=== PATIENT | male | born 1960 | race Caucasian/White ===

== ENCOUNTER 2018-01-01 08:37 | Emergency (ER) | payer OTHER, SELFPAY ==
[2018-01-01 08:38] VITALS: BP 156/82; PULSE 66; RESP 18; TEMP 36.6; O2SAT 99; BMI 27.0
[2018-01-01] MEDS: Ketorolac 60 MG/2 ML Vial IM (09:06)
--- NOTE | 2018-01-01 09:12 | ED.DCSUM_ITS ---
- ER Visit Summary Date of Service: 01/01/18 Chief Complaint: Back pain History of Present Illness: The patient is a 57 M presenting with back pain. He states this started yesterday. He states he lifted a box and turned and felt a pop in his right lower back. He has a history of chronic back pain. He states this worsened after lifting a box at work yesterday. He denies bowel or bladder incontinence. No numbness or weakness. He is able to ambulate with pain. Denies other complaints. Physical Examination: Vitals are stable. Patient is afebrile. Alert no acute distress. HEENT exam is unremarkable. Lungs are clear and equal bilaterally. Heart is regular rate and rhythm. Abdomen is soft nontender nondistended. Back: Right paraspinal lumbar muscle tenderness, no midline tenderness. Straight leg raise positive at 30? on the right Extremities are unremarkable. Skin is warm and dry. No focal neurologic deficit. Normal strength and sensation Remainder of exam is unremarkable. Emergency Department Course and Treatment: Patient drove himself to the emergency department. He is given Toradol IM. He is given a prescription for Flexeril. Advised follow-up with corporate care. Advised return to ED if worsening complaints. Disposition: Discharge home Impression: Lumbar strain This note was generated with [employer] dictation software. It may contain incorrect words, spelling, and punctuation that were not noted in review of the chart prior to signing ED Disposition - Plan for ED Patient: Chief Complaint: Back Referrals: Maris Kolb, HUSSAIN-C [Primary Care Provider] -
--- NOTE | 2018-01-01 09:12 | ED.DEP ---
ED Disposition - Plan for ED Patient: Chief Complaint: Back Instructions: ED Sprain Strain Lumbar Prescriptions: Cyclobenzaprine [Flexeril] 10 mg PO TID PRN #20 tablet PRN Reason: Muscle Spasm Referrals: Maris Kolb NP-C [Primary Care Provider] - Corporate,[facility] [place] [GROUP OF PHYSICIANS] -
[2018-01-01 09:37] VITALS: BP 129/63; PULSE 78; RESP 16; O2SAT 98
== END 2018-01-01 09:38 | disposition home or self-care (01) ==
PROVIDERS: Emergency Provider Emergency Medicine; Family Provider Nurse Practitioner Primary Care; PCP Nurse Practitioner Primary Care
DX: S39.012A Strain of muscle, fascia and tendon of lower back, initial encounter (principal); X50.0XXA Overexertion from strenuous movement or load, initial encounter; Y93.89 Activity, other specified; Y92.9 Unspecified place or not applicable; G89.29 Other chronic pain; Z72.0 Tobacco use
CPT/HCPCS: 96372; 99282

== ENCOUNTER 2021-04-21 10:45 | Emergency (ER) | payer BC, SELFPAY ==
[2021-04-21 10:46] VITALS: BP 140/79; PULSE 67; RESP 14; TEMP 36.3; O2SAT 99; BMI 26.4
--- NOTE | 2021-04-21 11:00 | EDS_ITS ---
HPI History of Present Illness Chief Complaint: Upper Extremity Injury Informant: patient Onset/Context/Timing Onset: Yesterday Current Severity: Mild Maximum Severity: Mild Narrative Narrative: Patient presents secondary to right wrist pain. He states he was at work yesterday and noted pain in the volar right wrist that extended into the hand as well as up into the forearm. He now has increased pain with any flexion and extension. No erythema or warmth. No direct trauma or injury. He does report having repetitive movements with his wrist frequently. Patient also complains of cold symptoms with a cough for the past week. [facility] Medical History (Updated 04/21/21 @ 11:[address] Mami Miller MD) Meniscal injury no medical history Home Medications naproxen [Naprosyn] 500 mg PO BID PRN #20 tab 04/21/21 [Rx Last Taken Unknown] prednisone 60 mg PO DAILY #15 tab 04/21/21 [Rx Last Taken Unknown] Allergy/AdvReac Type Severity Reaction Status Date / Time No Known Allergies Allergy Verified 04/21/21 10:46 Social History Smoking Status: Current every day smoker tobacco type: cigarettes ROS ROS ED Constitutional Constitutional ED: Denies chills or fever(s) Eyes Eyes: Denies change in vision ENT ENT ED: Reports other Details: Congestion ; Denies sore throat Cardiovascular Cardiovascular: Denies chest pain Respiratory/Chest Respiratory/Chest: Reports cough; Denies dyspnea Gastrointestinal Gastrointestinal: Denies abdominal pain, diarrhea, nausea or vomiting Genitourinary Genitourinary ED: Denies dysuria Musculoskeletal Musculoskeletal: Reports other Details: Right wrist pain ; Denies back pain Integumentary Denies rash Neurologic Neurologic: Denies headache(s) or weakness Allergic/Immunologic Allergic/Immunologic ED: Denies urticaria EXAM Physical Exam Const Vital Signs: 04/21/21 10:46 Temperature 97.4 F L Temperature Source Temporal Pulse Rate 67 Respiratory Rate 14 Blood Pressure 140/79 H Blood Pressure Mean 99 Pulse Ox 99 Oxygen Delivery Method Room Air Positive well nourished and well developed General Appearance ED: well developed HEENT Reports normocephalic and head/scalp atraumatic Eyes PERRL and EOMs intact bilaterally Neck supple Chest Wall inspection of chest normal and palpation of chest normal Resp normal respiratory effort and clear to auscultation bilaterally Cardio regular rate and regular rhythm GI normal to inspection, nondistended, normoactive bowel sounds Palpation: soft Extremity normal to inspection Extremity Narrative: Tenderness to palpation over carpal tunnel volar right wrist. Decreased ROM at wrist secondary to pain. No erythema or warmth. Strong distal pulses with cap refill intact. Neuro oriented x3 and no sensory deficits noted Sensorium / Orientation: alert Motor Exam: strength 5/5 throughout Psych mental status grossly normal Skin no rashes or lesions noted MDM MDM MDM Narrative Medical decision making narrative: Right wrist x-ray obtained. Due to the patient's cold symptoms Covid send out PCR test ordered. Treatment and Re-Evaluation Comments:: Right wrist x-ray per my interpretation reveals no acute findings. Radiologist interpretation is reviewed and agrees. Patient be placed in a Velcro wrist splint and treated with a course of anti-inflammatories and prednisone. He will be referred to orthopedics if not improving. Discharge Plan Triage Chief Complaint: Upper Extremity Injury ED Provider: Mami Miller Dx/Rx/DC Orders Clinical Impression: Carpal tunnel syndrome Instructions: ED Carpal Tunnel Syndrome Prescriptions: New naproxen [Naprosyn] 500 mg tablet 500 mg PO BID PRN (Reason: pain) Qty: 20 RF: 0 prednisone 20 mg tablet 60 mg PO DAILY Qty: 15 RF: 0 Primary Care Provider: Maris Kolb NP Referrals: Demetris Kumari MD [STAFF PHYSICIAN] - 10-14 Days if not better Maris oKlb NP, SOUND EFFECTS SUPERVISOR-C [Primary Care Provider] - Disposition Disposition: Home, Self Care
--- NOTE | 2021-04-21 11:12 | RAD_ITS ---
STUDY: X-RAY - RIGHT WRIST REASON FOR EXAM: Right wrist pain since yesterday, no specific injury. TECHNIQUE: 3 view(s) of the wrist were obtained. COMPARISON: None. FINDINGS: Normal visualized distal radius and ulna. Normal radiocarpal articulation. Normal distal radioulnar articulation. Normal carpal bones. Normal carpal articulations. Normal carpometacarpal articulation of the thumb. Normal second through fifth carpometacarpal articulations. Normal visualized metacarpal bones. The soft tissue structures are unremarkable. RAD/Wrist min 3 Views IMPRESSION: Normal x-ray examination of the right wrist. Electronically Signed: Omar Ferguson MD at 11:36 EDT Tel , Service support ,
[2021-04-21] MEDS: predniSONE 20 MG Tablet 40 MG PO (12:18)
[2021-04-21] MEDS: Naproxen 500 MG Tablet PO (12:18)
== END 2021-04-21 12:23 | disposition home or self-care (01) ==
LOC: ED 12:07
PROVIDERS: Emergency Provider Emergency Medicine; PCP Nurse Practitioner Primary Care
DX: G56.01 Carpal tunnel syndrome, right upper limb (principal); F17.210 Nicotine dependence, cigarettes, uncomplicated
CPT/HCPCS: 73110; 87635; 99284; U0005; U0003

== ENCOUNTER 2021-07-05 23:26 | Emergency (ER) | payer BC, SELFPAY ==
[2021-07-05 23:27] VITALS: BP 168/65; PULSE 100; RESP 18; TEMP 36.7; O2SAT 98; BMI 27.3
--- NOTE | 2021-07-05 23:36 | RAD_ITS ---
STUDY: X-RAY - RIGHT HAND, ATTENTION 4 FINGER REASON FOR EXAM: Male, 60 years old. Injury, eval for FB -- ring finger TECHNIQUE: 3 view(s) of the finger were obtained. COMPARISON: None. FINDINGS: Normal metacarpal head. Normal metacarpophalangeal joint. Normal proximal phalanx. Normal middle phalanx. Normal distal phalanx. Normal proximal interphalangeal joint. Normal distal interphalangeal joint. RAD/Finger(s) Min 2 Views IMPRESSION: Normal x-ray examination of the finger. Electronically Signed: Carmelita Aranda MD at 0:09 EST Tel , Service support ,
[2021-07-05] MEDS: Lidocaine/Epi/Tetracaine 50 ML 1 APPLIC TOPICAL (23:45)
[2021-07-05] MEDS: Diphth,Pertuss(Acell),Tet Vac 0.5 ML Vial IM (23:48)
--- NOTE | 2021-07-05 23:55 | EDS_ITS ---
HPI History of Present Illness Chief Complaint: Laceration Informant: patient Occured/Mechanism Mechanism/Context: Yes other see comment below Comment: accidentally incised ring finger when glass broke Onset/Context/Timing Onset: Today (JPTA) Context: Sudden Onset Timing: Continuous Quality of Pain: - (sore) Location: R ring finger Current Severity: Mild Maximum Severity: Moderate Worsened by: palpation Relieved by: nothing Associated Symptoms Associated Symptoms: Negative for Parasthesia, Weakness and Loss of Funtion Narrative Narrative: Patient states he lost his temper and he was holding a drinking glass, slammed down on the counter and it broke, cutting his right finger. He denies any numbness, weakness or loss of function. No other injuries. Tetanus Immunization: 5-10 years [facility] Medical History Meniscal injury Rheumatoid arthritis Home Medications naproxen [Naprosyn] 500 mg PO BID PRN #20 tab 04/21/21 [Rx Last Taken Unknown] prednisone 60 mg PO DAILY #15 tab 04/21/21 [Rx Last Taken Unknown] meloxicam 07/05/21 [History Last Taken Unknown] Allergy/AdvReac Type Severity Reaction Status Date / Time No Known Allergies Allergy Verified 04/21/21 10:46 Social History Smoking Status: Current every day smoker tobacco type: cigarettes ROS ROS ED Constitutional Constitutional ED: Denies chills or fever(s) Musculoskeletal Musculoskeletal: Reports extremity pain; Denies neck pain Integumentary Reports laceration; Denies Abrasions or rash Neurologic Neurologic: Denies paresthesias or weakness EXAM Physical Exam Const Vital Signs: 07/05/21 23:27 Temperature 98.1 F Temperature Source Oral Pulse Rate 100 Respiratory Rate 18 Blood Pressure 168/65 H Blood Pressure Mean 99 Pulse Ox 98 Oxygen Delivery Method Room Air Positive well nourished and well developed General Appearance ED: well developed and NAD Neck full ROM and supple Back/Spine normal ROM and normal to inspection Extremity Extremity Narrative: Mildly tender at right ring finger laceration at the distal phalanx. Intact FDS, FDP, extensor. No other injuries to the right hand. Neuro oriented x3, no focal motor deficits and no sensory deficits noted Sensorium / Orientation: alert Psych mental status grossly normal and thought process normal Skin Skin Narrative: 2 cm full-thickness subcutaneous L-shaped laceration to the volar ulnar aspect of the right ring finger distal phalanx, subcutaneous fat seen, no other important structures, no active bleeding. Rashes: no rashes MDM MDM MDM Narrative Medical decision making narrative: X-rays of the finger were obtained to rule out a piece of glass/foreign body which the patient felt like may still be there, it is negative on my interpretation 3 views for foreign body or fracture/bony involvement. His laceration was repaired and he was given appropriate discharge instructions. Procedures Lacerations Right ring finger: Length: 2 cm Depth: Sub Q Shape: L-shaped Prep: Sterile Conditions and Chlorhexadine Laceration repair: Lidocaine with epi (1cc after topical let), Local, Wound explored (No FB) and - (Scrubbed with chlorhexidine aggressively) Number of Sutures/[place]re[place]: 3 Suture Information: Ethilon, Simple and 5-0 Comment: Repaired under bloodless field Discharge Plan Triage Chief Complaint: Laceration ED Provider: Kannan Boss Dx/Rx/DC Orders Clinical Impression: Laceration of right ring finger, Immunization, tetanus-diphtheria Instructions: ED Laceration, Hand: All Closures Prescriptions: No Action naproxen [Naprosyn] 500 mg tablet 500 mg PO BID PRN (Reason: pain) Qty: 20 RF: 0 prednisone 20 mg tablet 60 mg PO DAILY Qty: 15 RF: 0 meloxicam 15 mg tablet RF: 0 Primary Care Provider: Maris Kolb NP Referrals: Maris Kolb NP, MEAT AND POULTRY INSPECTOR-C [Primary Care Provider] - 10 Day for suture removal (Or ER or urgent care) Disposition Disposition: Home, Self Care
[2021-07-06] MEDS: Lidocaine 1% (20 ml mdv) 20 ML Vial INFILT (00:30)
[2021-07-06 01:13] VITALS: PULSE 75; RESP 16
== END 2021-07-06 01:15 | disposition home or self-care (01) ==
PROVIDERS: Emergency Provider Emergency Medicine; PCP Nurse Practitioner Primary Care
DX: S61.214A Laceration without foreign body of right ring finger without damage to nail, initial encounter (principal); F17.210 Nicotine dependence, cigarettes, uncomplicated; W22.09XA Striking against other stationary object, initial encounter
CPT/HCPCS: 12001; 73140; 90471; 90715; 99283

== ENCOUNTER 2021-07-27 09:57 | Emergency (ER) | payer OTHER, BC, SELFPAY ==
[2021-07-27 09:57] VITALS: BP 142/87; PULSE 70; RESP 16; TEMP 36.6; O2SAT 99; BMI 26.9
--- NOTE | 2021-07-27 10:13 | RAD_ITS ---
STUDY: X-RAY - RIGHT SHOULDER REASON FOR EXAM: Male, 60 years old. Injury TECHNIQUE: 4 view(s) of the shoulder. COMPARISON: None. FINDINGS: Normal glenohumeral articulation. Normal acromioclavicular joint. Normal acromion. Normal humeral head and visualized proximal humerus. The soft tissue structures are unremarkable. Normal visualized pulmonary apex. RAD/Shoulder min 2 Views IMPRESSION: Normal x-ray examination of the shoulder. Electronically Signed: Contreras Moe MD at 10:55 EST , Service support ,
--- NOTE | 2021-07-27 10:14 | EX.ED.UPPERE ---
HPI History of Present Illness Chief Complaint: Upper Extremity Injury Informant: patient Occured/Mechanism Mechanism/Context: Yes work related Onset/Context/Timing Onset: Yesterday Context: Gradual Onset Timing: Waxes and wanes Quality of Pain: Aching and Burning Current Severity: Mild Maximum Severity: Moderate Narrative Narrative: Patient present secondary to right shoulder pain. He states he was moving some boxes at work yesterday when he got a burning sensation in his right shoulder. He then felt a pop and then has had sharp intermittent pain in the right shoulder since that time. It does not radiate down his arm. No paresthesias or weakness. He is right-hand dominant. [facility] Medical History Meniscal injury Rheumatoid arthritis Home Medications naproxen [Naprosyn] 500 mg PO BID PRN #20 tab 07/27/21 [Rx Last Taken Unknown] Allergy/AdvReac Type Severity Reaction Status Date / Time No Known Allergies Allergy Verified 07/27/21 10:00 Social History Smoking Status: Current every day smoker tobacco type: cigarettes ROS ROS ED Constitutional Constitutional ED: Denies chills or fever(s) Eyes Eyes: Denies change in vision ENT ENT ED: Denies sore throat Cardiovascular Cardiovascular: Denies chest pain Respiratory/Chest Respiratory/Chest: Denies cough or dyspnea Gastrointestinal Gastrointestinal: Denies abdominal pain, diarrhea, nausea or vomiting Genitourinary Genitourinary ED: Denies dysuria Musculoskeletal Musculoskeletal: Reports other Details: Right shoulder pain ; Denies back pain Integumentary Denies rash Neurologic Neurologic: Denies headache(s) or weakness Allergic/Immunologic Allergic/Immunologic ED: Denies urticaria EXAM Physical Exam Const Vital Signs: 07/27/21 09:57 Temperature 97.9 F Temperature Source Temporal Pulse Rate 70 Respiratory Rate 16 Blood Pressure 142/87 H Blood Pressure Mean 105 Pulse Ox 99 Oxygen Delivery Method Room Air Positive well nourished and well developed General Appearance ED: well developed HEENT normocephalic and atraumatic Neck supple Chest Wall inspection of chest normal and palpation of chest normal Resp normal respiratory effort and clear to auscultation bilaterally Cardio regular rate and regular rhythm GI non-tender Palpation: soft Extremity Extremity Narrative: Tenderness over the right AC joint. No obvious deformity. No tenderness along the length of the clavicle. Good range of motion of the right upper extremity. Strong distal pulses. Neuro oriented x3 Sensorium / Orientation: alert Psych mental status grossly normal Skin Lesions: no lesions Rashes: no rashes MDM MDM MDM Narrative Medical decision making narrative: Patient given dose of naproxen. Right shoulder x-rays obtained. Radiography Diagnostic Testing: Radiology Impression Shoulder X-Ray 07/27/21 10:13 IMPRESSION: Normal x-ray examination of the shoulder. Electronically Signed: Contreras Moe MD at 10:55 EST , Service support , Treatment and Re-Evaluation Comments:: X-ray per my interpretation reveals no acute findings. Radiology interpretation also reviewed. Test results discussed with the patient. He will be treated with anti-inflammatories and will follow up with [facility]. Patient will be given work restrictions on use of right upper extremity Discharge Plan Triage Chief Complaint: Upper Extremity Injury ED Provider: Mami Miller Dx/Rx/DC Orders Clinical Impression: Sprain of right shoulder Instructions: ED Shoulder Sprain Prescriptions: New naproxen [Naprosyn] 500 mg tablet 500 mg PO BID PRN (Reason: pain) Qty: 20 RF: 0 Discontinued naproxen [Naprosyn] 500 mg tablet 500 mg PO BID PRN (Reason: pain) Qty: 20 RF: 0 prednisone 20 mg tablet 60 mg PO DAILY Qty: 15 RF: 0 meloxicam 15 mg tablet RF: 0 Stand Alone Forms: Work Status Form Primary Care Provider: Maris Kolb NP [facility] [GROUP OF PHYSICIANS] - 3-5 Days Maris Kolb NP, CLINICAL TRIAL EDUCATOR-C [Primary Care Provider] - Disposition Disposition: Home, Self Care
[2021-07-27] MEDS: Naproxen 500 MG Tablet PO (10:26)
--- NOTE | 2021-07-27 10:42 | ED.RN ---
pt's employer is [employer] out of [place]. this rn attempted to contact Janae Mclean at [phone] to see if drug screen is required. RN left number for call back. Pt given FROI to complete.
== END 2021-07-27 11:39 | disposition home or self-care (01) ==
LOC: ED 11:26
PROVIDERS: Emergency Provider Emergency Medicine; PCP Nurse Practitioner Primary Care
DX: S43.401A Unspecified sprain of right shoulder joint, initial encounter (principal); X50.3XXA Overexertion from repetitive movements, initial encounter; Y93.89 Activity, other specified; Y92.9 Unspecified place or not applicable; Y99.0 Civilian activity done for income or pay; M06.9 Rheumatoid arthritis, unspecified; F17.210 Nicotine dependence, cigarettes, uncomplicated
CPT/HCPCS: 73030; 99283

== ENCOUNTER → 2023-05-14 | Outpatient (CLI) | payer BC, SELFPAY ==
[2023-05-14 12:17] LABS: Erythrocyte Sedimentation Rate 13 mm/hr (0-20)
[2023-05-14 12:20] LABS: Absolute Lymphocyte Count 1.86 X10^3/uL (0.83-4.51); Absolute Neutrophil Count 5.1 X10^3/uL (2.0-7.7); Basophil# 0.06 X10^3/uL; Basophil% 0.8 % (0-1); Eosinophil# 0.27 X10^3/uL; Eosinophils% 3.4 % (0-5); Hematocrit 48.8 % (40-54); Hemoglobin 15.8 g/dL (13.0-16.5); Lymphocyte # 1.86 X10^3/ul (0.83-4.51); Lymphocyte % 23.7 % (19-41); Mean Corp Hgb Conc 32.4 g/dL (32-36); Mean Corpuscular Hgb 31.1 pg (27.0-32.0); Mean Corpuscular Volume 96.1 fL (80-94); Mean Platelet Vol. 10.9 fl (6.2-12.0); Monocyte# 0.46 X10^3/uL; Monocyte% 5.9 % (0-10); NRBC Flagged by Analyzer 0 % (0-5); Neutrophil # 5.14 X10^3/uL (2.7-7.7); Neutrophil % 65.3 % (47-70); Platelet Count 234 K/mm3 (150-450); RBC Distribution Width CV 13.6 % (11.6-14.6); RBC Distribution Width SD 47.9 fl (35.1-43.9); Red Blood Count 5.08 M/mm3 (4.6-6.2); White Blood Count 7.9 K/mm3 (4.4-11.0)
[2023-05-14 12:56] LABS: ALB/GLOB Ratio 0.8 RATIO (0.9-2.4); AST(SGOT) 15 U/L (15-37); Alanine Aminotransfer ALT/SGPT 31 U/L (16-61); Albumin, Serum 3.5 g/dL (3.2-5.0); Alkaline Phosphatase 89 U/L (45-117); Anion Gap 3 (5-15); BUN 13 mg/dL (7-18); BUN/Creat Ratio 13.8 RATIO (10-20); CRP 6.63 mg/L (0.0-3.0); Calcium,Total 9.4 mg/dL (8.5-10.1); Chloride 107 mmol/L (98-107); Creatinine, Serum 0.94 mg/dL (0.70-1.30); EST Glomerular Filtration Rate 86 mL/min (>60); Est Glom Filt Rate - Afr Amer 104 mL/min (>60); Globulin 4.4 g/dL (2.2-4.2); Glucose 94 mg/dL (74-106); Potassium 4.7 mmol/L (3.5-5.1); Protein, Total 7.9 g/dL (6.4-8.2); Sodium Level 139 mmol/L (136-145)
[2023-05-14 13:24] LABS: Hepatitis B Surface Antibody Non-Reactive; Hepatitis B Surface Antigen Non-Reactive (Nonreactive); Hepatitis C Antibody Non-Reactive (Nonreactive)
[2023-05-15 13:07] LABS: CCP IgG Antibodies > 250 units (0-19)
== END | disposition home or self-care (01) ==
LOC: MTLAB 09:53
PROVIDERS: PCP Nurse Practitioner Primary Care; Referring Provider Internal Medicine Rheumatology; Visit Provider Internal Medicine Rheumatology
DX: M05.70 Rheumatoid arthritis with rheumatoid factor of unspecified site without organ or systems involvement (principal); Z79.899 Other long term (current) drug therapy
CPT/HCPCS: 36415; 80053; 85025; 85652; 86140; 86200; 86431; 86706; 86803; 87340

== ENCOUNTER → 2023-08-28 | Outpatient (CLI) | payer BC, SELFPAY ==
[2023-08-28 12:24] LABS: Absolute Lymphocyte Count 1.73 X10^3/uL (0.83-4.51); Absolute Neutrophil Count 5.1 X10^3/uL (2.0-7.7); Basophil# 0.07 X10^3/uL; Basophil% 0.9 % (0-1); Eosinophil# 0.39 X10^3/uL; Hematocrit 43.3 % (40-54); Hemoglobin 14.5 g/dL (13.0-16.5); Lymphocyte # 1.73 X10^3/ul (0.83-4.51); Lymphocyte % 22.1 % (19-41); Mean Corp Hgb Conc 33.5 g/dL (32-36); Mean Corpuscular Hgb 31.5 pg (27.0-32.0); Mean Corpuscular Volume 94.1 fL (80-94); Mean Platelet Vol. 10.6 fl (6.2-12.0); Monocyte# 0.54 X10^3/uL; Monocyte% 6.9 % (0-10); NRBC Flagged by Analyzer 0 % (0-5); Neutrophil # 5.07 X10^3/uL (2.7-7.7); Neutrophil % 64.6 % (47-70); Platelet Count 232 K/mm3 (150-450); RBC Distribution Width CV 13.5 % (11.6-14.6); RBC Distribution Width SD 45.5 fl (35.1-43.9); White Blood Count 7.8 K/mm3 (4.4-11.0)
[2023-08-28 13:47] LABS: ALB/GLOB Ratio 0.9 RATIO (0.9-2.4); AST(SGOT) 13 U/L (15-37); Alanine Aminotransfer ALT/SGPT 24 U/L (16-61); Albumin, Serum 3.4 g/dL (3.2-5.0); Alkaline Phosphatase 84 U/L (45-117); Anion Gap 1 (5-15); BUN 14 mg/dL (7-18); BUN/Creat Ratio 15.2 RATIO (10-20); Calcium,Total 9.4 mg/dL (8.5-10.1); Chloride 110 mmol/L (98-107); Creatinine, Serum 0.92 mg/dL (0.70-1.30); EST Glomerular Filtration Rate 88 mL/min (>60); Est Glom Filt Rate - Afr Amer 106 mL/min (>60); Globulin 3.8 g/dL (2.2-4.2); Glucose 80 mg/dL (74-106); Potassium 4.2 mmol/L (3.5-5.1); Protein, Total 7.2 g/dL (6.4-8.2); Sodium Level 139 mmol/L (136-145)
== END | disposition home or self-care (01) ==
PROVIDERS: PCP Nurse Practitioner Primary Care; Referring Provider Internal Medicine Rheumatology; Visit Provider Internal Medicine Rheumatology
DX: M05.70 Rheumatoid arthritis with rheumatoid factor of unspecified site without organ or systems involvement (principal); M17.0 Bilateral primary osteoarthritis of knee; Z79.899 Other long term (current) drug therapy
CPT/HCPCS: 36415; 80053; 85025

== ENCOUNTER 2023-10-23 15:09 | Emergency (ER) | payer BC, SELFPAY ==
[2023-10-23 15:09] VITALS: BP 172/82; PULSE 79; RESP 18; TEMP 36.1; O2SAT 100; BMI 27.6
--- NOTE | 2023-10-23 15:34 | EDS_ITS ---
HPI History of Present Illness Chief Complaint: Upper Extremity Injury Informant: patient Narrative Narrative: [id number] male presents mechanical fall 11 AM this morning at home outside. He stumbled falling arm in supine position in his chest hitting his arm. Pain with movement. No head injuries. No chest wall pain. No anticoagulation medicines. Took a couple Tylenol's earlier. Pain worse with movement. PFSH PFSH Medical History Digital mucous cyst of finger of right hand Meniscal injury Olecranon bursitis, left elbow Rheumatoid arthritis Home Medications methotrexate sodium 2.5 mg tablet 2.5 mg PO QWEEK 12/22/21 [History Last Taken Unknown] acetaminophen 500 mg tablet (Tylenol Extra Strength) 500 mg PO Q6H PRN 09/06/23 [History Last Taken Unknown] folic acid 800 mcg tablet 0.8 mg PO DAILY 09/06/23 [History Last Taken Unknown] Allergy/AdvReac Type Severity Reaction Status Date / Time cat dander Allergy Itching Verified 10/23/23 15:11 Social History Smoking Status: Current every day smoker tobacco type: cigarettes ROS ROS ED Constitutional Constitutional ED: Denies chills, fever(s) or sweats Eyes Eyes: Denies change in vision ENT ENT ED: Denies dysphagia or sore throat Cardiovascular Cardiovascular: Denies chest pain, leg edema, palpitations or racing heartbeat Respiratory/Chest Respiratory/Chest: Denies cough, dyspnea or dyspnea on exertion Gastrointestinal Gastrointestinal: Denies abdominal pain, diarrhea, nausea or vomiting Genitourinary Genitourinary ED: Denies dysuria, hematuria or urinary frequency Musculoskeletal Musculoskeletal: Reports extremity pain; Denies back pain or neck pain Integumentary Denies rash or wounds Neurologic Neurologic: Denies headache(s), paresthesias or weakness EXAM Physical Exam Const Vital Signs: 10/23/23 15:09 Temperature 96.9 F L Temperature Source Temporal Pulse Rate 79 Respiratory Rate 18 Blood Pressure 172/82 H Blood Pressure Mean 112 Pulse Ox 100 Oxygen Delivery Method Room Air Positive well nourished and well developed Constitutional Narrative: GCS 15 General Appearance ED: well developed and NAD HEENT Reports moist mucous membranes normocephalic and atraumatic Eyes PERRL, EOMs intact bilaterally and conjunctivae normal General Eye ED: Yes normal appearance of both eyes Neck no lymphadenopathy and supple General: Negative for tenderness Chest Wall Chest: Negative for tenderness Resp normal respiratory effort and normal air movement Effort and Inspection: symmetric chest movement; Negative for respiratory distress Cardio regular rate, regular rhythm and no murmurs Peripheral Pulses: pulses 2+ throughout GI normal to inspection, nondistended, normoactive bowel sounds and non-tender Palpation: Negative for guarding or rebound tenderness present Back/Spine no CVA tenderness and no thoracic nor lumbar tenderness Extremity Extremity Narrative: Right upper extremity: No shoulder or elbow tenderness. Slight swelling of the distal radial aspect of forearm however no bony tenderness. There is swelling of the dorsal wrist with snuffbox tenderness. Skin intact. No hand tenderness. Neuro vas intact distally. General Extremety ED: Yes tenderness; Negative for edema General Extremity: Negative for edema Neuro oriented x3 and no sensory deficits noted Sensorium / Orientation: awake and alert Skin no rashes or lesions noted and no wounds MDM MDM MDM Narrative Medical decision making narrative: Interventions / MDM: Differential diagnosis: Wrist sprain, occult fracture Diagnosis considered but do not suspect: N/A My EKG interpretation: N/A Imaging independently reviewed and interpreted by myself: Three-view x-ray right wrist: No fracture, also read by radiology. External documents reviewed: N/A Test considered but not ordered:N/A ED course: Patient mild scalp box tenderness and swelling. X-ray ordered. Ibuprofen and ice was placed. X-ray negative for fracture. He is provided thumb spica. Discussed potential occult fracture with the area of injury. He will maintain the splint and remove for showers. If pain persist after a week he will need reimaging's. He will continue Tylenol or Motrin as needed. All questions were answered. Re-evaluation: stable Disposition discussed with patient/family/significant other: Patient Case discussed with consulting clinician: N/A This note was generated with [employer] dictation software. It may contain incorrect words, spelling, and punctuation that were not noted in checking the note before signing. Discharge Plan Triage Chief Complaint: Upper Extremity Injury ED Provider: Huber Chowdary Dx/Rx/DC Orders Clinical Impression: Fall, Right wrist sprain Instructions: ED Wrist Sprain Prescriptions: No Action methotrexate sodium 2.5 mg tablet 2.5 mg PO QWEEK folic acid 800 mcg tablet 0.8 mg PO DAILY acetaminophen [Tylenol Extra Strength] 500 mg tablet 500 mg PO Q6H PRN Primary Care Provider: Maris Kolb NP Referrals: Maris Kolb NP, SENIOR JAVA SOFTWARE DEVELOPER-C [Primary Care Provider] - 1 Week if not improving Activity Restrictions/Additional Instructions: Your right wrist x-ray negative today. You have tenderness slight swelling at the snuffbox. Maintain the splint, may remove for showers. Use Tylenol Motrin every 6 hours. If you have persistent pain after week, he may need reimaging for evaluation for occult fracture. Disposition Disposition: Home, Self Care Discharge Date/Time: 10/23/23 17:16
[2023-10-23] MEDS: Ibuprofen 600 MG Tablet PO (15:46)
--- NOTE | 2023-10-23 15:47 | RAD_ITS ---
STUDY: X-RAY - RIGHT WRIST REASON FOR EXAM: Male, 63 years old. injury TECHNIQUE: 3 view(s) of the wrist were obtained. COMPARISON: 04/21/2021. FINDINGS: Normal visualized distal radius and ulna. Normal radiocarpal articulation. Normal distal radioulnar articulation. Normal carpal bones. Normal carpal articulations. Normal carpometacarpal articulation of the thumb. Normal second through fifth carpometacarpal articulations. Normal visualized metacarpal bones. The soft tissue structures are unremarkable. There is no demonstrated acute fracture. RAD/Wrist min 3 Views IMPRESSION: Normal x-ray examination of the wrist. Electronically Signed: Oz Ho MD at 16:35 EDT ,
== END 2023-10-23 17:16 | disposition home or self-care (01) ==
PROVIDERS: Emergency Provider Emergency Medicine; PCP Nurse Practitioner Primary Care; Visit Provider Emergency Medicine
DX: S63.591A Other specified sprain of right wrist, initial encounter (principal); W01.0XXA Fall on same level from slipping, tripping and stumbling without subsequent striking against object, initial encounter; Y92.008 Other place in unspecified non-institutional (private) residence as the place of occurrence of the external cause; F17.210 Nicotine dependence, cigarettes, uncomplicated
CPT/HCPCS: 73110; 99283

== ENCOUNTER → 2023-11-22 | Outpatient (CLI) | payer BC, SELFPAY ==
[2023-11-22 12:19] LABS: Absolute Lymphocyte Count 1.71 X10^3/uL (0.83-4.51); Absolute Neutrophil Count 5.5 X10^3/uL (2.0-7.7); Basophil# 0.05 X10^3/uL; Basophil% 0.6 % (0-1); Eosinophil# 0.27 X10^3/uL; Eosinophils% 3.3 % (0-5); Hematocrit 42.8 % (40-54); Hemoglobin 14.8 g/dL (13.0-16.5); Lymphocyte # 1.71 X10^3/ul (0.83-4.51); Mean Corp Hgb Conc 34.6 g/dL (32-36); Mean Corpuscular Hgb 31.8 pg (27.0-32.0); Mean Corpuscular Volume 91.8 fL (80-94); Mean Platelet Vol. 10.9 fl (6.2-12.0); Monocyte# 0.56 X10^3/uL; Monocyte% 6.9 % (0-10); NRBC Flagged by Analyzer 0 % (0-5); Neutrophil # 5.47 X10^3/uL (2.7-7.7); Neutrophil % 67.3 % (47-70); Platelet Count 205 K/mm3 (150-450); RBC Distribution Width CV 13.3 % (11.6-14.6); RBC Distribution Width SD 44.1 fl (35.1-43.9); Red Blood Count 4.66 M/mm3 (4.6-6.2); White Blood Count 8.1 K/mm3 (4.4-11.0)
[2023-11-22 15:59] LABS: ALB/GLOB Ratio 0.9 RATIO (0.9-2.4); AST(SGOT) 16 U/L (15-37); Alanine Aminotransfer ALT/SGPT 20 U/L (16-61); Albumin, Serum 3.6 g/dL (3.2-5.0); Alkaline Phosphatase 87 U/L (45-117); Anion Gap 4 (5-15); BUN 17 mg/dL (7-18); Calcium,Total 9.1 mg/dL (8.5-10.1); Chloride 108 mmol/L (98-107); Creatinine, Serum 1.06 mg/dL (0.70-1.30); EST Glomerular Filtration Rate 75 mL/min (>60); Est Glom Filt Rate - Afr Amer 91 mL/min (>60); Globulin 3.9 g/dL (2.2-4.2); Glucose 84 mg/dL (74-106); Potassium 4.5 mmol/L (3.5-5.1); Protein, Total 7.5 g/dL (6.4-8.2); Sodium Level 139 mmol/L (136-145)
== END | disposition home or self-care (01) ==
LOC: MTLAB 10:57
PROVIDERS: PCP Nurse Practitioner Primary Care; Referring Provider Internal Medicine Rheumatology; Visit Provider Internal Medicine Rheumatology
DX: M05.70 Rheumatoid arthritis with rheumatoid factor of unspecified site without organ or systems involvement (principal); M17.0 Bilateral primary osteoarthritis of knee; Z79.899 Other long term (current) drug therapy
CPT/HCPCS: 36415; 80053; 85025

== ENCOUNTER → 2024-01-30 | Outpatient (CLI) | payer BC, SELFPAY ==
[2024-01-30 15:04] LABS: Absolute Lymphocyte Count 1.84 X10^3/uL (0.83-4.51); Absolute Neutrophil Count 6.7 X10^3/uL (2.0-7.7); Basophil# 0.07 X10^3/uL; Basophil% 0.7 % (0-1); Eosinophil# 0.25 X10^3/uL; Eosinophils% 2.6 % (0-5); Hematocrit 40.9 % (40-54); Hemoglobin 13.8 g/dL (13.0-16.5); Lymphocyte # 1.84 X10^3/ul (0.83-4.51); Lymphocyte % 19.4 % (19-41); Mean Corp Hgb Conc 33.7 g/dL (32-36); Mean Corpuscular Hgb 30.9 pg (27.0-32.0); Mean Corpuscular Volume 91.7 fL (80-94); Mean Platelet Vol. 11.1 fl (6.2-12.0); Monocyte# 0.54 X10^3/uL; Monocyte% 5.7 % (0-10); NRBC Flagged by Analyzer 0 % (0-5); Neutrophil # 6.71 X10^3/uL (2.7-7.7); Neutrophil % 70.8 % (47-70); Platelet Count 221 K/mm3 (150-450); RBC Distribution Width CV 13.5 % (11.6-14.6); RBC Distribution Width SD 45.7 fl (35.1-43.9); Red Blood Count 4.46 M/mm3 (4.6-6.2); White Blood Count 9.5 K/mm3 (4.4-11.0)
[2024-01-30 15:22] LABS: ALB/GLOB Ratio 0.9 RATIO (0.9-2.4); AST(SGOT) 13 U/L (15-37); Alanine Aminotransfer ALT/SGPT 20 U/L (16-61); Albumin, Serum 3.3 g/dL (3.2-5.0); Alkaline Phosphatase 78 U/L (45-117); Anion Gap 6 (5-15); BUN 14 mg/dL (7-18); BUN/Creat Ratio 12.6 RATIO (10-20); Calcium,Total 9.1 mg/dL (8.5-10.1); Chloride 109 mmol/L (98-107); Creatinine, Serum 1.11 mg/dL (0.70-1.30); EST Glomerular Filtration Rate 71 mL/min (>60); Est Glom Filt Rate - Afr Amer 86 mL/min (>60); Globulin 3.7 g/dL (2.2-4.2); Glucose 114 mg/dL (74-106); Potassium 3.5 mmol/L (3.5-5.1); Sodium Level 139 mmol/L (136-145)
== END | disposition home or self-care (01) ==
LOC: MTLAB 12:40
PROVIDERS: PCP Nurse Practitioner Primary Care; Referring Provider Internal Medicine Rheumatology; Visit Provider Internal Medicine Rheumatology
DX: M05.70 Rheumatoid arthritis with rheumatoid factor of unspecified site without organ or systems involvement (principal); Z79.899 Other long term (current) drug therapy
CPT/HCPCS: 36415; 80053; 85025

== ENCOUNTER → 2024-05-08 | Outpatient (CLI) | payer BC, SELFPAY ==
[2024-05-08 12:06] LABS: Absolute Lymphocyte Count 1.36 X10^3/uL (0.83-4.51); Absolute Neutrophil Count 5.3 X10^3/uL (2.0-7.7); Basophil# 0.06 X10^3/uL; Basophil% 0.8 % (0-1); Eosinophil# 0.23 X10^3/uL; Hematocrit 45.9 % (40-54); Hemoglobin 15.1 g/dL (13.0-16.5); Lymphocyte # 1.36 X10^3/ul (0.83-4.51); Mean Corp Hgb Conc 32.9 g/dL (32-36); Mean Corpuscular Hgb 31.2 pg (27.0-32.0); Mean Corpuscular Volume 94.8 fL (80-94); Monocyte# 0.61 X10^3/uL; Monocyte% 8.1 % (0-10); NRBC Flagged by Analyzer 0 % (0-5); Neutrophil # 5.25 X10^3/uL (2.7-7.7); Neutrophil % 69.4 % (47-70); Platelet Count 208 K/mm3 (150-450); RBC Distribution Width CV 13.8 % (11.6-14.6); RBC Distribution Width SD 47.7 fl (35.1-43.9); Red Blood Count 4.84 M/mm3 (4.6-6.2); White Blood Count 7.6 K/mm3 (4.4-11.0)
[2024-05-08 12:51] LABS: ALB/GLOB Ratio 0.8 RATIO (0.9-2.4); AST(SGOT) 13 U/L (15-37); Alanine Aminotransfer ALT/SGPT 23 U/L (16-61); Albumin, Serum 3.4 g/dL (3.2-5.0); Alkaline Phosphatase 89 U/L (45-117); Anion Gap 3 (5-15); BUN 14 mg/dL (7-18); BUN/Creat Ratio 12.8 RATIO (10-20); Calcium,Total 9.4 mg/dL (8.5-10.1); Chloride 108 mmol/L (98-107); Creatinine, Serum 1.09 mg/dL (0.70-1.30); EST Glomerular Filtration Rate 72 mL/min (>60); Est Glom Filt Rate - Afr Amer 88 mL/min (>60); Glucose 96 mg/dL (74-106); Potassium 4.9 mmol/L (3.5-5.1); Protein, Total 7.4 g/dL (6.4-8.2); Sodium Level 141 mmol/L (136-145)
== END | disposition home or self-care (01) ==
PROVIDERS: PCP Nurse Practitioner Primary Care; Referring Provider Internal Medicine Rheumatology; Visit Provider Internal Medicine Rheumatology
DX: M05.70 Rheumatoid arthritis with rheumatoid factor of unspecified site without organ or systems involvement (principal); M17.0 Bilateral primary osteoarthritis of knee; Z79.899 Other long term (current) drug therapy
CPT/HCPCS: 36415; 80053; 85025

== ENCOUNTER → 2024-07-31 | Outpatient (CLI) | payer BC, SELFPAY ==
[2024-07-31 15:05] LABS: Absolute Lymphocyte Count 1.98 X10^3/uL (0.83-4.51); Absolute Neutrophil Count 5.4 X10^3/uL (2.0-7.7); Basophil# 0.07 X10^3/uL; Basophil% 0.8 % (0-1); Eosinophil# 0.32 X10^3/uL; Eosinophils% 3.8 % (0-5); Hematocrit 44.5 % (40-54); Hemoglobin 14.5 g/dL (13.0-16.5); Lymphocyte # 1.98 X10^3/ul (0.83-4.51); Lymphocyte % 23.2 % (19-41); Mean Corp Hgb Conc 32.6 g/dL (32-36); Mean Corpuscular Hgb 30.7 pg (27.0-32.0); Mean Corpuscular Volume 94.1 fL (80-94); Mean Platelet Vol. 10.9 fl (6.2-12.0); Monocyte# 0.68 X10^3/uL; NRBC Flagged by Analyzer 0 % (0-5); Neutrophil # 5.44 X10^3/uL (2.7-7.7); Neutrophil % 63.7 % (47-70); Platelet Count 204 K/mm3 (150-450); RBC Distribution Width CV 13.2 % (11.6-14.6); RBC Distribution Width SD 45.2 fl (35.1-43.9); Red Blood Count 4.73 M/mm3 (4.6-6.2); White Blood Count 8.5 K/mm3 (4.4-11.0)
[2024-07-31 15:44] LABS: ALB/GLOB Ratio 0.8 RATIO (0.9-2.4); AST(SGOT) 12 U/L (15-37); Alanine Aminotransfer ALT/SGPT 19 U/L (16-61); Albumin, Serum 3.2 g/dL (3.2-5.0); Alkaline Phosphatase 87 U/L (45-117); Anion Gap 2 (5-15); BUN 15 mg/dL (7-18); BUN/Creat Ratio 14.2 RATIO (10-20); Chloride 108 mmol/L (98-107); Creatinine, Serum 1.06 mg/dL (0.70-1.30); EST Glomerular Filtration Rate 75 mL/min (>60); Est Glom Filt Rate - Afr Amer 91 mL/min (>60); Globulin 3.8 g/dL (2.2-4.2); Glucose 92 mg/dL (74-106); Potassium 4.4 mmol/L (3.5-5.1); Sodium Level 137 mmol/L (136-145)
== END | disposition home or self-care (01) ==
LOC: MTLAB 13:30
PROVIDERS: PCP Nurse Practitioner Primary Care; Referring Provider Internal Medicine Rheumatology; Visit Provider Internal Medicine Rheumatology
DX: M05.70 Rheumatoid arthritis with rheumatoid factor of unspecified site without organ or systems involvement (principal); M17.0 Bilateral primary osteoarthritis of knee; Z79.899 Other long term (current) drug therapy
CPT/HCPCS: 36415; 80053; 85025

== ENCOUNTER 2024-09-24 18:24 | Emergency (ER) | payer BC, SELFPAY ==
[2024-09-24] VITALS (7 sets, daily range): BP systolic 138–180; BP diastolic 73–87; PULSE 78–93; RESP 18–26; TEMP 36.6–36.8; O2SAT 95–98
--- NOTE | 2024-09-24 18:58 | RAD_ITS ---
PROCEDURE: CHEST 1 VIEW (PORTABLE) REASON FOR EXAM: Shortness of breath TECHNIQUE: Frontal view of the chest. COMPARISON: None. FINDINGS: The heart size is normal. The mediastinal contour is unremarkable. Mild bibasilar opacities, [id number] Degenerative changes are identified within the thoracic spine and left shoulder. RAD/Chest 1 View (Portable) IMPRESSION: Mild bibasilar atelectasis versus airspace disease. Reading Location: [facility]
--- NOTE | 2024-09-24 19:48 | EKG12_ITS ---
Test Reason : SOB Blood Pressure : */* mmHG Vent. Rate : 87 BPM Atrial Rate : 87 BPM P-R Int : 170 ms QRS Dur : 82 ms QT Int : 342 ms P-R-T Axes : 58 -49 -1 degrees QTcB Int : 411 ms Normal sinus rhythm Left axis deviation Inferior infarct , age undetermined Abnormal ECG Confirmed by PEDRO FISHMAN ([id number]), acquisition editor JASON MUSTAFA ([id number]) on 09/28/2024 7:14:30 AM Referred By: VIKAS Confirmed By: PEDRO FISHMAN
--- NOTE | 2024-09-24 19:48 | ED.VIS.CHEST ---
HPI History of Present Illness Chief Complaint: Chest Other Narrative Narrative: 64-year-old male, quit smoking a few weeks ago, presents with left-sided chest pain that began while he was at home around 4 PM, 3-1/2 hours ago approximately. He states that he was sitting watching TV, and gets sharp pain in his left anterior chest when he tries to breathe and sometimes when he sits up. He denies any recent fevers or chills, no cough. He states that the pain becomes sharp and it is hard for him to catch his breath. It also hurts when he tries to breathe deeply. No nausea or vomiting. No diaphoresis. He does feel short of breath. It also hurts him when he coughs. He states that when he exerts himself, causes him to cough, then he gets sharp pain in his left lower lung. [facility] Medical History Olecranon bursitis, left elbow Digital mucous cyst of finger of right hand Rheumatoid arthritis Meniscal injury Home Medications ?Medication ?Instructions ?Recorded ?Last Taken ?Type methotrexate sodium 2.5 mg tablet 2.5 mg PO QWEEK 12/22/21 Unknown History acetaminophen 500 mg tablet 500 mg PO Q6H PRN 09/06/23 Unknown History (Tylenol Extra Strength) folic acid 800 mcg tablet 0.8 mg PO DAILY 09/06/23 Unknown History benzonatate 100 mg capsule 200 mg (2 x 100 mg) PO TID PRN 09/24/24 Unknown Rx cough #30 caps naproxen 500 mg tablet 500 mg PO BID PRN PRN pain #20 tabs 09/24/24 Unknown Rx Allergy/AdvReac Type Severity Reaction Status Date / Time cat dander Allergy Itching Verified 09/24/24 18:28 Social History Smoking Status: Current every day smoker tobacco type: cigarettes ROS ROS ED ROS Narrative Constitutional: No fever, no chills. HEENT: No sore throat. No neck pain. Cardiovascular: Left lower lung/left-sided chest pain. No palpitations. No pedal edema. Respiratory: Occasional cough that worsens chest pain, positive shortness of breath. Abdominal: No abdominal pain. No nausea. No vomiting. Musculoskeletal: No myalgias. No arthralgias. Neurologic: No headaches. No dizziness. No lightheadedness. Skin: No rash. No change in color. EXAM Physical Exam Narrative Exam Narrative: Afebrile. Vital signs noted. Nontoxic-appearing. Cardiovascular examination reveals a regular rate and rhythm. Lungs are clear to auscultation bilaterally. Abdomen is soft and nontender with normal active bowel sounds. No crepitance of chest. No pedal edema. Const Vital Signs: 09/24/24 18:25 09/24/24 18:50 09/24/24 18:50 Temperature 98.3 F Temperature Source Temporal Pulse Rate 93 Respiratory Rate 18 Respiratory Effort Normal Non-Labored Blood Pressure 180/87 H Blood Pressure Mean 118 Pulse Ox 98 95 Oxygen Delivery Method Room Air Room Air 09/24/24 18:51 09/24/24 19:36 09/24/24 21:00 Temperature Temperature Source Pulse Rate 85 79 Respiratory Rate 19 H 22 H 19 H Respiratory Effort Blood Pressure 157/73 H 147/87 H Blood Pressure Mean 101 107 Pulse Ox 96 95 98 Oxygen Delivery Method Room Air Room Air Room Air Heart Score History: Slightly/Non-Suspicious ECG: Normal Age: >45 - <65 years Risk Factors: 1 or 2 Risk Factors Troponin: </= Normal Limit Score: 2 MDM MDM MDM Narrative Medical decision making narrative: Differential diagnosis includes but not limited to ACS versus pneumothorax versus pneumonia versus pulmonary embolism versus pleurisy. Lower suspicion for pulmonary embolism because the history and physical does not support this. He is currently not tachycardic with a heart rate of 85. Pulse ox ranges from 95 to 98% on room air and he is not hypoxic. EKG was obtained and interpreted by myself independently as normal sinus rhythm at 87 bpm without ectopy or acute ST changes. No STEMI. Comprehensive workup was pursued. Protocol labs were ordered. I did add a D-dimer and troponins as well. Chest x-ray interpreted by myself independently shows atelectasis but no pneumothorax no consolidation. I reviewed the radiology report which comments on mild bibasilar atelectasis versus airspace disease. I do not feel this is a pneumonia which requires antibiotics. I reviewed his laboratory work and he has normal white count of 10.4 with hemoglobin normal at 14.4 and platelet count 220. Sodium is normal at 141 with potassium 4.2, chloride elevated at 108 which I think is nonspecific, BUN slightly elevated at 22 with creatinine of 1.25. Glucose is elevated at 108 but he has a normal anion gap of 5. Initial high-sensitivity troponin is 6 so I am doubting NSTEMI. His D-dimer was elevated at 1.15. CTA was obtained of the chest which shows no evidence of pulmonary embolism. This was after review of the radiology report which also comments on groundglass opacities consistent with chronic interstitial process. I do not feel that he requires antibiotics. He also has a moderate hiatal hernia as well as emphysema consistent with his smoking history. While waiting for his repeat troponin, he was given Toradol 30 mg intravenously as I feel he probably has more of a pleurisy. Additionally, he requested something for cough which I think is probably chronic, so he was given Tessalon Perle 200 mg orally. Upon repeat examination, he states he feels slightly improved but still has a cough. His second troponin is also 6 for an acceptable delta troponin. At this point in time, I feel he can be discharged to follow-up with his primary care provider. He was written prescriptions for an anti-inflammatory in the form of naproxen as well as for Tessalon Perles. Return instructions to the emergency department were reviewed. Disposition is discharged home in stable condition. History & Record Review Discussion w/independent historian: Patient Lab Data Attestation: I reviewed the patient's lab results. Labs: Laboratory Results - last 24 hr 09/24/24 09/24/24 19:45 21:20 WBC 10.4 RBC 4.56 L Hgb 14.4 Hct 41.4 MCV 90.8 MCH 31.6 MCHC 34.8 RDW Std Deviation 42.4 RDW Coeff of Lynda 13.1 Plt Count 220 MPV 10.4 Immature Gran % (Auto) 0.600 Neut % (Auto) 81.2 H Lymph % (Auto) 9.7 L [place] % (Auto) 6.3 Eos % (Auto) 1.8 Baso % (Auto) 0.4 Absolute Neuts (auto) 8.4 H Absolute Lymphs (auto) 1.01 Nucleated RBC % 0 D-Dimer Quant (PE/DVT) 1.15 H* Sodium 141 Potassium 4.2 Chloride 108 H Carbon Dioxide 28.0 Anion Gap 5 BUN 22 H Creatinine 1.25 Est GFR (MDRD) Af Amer 75 Est GFR (MDRD) Non-Af 62 BUN/Creatinine Ratio 17.6 Glucose 108 H Calcium 9.5 Troponin I High Sens 6 6 Radiography Diagnostic Testing: Clinical Impression(s) from Imaging Studies Chest X-Ray 09/24/24 18:58 IMPRESSION: Mild bibasilar atelectasis versus airspace disease. [facility]A 09/24/24 20:17 IMPRESSION: No pulmonary embolism. Emphysema. Diffuse ground-glass opacities favoring a chronic interstitial process. Moderate hiatal hernia. One or more dose reduction techniques were used (e.g., Automated exposure control, adjustment of the mA and/or kV according to patient size, use of iterative reconstruction technique). Reading Location: [id number] Discharge Plan Triage Chief Complaint: Chest Other ED Provider: Jace Landeros Dx/Rx/DC Orders Clinical Impression: Pleurisy, Cough, Pleuritic pain, Elevated d-dimer Instructions: ED Chest Pain, Uncertain Cause, ED Pain, Acute, Uncertain Cause, ED Pleurisy Prescriptions: New benzonatate 100 mg capsule 200 mg PO TID PRN (Reason: cough) Qty: 30 0RF naproxen 500 mg tablet 500 mg PO BID PRN PRN (Reason: pain) Qty: 20 0RF No Action methotrexate sodium 2.5 mg tablet 2.5 mg PO QWEEK folic acid 800 mcg tablet 0.8 mg PO DAILY acetaminophen [Tylenol Extra Strength] 500 mg tablet 500 mg PO Q6H PRN Primary Care Provider: Maris Kolb NP Referrals: Maris Kolb NP, [employer] [employer] [Primary Care Provider] - 3-5 Days if not improving Activity Restrictions/Additional Instructions: Return with increased pain, difficulty breathing, new or worsening symptoms. Take anti-inflammatory and antitussive as directed. Follow-up with your primary care provider. Print Language: Prydeinig Disposition Disposition: Home, Self Care
[2024-09-24 19:53] LABS: Absolute Lymphocyte Count 1.01 X10^3/uL (0.83-4.51); Absolute Neutrophil Count 8.4 X10^3/uL (2.0-7.7); Basophil# 0.04 X10^3/uL; Basophil% 0.4 % (0-1); Eosinophil# 0.19 X10^3/uL; Eosinophils% 1.8 % (0-5); Hematocrit 41.4 % (40-54); Hemoglobin 14.4 g/dL (13.0-16.5); Lymphocyte # 1.01 X10^3/ul (0.83-4.51); Lymphocyte % 9.7 % (19-41); Mean Corp Hgb Conc 34.8 g/dL (32-36); Mean Corpuscular Hgb 31.6 pg (27.0-32.0); Mean Corpuscular Volume 90.8 fL (80-94); Mean Platelet Vol. 10.4 fl (6.2-12.0); Monocyte# 0.65 X10^3/uL; Monocyte% 6.3 % (0-10); NRBC Flagged by Analyzer 0 % (0-5); Neutrophil # 8.42 X10^3/uL (2.7-7.7); Neutrophil % 81.2 % (47-70); Platelet Count 220 K/mm3 (150-450); RBC Distribution Width CV 13.1 % (11.6-14.6); RBC Distribution Width SD 42.4 fl (35.1-43.9); Red Blood Count 4.56 M/mm3 (4.6-6.2); White Blood Count 10.4 K/mm3 (4.4-11.0)
[2024-09-24 20:15] LABS: Anion Gap 5 (5-15); BUN 22 mg/dL (7-18); BUN/Creat Ratio 17.6 RATIO (10-20); Calcium,Total 9.5 mg/dL (8.5-10.1); Chloride 108 mmol/L (98-107); Creatinine, Serum 1.25 mg/dL (0.70-1.30); EST Glomerular Filtration Rate 62 mL/min (>60); Est Glom Filt Rate - Afr Amer 75 mL/min (>60); Glucose 108 mg/dL (74-106); Potassium 4.2 mmol/L (3.5-5.1); Sodium Level 141 mmol/L (136-145); Troponin-I HS (w/2H Reflex) 6 pg/mL (3.0-78.0)
[2024-09-24 20:16] LABS: D-Dimer Quantitative (DVT/PE) 1.15 FEU/ug/m (0.27-0.49)
--- NOTE | 2024-09-24 20:17 | CT_ITS ---
PROCEDURE: CTA CHEST W/WO CONTRAST REASON FOR EXAM: Pain with inspiration. TECHNIQUE: CTA imaging of the chest with intravenous contrast. 3D reconstructions. CONTRAST: 100 cc of Isovue 370. COMPARISON: None. FINDINGS: Hardware: None. Lymph nodes: No mediastinal hilar or axillary lymphadenopathy. Heart: Normal heart size. No pericardial effusion. RV/LV Diameter Ratio: N/A Thoracic Aorta: No thoracic aortic aneurysm or dissection. Pulmonary Vessels: No evidence of acute pulmonary emboli through the major subsegmental branches. Most Proximal Level of Embolus (if embolus present): N/A Lungs and Airways: Moderate paraseptal and mild centrilobular emphysema. Diffuse ground-glass opacity favoring chronic interstitial changes. Bilateral dependent atelectasis. Pleura: No pleural effusion. No pneumothorax. Upper Abdomen: Moderate hiatal hernia. Right kidney simple cyst. Bones: Bone windows are unremarkable. CT/CTA Chest W/WO Contrast IMPRESSION: No pulmonary embolism. Emphysema. Diffuse ground-glass opacities favoring a chronic interstitial process. Moderate hiatal hernia. One or more dose reduction techniques were used (e.g., Automated exposure contr ol, adjustment of the mA and/or kV according to patient size, use of iterative reconstruction technique). Reading Location: [place] [id number]
[2024-09-24 21:51] LABS: Reflex Troponin-HS? (from REC) Y
[2024-09-24] MEDS: Benzonatate 100 MG Capsule 200 MG PO (22:05)
[2024-09-24] MEDS: Ketorolac 30 MG/ML Syringe IV (22:05)
[2024-09-24 22:24] LABS: Troponin-I HS 6 pg/mL (3.0-78.0)
== END 2024-09-24 23:10 | disposition home or self-care (01) ==
PROVIDERS: Emergency Provider Emergency Medicine; PCP Nurse Practitioner Primary Care; Visit Provider Emergency Medicine
DX: R09.1 Pleurisy (principal); R07.81 Pleurodynia; R79.89 Other specified abnormal findings of blood chemistry; F17.210 Nicotine dependence, cigarettes, uncomplicated
CPT/HCPCS: 71045; 71275; 80048; 84484; 85025; 85379; 93005; 94760; 96374; 99283; Q9967; A4216

== ENCOUNTER → 2024-11-02 | Outpatient (CLI) | payer BC, SELFPAY ==
[2024-11-02 15:26] LABS: Absolute Lymphocyte Count 1.43 X10^3/uL (0.83-4.51); Absolute Neutrophil Count 5.4 X10^3/uL (2.0-7.7); Basophil# 0.05 X10^3/uL; Basophil% 0.7 % (0-1); Eosinophils% 2.7 % (0-5); Hematocrit 39.3 % (40-54); Hemoglobin 13.3 g/dL (13.0-16.5); Lymphocyte # 1.43 X10^3/ul (0.83-4.51); Lymphocyte % 19.3 % (19-41); Mean Corp Hgb Conc 33.8 g/dL (32-36); Mean Corpuscular Hgb 30.8 pg (27.0-32.0); Mean Platelet Vol. 10.7 fl (6.2-12.0); Monocyte# 0.31 X10^3/uL; Monocyte% 4.2 % (0-10); NRBC Flagged by Analyzer 0 % (0-5); Neutrophil # 5.39 X10^3/uL (2.7-7.7); Neutrophil % 72.7 % (47-70); Platelet Count 190 K/mm3 (150-450); RBC Distribution Width CV 13.4 % (11.6-14.6); RBC Distribution Width SD 43.9 fl (35.1-43.9); Red Blood Count 4.32 M/mm3 (4.6-6.2); White Blood Count 7.4 K/mm3 (4.4-11.0)
[2024-11-02 16:12] LABS: ALB/GLOB Ratio 1.3 RATIO (0.9-2.4); AST(SGOT) 16 U/L (<=37); Alanine Aminotransfer ALT/SGPT 11 U/L (<=46); Albumin, Serum 3.7 g/dL (3.4-4.8); Alkaline Phosphatase 80 U/L (40-129); Anion Gap 14 (5-15); BUN 14 mg/dL (4-19); BUN/Creat Ratio 11.8 RATIO (10-20); Calcium,Total 9.2 mg/dL (7.6-11.0); Carbon Dioxide 21.3 mmol/L (21.0-32.0); Chloride 103 mmol/L (98-108); EST Glomerular Filtration Rate 68 (>60); Globulin 2.8 g/dL (2.2-4.2); Glucose 104 mg/dL (70-99); Potassium 4.1 mmol/L (3.3-5.1); Protein, Total 6.5 g/dL (5.9-8.4); Sodium Level 138 mmol/L (133-145); Total Bilirubin 0.31 mg/dL (0.00-1.30)
== END | disposition home or self-care (01) ==
LOC: MTLAB 11:40
PROVIDERS: PCP Nurse Practitioner Primary Care; Referring Provider Internal Medicine Rheumatology; Visit Provider Internal Medicine Rheumatology
DX: M05.70 Rheumatoid arthritis with rheumatoid factor of unspecified site without organ or systems involvement (principal); M17.0 Bilateral primary osteoarthritis of knee; Z79.899 Other long term (current) drug therapy
CPT/HCPCS: 36415; 80053; 85025

== ENCOUNTER → 2025-01-22 | Outpatient (CLI) | payer BC, SELFPAY ==
[2025-01-22 15:38] LABS: Absolute Lymphocyte Count 1.51 X10^3/uL (0.83-4.51); Absolute Neutrophil Count 4.7 X10^3/uL (2.0-7.7); Basophil# 0.06 X10^3/uL; Basophil% 0.8 % (0-1); Eosinophils% 2.8 % (0-5); Hematocrit 44.2 % (40-54); Hemoglobin 14.9 g/dL (13.0-16.5); Lymphocyte # 1.51 X10^3/ul (0.83-4.51); Lymphocyte % 21.1 % (19-41); Mean Corp Hgb Conc 33.7 g/dL (32-36); Mean Corpuscular Hgb 30.8 pg (27.0-32.0); Mean Corpuscular Volume 91.5 fL (80-94); Mean Platelet Vol. 10.9 fl (6.2-12.0); Monocyte# 0.63 X10^3/uL; Monocyte% 8.8 % (0-10); NRBC Flagged by Analyzer 0 % (0-5); Neutrophil # 4.68 X10^3/uL (2.7-7.7); Neutrophil % 65.5 % (47-70); Platelet Count 265 K/mm3 (150-450); RBC Distribution Width CV 13.6 % (11.6-14.6); RBC Distribution Width SD 44.8 fl (35.1-43.9); Red Blood Count 4.83 M/mm3 (4.6-6.2); White Blood Count 7.2 K/mm3 (4.4-11.0)
[2025-01-22 15:59] LABS: ALB/GLOB Ratio 1.1 RATIO (0.9-2.4); AST(SGOT) 15 U/L (<=37); Alanine Aminotransfer ALT/SGPT 12 U/L (<=46); Albumin, Serum 3.7 g/dL (3.4-4.8); Alkaline Phosphatase 100 U/L (40-129); Anion Gap 11 (5-15); BUN 14 mg/dL (4-19); BUN/Creat Ratio 13.4 RATIO (10-20); Calcium,Total 9.3 mg/dL (7.6-11.0); Carbon Dioxide 23.6 mmol/L (21.0-32.0); Chloride 105 mmol/L (98-108); Creatinine, Serum 1.06 mg/dL (0.70-1.20); EST Glomerular Filtration Rate 78 (>60); Globulin 3.5 g/dL (2.2-4.2); Glucose 86 mg/dL (70-99); Potassium 4.4 mmol/L (3.3-5.1); Protein, Total 7.2 g/dL (5.9-8.4); Sodium Level 139 mmol/L (133-145); Total Bilirubin 0.32 mg/dL (0.00-1.30)
== END | disposition home or self-care (01) ==
LOC: MTLAB 11:52
PROVIDERS: PCP Nurse Practitioner Primary Care; Referring Provider Internal Medicine Rheumatology; Visit Provider Internal Medicine Rheumatology
DX: M05.70 Rheumatoid arthritis with rheumatoid factor of unspecified site without organ or systems involvement (principal); M17.0 Bilateral primary osteoarthritis of knee; Z79.899 Other long term (current) drug therapy
CPT/HCPCS: 36415; 80053; 85025

== ENCOUNTER 2025-02-28 02:32 | Emergency (ER) | payer BC, SELFPAY ==
[2025-02-28 02:33] VITALS: BP 157/91; PULSE 75; RESP 15; TEMP 36.8; O2SAT 98
--- NOTE | 2025-02-28 02:50 | RAD_ITS ---
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 No acute bone, soft tissue, or lung pathology noted. RAD/Shoulder min 2 Views IMPRESSION: Mild left shoulder joints degeneration. Reading Location: [facility]
--- NOTE | 2025-02-28 03:40 | EX.ED.UPPERE ---
HPI History of Present Illness Chief Complaint: Upper Extremity Injury Informant: patient Narrative Narrative: [id number] male presents increasing right shoulder pain this evening. Took Tylenol relief. Reports doing a lot heavy lifting throughout the day lifting pallets. No direct injuries. Pain worsened this evening. Worse with movement. No history of similar. Prior similar symptoms: No PFSH PFSH Medical History Olecranon bursitis, left elbow Digital mucous cyst of finger of right hand Rheumatoid arthritis Meniscal injury Home Medications ?Medication ?Instructions ?Recorded ?Last Taken ?Type methotrexate sodium 2.5 mg tablet 2.5 mg PO QWEEK 12/22/21 Unknown History acetaminophen 500 mg tablet 500 mg PO Q6H PRN 09/06/23 Unknown History (Tylenol Extra Strength) folic acid 800 mcg tablet 0.8 mg PO DAILY 09/06/23 Unknown History benzonatate 100 mg capsule 200 mg (2 x 100 mg) PO TID PRN 09/24/24 Unknown Rx cough #30 caps naproxen 500 mg tablet 500 mg PO BID PRN PRN pain #20 tabs 09/24/24 Unknown Rx ibuprofen 600 mg tablet 600 mg PO Q6H PRN PRN pain #20 02/28/25 Unknown Rx TABLETS Allergy/AdvReac Type Severity Reaction Status Date / Time cat dander Allergy Itching Verified 02/28/25 02:33 Social History Smoking Status: Current every day smoker tobacco type: cigarettes ROS ROS ED Constitutional Constitutional ED: Denies fever(s) Cardiovascular Cardiovascular: Denies chest pain Respiratory/Chest Respiratory/Chest: Denies cough Gastrointestinal Gastrointestinal: Denies diarrhea or vomiting Musculoskeletal Musculoskeletal: Reports other Details: Left shoulder pain Integumentary Denies rash or wounds Neurologic Neurologic: Denies weakness EXAM Physical Exam Const Vital Signs: 02/28/25 02:33 Temperature 98.3 F Temperature Source Oral Pulse Rate 75 Respiratory Rate 15 Blood Pressure 157/91 H Blood Pressure Mean 113 Pulse Ox 98 Oxygen Delivery Method Room Air Positive well nourished and well developed General Appearance ED: well developed HEENT normocephalic and atraumatic Eyes General Eye ED: Yes normal appearance of both eyes Neck full ROM Resp normal respiratory effort and normal air movement Cardio regular rate and regular rhythm GI soft to palpation Extremity Extremity Narrative: Left upper extremity: No clavicle tenderness no acromioclavicular tenderness. Positive speeds test pain with abduction of the shoulder. No deformities. Soft compartments. Neuro vas intact distally. Neuro oriented x3 Skin no rashes or lesions noted and no wounds MDM MDM MDM Narrative Medical decision making narrative: Interventions / MDM: Differential diagnosis: Biceps tendinitis, shoulder strain. Diagnosis considered but do not suspect: Fracture or dislocation however x-ray negative. My EKG interpretation: N/A Imaging independently reviewed and interpreted by myself: Left shoulder x-ray 4 views: Degenerative changes, no fracture or dislocation. External documents reviewed: N/A Test considered but not ordered:N/A ED course: Patient clinical exam turns for bicep tenderness shoulder strain. X-ray from nursing protocol obtained degenerative changes. He started on Motrin. Denies any stomach ulcers or kidney injury. Will continue [id number] NSAIDs. He is given fall with orthopedics. All questions were answered. Re-evaluation: stable Disposition discussed with patient/family/significant other: Patient Case discussed with consulting clinician: N/A This note was generated with [employer] dictation software. It may contain incorrect words, spelling, and punctuation that were not noted in checking the note before signing. Radiography Diagnostic Testing: Clinical Impression(s) from Imaging Studies Shoulder X-Ray 02/28/25 02:50 IMPRESSION: Mild left shoulder joints degeneration. Reading Location: [place] [id number] Discharge Plan Triage Chief Complaint: Upper Extremity Injury ED Provider: Huber Chowdary Dx/Rx/DC Orders Clinical Impression: Biceps tendonitis on left, Left shoulder strain Instructions: Biceps Tendonitis, ED Shoulder Sprain Prescriptions: New ibuprofen 600 mg tablet 600 mg PO Q6H PRN PRN (Reason: pain) Qty: 20 0RF No Action methotrexate sodium 2.5 mg tablet 2.5 mg PO QWEEK folic acid 800 mcg tablet 0.8 mg PO DAILY acetaminophen [Tylenol Extra Strength] 500 mg tablet 500 mg PO Q6H PRN benzonatate 100 mg capsule 200 mg PO TID PRN (Reason: cough) Qty: 30 0RF naproxen 500 mg tablet 500 mg PO BID PRN PRN (Reason: pain) Qty: 20 0RF Primary Care Provider: Maris Kolb NP Referrals: Christopher Crain MD [Med Staff - Active Staff] - 1-2 Weeks Maris Kolb NP, [employer]PER[employer] [Primary Care Provider] - Activity Restrictions/Additional Instructions: Clinical left biceps tendinitis along with strain of your shoulder muscles. X-ray notes arthritic changes. Continue Motrin [id number] for the next 2 days. May follow-up with orthopedic service for reevaluation. Print Language: Maori Disposition Disposition: Home, Self Care Discharge Date/Time: 02/28/25 03:48
[2025-02-28 03:47] VITALS: BP 137/81; PULSE 79; RESP 18; TEMP 36.9; O2SAT 99
--- OUTSIDE RECORDS SUMMARY | 2025-02-28 03:47 | XMS RPT_ITS | CCD ---
Author Organization [facility] Care Team Providers Care Configuration Management Manager Name Role Phone Rick Dominguez MD Unavailable Rose Hagen Unavailable Unavailable Rose Hagen Unavailable Unavailable Rick Dominguez MD Unavailable KENNEDI DRAWBRIDGE OPERATOR-HEAD BUTLER, MARIS S Primary Care Physicia n [place] RECEPTION SPECIALIST, RECEPTION SPECIALIST-C Maris Primary Care Provider Kennedi RECEPTION SPECIALIST, RECEPTION SPECIALIST-C Maris Referring Provider [phone] MD Christopher Crain Attending Provider [phone] Salvatore Larson Attending Provider KENNEDI DRAWBRIDGE OPERATOR-HEAD BUTLER, MARIS S Primary Care Unava ilable KENNEDI DRAWBRIDGE OPERATOR-HEAD BUTLER, MARIS S Attending Unava ilable DR ANGEL CEJA DO Attending Unavailable KENNEDI DRAWBRIDGE OPERATOR-HEAD BUTLER, MARIS S Primary Care Unava ilable KENNEDI DRAWBRIDGE OPERATOR-HEAD BUTLER, MARIS S Attending Unava ilable KENNEDI DRAWBRIDGE OPERATOR-HEAD BUTLER, MARIS S Primary Care Unava ilable KENNEDI DRAWBRIDGE OPERATOR-HEAD BUTLER, MARIS S Attending Unava ilable KENNEDI DRAWBRIDGE OPERATOR-HEAD BUTLER, MARIS S Primary Care Unava ilable Kennedi RECEPTION SPECIALIST-C, Maris Primary Care Provider Dr. Bernarda Young MD Attending Provider Dr. Bernarda Young MD Referring Provider Jace Landeros MD Attending Provider Jace Landeros MD Emergency Provider Kennedi RECEPTION SPECIALIST-C, Maris Primary Care Provider Hector MORALES, Dr. Menchaca Attending Provider Dr. Bernarda Young MD Referring Provider Maris Duran Primary Care Unavailable Vellanki, Bernarda Attending Unavailable Vellanmya, Bernarda Referring Unavailable Vellanki, Bernarda Referring Unavailable Vellanmya, Bernarda Attending Unavailable Maris Duran Primary Care Unavailable KennediMaris de la torre Primary Care Unavailable Vellanki, Bernarda Attending Unavailable Vellanki, Bernarda Referring Unavailable Vellanki, Bernarda Attending Unavailable Vellanki, Bernarda Referring Unavailable [place], Maris Primary Care Unavailable Vellanki, Bernarda Referring Unavailable Vellanmya, Bernarda Attending Unavailable Aba Duranssica Primary Care Unavailable Jace Landeros Attending Unavailable Kennedi Maris Primary Care Unavailable LAZARO CERVANTES Attending Unavailable KENNEDI DRAWBRIDGE OPERATOR-HEAD BUTLER, [facility] Primary Care Unava ilable KENNEDI DRAWBRIDGE OPERATOR-HEAD BUTLER, [facility] Primary Care Unava ilable KENNEDI DRAWBRIDGE OPERATOR-HEAD BUTLER, MARIS S Attending Unava ilable Allergies Allergy Classification Reported Allergen(s) Allergy Type Date of Onset Reaction(s) Facility (1 source) cat dander Drug allergy (disorder) 09-24-2024 [facility] Repository Medications Current Medications Medication Drug Class(es) Dates Sig (Normalized) Sig (Original) acetaminophen 500 mg oral tablet (8 sources) Start: 09-06-2023 take 1 tablet by mouth every six hours as needed Acetaminophen (Tylenol Extra Strength) 500 mg tablet Active 500 mg PO EVERY 6 HOURS as needed September 06, 2023 1:00am albuterol MDI (90 mcg/inh) CFC free inhalation aerosol (2 sources) Start: 05-28-2024 take 2 puff(s) by inhalation every four hours as needed for wheezing albuterol MDI (90 mcg/inh) CFC free inhalation aerosol 2 puff(s), Inhalation, q4h, PRN as needed for wheezing, # 18 gram(s), 11 Refill(s), Pharmacy: [facility]/pharmacy #[id number], 183, cm, 05/28/24 9:49:00 EDT, Height, kg, 05/28/24 9:49:00 EDT, Dosing Weight Start Date: 05/28/24 Status: Ordered Quantity: 18.0 Unit: g Repeat number: 12 Start: 05-28-2024 take 2 puff(s) by in halation every four hours as needed for wheezing albuterol MDI (90 mcg/inh) CFC free inhalation aerosol 2 puff(s), Inhalation, q4h, PRN as needed for wheezing, # 18 gram(s), 11 Refill(s), Pharmacy: [facility]/pharmacy #[id number], 183, cm, 05/28/24 9:49:00 EDT, Height, kg, 05/28/24 9:49:00 EDT, Dosing Weight Start Date: 05/28/24 Status: Ordered benzonatate 100 mg oral capsule (2 sources) Non-narcotic Antitussive Start: 09-24-2024 take 2 capsules by mouth three times daily as needed for cough Benzonatate 100 mg capsule Active 200 mg PO THREE TIMES A DAY as needed for cough September 24, 2024 1:00am cilostazol 100 mg oral tablet (1 source) Phosphodiesterase 3 Inhibitor Start: 09-17-2024 take 1 tablet by mouth twice daily cilostazol 100 mg oral tablet TAKE 1 TABLET BY MOUTH TWICE A DAY Start Date: 09/17/24 Status: Ordered Repeat number: 1 folic acid 0.8 mg oral tablet (12 sources) Start: 09-06-2023 take 0.8 mg by mouth once daily Folic Acid 800 mcg tablet Active 0.8 mg PO DAILY September 06, 2023 1:00am Start: 09-06-2023 take 0.8 mg by mouth once federico y Folic Acid Active 0.8 MG PO DAILY September 06, 2023 1:00am Start: 04-07-2022 folic acid 1 m g oral tablet Dose : 1 mg = 1 tab(s), Oral, BID, # 90 tab(s), 0 Refill(s) Start Date: 04/07/22 Status: Ordered Quantity: 90.0 Unit: tab(s) Repeat number: 1 hydroxychloroquine sulfate 200 mg oral tablet (5 sources) Antimalarial, Antirheumatic Agent Start: 02-27-2024 hydroxychloroquine 200 mg oral tablet Dose : 200 mg = 1 tab(s), Oral, BID, 0 Refill(s) Start Date: 02/27/24 Status: Ordered Repeat number: 1 methotrexate 2.5 mg oral tablet (14 sources) Folate Analog Metabolic Inhibitor Start: 12-22-2021 take 1 tablet by mouth every week Methotrexate Sodium 2.5 mg tablet Active 2.5 mg PO EVERY WEEK December 22, 2021 12:00am naproxen 500 mg oral tablet (14 sources) Nonsteroidal Anti-inflammatory Drug Start: 09-24-2024 take 1 tablet by mouth twice daily as needed for pain Naproxen 500 mg tablet Active 500 mg PO TWICE DAILY NEEDED as needed for pain September 24, 2024 11:55pm Start: 04-21-2021 End: 12-22-2021 take 1 tablet by mouth twice daily as needed for pain Naproxen (Naprosyn) 500 mg tablet Discontinued 500 mg PO TWICE A DAY as needed for pain July 27, 2021 1:00am December 22, 2021 10:32am varenicline 1 mg oral tablet (10 sources) Partial Cholinergic Nicotinic Agonist Start: 02-27-2024 take 1 tablet by mouth once, then take 1 tablet by mouth twice daily Chantix Continuing Month 1 mg oral tablet Dose : 1 mg = 1 tab(s), Oral, BID, # 56 tab(s), 5 Refill(s), Pharmacy: [facility]/pharmacy #[id number], 183, cm, 02/27/24 7:16:00 EDT, Height, kg, 02/27/24 7:16:00 EDT, Dosing Weight Start Date: 02/27/24 Status: Ordered Quantity: 56.0 Unit: tab(s) Repeat number: 6 Start: 02-27-2024 take 1 tablet by nataliia twice daily Chantix Starter Pack 0.5 mg-1 mg oral tablet Dose = 1 tab(s), Oral, BID, # 1 kit(s), 0 Refill(s), Pharmacy: [facility]/pharmacy #[id number], 183, cm, 02/27/24 7:16:00 EDT, Height, kg, 02/27/24 7:16:00 EDT, Dosing Weight Start Date: 02/27/24 Status: Ordered Quantity: 1.0 Unit: kit(s) Repeat number: 1 Start: 02-27-2024 take 1 tablet by nataliia th twice daily Chantix Starter Pack 0.5 mg-1 mg oral tablet Dose = 1 tab(s), Oral, BID, # 1 kit(s), 0 Refill(s), Pharmacy: [facility]/pharmacy #[id number], 183, cm, 02/27/24 7:16:00 EDT, Height, kg, 02/27/24 7:16:00 EDT, Dosing Weight Start Date: 02/27/24 Status: Ordered Completed/Discontinued Medications Medication Drug Class(es) Dates Sig (Normalized) Sig (Original) acetaminophen 325 mg / HYDROcodone bitartrate 5 mg oral tablet (17 sources) Opioid Agonist Start: 10-17-2016 End: 12-03-2016 take 1-2 tablets by mouth four times daily as needed for pain NORCO 5-325 MG TABS one to two tablets by mouth four times daily as needed for pain HYDROCODONE-ACETAM INOPHEN [id number] Rick Dominguez MD Start: 10-17-2016 End: 12-03-2016 take 1-2 tablets by mouth four times daily as needed for pain NORCO 5-325 MG TABS one to two tablets b y mouth four times daily as needed for pain HYDROCODONE-ACETAMINOPHEN [id number] Merna Greenfield LPN Start: 10-17-2016 take 1-2 tablets by mouth four times daily as needed for pain NORCO 5-325 MG TABS one to two tablets b y mouth four times daily as needed for pain HYDROCODONE-ACETAMINOPHEN [id number] Rick Dominguez MD meloxicam 15 mg oral tablet (6 sources) Nonsteroidal Anti-inflammatory Drug Start: 07-05-2021 End: 07-27-2021 Meloxicam 15 mg tablet Discontinued July 05, 2021 1:00am July 27, 2021 12:11pm Start: 07-05-2021 End: 07-27-2021 Meloxicam Discontinued Dece 2020 1:00am July 27, 2021 12:11pm minocycline 100 mg oral tablet (9 sources) Tetracycline-class Drug Start: 10-17-2016 take 1 tablet by mouth twice daily MINOCYCLINE HCL 100 MG TABS One tablet by mouth twice daily MINOCYCLINE HCL [id number] Rick Dominguez MD Nirmatrelvir-Kurt navir (6 sources) Start: 12-22-2021 End: 09-06-2023 Nirmatrelvir-Kurt navir (Paxlovid (Eua)) 150 mg x 2- 100 mg tablet Discontinued 0 PO .COMPLEX December 22, 2021 12:00am September 06, 2023 9:24am take TWO 150 mg tablets of nirmatrelvir with ONE 100 mg tablet of ritonavir twice daily for 5 days PO Start: 12-22-2021 Nirmatrelvir-R itonavir (Paxlovid (Eua)) 150 mg x 2- 100 mg tablet Active 0 PO .COMPLEX December 21, 2021 11:00pm take TWO 150 mg tablets of nirmatrelvir with ONE 100 mg tablet of ritonavir twice daily for 5 days PO Start: 12-22-2021 Nirmatrelvir-R itonavir (Paxlovid (Eua)) 150 mg x 2- 100 mg tablet Active 0 PO .COMPLEX December 22, 2021 12:00am take TWO 150 mg tablets of nirmatrelvir with ONE 100 mg tablet of ritonavir twice daily for 5 days PO predniSONE 10 mg oral tablet (9 sources) Start: 02-27-2024 End: 03-10-2024 prednisone 10mg tab (TAPER) Taper 40-30-20-10 x 3 days each dose, Oral, qDay, Take with food/meal, # 30 tab(s), 0 Refill(s), Pharmacy: [facility]/pharmacy #[id number], 183, cm, 02/27/24 7:16:00 EDT, Height, kg, 02/27/24 7:16:00 EDT, Dosing Weight Start Date: 02/27/24 Stop Date: 03/10/24 Status: Ordered Start: 04-21-2021 End: 07-27-2021 take 3 tablets by mouth once daily Prednisone 20 mg tablet Discontinued 60 mg PO DAILY April 21, 2021 12:00am July 27, 2021 12:11pm Start: 04-21-2021 End: 07-27-2021 take 60 mg by mouth once daily Prednisone Discontinued 60 MG PO DAILY April 21, 2021 12:00am July 27, 2021 12:11pm Problems Active Problems Problem Classification Problem Date Documented Da te Episodic/Chronic Allergic reactions (3 sources) Contact dermatitis due to poison fawad 02-27-2024 Episodic Chronic obstructive pulmonary disease and bronchiectasis (2 sources) Chronic obstructive lung disease 05-28-2024 Chronic E Codes: Fall (4 sources) Fall; Translations: [Unspecified fall, initial encounter] 10-23-2023 Episodic Immunizations and screening for infectious disease (9 sources) Rheumatoid factor positive; Translations: [Requires tetanus and diphtheria vaccination] 07-17-2021 Episodic Open wounds of extremities (17 sources) Unspecified open wound of left thumb with damage to nail, initial encounter; Translations: [Unspecified open wound of left thumb with damage to nail, subsequent encounter] Onset: 10-17-2016 10-31-2016 Episodic Other aftercare (2 sources) Long-term current use of drug therapy; Translations: [Other group home (current) drug therapy] Episodic Other aftercare (1 source) Drug monitoring done; Translations: [Encounter for therapeutic drug level monitoring] Episodic Other connective tissue disease (4 sources) Bursitis of olecranon of left elbow; Translations: [Olecranon bursitis, left elbow] 09-06-2023 Episodic Other connective tissue disease (4 sources) Digital mucous cyst of right hand; Translations: [Ganglion, right hand] 09-06-2023 Episodic Other connective tissue disease (2 sources) Ganglion, right hand; Translations: [Ganglion, unspecified] 09-06-2023 Episodic Other connective tissue disease (2 sources) Olecranon bursitis, left elbow; Translations: [Olecranon bursitis] 09-06-2023 Episodic Other gastrointestinal disorders (1 source) Dysphagia 09-17-2024 Episodic Other lower respiratory disease (3 sources) Chronic cough 02-27-2024 Episodic Other lower respiratory disease (2 sources) Pleuritic pain; Translations: [Pleurodynia] 10-02-2024 Episodic Other lower respiratory disease (2 sources) Cough; Translations: [Cough] 10-02-2024 Episodic Other nervous system disorders (9 sources) Carpal tunnel syndrome; Translations: [Carpal tunnel syndrome, unspecified upper limb] 07-04-2021 Chronic Other non-traumatic joint disorders (3 sources) Joint pain 06-28-2021 Episodic Other screening for suspected conditions (not mental disorders or infectious disease) (2 sources) D-dimer above reference range; Translations: [Other specified abnormal findings of blood chemistry] 10-02-2024 Episodic Other skin disorders (3 sources) Swelling of hand 06-28-2021 Episodic Peripheral and visceral atherosclerosis (2 sources) Intermittent claudication 05-28-2024 Chronic Pleurisy; pneumothorax; pulmonary collapse (2 sources) Pleurisy; Translations: [Pleurisy] 10-02-2024 Episodic Rheumatoid arthritis and related disease (8 sources) Rheumatoid arthritis of multiple joints; Translations: [Rheumatoid arthritis with rheumatoid factor of multiple sites without organ or systems involvement] Onset: 01-27-2025 Chronic Screening or history of mental health and substance abuse (13 sources) Smoker; Translations: [Tobacco use and exposure - finding] Onset: 10-17-2016 10-31-2016 Chronic Sprains and strains (10 sources) Unspecified sprain of right shoulder joint, initial encounter; Translations: [Sprain of right shoulder] 08-04-2021 Episodic Unclassified (1 source) Patient encounter status 12-10-2024 Unclassified (1 source) Peripheral arterial disease 09-17-2024 Viral infection (6 sources) Disease caused by 2019-nCoV; Translations: [COVID-19] 12-22-2021 Episodic Past or Other Problems Problem Classification Problem Date Documented Da te Episodic/Chronic Crushing injury or internal injury (11 sources) Crushing injury of left thumb, initial encounter; Translations: [Crushing injury of left thumb, subsequent encounter] Onset: 10-17-2016 10-31-2016 Episodic Fracture of upper limb (18 sources) Displaced fracture of distal phalanx of left thumb, subsequent encounter for fracture with routine healing; Translations: [Displaced fracture of distal phalanx of left thumb, initial encounter for open fracture] Onset: 10-17-2016 11-19-2016 Episodic Nonspecific chest pain (1 source) Other chest pain; Translations: [Other chest pain] Onset: 10-05-2024 Episodic Other aftercare (20 sources) Contusion of left thumb with damage to nail, subsequent encounter; Translations: [Unspecified open wound of left thumb with damage to nail, subsequent encounter] Onset: 10-24-2016 11-19-2016 Episodic Superficial injury; contusion (11 sources) Contusion of left thumb with damage to nail, initial encounter; Translations: [Contusion of left thumb with damage to nail, subsequent encounter] Onset: 10-17-2016 10-31-2016 Episodic Results Test Name Value Interpretation Reference Range Facility Absolute lymphocyte countOrd ered By: Bernarda Young on 01-22-2025 Lymphocytes Auto (Unsp spec) [#/Vol] 1.51 10*3/uL 0.83-4.51 [facility] Absolute neutrophil countOrd ered By: Bernarda Young on 01-22-2025 Neutrophils (Bld) [#/Vol] 4.7 10*3/uL 2.0-7.7 [facility] Anion gap in Serum or Plasma Ordered By: Bernarda Young on 01-22-2025 Anion gap [Moles/Vol] 11 mmol/L 12-17 [facility] Automated lymphocyte count a s percentage of total leukocytesOrdered By: Bernarda Young on 01-22-2025 Lymphocytes/100 WBC Auto (Unsp spec) 21.1 % [facility] BUN/creatinine ratioOrdered By: [facility] Hector on 01-22-2025 Urea nitrogen/Creatinine [Mass ratio] 13.4 mg/mg 05-24 [facility] Basophil percentageOrdered B y: Bernarda Young on 01-22-2025 Basophils/100 WBC (Bld) 0.8 % 0-1 [facility] Bilirubin, totalOrdered By: Bernarda Young on 01-22-2025 Bilirubin [Mass/Vol] 0.32 mg/dL 0.00-1.30 [facility] CBC W/Diff, Automatedon 01-04 Absolute Lymph 1.51 X10 3/uL Normal 0.83-4.51 [facility] Comment on above: Performed By: #### L 500.4050, L100.0100 ####[facility] [address] [place], [address] Absolute Neut 4.7 X10 3/uL Normal 2.0-7.7 [facility] Comment on above: Performed By: #### L 500.4050, L100.0100 ####[facility] [address] [place], [address] Basophils/100 WBC (Bld) 0.8 % Normal 0-1 [facility] Comment on above: Performed By: #### L 500.4050, L100.0100 ####[facility] [address] [place], [address] Eosinophils/100 WBC (Bld) 2.8 % Normal 0-5 [facility] Comment on above: Performed By: #### L 500.4050, L100.0100 ####[facility] [address] [place], [address] Erythrocyte distribution width (RBC) [Ratio] 13.6 % Normal 11.6-14.6 [facility] Comment on above: Performed By: #### L 500.4050, L100.0100 ####[facility] [address] [place], [address] Hematocrit (Bld) [Volume fraction] 44.2 % Normal 40-54 [facility] Comment on above: Performed By: #### L 500.4050, L100.0100 ####[facility] [address] [place], [address] Hemoglobin (Bld) [Mass/Vol] 14.9 g/dL Normal 13.0-16.5 [facility] Comment on above: Performed By: #### L 500.4050, L100.0100 ####[facility] [address] [place], [address] IG% 1.000 High 0.0-0.9 [facility] Comment on above: Result Comment: IG% - Immature Granulocytes (promyelocytes, myelocytes and metamyelocytes) > 1% indicates that a LEFT SHIFT is Present. Performed By: #### L 500.4050, L100.0100 ####[facility] [address] [place], [address] Lymphocytes/100 WBC (Bld) 21.1 % Normal 19-41 [facility] Comment on above: Performed By: #### L 500.4050, L100.0100 ####[facility] [address] [place], [address] MCH (RBC) [Entitic mass] 30.8 pg Normal 27.0-32.0 [facility] Comment on above: Performed By: #### L 500.4050, L100.0100 ####[facility] [address] [place], [address] MCHC (RBC) [Mass/Vol] 33.7 g/dL Normal 32-36 [facility] Comment on above: Performed By: #### L 500.4050, L100.0100 ####[facility] [address] [place], [address] MCV (RBC) [Entitic vol] 91.5 fL Normal 80-94 [facility] Comment on above: Performed By: #### L 500.4050, L100.0100 ####[facility] [address] [place], [address] Monocytes/100 WBC (Bld) 8.8 % Normal 0-10 [facility] Comment on above: Performed By: #### L 500.4050, L100.0100 ####[facility] [address] [place], [address] Neutrophils/100 WBC (Bld) 65.5 % Normal 47-70 [facility] Comment on above: Performed By: #### L 500.4050, L100.0100 ####[facility] [address] [place], [address] Nucleated RBC (Bld) [#/Vol] 0 10*3/uL Normal 0-5 [facility] Comment on above: Performed By: #### L 500.4050, L100.0100 ####[facility] [address] [place], [address] Platelet mean volume (Bld) [Entitic vol] 10.9 fL Normal 6.2-12.0 [facility] Comment on above: Performed By: #### L 500.4050, L100.0100 ####[facility] [address] [place], [address] Platelets (Bld) [#/Vol] 265 10*3/uL Normal 150-450 [facility] Comment on above: Performed By: #### L 500.4050, L100.0100 ####[facility] [address] [place], [address] RBC (Bld) [#/Vol] 4.83 10*6/uL Normal 4.6-6.2 [facility] Comment on above: Performed By: #### L 500.4050, L100.0100 ####[facility] [address] [place], [address] RDW SD 44.8 fl High 35.1-43.9 [facility] Comment on above: Performed By: #### L 500.4050, L100.0100 ####[facility] [address] [place], [address] WBC (Bld) [#/Vol] 7.2 10*3/uL Normal 4.4-11.0 [facility] Comment on above: Performed By: #### L 500.4050, L100.0100 ####[facility] [address] [place], [address] Carbon dioxide, total [Moles /volume] in Central venous bloodOrdered By: Bernarda Young on 01-22-2025 CO2 [Moles/Vol] 23.6 mmol/L 21.0-32.0 [facility] Chloride assayOrdered By: Eder Young on 01-22-2025 Chloride [Moles/Vol] 105 mmol/L 98-108 [facility] Comprehensive Metabolic Prof ilon 01-22-2025 Albumin [Mass/Vol] 3.7 g/dL Normal 3.4-4.8 [facility] Comment on above: Performed By: #### L 500.4050, L100.0100 ####[facility] [address] [place], [address] Albumin/Globulin [Mass ratio] 1.1 {ratio} Normal 0.9-2.4 [facility] Comment on above: Performed By: #### L 500.4050, L100.0100 ####[facility] [address] [place], [address] ALK PHOS 100 U/L Normal 40-129 [facility] Comment on above: Performed By: #### L 500.4050, L100.0100 ####[facility] [address] [place], [address] ALT [Catalytic activity/Vol] 12 U/L Normal <=46 [facility] Comment on above: Performed By: #### L 500.4050, L100.0100 ####[facility] [address] [place], [address] AST [Catalytic activity/Vol] 15 U/L Normal <=37 [facility] Comment on above: Performed By: #### L 500.4050, L100.0100 ####[facility] [address] [place], [address] Bilirubin [Mass/Vol] 0.32 mg/dL Normal 0.00-1.30 [facility] Comment on above: Performed By: #### L 500.4050, L100.0100 ####[facility] [address] [place], [address] BUN/CRE 13.4 RATIO Normal 10-20 [facility] Comment on above: Performed By: #### L 500.4050, L100.0100 ####[facility] [address] [place], [address] Calcium [Mass/Vol] 9.3 mg/dL Normal 7.6-11.0 [facility] Comment on above: Performed By: #### L 500.4050, L100.0100 ####[facility] [address] [place], [address] Chloride [Moles/Vol] 105 mmol/L Normal 98-108 [facility] Comment on above: Performed By: #### L 500.4050, L100.0100 ####[facility] [address] [place], [address] CO2 [Moles/Vol] 23.6 mmol/L Normal 21.0-32.0 [facility] Comment on above: Performed By: #### L 500.4050, L100.0100 ####[facility] [address] [place], [address] Creatinine [Mass/Vol] 1.06 mg/dL Normal 0.70-1.20 [facility] Comment on above: Performed By: #### L 500.4050, L100.0100 ####[facility] [address] [place], [address] GAP 11 Normal 5-15 [facility] Comment on above: Performed By: #### L 500.4050, L100.0100 ####[facility] [address] [place], [address] GFR/1.73 sq M.predicted among non-blacks MDRD (S/P/Bld) [Vol rate/Area] 78 mL/min/{1.73_m2} Normal >60 [facility] Comment on above: Result Comment: mL/m in/1.73m2 CKD-EPI Creatinine Equation (2020) Performed By: #### L 500.4050, L100.0100 ####[facility] [address] [place], [address] Globulin (S) [Mass/Vol] 3.5 g/dL Normal 2.2-4.2 [facility] Comment on above: Performed By: #### L 500.4050, L100.0100 ####[facility] [address] [place], [address] Glucose [Mass/Vol] 86 mg/dL Normal 70-99 [facility] Comment on above: Performed By: #### L 500.4050, L100.0100 ####[facility] [address] [place], [address] Potassium [Moles/Vol] 4.4 mmol/L Normal 3.3-5.1 [facility] Comment on above: Performed By: #### L 500.4050, L100.0100 ####[facility] [address] [place], [address] Sodium [Moles/Vol] 139 mmol/L Normal 133-145 [facility] Comment on above: Performed By: #### L 500.4050, L100.0100 ####[facility] [address] [place], [address] T PROT 7.2 g/dL Normal 5.9-8.4 [facility] Comment on above: Performed By: #### L 500.4050, L100.0100 ####[facility] [address] [place], [address] Urea nitrogen [Mass/Vol] 14 mg/dL Normal 4-19 [facility] Comment on above: Performed By: #### L 500.4050, L100.0100 ####[facility] [address] [place], [address] Eosinophil percentageOrdered By: Bernarda Young on 01-22-2025 Eosinophils/100 WBC (Bld) 2.8 % 0-5 [facility] Erythrocyte distribution wid th ratioOrdered By: Bernarda Young on 01-22-2025 Erythrocyte distribution width (RBC) [Ratio] 13.6 % 11.6-14.6 [facility] Erythrocyte distribution wid th standard deviationOrdered By: Bernarda Young on 01-22-2025 Erythrocyte distribution width (RBC) [Ratio] 44.8 fl High 35.1-43.9 [facility] Glomerular filtration rate ( GFR) estimation/1.73 sq m using serum, plasma, or whole bOrdered By: Bernarda Young on 01-22-2025 GFR/1.73 sq M.predicted among non-blacks MDRD (S/P/Bld) [Vol rate/Area] 78 mL/min/{1.73_m2} >60 [facility] Comment on above: mL/min/1.73m2 CKD-EP I Creatinine Equation (2020) Hematocrit Auto (Bld) [Volum e fraction]Ordered By: Bernarda Young on 01-22-2025 Hematocrit (Bld) [Volume fraction] 44.2 % 40-54 [facility] Hemoglobin measurementOrdere d By: Bernarda Young on 01-22-2025 Hemoglobin (Bld) [Mass/Vol] 14.9 g/dL 13.0-16.5 [facility] Immature granulocytes/100 WB C Auto (Bld)Ordered By: Bernarda Young on 01-22-2025 Immature granulocytes/100 WBC (Bld) 1.000 % High 0.0-0.9 [facility] Comment on above: IG% - Immature Granu locytes (promyelocytes, myelocytes and metamyelocytes) > 1% indicates that a LEFT SHIFT is Present. Laboratory - Chemistry and C hemistry - challengeOrdered By: Bernarda Young on 01-22-2025 AST [Catalytic activity/Vol] 15 U/L <38 [facility] MCV (mean corpuscular volume ) determinationOrdered By: Bernarda Young on 01-22-2025 MCV (RBC) [Entitic vol] 91.5 fL 80-94 [facility] Mean corpuscular hemoglobin (MCH) determinationOrdered By: Bernarda Young 01-22-2025 MCH (RBC) [Entitic mass] 30.8 pg 27.0-32.0 [facility] Mean corpuscular hemoglobin concentration (MCHC) determinationOrdered By: Bernarda Young on 01-22-2025 MCHC (RBC) [Mass/Vol] 33.7 g/dL 32-36 [facility] Mean platelet volume determi nationOrdered By: Bernarda Young on 01-22-2025 Platelet mean volume (Bld) [Entitic vol] 10.9 fL 6.2-12.0 [facility] Monocyte percentageOrdered B y: Bernarda Young on 01-22-2025 Monocytes/100 WBC (Bld) 8.8 % 0-10 [facility] Neutrophil percentageOrdered By: Bernarda Young on 01-22-2025 Neutrophils/100 WBC (Bld) 65.5 % 47-70 [facility] Nucleated red blood cell per centageOrdered By: Bernarda Young on 01-22-2025 Nucleated RBC/100 WBC (Bld) [Ratio] 0 % 0-5 [facility] Platelet countOrdered By: Eder Young on 01-22-2025 Platelets (Bld) [#/Vol] 265 10*3/uL 150-450 [facility] Potassium measurement (mass/ volume)Ordered By: Bernarda Young on 01-22-2025 Potassium (Unsp spec) [Mass/Vol] 4.4 mmol/L 3.3-5.1 [facility] RBC Auto (Bld) [#/Vol]Ordere d By: Bernarda Young on 01-22-2025 RBC (Bld) [#/Vol] 4.83 10*6/uL 4.6-6.2 [facility] Serum creatinine measurement (mass/volume)Ordered By: Bernarda Young on 01-22-2025 Creatinine [Mass/Vol] 1.06 mg/dL 0.70-1.20 [facility] Serum globulin measurementOr dered By: eBrnarda Young on 01-22-2025 Globulin (S) [Mass/Vol] 3.5 g/dL 2.2-4.2 [facility] Serum glucose measurement (m ass/volume)Ordered By: Bernarda Young on 01-22-2025 Glucose [Mass/Vol] 86 mg/dL 70-99 [facility] Serum or plasma alanine myers otransferase (ALT) measurementOrdered By: Bernarda Young on 01-22-2025 ALT [Catalytic activity/Vol] 12 U/L <47 [facility] Serum or plasma albumin rekha urement (mass/volume)Ordered By: Bernarda Young on 01-22-2025 Albumin [Mass/Vol] 3.7 g/dL 3.4-4.8 [facility] Serum or plasma albumin/glob ulin mass ratioOrdered By: Bernarda Young on 01-22-2025 Albumin/Globulin [Mass ratio] 1.1 {ratio} 0.9-2.4 [facility] Serum or plasma alkaline shreyas sphatase measurementOrdered By: Bernarda Young on 01-22-2025 ALP [Catalytic activity/Vol] 100 U/L 40-129 [facility] Serum or plasma calcium rekha urement (mass/volume)Ordered By: Bernarda Young on 01-22-2025 Calcium [Mass/Vol] 9.3 mg/dL 7.6-11.0 [facility] Serum or plasma urea nitroge n measurement (mass/volume)Ordered By: Bernarda Young on 01-22-2025 Urea nitrogen [Mass/Vol] 14 mg/dL 4-19 [facility] Sodium levelOrdered By: Cole Young on 01-22-2025 Sodium [Moles/Vol] 139 mmol/L 133-145 [facility] Total proteinOrdered By: Tracy Young on 01-22-2025 Protein [Mass/Vol] 7.2 g/dL 5.9-8.4 [facility] White blood cell (WBC) count Ordered By: Bernarda Young on 01-22-2025 WBC (Bld) [#/Vol] 7.2 10*3/uL 4.4-11.0 [facility] Absolute lymphocyte countOrd ered By: Bernarda Young on 11-02-2024 Lymphocytes Auto (Unsp spec) [#/Vol] 1.43 10*3/uL 0.83-4.51 [facility] Absolute neutrophil countOrd ered By: Bernarda Young on 11-02-2024 Neutrophils (Bld) [#/Vol] 5.4 10*3/uL 2.0-7.7 [facility] Anion gap in Serum or Plasma Ordered By: Bernarda Young on 11-02-2024 Anion gap [Moles/Vol] 14 mmol/L 5- [facility] Automated lymphocyte count a s percentage of total leukocytesOrdered By: Bernarda Young on 11-02-2024 Lymphocytes/100 WBC Auto (Unsp spec) 19.3 % 19- [facility] BUN/creatinine ratioOrdered By: Bernardayariel Young on 11-02-2024 Urea nitrogen/Creatinine [Mass ratio] 11.8 mg/mg 10- [facility] Basophil percentageOrdered B y: Bernarda Young on 11-02-2024 Basophils/100 WBC (Bld) 0.7 % 0-1 [facility] Bilirubin, totalOrdered By: Bernarda Young on 11-02-2024 Bilirubin [Mass/Vol] 0.31 mg/dL 0.00-1.30 [facility] CBC W/Diff, Automatedon 10-05 Absolute Lymph 1.43 X10 3/uL Normal 0.83-4.51 [facility] Comment on above: Performed By: #### L 100.0100, L500.4050 #### [facility] [address] [place], [address] Absolute Neut 5.4 X10 3/uL Normal 2.0-7.7 [facility] Comment on above: Performed By: #### L 100.0100, L500.4050 #### [facility] [address] [place], [address] Basophils/100 WBC (Bld) 0.7 % Normal 0-1 [facility] Comment on above: Performed By: #### L 100.0100, L500.4050 #### [facility] [address] [place], [address] Eosinophils/100 WBC (Bld) 2.7 % Normal 0-5 [facility] Comment on above: Performed By: #### L 100.0100, L500.4050 #### [facility] [address] [place], [address] Erythrocyte distribution width (RBC) [Ratio] 13.4 % Normal 11.6-14.6 [facility] Comment on above: Performed By: #### L 100.0100, L500.4050 #### [facility] [address] [place], [address] Hematocrit (Bld) [Volume fraction] 39.3 % Low 40-54 [facility] Comment on above: Performed By: #### L 100.0100, L500.4050 #### [facility] [address] [place], [address] Hemoglobin (Bld) [Mass/Vol] 13.3 g/dL Normal 13.0-16.5 [facility] Comment on above: Performed By: #### L 100.0100, L500.4050 #### [facility] [address] [place], [address] IG% 0.400 Normal 0.0-0.9 [facility] Comment on above: Result Comment: IG% - Immature Granulocytes (promyelocytes, myelocytes and metamyelocytes) > 1% indicates that a LEFT SHIFT is Present. Performed By: #### L 100.0100, L500.4050 #### [facility] [address] [place], [address] Lymphocytes/100 WBC (Bld) 19.3 % Normal 19-41 [facility] Comment on above: Performed By: #### L 100.0100, L500.4050 #### [facility] [address] [place], [address] MCH (RBC) [Entitic mass] 30.8 pg Normal 27.0-32.0 [facility] Comment on above: Performed By: #### L 100.0100, L500.4050 #### [facility] [address] [place], [address] MCHC (RBC) [Mass/Vol] 33.8 g/dL Normal 32-36 [facility] Comment on above: Performed By: #### L 100.0100, L500.4050 #### [facility] [address] [place], [address] MCV (RBC) [Entitic vol] 91.0 fL Normal 80-94 [facility] Comment on above: Performed By: #### L 100.0100, L500.4050 #### [facility] [address] [place], [address] Monocytes/100 WBC (Bld) 4.2 % Normal 0-10 [facility] Comment on above: Performed By: #### L 100.0100, L500.4050 #### [facility] [address] [place], [address] Neutrophils/100 WBC (Bld) 72.7 % High 47-70 [facility] Comment on above: Performed By: #### L 100.0100, L500.4050 #### [facility] [address] [place], [address] Nucleated RBC (Bld) [#/Vol] 0 10*3/uL Normal 0-5 [facility] Comment on above: Performed By: #### L 100.0100, L500.4050 #### [facility] [address] [place], [address] Platelet mean volume (Bld) [Entitic vol] 10.7 fL Normal 6.2-12.0 [facility] Comment on above: Performed By: #### L 100.0100, L500.4050 #### [facility] [address] [place], [address] Platelets (Bld) [#/Vol] 190 10*3/uL Normal 150-450 [facility] Comment on above: Performed By: #### L 100.0100, L500.4050 #### [facility] [address] [place], [address] RBC (Bld) [#/Vol] 4.32 10*6/uL Low 4.6-6.2 [facility] Comment on above: Performed By: #### L 100.0100, L500.4050 #### [facility] [address] [place], [address] RDW SD 43.9 fl Normal 35.1-43.9 [facility] Comment on above: Performed By: #### L 100.0100, L500.4050 #### [facility] [address] [place], [address] WBC (Bld) [#/Vol] 7.4 10*3/uL Normal 4.4-11.0 [facility] Comment on above: Performed By: #### L 100.0100, L500.4050 #### [facility] [address] [place], [address] Carbon dioxide, total [Moles /volume] in Central venous bloodOrdered By: Bernarda Young on 11-02-2024 CO2 [Moles/Vol] 21.3 mmol/L 21.0-32.0 [facility] Chloride assayOrdered By: Eder Young on 11-02-2024 Chloride [Moles/Vol] 103 mmol/L 98-108 [facility] Comprehensive Metabolic Prof ilon 11-02-2024 Albumin [Mass/Vol] 3.7 g/dL Normal 3.4-4.8 [facility] Comment on above: Performed By: #### L 100.0100, L500.4050 ####[facility] [address] [place], [address] Albumin/Globulin [Mass ratio] 1.3 {ratio} Normal 0.9-2.4 [facility] Comment on above: Performed By: #### L 100.0100, L500.4050 ####[facility] [address] [place], [address] ALK PHOS 80 U/L Normal 40-129 [facility] Comment on above: Performed By: #### L 100.0100, L500.4050 ####[facility] [address] [place], [address] ALT [Catalytic activity/Vol] 11 U/L Normal <=46 [facility] Comment on above: Performed By: #### L 100.0100, L500.4050 ####[facility] [address] [place], [address] AST [Catalytic activity/Vol] 16 U/L Normal <=37 [facility] Comment on above: Performed By: #### L 100.0100, L500.4050 ####[facility] [address] [place], [address] Bilirubin [Mass/Vol] 0.31 mg/dL Normal 0.00-1.30 [facility] Comment on above: Performed By: #### L 100.0100, L500.4050 ####[facility] [address] [place], [address] BUN/CRE 11.8 RATIO Normal 10-20 [facility] Comment on above: Performed By: #### L 100.0100, L500.4050 ####[facility] [address] [place], [address] Calcium [Mass/Vol] 9.2 mg/dL Normal 7.6-11.0 [facility] Comment on above: Performed By: #### L 100.0100, L500.4050 ####[facility] [address] [place], [address] Chloride [Moles/Vol] 103 mmol/L Normal 98-108 [facility] Comment on above: Performed By: #### L 100.0100, L500.4050 ####[facility] [address] [place], [address] CO2 [Moles/Vol] 21.3 mmol/L Normal 21.0-32.0 [facility] Comment on above: Performed By: #### L 100.0100, L500.4050 ####[facility] [address] [place], [address] Creatinine [Mass/Vol] 1.20 mg/dL Normal 0.70-1.20 [facility] Comment on above: Performed By: #### L 100.0100, L500.4050 ####[facility] [address] [place], [address] GAP 14 Normal 5-15 [facility] Comment on above: Performed By: #### L 100.0100, L500.4050 ####[facility] [address] [place], [address] GFR/1.73 sq M.predicted among non-blacks MDRD (S/P/Bld) [Vol rate/Area] 68 mL/min/{1.73_m2} Normal >60 [facility] Comment on above: Result Comment: mL/m in/1.73m2 CKD-EPI Creatinine Equation (2020) Performed By: #### L 100.0100, L500.4050 ####[facility] [address] [place], [address] Globulin (S) [Mass/Vol] 2.8 g/dL Normal 2.2-4.2 [facility] Comment on above: Performed By: #### L 100.0100, L500.4050 ####[facility] [address] [place], [address] Glucose [Mass/Vol] 104 mg/dL High 70-99 [facility] Comment on above: Performed By: #### L 100.0100, L500.4050 ####[facility] [address] [place], [address] Potassium [Moles/Vol] 4.1 mmol/L Normal 3.3-5.1 [facility] Comment on above: Performed By: #### L 100.0100, L500.4050 ####[facility] [address] [place], [address] Sodium [Moles/Vol] 138 mmol/L Normal 133-145 [facility] Comment on above: Performed By: #### L 100.0100, L500.4050 ####[facility] [address] [place], [address] T PROT 6.5 g/dL Normal 5.9-8.4 [facility] Comment on above: Performed By: #### L 100.0100, L500.4050 ####[facility] [address] [place], [address] Urea nitrogen [Mass/Vol] 14 mg/dL Normal 4-19 [facility] Comment on above: Performed By: #### L 100.0100, L500.4050 ####[facility] [address] [place], [address] Eosinophil percentageOrdered By: Bernarda Young on 11-02-2024 Eosinophils/100 WBC (Bld) 2.7 % 0-5 [facility] Erythrocyte distribution wid th (RBC) [Ratio]Ordered By: Bernarda Young on 11-02-2024 Erythrocyte distribution width (RBC) [Entitic vol] 43.9 fL 35.1-43.9 [facility] Erythrocyte distribution wid th ratioOrdered By: Bernarda Young on 11-02-2024 Erythrocyte distribution width (RBC) [Ratio] 13.4 % 11.6-14.6 [facility] [facility] Erythrocyte distribution wid th standard deviationOrdered By: Bernarda Young on 11-02-2024 Erythrocyte distribution width (RBC) [Ratio] 43.9 fl 35.1-43.9 [facility] GFR/1.73 sq M.predicted dary g non-blacks MDRD (S/P/Bld) [Vol rate/Area]Ordered By: Bernarda Young on 11-02-2024 Estimated GFR (MDRD) Non-Af Amer 68 >60 [facility] Comment on above: mL/min/1.73m2 CKD-EP I Creatinine Equation (2020) Glomerular filtration rate ( GFR) estimation/1.73 sq m using serum, plasma, or whole bOrdered By: Bernarda Young on 11-02-2024 GFR/1.73 sq M.predicted among non-blacks MDRD (S/P/Bld) [Vol rate/Area] 68 mL/min/{1.73_m2} >60 [facility] Comment on above: mL/min/1.73m2 CKD-EP I Creatinine Equation (2020) Hematocrit Auto (Bld) [Volum e fraction]Ordered By: Bernarda Young on 11-02-2024 Hematocrit (Bld) [Volume fraction] 39.3 % Low 40-54 [facility] Hemoglobin measurementOrdere d By: Bernarda Young on 11-02-2024 Hemoglobin (Bld) [Mass/Vol] 13.3 g/dL 13.0-16.5 [facility] Immature granulocytes/100 WB C Auto (Bld)Ordered By: Bernarda Young on 11-02-2024 Immature granulocytes/100 WBC (Bld) 0.400 % 0.0-0.9 [facility] Comment on above: IG% - Immature Granu locytes (promyelocytes, myelocytes and metamyelocytes) > 1% indicates that a LEFT SHIFT is Present. Laboratory - Chemistry and C hemistry - challengeOrdered By: Bernarda Young on 11-02-2024 AST [Catalytic activity/Vol] 16 U/L <38 [facility] Lymphocytes Auto (Unsp spec) [#/Vol]Ordered By: Bernarda Young on 11-02-2024 Lymphocytes (Bld) [#/Vol] 1.43 10*3/uL 0.83-4.51 [facility] Lymphocytes/100 WBC Auto (Un sp spec)Ordered By: Bernarda Young on 11-02-2024 Lymphocytes/100 WBC (Bld) 19.3 % 19-41 [facility] MCV (mean corpuscular volume ) determinationOrdered By: Bernarda Young on 11-02-2024 MCV (RBC) [Entitic vol] 91.0 fL 80-94 [facility] Mean corpuscular hemoglobin (MCH) determinationOrdered By: Bernarda Young on 11-02-2024 MCH (RBC) [Entitic mass] 30.8 pg 27.0-32.0 [facility] Mean corpuscular hemoglobin concentration (MCHC) determinationOrdered By: Bernarda Young on 11-02-2024 MCHC (RBC) [Mass/Vol] 33.8 g/dL 32-36 [facility] Mean platelet volume determi nationOrdered By: Bernarda Young on 11-02-2024 Platelet mean volume (Bld) [Entitic vol] 10.7 fL 6.2-12.0 [facility] Monocyte percentageOrdered B y: Bernarda Young on 11-02-2024 Monocytes/100 WBC (Bld) 4.2 % 0-10 [facility] Neutrophil percentageOrdered By: Bernarda Young on 11-02-2024 Neutrophils/100 WBC (Bld) 72.7 % High 47-70 [facility] Nucleated red blood cell per centageOrdered By: Bernarda Young on 11-02-2024 Nucleated RBC/100 WBC (Bld) [Ratio] 0 % 0-5 [facility] Platelet countOrdered By: Eder Young on 11-02-2024 Platelets (Bld) [#/Vol] 190 10*3/uL 150-450 [facility] Potassium (Unsp spec) [Mass/ Vol]Ordered By: Bernarda Young on 11-02-2024 Potassium [Moles/Vol] 4.1 mmol/L 3.3-5.1 [facility] Potassium measurement (mass/ volume)Ordered By: Bernarda Young on 11-02-2024 Potassium (Unsp spec) [Mass/Vol] 4.1 mmol/L 3.3-5.1 [facility] RBC Auto (Bld) [#/Vol]Ordere d By: Bernarda Young on 11-02-2024 RBC (Bld) [#/Vol] 4.32 10*6/uL Low 4.6-6.2 [facility] Serum creatinine measurement (mass/volume)Ordered By: Bernarda Young on 11-02-2024 Creatinine [Mass/Vol] 1.20 mg/dL 0.70-1.20 [facility] Serum globulin measurementOr dered By: Bernarda Young on 11-02-2024 Globulin (S) [Mass/Vol] 2.8 g/dL 2.2-4.2 [facility] Serum glucose measurement (m ass/volume)Ordered By: Bernarda Young on 11-02-2024 Glucose [Mass/Vol] 104 mg/dL High 70-99 [facility] Serum or plasma alanine myers otransferase (ALT) measurementOrdered By: Bernarda Young on 11-02-2024 ALT [Catalytic activity/Vol] 11 U/L <47 [facility] Serum or plasma albumin rekha urement (mass/volume)Ordered By: Bernarda Young on 11-02-2024 Albumin [Mass/Vol] 3.7 g/dL 3.4-4.8 [facility] Serum or plasma albumin/glob ulin mass ratioOrdered By: Bernarda Young on 11-02-2024 Albumin/Globulin [Mass ratio] 1.3 {ratio} 0.9-2.4 [facility] Serum or plasma alkaline shreyas sphatase measurementOrdered By: Bernarda Young on 11-02-2024 ALP [Catalytic activity/Vol] 80 U/L 40-129 [facility] Serum or plasma calcium rekha urement (mass/volume)Ordered By: Bernarda Young on 11-02-2024 Calcium [Mass/Vol] 9.2 mg/dL 7.6-11.0 [facility] Serum or plasma urea nitroge n measurement (mass/volume)Ordered By: Bernarda Young on 11-02-2024 Urea nitrogen [Mass/Vol] 14 mg/dL 4-19 [facility] Sodium levelOrdered By: Cole Young on 11-02-2024 Sodium [Moles/Vol] 138 mmol/L 133-145 [facility] Total proteinOrdered By: Tracy Young on 11-02-2024 Protein [Mass/Vol] 6.5 g/dL 5.9-8.4 [facility] White blood cell (WBC) count Ordered By: Bernarda Young on 11-02-2024 WBC (Bld) [#/Vol] 7.4 10*3/uL 4.4-11.0 [facility] 12 Lead EKGon 09-24-2024 12 Lead EKG [facility] [address] [place] [address] 12 Lead EKG 09/24/24 1838 MR#: [id number] Acct: [id number] Name: ALINA ALLEN Rep #: [id number] : [id number] 64 From: Pedro Vincent MD Attending Dr: Status: DEP ER Ordering Dr: Jace Landeros MD Date: 09/24/24 Location: ED Sex: M C Admitted: Test Reason : SOB Blood Pressure : */* mmHG Vent. Rate : 87 BPM Atrial Rate : 87 BPM P-R Int : 170 ms QRS Dur : 82 ms QT Int : 342 ms P-R-T Axes : 58 -49 -1 degrees QTcB Int : 411 ms Normal sinus rhythm Left axis deviation Inferior infarct , age undetermined Abnormal ECG Confirmed by PEDRO VINCENT ([id number]), scientific editor JASON MUSTAFA ([id number]) on 09/28/2024 7:14:30 AM Referred By: AR Confirmed By: PEDRO VINCENT 09/28/24 0714 Date Pedro Vincent MD CC: SIMIN Duran; Dr. Jace Landeros MD Signed Normal [facility] Absolute neutrophil countOrd ered By: Jace Landeros on 09-24-2024 Neutrophils (Bld) [#/Vol] 8.4 10*3/uL High 2.0-7.7 [facility] Basic Metabolic Profile (BMP )on 09-24-2024 BUN/CRE 17.6 RATIO Normal 10- [facility] Comment on above: Performed By: #### L 500.2500, L501.5425, L100.0100 #### [facility] [address] [place], [address] CA,Total 9.5 mg/dL Normal 8.5-10.1 [facility] Comment on above: Performed By: #### L 500.2500, L501.5425, L100.0100 #### [facility] [address] [place], [address] Chloride [Moles/Vol] 108 mmol/L High 98-107 [facility] Comment on above: Performed By: #### L 500.2500, L501.5425, L100.0100 #### [facility] [address] [place], [address] CO2 [Moles/Vol] 28.0 mmol/L Normal 21.0-32.0 [facility] Comment on above: Performed By: #### L 500.2500, L501.5425, L100.0100 #### [facility] [address] [place], [address] Creatinine [Mass/Vol] 1.25 mg/dL Normal 0.70-1.30 [facility] Comment on above: Result Comment: The validity of the calculated GFR GFRAA in patients over 70 years has not been determined. Clinical correlation is essential. Performed By: #### L 500.2500, L501.5425, L100.0100 #### [facility] [address] [place], [address] EST GFR - AA 75 mL/min Normal >60 [facility] Comment on above: Result Comment: Afri can Spanish GFR Calc Performed By: #### L 500.2500, L501.5425, L100.0100 #### [facility] [address] [place], [address] GAP 5 Normal 5-15 [facility] Comment on above: Performed By: #### L 500.2500, L501.5425, L100.0100 #### [facility] [facility] [address] [place], [address] GFR/1.73 sq M.predicted among non-blacks MDRD (S/P/Bld) [Vol rate/Area] 62 mL/min/{1.73_m2} Normal >60 [facility] Comment on above: Result Comment: Non- GFR Calc Performed By: #### L 500.2500, L501.5425, L100.0100 #### [facility] [address] [place], [address] Glucose [Mass/Vol] 108 mg/dL High 74-106 [facility] Comment on above: Result Comment: Fast ing Glucose result from 100 to 125 mg/dL suggests IMPAIRED HOMEOSTASIS per A.D.A. criteria. Performed By: #### L 500.2500, L501.5425, L100.0100 #### [facility] [address] [place], [address] Potassium [Moles/Vol] 4.2 mmol/L Normal 3.5-5.1 [facility] Comment on above: Performed By: #### L 500.2500, L501.5425, L100.0100 #### [facility] [address] [place], [address] Sodium [Moles/Vol] 141 mmol/L Normal 136-145 [facility] Comment on above: Performed By: #### L 500.2500, L501.5425, L100.0100 #### [facility] [address] [place], [address] Urea nitrogen [Mass/Vol] 22 mg/dL High 7-18 [facility] Comment on above: Performed By: #### L 500.2500, L501.5425, L100.0100 #### [facility] [address] [place], [address] Basophil percentageOrdered B y: Jace Landeros on 09-24-2024 Basophils/100 WBC (Bld) 0.4 % 0-1 [facility] Blood urea nitrogen (BUN)/cr eatinine ratioOrdered By: Jace Landeros on 09-24-2024 Urea nitrogen/Creatinine [Mass ratio] 17.6 mg/mg 05-24 [facility] CBC W/Diff, Automatedon 09-06 Absolute Lymph 1.01 X10 3/uL Normal 0.83-4.51 [facility] Comment on above: Performed By: #### L 500.2500, L501.5425, L100.0100 #### [facility] [address] [place], [address] Absolute Neut 8.4 X10 3/uL High 2.0-7.7 [facility] Comment on above: Performed By: #### L 500.2500, L501.5425, L100.0100 #### [facility] [address] [place], [address] Basophils/100 WBC (Bld) 0.4 % Normal 0-1 [facility] Comment on above: Performed By: #### L 500.2500, L501.5425, L100.0100 #### [facility] [address] [place], [address] Eosinophils/100 WBC (Bld) 1.8 % Normal 0-5 [facility] Comment on above: Performed By: #### L 500.2500, L501.5425, L100.0100 #### [facility] [address] [place], [address] Erythrocyte distribution width (RBC) [Ratio] 13.1 % Normal 11.6-14.6 [facility] Comment on above: Performed By: #### L 500.2500, L501.5425, L100.0100 #### [facility] [address] [place], [address] Hematocrit (Bld) [Volume fraction] 41.4 % Normal 40-54 [facility] Comment on above: Performed By: #### L 500.2500, L501.5425, L100.0100 #### [facility] [address] [place], [address] Hemoglobin (Bld) [Mass/Vol] 14.4 g/dL Normal 13.0-16.5 [facility] Comment on above: Performed By: #### L 500.2500, L501.5425, L100.0100 #### [facility] [address] [place], [address] IG% 0.600 Normal 0.0-0.9 [facility] Comment on above: Result Comment: IG% - Immature Granulocytes (promyelocytes, myelocytes and metamyelocytes) > 1% indicates that a LEFT SHIFT is Present. Performed By: #### L 500.2500, L501.5425, L100.0100 #### [facility] [address] [place], [address] Lymphocytes/100 WBC (Bld) 9.7 % Low 19-41 [facility] Comment on above: Performed By: #### L 500.2500, L501.5425, L100.0100 #### [facility] [address] [place], [address] MCH (RBC) [Entitic mass] 31.6 pg Normal 27.0-32.0 [facility] Comment on above: Performed By: #### L 500.2500, L501.5425, L100.0100 #### [facility] [address] [place], [address] MCHC (RBC) [Mass/Vol] 34.8 g/dL Normal 32-36 [facility] Comment on above: Performed By: #### L 500.2500, L501.5425, L100.0100 #### [facility] [address] [place], [address] MCV (RBC) [Entitic vol] 90.8 fL Normal 80-94 [facility] Comment on above: Performed By: #### L 500.2500, L501.5425, L100.0100 #### [facility] [address] [place], [address] Monocytes/100 WBC (Bld) 6.3 % Normal 0-10 [facility] Comment on above: Performed By: #### L 500.2500, L501.5425, L100.0100 #### [facility] [address] [place], [address] Neutrophils/100 WBC (Bld) 81.2 % High 47-70 [facility] Comment on above: Performed By: #### L 500.2500, L501.5425, L100.0100 #### [facility] [address] [place], [address] Nucleated RBC (Bld) [#/Vol] 0 10*3/uL Normal 0-5 [facility] Comment on above: Performed By: #### L 500.2500, L501.5425, L100.0100 #### [facility] [address] [place], [address] Platelet mean volume (Bld) [Entitic vol] 10.4 fL Normal 6.2-12.0 [facility] Comment on above: Performed By: #### L 500.2500, L501.5425, L100.0100 #### [facility] [address] [place], [address] Platelets (Bld) [#/Vol] 220 10*3/uL Normal 150-450 [facility] Comment on above: Performed By: #### L 500.2500, L501.5425, L100.0100 #### [facility] [address] [place], [address] RBC (Bld) [#/Vol] 4.56 10*6/uL Low 4.6-6.2 [facility] Comment on above: Performed By: #### L 500.2500, L501.5425, L100.0100 #### [facility] [address] [place], [address] RDW SD 42.4 fl Normal 35.1-43.9 [facility] Comment on above: Performed By: #### L 500.2500, L501.5425, L100.0100 #### [facility] [address] [place], [address] WBC (Bld) [#/Vol] 10.4 10*3/uL Normal 4.4-11.0 [facility] Comment on above: Performed By: #### L 500.2500, L501.5425, L100.0100 #### [facility] [address] [place], [address] CTA Chest W/WO Contraston CTA Chest W/WO Contrast [facility] Imaging Services [address] [place] [address] CTA Chest W/WO Contrast MR#: [id number] Acct: [id number] Name: ALINA ALLEN Rep #: [id number] : 1960 M 64 From: Patricio New MD PCP: SIMIN Telles Status: [facility] ER Study: CTA Chest W/WO Contrast Date of Exam: 09/24/24 Exam# [id number] Ordering Dr: Jace Landeros MD PROCEDURE: CTA CHEST W/WO CONTRAST REASON FOR EXAM: Pain with inspiration. TECHNIQUE: CTA imaging of the chest with intravenous contrast. 3D reconstructions. CONTRAST: 100 cc of Isovue 370. COMPARISON: None. FINDINGS: Hardware: None. Lymph nodes: No mediastinal hilar or axillary lymphadenopathy. Heart: Normal heart size. No pericardial effusion. RV/LV Diameter Ratio: N/A Thoracic Aorta: No thoracic aortic aneurysm or dissection. Pulmonary Vessels: No evidence of acute pulmonary emboli through the major subsegmental branches. Most Proximal Level of Embolus (if embolus present): N/A Lungs and Airways: Moderate paraseptal and mild centrilobular emphysema. Diffuse ground-glass opacity favoring chronic interstitial changes. Bilateral dependent atelectasis. Pleura: No pleural effusion. No pneumothorax. Upper Abdomen: Moderate hiatal hernia. Right kidney simple cyst. Bones: Bone windows are unremarkable. CT/CTA Chest W/WO Contrast IMPRESSION: No pulmonary embolism. Emphysema. Diffuse ground-glass opacities favoring a chronic interstitial process. Moderate hiatal hernia. One or more dose reduction techniques were used (e.g., Automated exposure control, adjustment of the mA and/or kV according to patient size, use of iterative reconstruction technique). Reading Location: [id number] CC: RECEPTION SPECIALIST-C Maris Duran; Dr. Jace Landeros MD Professor Sculpture: Signed Normal [facility] Carbon dioxide measurementOr dered By: Jace Landeros on 09-24-2024 CO2 [Moles/Vol] 28.0 mmol/L 21.0-32.0 [facility] Chest 1 View (Portable)on Chest 1 View (Portable) [facility] Imaging Services [address], [place] [address] Chest 1 View (Portable) MR#: [id number] Acct: [id number] Name: ALINA ALLEN Rep #: [id number] : 1960 M 64 From: Jerson Viera MD PCP: Maris Duran, RECEPTION SPECIALIST-C Status: REG ER Study: Chest 1 View (Portable) Date of Exam: 09/24/24 Exam# [id number] Ordering Dr: Provider,Ed P. PROCEDURE: CHEST 1 VIEW (PORTABLE) REASON FOR EXAM: Shortness of breath TECHNIQUE: Frontal view of the chest. COMPARISON: None. FINDINGS: The heart size is normal. The mediastinal contour is unremarkable. Mild bibasilar opacities, [id number]-fssv-[id number] ht Degenerative changes are identified within the thoracic spine and left shoulder. RAD/Chest 1 View (Portable) IMPRESSION: Mild bibasilar atelectasis versus airspace disease. Reading Location: [facility] CC: SIMIN Duran; ED PHYSICIAN PROVIDER Professor Sculpture: Signed Normal [facility] Chloride measurementOrdered By: Jace Landeros on 09-24-2024 Chloride [Moles/Vol] 108 mmol/L High 98-107 [facility] D-Dimer Quantitative (DVT/PE )on 09-24-2024 D-DIMER QUANT 1.15 FEU/ug/m Invalid Interpretation Code 0.27-0.49 [facility] Comment on above: Result Comment: D-Di britt ELEVATED (>0.49): Additional studies and clinical assessments are indicated to conclude diagnosis of: Deep Vein Thrombosis (DVT) or Pulmonary Embolism (PE) [facility]24 2016 Marcia Medrano. RESULTS READ BACK BY SAME. Performed By: #### L 300.8000 ####[facility] [address] [place], [address] D-dimer measurement for deep venous thrombosisOrdered By: Jace Landeros on 09-24-2024 D-Dimer Quantitative (PE/DVT) 1.15 FEU/ug/m High 0.27-0.49 [facility] Comment on above: D-Dimer ELEVATED (>0 .49): Additional studies and clinicalassessments are indicated to conclude diagnosis of:Deep Vein Thrombosis (DVT) or Pulmonary Embolism (PE)CRITICAL VALUE CALLED TO RFSIDA80/20/25 2016 Marcia Medrano.RESULTS READ BACK BY SAME. Emergency Department Summary on 09-24-2024 Emergency Department Summary [facility] Medical Records Department [address] [place] [address] Emergency Department Summary 09/24/24 MR#: [id number] Acct: [id number] Name: ALINA ALLEN Rep #: [id number] : 1960 64 From: Jace Landeros MD PCP: SIMIN Telles Status:REG ER Location: ED HPI History of Present Illness Chief Complaint: Chest Other Narrative Narrative: 64-year-old male, quit smoking a few weeks ago, presents with left-sided chest pain that began while he was at home around 4 PM, 3-1/2 hours ago approximately. He states that he was sitting watching TV, and gets sharp pain in his left anterior chest when he tries to breathe and sometimes when he sits up. He denies any recent fevers or chills, no cough. He states that the pain becomes sharp and it is hard for him to catch his breath. It also hurts when he tries to breathe deeply. No nausea or vomiting. No diaphoresis. He does feel short of breath. It also hurts him when he coughs. He states that when he exerts himself, causes him to cough, then he gets sharp pain in his left lower lung. [facility] Medical History Olecranon bursitis, left elbow Digital mucous cyst of finger of right hand Rheumatoid arthritis Meniscal injury Home Medications ???Medication ???Instructions ???Recorded ???Last Taken ???Type methotrexate sodium 2.5 mg tablet 2.5 mg PO QWEEK 12/22/21 Unknown History acetaminophen 500 mg tablet 500 mg PO Q6H PRN 09/06/23 Unknown History (Tylenol Extra Strength) folic acid 800 mcg tablet 0.8 mg PO DAILY 09/06/23 Unknown H istory benzonatate 100 mg capsule 200 mg (2 x 100 mg) PO TID PRN Unknown Rx cough #30 caps naproxen 500 mg tablet 500 mg PO BID PRN PRN pain #20 tab s 09/24/24 Unknown Rx Allergy/AdvReac Type Severity Reaction Status Date / Time cat dander Allergy Itching Verified 09/24/24 18:28 Social History Smoking Status: Current every day smoker tobacco type: cigarettes ROS ROS ED ROS Narrative Constitutional: No fever, no chills. HEENT: No sore throat. No neck pain. Cardiovascular: Left lower lung/left-sided chest pain. No palpitations. No pedal edema. Respiratory: Occasional cough that worsens chest pain, positive shortness of breath. Abdominal: No abdominal pain. No nausea. No vomiting. Musculoskeletal: No myalgias. No arthralgias. Neurologic: No headaches. No dizziness. No lightheadedness. Skin: No rash. No change in color. EXAM Physical Exam Narrative Exam Narrative: Afebrile. Vital signs noted. Nontoxic-appearing. Cardiovascular examination reveals a regular rate and rhythm. Lungs are clear to auscultation bilaterally. Abdomen is soft and nontender with normal active bowel sounds. No crepitance of chest. No pedal edema. Const Vital Signs: 09/24/24 18:25 09/24/24 18:50 09/24/24 18:50 Temperature 98.3 F Temperature Source Temporal Pulse Rate 93 Respiratory Rate 18 Respiratory Effort Normal Non-Labored Blood Pressure 180/87 H Blood Pressure Mean 118 Pulse Ox 98 95 Oxygen Delivery Method Room Air Room Air 09/24/24 18:51 09/24/24 19:36 09/24/24 21:00 Temperature Temperature Source Pulse Rate 85 79 Respiratory Rate 19 H 22 H 19 H Respiratory Effort Blood Pressure 157/73 H 147/87 H Blood Pressure Mean 101 107 Pulse Ox 96 95 98 Oxygen Delivery Method Room Air Room Air Room Air Heart Score History: Slightly/Non-Suspicio us ECG: Normal Age: >45 - <65 years Risk Factors: 1 or 2 Risk Factors Troponin: Score: 2 MDM MDM MDM Narrative Medical decision making narrative: Differential diagnosis includes but not limited to ACS versus pneumothorax versus pneumonia versus pulmonary embolism versus pleurisy. Lower suspicion for pulmonary embolism because the history and physical does not support this. He is currently not tachycardic with a heart rate of 85. Pulse ox ranges from 95 to 98% on room air and he is not hypoxic. EKG was obtained and interpreted by myself independently as normal sinus rhythm at 87 bpm without ectopy or acute ST changes. No STEMI. Comprehensive workup was pursued. Protocol labs were ordered. I did add a D-dimer and troponins as well. Chest x-ray interpreted by myself independently shows atelectasis but no pneumothorax no consolidation. I reviewed the radiology report which comments on mild bibasilar atelectasis versus airspace disease. I do not feel this is a pneumonia which requires antibiotics. I reviewed his laboratory work and he has normal white count of 10.4 with hemoglobin normal at 14.4 and platelet count 220. Sodium is normal at 141 with potassium 4.2, chloride elevated at 108 which I think is nonspecific, BUN slightly vinay (more content not included)... Normal [facility] Eosinophil percentageOrdered By: Jace Landeros on 09-24-2024 Eosinophils/100 WBC (Bld) 1.8 % 0-5 [facility] Erythrocyte distribution wid th (RBC) [Ratio]Ordered By: Jace Landeros on 09-24-2024 Erythrocyte distribution width (RBC) [Entitic vol] 42.4 fL 35.1-43.9 [facility] Erythrocyte distribution wid th ratioOrdered By: Jace Landeros on 09-24-2024 Erythrocyte distribution width (RBC) [Ratio] 13.1 % 11.6-14.6 [facility] Estimated glomerular filtrat ion rate (GFR) AmericanOrdered By: Jace Landeros on 09-24-2024 Estimated GFR (MDRD) Amer 75 mL/min >60 [facility] Comment on above: GFR Calc Glomerular filtration rate ( GFR) estimationOrdered By: Jace Landeros on 09-24-2024 Estimated GFR (MDRD) Non-Af Amer 62 mL/min >60 [facility] Comment on above: Non- GFR Calc Glucose measurementOrdered B y: Jace Landeros on 09-24-2024 Glucose [Mass/Vol] 108 mg/dL High 74-106 [facility] Comment on above: Fasting Glucose resu lt from 100 to 125 mg/dL suggests IMPAIRED HOMEOSTASIS per A.D.A. criteria. Hematocrit Auto (Bld) [Volum e fraction]Ordered By: Jace Landeros on 09-24-2024 Hematocrit (Bld) [Volume fraction] 41.4 % 40-54 [facility] Hemoglobin measurementOrdere d By: Jace Landeros on 09-24-2024 Hemoglobin (Bld) [Mass/Vol] 14.4 g/dL 13.0-16.5 [facility] Immature granulocytes/100 WB C Auto (Bld)Ordered By: Jace Landeros on 09-24-2024 Immature granulocytes/100 WBC (Bld) 0.600 % 0.0-0.9 [facility] Comment on above: IG% - Immature Granu locytes (promyelocytes, myelocytes and metamyelocytes) > 1% indicates that a LEFT SHIFT is Present. L501.4020on 09-24-2024 TROPONIN-I HS 6 pg/mL Normal 3.0-78.0 [facility] Comment on above: Result Comment: Plecourtney se Note: New Test Units and Gender Specific Reference Ranges. For more information see Policy Stat Procedure [place] High Sensitivity Troponin (TNIH) and attachments. Performed By: #### L 501.4020 ####[facility] [address] [facility] [place], [address] L501.5425on 09-24-2024 TROPONIN-I HS 6 pg/mL Normal 3.0-78.0 [facility] Comment on above: Order Comment: 1 Y Result Comment: Plecourtney se Note: New Test Units and Gender Specific Reference Ranges. For more information see Policy Stat Procedure [place] High Sensitivity Troponin (TNIH) and attachments. Performed By: #### L 500.2500, L501.5425, L100.0100 #### [facility] [address] [facility], [address] Lymphocytes Auto (Unsp spec) [#/Vol]Ordered By: Jace Landeros on 09-24-2024 Lymphocytes (Bld) [#/Vol] 1.01 10*3/uL 0.83-4.51 [facility] Lymphocytes/100 WBC Auto (Un sp spec)Ordered By: Jace Landeros on 09-24-2024 Lymphocytes/100 WBC (Bld) 9.7 % Low 19-41 [facility] MCV (mean corpuscular volume ) determinationOrdered By: Jace Landeros on 09-24-2024 MCV (RBC) [Entitic vol] 90.8 fL 80-94 [facility] Mean corpuscular hemoglobin (MCH) determinationOrdered By: Jace Landeros on 09-24-2024 MCH (RBC) [Entitic mass] 31.6 pg 27.0-32.0 [facility] Mean corpuscular hemoglobin concentration (MCHC) determinationOrdered By: Jace Landeros on 09-24-2024 MCHC (RBC) [Mass/Vol] 34.8 g/dL 32-36 [facility] Mean platelet volume determi nationOrdered By: Jace Lanedros on 09-24-2024 Platelet mean volume (Bld) [Entitic vol] 10.4 fL 6.2-12.0 [facility] Monocyte percentageOrdered B y: Jace Landeros on 09-24-2024 Monocytes/100 WBC (Bld) 6.3 % 0-10 [facility] Neutrophil percentageOrdered By: Jace Landeros on 09-24-2024 Neutrophils/100 WBC (Bld) 81.2 % High 47-70 [facility] Nucleated red blood cell per centageOrdered By: Jace Landeros on 09-24-2024 Nucleated RBC/100 WBC (Bld) [Ratio] 0 % 0-5 [facility] Platelet countOrdered By: Brody Landeros on 09-24-2024 Platelets (Bld) [#/Vol] 220 10*3/uL 150-450 [facility] Potassium measurementOrdered By: Jace Landeros on 09-24-2024 Potassium [Moles/Vol] 4.2 mmol/L 3.5-5.1 [facility] RBC Auto (Bld) [#/Vol]Ordere d By: Jace Landeros on 09-24-2024 RBC (Bld) [#/Vol] 4.56 10*6/uL Low 4.6-6.2 [facility] Serum anion gap measurementO rdered By: Jace Landeros on 09-24-2024 Anion gap [Moles/Vol] 5 mmol/L 5-15 [facility] Serum or plasma calcium rekha urement (mass/volume)Ordered By: Jace Landeros on 09-24-2024 Calcium [Mass/Vol] 9.5 mg/dL 8.5-10.1 [facility] Serum or plasma creatinine m easurement (mass/volume)Ordered By: Jace Landeros on 09-24-2024 Creatinine [Mass/Vol] 1.25 mg/dL 0.70-1.30 [facility] Comment on above: The validity of the calculated GFR & GFRAA in patients over 70 years has not been determined. Clinical correlation is essential. Serum or plasma urea nitroge n measurement (mass/volume)Ordered By: Jace Landeros on 09-24-2024 Urea nitrogen [Mass/Vol] 22 mg/dL High 7-18 [facility] Sodium levelOrdered By: Jace Landeros on 09-24-2024 Sodium [Moles/Vol] 141 mmol/L 136-145 [facility] Troponin IOrdered By: Jace pedroza on 09-24-2024 Troponin I High Sensitivity 6 pg/mL 3.0-78.0 [facility] Comment on above: Please Note: New Ian t Units and Gender Specific Reference Ranges. For more information see Policy Stat Procedure [place] High Sensitivity Troponin (TNIH) and attachments. White blood cell (WBC) count Ordered By: Jace Landeros on 09-24-2024 WBC (Bld) [#/Vol] 10.4 10*3/uL 4.4-11.0 [facility] Absolute neutrophil countOrd ered By: Bernarda Young on 07-31-2024 Neutrophils (Bld) [#/Vol] 5.4 10*3/uL 2.0-7.7 [facility] Albumin to globulin ratioOrd ered By: Bernarda Young on 07-31-2024 Albumin/Globulin [Mass ratio] 0.8 {ratio} Low 0.9-2.4 [facility] Basophil percentageOrdered B y: Bernarda Young on 07-31-2024 Basophils/100 WBC (Bld) 0.8 % 0-1 [facility] Bilirubin, totalOrdered By: Bernarda Young on 07-31-2024 Bilirubin [Mass/Vol] 0.30 mg/dL 0.20-1.00 [facility] Comment on above: For patients on eltr ombopag therapy, use of Dimension [place] TBIL is not recommended. Blood urea nitrogen (BUN)/cr eatinine ratioOrdered By: Bernarda Young on 07-31-2024 Urea nitrogen/Creatinine [Mass ratio] 14.2 mg/mg 05-24 [facility] CBC W/Diff, Automatedon 12-2 Absolute Lymph 1.98 X10 3/uL Normal 0.83-4.51 [facility] Comment on above: Performed By: #### L 500.4050, L100.0100 ####[facility] [address] [place], [address] Absolute Neut 5.4 X10 3/uL Normal 2.0-7.7 [facility] Comment on above: Performed By: #### L 500.4050, L100.0100 ####[facility] [address] [place], [address] Basophils/100 WBC (Bld) 0.8 % Normal 0-1 [facility] Comment on above: Performed By: #### L 500.4050, L100.0100 ####[facility] [address] [place], [address] Eosinophils/100 WBC (Bld) 3.8 % Normal 0-5 [facility] Comment on above: Performed By: #### L 500.4050, L100.0100 ####[facility] [address] [place], [address] Erythrocyte distribution width (RBC) [Ratio] 13.2 % Normal 11.6-14.6 [facility] Comment on above: Performed By: #### L 500.4050, L100.0100 ####[facility] [address] [place], [address] Hematocrit (Bld) [Volume fraction] 44.5 % Normal 40-54 [facility] Comment on above: Performed By: #### L 500.4050, L100.0100 ####[facility] [address] [place], [address] Hemoglobin (Bld) [Mass/Vol] 14.5 g/dL Normal 13.0-16.5 [facility] Comment on above: Performed By: #### L 500.4050, L100.0100 ####[facility] [address] [place], [address] IG% 0.500 Normal 0.0-0.9 [facility] Comment on above: Result Comment: IG% - Immature Granulocytes (promyelocytes, myelocytes and metamyelocytes) > 1% indicates that a LEFT SHIFT is Present. Performed By: #### L 500.4050, L100.0100 ####[facility] [address] [place], [address] Lymphocytes/100 WBC (Bld) 23.2 % Normal 19-41 [facility] Comment on above: Performed By: #### L 500.4050, L100.0100 ####[facility] [address] [place], [address] MCH (RBC) [Entitic mass] 30.7 pg Normal 27.0-32.0 [facility] Comment on above: Performed By: #### L 500.4050, L100.0100 ####[facility] [address] [place], [address] MCHC (RBC) [Mass/Vol] 32.6 g/dL Normal 32-36 [facility] Comment on above: Performed By: #### L 500.4050, L100.0100 ####[facility] [address] [place], [address] MCV (RBC) [Entitic vol] 94.1 fL High 80-94 [facility] Comment on above: Performed By: #### L 500.4050, L100.0100 ####[facility] [address] [place], [address] Monocytes/100 WBC (Bld) 8.0 % Normal 0-10 [facility] Comment on above: Performed By: #### L 500.4050, L100.0100 ####[facility] [address] [place], [address] Neutrophils/100 WBC (Bld) 63.7 % Normal 47-70 [facility] Comment on above: Performed By: #### L 500.4050, L100.0100 ####[facility] [address] [place], [address] Nucleated RBC (Bld) [#/Vol] 0 10*3/uL Normal 0-5 [facility] Comment on above: Performed By: #### L 500.4050, L100.0100 ####[facility] [address] [place], [address] Platelet mean volume (Bld) [Entitic vol] 10.9 fL Normal 6.2-12.0 [facility] Comment on above: Performed By: #### L 500.4050, L100.0100 ####[facility] [address] [place], [address] Platelets (Bld) [#/Vol] 204 10*3/uL Normal 150-450 [facility] Comment on above: Performed By: #### L 500.4050, L100.0100 ####[facility] [address] [place], [address] RBC (Bld) [#/Vol] 4.73 10*6/uL Normal 4.6-6.2 [facility] Comment on above: Performed By: #### L 500.4050, L100.0100 ####[facility] [address] [place], [address] RDW SD 45.2 fl High 35.1-43.9 [facility] Comment on above: Performed By: #### L 500.4050, L100.0100 ####[facility] [address] [place], [address] WBC (Bld) [#/Vol] 8.5 10*3/uL Normal 4.4-11.0 [facility] Comment on above: Performed By: #### L 500.4050, L100.0100 ####[facility] [address] [place], [address] Carbon dioxide measurementOr dered By: Bernarda Young on 07-31-2024 CO2 [Moles/Vol] 27.0 mmol/L 21.0-32.0 [facility] Chloride measurementOrdered By: Bernarda Young on 07-31-2024 Chloride [Moles/Vol] 108 mmol/L High 98-107 [facility] Comprehensive Metabolic Prof ilon 07-31-2024 Albumin [Mass/Vol] 3.2 g/dL Normal 3.2-5.0 [facility] Comment on above: Performed By: #### L 500.4050, L100.0100 ####[facility] [address] [place], [address] Albumin/Globulin [Mass ratio] 0.8 {ratio} Low 0.9-2.4 [facility] Comment on above: Performed By: #### L 500.4050, L100.0100 ####[facility] [address] [place], [address] ALK P 87 U/L Normal 45-117 [facility] Comment on above: Performed By: #### L 500.4050, L100.0100 ####[facility] [address] [place], [address] ALT [Catalytic activity/Vol] 19 U/L Normal 16-61 [facility] Comment on above: Performed By: #### L 500.4050, L100.0100 ####[facility] [address] [place], [address] AST [Catalytic activity/Vol] 12 U/L Low 15-37 [facility] Comment on above: Performed By: #### L 500.4050, L100.0100 ####[facility] [address] [place], [address] Bilirubin [Mass/Vol] 0.30 mg/dL Normal 0.20-1.00 [facility] Comment on above: Result Comment: For patients on eltrombopag therapy, use of Dimension [place] TBIL is not recommended. Performed By: #### L 500.4050, L100.0100 ####[facility] [address] [place], [address] BUN/CRE 14.2 RATIO Normal 10-20 [facility] Comment on above: Performed By: #### L 500.4050, L100.0100 ####[facility] [address] [place], [address] CA,Total 9.0 mg/dL Normal 8.5-10.1 [facility] Comment on above: Performed By: #### L 500.4050, L100.0100 ####[facility] [address] [place], [address] Chloride [Moles/Vol] 108 mmol/L High 98-107 [facility] Comment on above: Performed By: #### L 500.4050, L100.0100 ####[facility] [address] [place], [address] CO2 [Moles/Vol] 27.0 mmol/L Normal 21.0-32.0 [facility] Comment on above: Performed By: #### L 500.4050, L100.0100 ####[facility] [address] [place], [address] Creatinine [Mass/Vol] 1.06 mg/dL Normal 0.70-1.30 [facility] Comment on above: Result Comment: The validity of the calculated GFR GFRAA in patients over 70 years has not been determined. Clinical correlation is essential. Performed By: #### L 500.4050, L100.0100 ####[facility] [address] [place], [address] EST GFR - AA 91 mL/min Normal >60 [facility] Comment on above: Result Comment: Afri can Spanish GFR Calc Performed By: #### L 500.4050, L100.0100 ####[facility] [address] [place], [address] GAP 2 Low 5-15 [facility] Comment on above: Performed By: #### L 500.4050, L100.0100 ####[facility] [address] [place], [address] GFR/1.73 sq M.predicted among non-blacks MDRD (S/P/Bld) [Vol rate/Area] 75 mL/min/{1.73_m2} Normal >60 [facility] Comment on above: Result Comment: Non- GFR Calc Performed By: #### L 500.4050, L100.0100 ####[facility] [address] [place], [address] Globulin (S) [Mass/Vol] 3.8 g/dL Normal 2.2-4.2 [facility] Comment on above: Performed By: #### L 500.4050, L100.0100 ####[facility] [address] [place], [address] Glucose [Mass/Vol] 92 mg/dL Normal 74-106 [facility] Comment on above: Performed By: #### L 500.4050, L100.0100 ####[facility] [address] [place], [address] Potassium [Moles/Vol] 4.4 mmol/L Normal 3.5-5.1 [facility] Comment on above: Performed By: #### L 500.4050, L100.0100 ####[facility] [address] [place], [address] Sodium [Moles/Vol] 137 mmol/L Normal 136-145 [facility] Comment on above: Performed By: #### L 500.4050, L100.0100 ####[facility] [address] [place], [address] T PROT 7.0 g/dL Normal 6.4-8.2 [facility] Comment on above: Performed By: #### L 500.4050, L100.0100 ####[facility] [address] [place], [address] Urea nitrogen [Mass/Vol] 15 mg/dL Normal 7-18 [facility] Comment on above: Performed By: #### L 500.4050, L100.0100 ####[facility] [address] [place], [address] Eosinophil percentageOrdered By: Bernarda Young on 07-31-2024 Eosinophils/100 WBC (Bld) 3.8 % 0-5 [facility] Erythrocyte distribution wid th (RBC) [Ratio]Ordered By: Bernarda Young on 07-31-2024 Erythrocyte distribution width (RBC) [Entitic vol] 45.2 fL High 35.1-43.9 [facility] Erythrocyte distribution wid th ratioOrdered By: Bernarda Young on 07-31-2024 Erythrocyte distribution width (RBC) [Ratio] 13.2 % 11.6-14.6 [facility] Estimated glomerular filtrat ion rate (GFR) AmericanOrdered By: Bernarda Young on 07-31-2024 Estimated GFR (MDRD) Amer 91 mL/min >60 [facility] Comment on above: GFR Calc Glomerular filtration rate ( GFR) estimationOrdered By: Bernarda Young on 07-31-2024 Estimated GFR (MDRD) Non-Af Amer 75 mL/min >60 [facility] Comment on above: Non- GFR Calc Glucose measurementOrdered B y: Bernarda Young on 07-31-2024 Glucose [Mass/Vol] 92 mg/dL 74-106 [facility] Hematocrit Auto (Bld) [Volum e fraction]Ordered By: Bernarda Young on 07-31-2024 Hematocrit (Bld) [Volume fraction] 44.5 % 40-54 [facility] Hemoglobin measurementOrdere d By: Bernarda Young on 07-31-2024 Hemoglobin (Bld) [Mass/Vol] 14.5 g/dL 13.0-16.5 [facility] Immature granulocytes/100 WB C Auto (Bld)Ordered By: Bernarda Young on 07-31-2024 Immature granulocytes/100 WBC (Bld) 0.500 % 0.0-0.9 [facility] Comment on above: IG% - Immature Granu locytes (promyelocytes, myelocytes and metamyelocytes) > 1% indicates that a LEFT SHIFT is Present. Laboratory - Chemistry and C hemistry - challengeOrdered By: Bernarda Young on 07-31-2024 AST [Catalytic activity/Vol] 12 U/L Low 15-37 [facility] Lymphocytes Auto (Unsp spec) [#/Vol]Ordered By: Bernarda Young on 07-31-2024 Lymphocytes (Bld) [#/Vol] 1.98 10*3/uL 0.83-4.51 [facility] Lymphocytes/100 WBC Auto (Un sp spec)Ordered By: Bernarda Young on 07-31-2024 Lymphocytes/100 WBC (Bld) 23.2 % 19-41 [facility] MCV (mean corpuscular volume ) determinationOrdered By: Bernarda Young on 07-31-2024 MCV (RBC) [Entitic vol] 94.1 fL High 80-94 [facility] Mean corpuscular hemoglobin (MCH) determinationOrdered By: Bernarda Young on 07-31-2024 MCH (RBC) [Entitic mass] 30.7 pg 27.0-32.0 [facility] Mean corpuscular hemoglobin concentration (MCHC) determinationOrdered By: Bernarda Young on 07-31-2024 MCHC (RBC) [Mass/Vol] 32.6 g/dL 32-36 [facility] Mean platelet volume determi nationOrdered By: Bernarda Young on 07-31-2024 Platelet mean volume (Bld) [Entitic vol] 10.9 fL 6.2-12.0 [facility] Monocyte percentageOrdered B y: Bernarda Young on 07-31-2024 Monocytes/100 WBC (Bld) 8.0 % 0-10 [facility] Neutrophil percentageOrdered By: Bernarda Young on 07-31-2024 Neutrophils/100 WBC (Bld) 63.7 % 47-70 [facility] Nucleated red blood cell per centageOrdered By: Bernarda Young on 07-31-2024 Nucleated RBC/100 WBC (Bld) [Ratio] 0 % 0-5 [facility] Platelet countOrdered By: Eder Young on 07-31-2024 Platelets (Bld) [#/Vol] 204 10*3/uL 150-450 [facility] Potassium measurementOrdered By: Bernarda Young on 07-31-2024 Potassium [Moles/Vol] 4.4 mmol/L 3.5-5.1 [facility] RBC Auto (Bld) [#/Vol]Ordere d By: Bernarda Young on 07-31-2024 RBC (Bld) [#/Vol] 4.73 10*6/uL 4.6-6.2 [facility] Serum anion gap measurementO rdered By: Bernarda Young on 07-31-2024 Anion gap [Moles/Vol] 2 mmol/L Low 5-15 [facility] Serum globulin measurementOr dered By: Bernarda Young on 07-31-2024 Globulin (S) [Mass/Vol] 3.8 g/dL 2.2-4.2 [facility] Serum or plasma alanine myers otransferase (ALT) measurementOrdered By: Bernarda Young on 07-31-2024 ALT [Catalytic activity/Vol] 19 U/L 16-61 [facility] Serum or plasma albumin rekha urement (mass/volume)Ordered By: Bernarda Young on 07-31-2024 Albumin [Mass/Vol] 3.2 g/dL 3.2-5.0 [facility] Serum or plasma alkaline shreyas sphatase measurementOrdered By: Bernarda Young on 07-31-2024 ALP [Catalytic activity/Vol] 87 U/L 45-117 [facility] Serum or plasma calcium rekha urement (mass/volume)Ordered By: Bernarda Young on 07-31-2024 Calcium [Mass/Vol] 9.0 mg/dL 8.5-10.1 [facility] Serum or plasma creatinine m easurement (mass/volume)Ordered By: Bernarda Young on 07-31-2024 Creatinine [Mass/Vol] 1.06 mg/dL 0.70-1.30 [facility] Comment on above: The validity of the calculated GFR & GFRAA in patients over 70 years has not been determined. Clinical correlation is essential. Serum or plasma urea nitroge n measurement (mass/volume)Ordered By: Bernarda Young on 07-31-2024 Urea nitrogen [Mass/Vol] 15 mg/dL 7-18 [facility] Sodium levelOrdered By: Cole Young on 07-31-2024 Sodium [Moles/Vol] 137 mmol/L 136-145 [facility] Total proteinOrdered By: Tracy Young on 07-31-2024 Protein [Mass/Vol] 7.0 g/dL 6.4-8.2 [facility] White blood cell (WBC) count Ordered By: Bernarda Young on 07-31-2024 WBC (Bld) [#/Vol] 8.5 10*3/uL 4.4-11.0 [facility] CBC W/Diff, Automatedon 10-0 Absolute Lymph 1.36 X10 3/uL Normal 0.83-4.51 [facility] Comment on above: Performed By: #### L 100.0100, L500.4050 ####[facility] [address] [place], [address] Absolute Neut 5.3 X10 3/uL Normal 2.0-7.7 [facility] Comment on above: Performed By: #### L 100.0100, L500.4050 ####[facility] [address] [place], [address] Basophils/100 WBC (Bld) 0.8 % Normal 0-1 [facility] Comment on above: Performed By: #### L 100.0100, L500.4050 ####[facility] [address] [place], [address] Eosinophils/100 WBC (Bld) 3.0 % Normal 0-5 [facility] Comment on above: Performed By: #### L 100.0100, L500.4050 ####[facility] [address] [place], [address] Erythrocyte distribution width (RBC) [Ratio] 13.8 % Normal 11.6-14.6 [facility] Comment on above: Performed By: #### L 100.0100, L500.4050 ####[facility] [address] [place], [address] Hematocrit (Bld) [Volume fraction] 45.9 % Normal 40-54 [facility] Comment on above: Performed By: #### L 100.0100, L500.4050 ####[facility] [address] [place], [address] Hemoglobin (Bld) [Mass/Vol] 15.1 g/dL Normal 13.0-16.5 [facility] Comment on above: Performed By: #### L 100.0100, L500.4050 ####[facility] [address] [place], [address] IG% 0.700 Normal 0.0-0.9 [facility] Comment on above: Result Comment: IG% - Immature Granulocytes (promyelocytes, myelocytes and metamyelocytes) > 1% indicates that a LEFT SHIFT is Present. Performed By: #### L 100.0100, L500.4050 ####[facility] [address] [place], [address] Lymphocytes/100 WBC (Bld) 18.0 % Low 19-41 [facility] Comment on above: Performed By: #### L 100.0100, L500.4050 ####[facility] [address] [place], [address] MCH (RBC) [Entitic mass] 31.2 pg Normal 27.0-32.0 [facility] Comment on above: Performed By: #### L 100.0100, L500.4050 ####[facility] [address] [place], [address] MCHC (RBC) [Mass/Vol] 32.9 g/dL Normal 32-36 [facility] Comment on above: Performed By: #### L 100.0100, L500.4050 ####[facility] [address] [place], [address] MCV (RBC) [Entitic vol] 94.8 fL High 80-94 [facility] Comment on above: Performed By: #### L 100.0100, L500.4050 ####[facility] [address] [place], [address] Monocytes/100 WBC (Bld) 8.1 % Normal 0-10 [facility] Comment on above: Performed By: #### L 100.0100, L500.4050 ####[facility] [address] [place], [address] Neutrophils/100 WBC (Bld) 69.4 % Normal 47-70 [facility] Comment on above: Performed By: #### L 100.0100, L500.4050 ####[facility] [address] [place], [address] Nucleated RBC (Bld) [#/Vol] 0 10*3/uL Normal 0-5 [facility] Comment on above: Performed By: #### L 100.0100, L500.4050 ####[facility] [address] [place], [address] Platelet mean volume (Bld) [Entitic vol] 11.0 fL Normal 6.2-12.0 [facility] Comment on above: Performed By: #### L 100.0100, L500.4050 ####[facility] [address] [place], [address] Platelets (Bld) [#/Vol] 208 10*3/uL Normal 150-450 [facility] Comment on above: Performed By: #### L 100.0100, L500.4050 ####[facility] [address] [place], [address] RBC (Bld) [#/Vol] 4.84 10*6/uL Normal 4.6-6.2 [facility] Comment on above: Performed By: #### L 100.0100, L500.4050 ####[facility] [address] [place], [address] RDW SD 47.7 fl High 35.1-43.9 [facility] Comment on above: Performed By: #### L 100.0100, L500.4050 ####[facility] [address] [place], [address] WBC (Bld) [#/Vol] 7.6 10*3/uL Normal 4.4-11.0 [facility] Comment on above: Performed By: #### L 100.0100, L500.4050 ####[facility] [address] [place], [address] Comprehensive Metabolic Prof ilon 05-08-2024 Albumin [Mass/Vol] 3.4 g/dL Normal 3.2-5.0 [facility] Comment on above: Performed By: #### L 100.0100, L500.4050 ####[facility] [address] [place], [address] Albumin/Globulin [Mass ratio] 0.8 {ratio} Low 0.9-2.4 [facility] Comment on above: Performed By: #### L 100.0100, L500.4050 ####[facility] [address] [place], [address] ALK P 89 U/L Normal 45-117 [facility] Comment on above: Performed By: #### L 100.0100, L500.4050 ####[facility] [address] [place], [address] ALT [Catalytic activity/Vol] 23 U/L Normal 16-61 [facility] Comment on above: Performed By: #### L 100.0100, L500.4050 ####[facility] [address] [place], [address] AST [Catalytic activity/Vol] 13 U/L Low 15-37 [facility] Comment on above: Performed By: #### L 100.0100, L500.4050 ####[facility] [address] [place], [address] Bilirubin [Mass/Vol] 0.40 mg/dL Normal 0.20-1.00 [facility] Comment on above: Result Comment: For patients on eltrombopag therapy, use of Dimension [place] TBIL is not recommended. Performed By: #### L 100.0100, L500.4050 ####[facility] [address] [place], [address] BUN/CRE 12.8 RATIO Normal 10-20 [facility] Comment on above: Performed By: #### L 100.0100, L500.4050 ####[facility] [address] [place], [address] CA,Total 9.4 mg/dL Normal 8.5-10.1 [facility] Comment on above: Performed By: #### L 100.0100, L500.4050 ####[facility] [address] [place], [address] Chloride [Moles/Vol] 108 mmol/L High 98-107 [facility] Comment on above: Performed By: #### L 100.0100, L500.4050 ####[facility] [address] [place], [address] CO2 [Moles/Vol] 30.0 mmol/L Normal 21.0-32.0 [facility] Comment on above: Performed By: #### L 100.0100, L500.4050 ####[facility] [address] [place], [address] Creatinine [Mass/Vol] 1.09 mg/dL Normal 0.70-1.30 [facility] Comment on above: Result Comment: The validity of the calculated GFR GFRAA in patients over 70 years has not been determined. Clinical correlation is essential. Performed By: #### L 100.0100, L500.4050 ####[facility] [address] [place], [address] EST GFR - AA 88 mL/min Normal >60 [facility] Comment on above: Result Comment: Afri can Spanish GFR Calc Performed By: #### L 100.0100, L500.4050 ####[facility] [address] [place], [address] GAP 3 Low 5-15 [facility] Comment on above: Performed By: #### L 100.0100, L500.4050 ####[facility] [address] [place], [address] GFR/1.73 sq M.predicted among non-blacks MDRD (S/P/Bld) [Vol rate/Area] 72 mL/min/{1.73_m2} Normal >60 [facility] Comment on above: Result Comment: Non- GFR Calc Performed By: #### L 100.0100, L500.4050 ####[facility] [address] [place], [address] Globulin (S) [Mass/Vol] 4.0 g/dL Normal 2.2-4.2 [facility] Comment on above: Performed By: #### L 100.0100, L500.4050 ####[facility] [address] [place], [address] Glucose [Mass/Vol] 96 mg/dL Normal 74-106 [facility] Comment on above: Performed By: #### L 100.0100, L500.4050 ####[facility] [address] [place], [address] Potassium [Moles/Vol] 4.9 mmol/L Normal 3.5-5.1 [facility] Comment on above: Performed By: #### L 100.0100, L500.4050 ####[facility] [address] [place], [address] Sodium [Moles/Vol] 141 mmol/L Normal 136-145 [facility] Comment on above: Performed By: #### L 100.0100, L500.4050 ####[facility] [address] [place], [address] T PROT 7.4 g/dL Normal 6.4-8.2 [facility] Comment on above: Performed By: #### L 100.0100, L500.4050 ####[facility] [address] [place], [address] Urea nitrogen [Mass/Vol] 14 mg/dL Normal 7-18 [facility] Comment on above: Performed By: #### L 100.0100, L500.4050 ####[facility] [address] [place], [address] CT THORAX SCREENING W/O CONT RASTon 03-20-2024 CT THORAX SCREENING W/O CONTRAST ORIGINAL EXAMINATION: LOW DOSE SCREENING CT OF THE CHEST WITHOUT CONTRAST03/20/2024 7:32 am TECHNIQUE: Low dose lung cancer screening CT of the chest was performed without the administration of intravenous contrast. Multiplanar reformatted images are provided for review. Automated exposure control, iterative reconstruction, and/or weight based adjustment of the mA/kV was utilized to reduce the radiation dose to as low as reasonably achievable. COMPARISON: None. HISTORY: ORDERING SYSTEM PROVIDED HISTORY: Reason for Exam: screening for lung cancer, 30 pack-year history 15 cig a day/ 49 years, chest tightness in mornings, cough, no sx, no ca FINDINGS: Lung nodules: None. There is moderate centrilobular and paraseptal emphysema. There is no consolidation. The airways are unremarkable. There is no pleural effusion. There are no enlarged lymph nodes. The heart and great vessels are normal in size. Prominent coronary arterial calcifications are noted. There is no pericardial effusion. A small to moderate hiatal hernia is present. There is no acute abnormality in the imaged abdomen, a couple of right renal cysts are noted. There is no acute bony abnormality. IMPRESSION: No lung nodules. For patients with appropriate lung cancer risk, annual CT screening is recommended. Coronary artery disease. Emphysema. Information below is for Lung nodule tracking purposes: Nodule: NLN Other Findings: P-CAC Change: No Change Recall : 1yr scr Recall Type: LDCT LungRads: 1s Interpreted by: Tim Brown Preliminary Report By: Tim Brown Electronically signed By Tim Brown Dictated Date: 03/20/2024 3:38:38 PM Prelim Date: 03/20/2024 3:41:33 PM Sign Date: 03/20/2024 3:41:33 PM Ordering Provider: AMRIS DURAN Normal [facility]) GLUon 03-20-2024 Glucose [Mass/Vol] 94 mg/dL Normal 80-115 [facility]) Comment on above: Performed By: #### G MIS, LIPID #### Mary Jane [address] [address] LABORATORYOrdered By: Kenyon Patton on 03-20-2024 Cholesterol [Mass/Vol] 160 mg/dL Normal 0 - 200 mg/dL AO ADM SS Comment on above: Interpretive Data: C holesterol Reference Interval: Less than 200 Desirable 200-239 Borderline high risk 240 and above High risk Cholesterol in HDL [Mass/Vol] 56 mg/dL Normal 40 - 60 mg/dL AO ADM SS Cholesterol in LDL [Mass/Vol] 91 mg/dL Normal 0 - 130 mg/dL AO ADM SS Triglyceride [Mass/Vol] 66 mg/dL Normal 0 - 150 mg/d L AO ADM SS Comment on above: Interpretive Data: T riglyceride Reference Interval: Less than 150 Normal 150-199 Borderline high risk 200-499 High risk 500 or higher Very high risk LABORATORYOrdered By: SYSTEM SYSTEM on 03-20-2024 Glucose [Mass/Vol] 94 mg/dL Normal 80 - 115 mg/dL AO ADM SS LIPIDon 03-20-2024 Cholesterol [Mass/Vol] 160 mg/dL Normal 0-200 [facility] ([place]) Comment on above: Result Comment: Chol esterol Reference Interval: Less than 200 Desirable 200-239 Borderline high risk 240 and above High risk Performed By: #### Rosendo ABEBE, LIPID #### [address] [address] Cholesterol in HDL [Mass/Vol] 56 mg/dL Normal 40-60 [facility] ([place]) Comment on above: Performed By: #### Rosendo ABEBE, LIPID #### [address] [address] Cholesterol in LDL [Mass/Vol] 91 mg/dL Normal 0-130 [facility] ([place]) Comment on above: Performed By: #### Rosendo ABEBE, LIPID #### [address] [address] Triglyceride [Mass/Vol] 66 mg/dL Normal 0-150 [facility] ([place]) Comment on above: Result Comment: Trig lyceride Reference Interval: Less than 150 Normal 150-199 Borderline high risk 200-499 High risk 500 or higher Very high risk Performed By: #### Rosendo ABEBE, LIPID #### [address] [address] GLUon 02-27-2024 Glucose [Mass/Vol] 82 mg/dL Normal 80-115 [facility] ([place]) Comment on above: Performed By: #### L IPID, GLU, PSA #### [address] [address] LABORATORYOrdered By: Kenyon Patton on 02-27-2024 Cholesterol [Mass/Vol] 163 mg/dL Normal 0 - 200 mg/dL AO ADM SS Comment on above: Interpretive Data: C holesterol Reference Interval: Less than 200 Desirable 200-239 Borderline high risk 240 and above High risk Cholesterol in HDL [Mass/Vol] 57 mg/dL Normal 40 - 60 mg/dL AO ADM SS Cholesterol in LDL [Mass/Vol] 93 mg/dL Normal 0 - 130 mg/dL AO ADM SS Triglyceride [Mass/Vol] 64 mg/dL Normal 0 - 150 mg/d L AO ADM SS Comment on above: Interpretive Data: T riglyceride Reference Interval: Less than 150 Normal 150-199 Borderline high risk 200-499 High risk 500 or higher Very high risk LABORATORYOrdered By: SYSTEM SYSTEM on 02-27-2024 Glucose [Mass/Vol] 82 mg/dL Normal 80 - 115 mg/dL AO ADM SS Prostate specific Ag [Mass/Vol] 0.40 ng/mL Normal 0.00 - 4.00 ng/mL AO ADM SS LIPIDon 02-27-2024 Cholesterol [Mass/Vol] 163 mg/dL Normal 0-200 [facility] ([place]) Comment on above: Result Comment: Chol esterol Reference Interval: Less than 200 Desirable 200-239 Borderline high risk 240 and above High risk Performed By: #### L IPID, GLU, PSA #### [address] [address] Cholesterol in HDL [Mass/Vol] 57 mg/dL Normal 40-60 [facility] ([place]) Comment on above: Performed By: #### L IPID, GLU, PSA #### [address] [address] Cholesterol in LDL [Mass/Vol] 93 mg/dL Normal 0-130 [facility] ([place]) Comment on above: Performed By: #### L IPID, GLU, PSA #### [address] [address] Triglyceride [Mass/Vol] 64 mg/dL Normal 0-150 [facility] ([place]) Comment on above: Result Comment: Trig lyceride Reference Interval: Less than 150 Normal 150-199 Borderline high risk 200-499 High risk 500 or higher Very high risk Performed By: #### L IPID, GLU, PSA #### [id number] [place], [place] [address] PSAon 02-27-2024 Prostate Specific Antigen 0.40 ng/mL Normal 0.00-4.00 [facility] ([place]) Comment on above: Performed By: #### L IPID, GLU, PSA #### [id number] [place], [place] [address] CBC W/Diff, Automatedon 01-04 Absolute Lymph 1.84 X10 3/uL Normal 0.83-4.51 [facility] Comment on above: Performed By: #### L 100.0100, L500.4050 #### [facility] [address] [place], [address] Absolute Neut 6.7 X10 3/uL Normal 2.0-7.7 [facility] Comment on above: Performed By: #### L 100.0100, L500.4050 #### [facility] [address] [place], [address] Basophils/100 WBC (Bld) 0.7 % Normal 0-1 [facility] Comment on above: Performed By: #### L 100.0100, L500.4050 #### [facility] [address] [place], [address] Eosinophils/100 WBC (Bld) 2.6 % Normal 0-5 [facility] Comment on above: Performed By: #### L 100.0100, L500.4050 #### [facility] [address] [place], [address] Erythrocyte distribution width (RBC) [Ratio] 13.5 % Normal 11.6-14.6 [facility] Comment on above: Performed By: #### L 100.0100, L500.4050 #### [facility] [address] [place], [address] Hematocrit (Bld) [Volume fraction] 40.9 % Normal 40-54 [facility] Comment on above: Performed By: #### L 100.0100, L500.4050 #### [facility] [address] [place], [address] Hemoglobin (Bld) [Mass/Vol] 13.8 g/dL Normal 13.0-16.5 [facility] Comment on above: Performed By: #### L 100.0100, L500.4050 #### [facility] [address] [place], [address] IG% 0.800 Normal 0.0-0.9 [facility] Comment on above: Result Comment: IG% - Immature Granulocytes (promyelocytes, myelocytes and metamyelocytes) > 1% indicates that a LEFT SHIFT is Present. Performed By: #### L 100.0100, L500.4050 #### [facility] [address] [place], [address] Lymphocytes/100 WBC (Bld) 19.4 % Normal 19-41 [facility] Comment on above: Performed By: #### L 100.0100, L500.4050 #### [facility] [address] [place], [address] MCH (RBC) [Entitic mass] 30.9 pg Normal 27.0-32.0 [facility] Comment on above: Performed By: #### L 100.0100, L500.4050 #### [facility] [address] [place], [address] MCHC (RBC) [Mass/Vol] 33.7 g/dL Normal 32-36 [facility] Comment on above: Performed By: #### L 100.0100, L500.4050 #### [facility] [address] [place], [address] MCV (RBC) [Entitic vol] 91.7 fL Normal 80-94 [facility] Comment on above: Performed By: #### L 100.0100, L500.4050 #### [facility] [address] [place], [address] Monocytes/100 WBC (Bld) 5.7 % Normal 0-10 [facility] Comment on above: Performed By: #### L 100.0100, L500.4050 #### [facility] [address] [place], [address] Neutrophils/100 WBC (Bld) 70.8 % High 47-70 [facility] Comment on above: Performed By: #### L 100.0100, L500.4050 #### [facility] [address] [place], [address] Nucleated RBC (Bld) [#/Vol] 0 10*3/uL Normal 0-5 [facility] Comment on above: Performed By: #### L 100.0100, L500.4050 #### [facility] [address] [place], [address] Platelet mean volume (Bld) [Entitic vol] 11.1 fL Normal 6.2-12.0 [facility] Comment on above: Performed By: #### L 100.0100, L500.4050 #### [facility] [address] [place], [address] Platelets (Bld) [#/Vol] 221 10*3/uL Normal 150-450 [facility] Comment on above: Performed By: #### L 100.0100, L500.4050 #### [facility] [address] [place], [address] RBC (Bld) [#/Vol] 4.46 10*6/uL Low 4.6-6.2 [facility] Comment on above: Performed By: #### L 100.0100, L500.4050 #### [facility] [address] [place], [address] RDW SD 45.7 fl High 35.1-43.9 [facility] Comment on above: Performed By: #### L 100.0100, L500.4050 #### [facility] [address] [place], [address] WBC (Bld) [#/Vol] 9.5 10*3/uL Normal 4.4-11.0 [facility] Comment on above: Performed By: #### L 100.0100, L500.4050 #### [facility] [address] [place], [address] Comprehensive Metabolic Prof [facility] 01-30-2024 Albumin [Mass/Vol] 3.3 g/dL Normal 3.2-5.0 [facility] Comment on above: Performed By: #### L 100.0100, L500.4050 #### [facility] [address] [place], [address] Albumin/Globulin [Mass ratio] 0.9 {ratio} Normal 0.9-2.4 [facility] Comment on above: Performed By: #### L 100.0100, L500.4050 #### [facility] [address] [place], [address] ALK P 78 U/L Normal 45-117 [facility] Comment on above: Performed By: #### L 100.0100, L500.4050 #### [facility] [address] [place], [address] ALT [Catalytic activity/Vol] 20 U/L Normal 16-61 [facility] Comment on above: Performed By: #### L 100.0100, L500.4050 #### [facility] [address] [place], [address] AST [Catalytic activity/Vol] 13 U/L Low 15-37 [facility] Comment on above: Performed By: #### L 100.0100, L500.4050 #### [facility] [address] [place], [address] Bilirubin [Mass/Vol] 0.40 mg/dL Normal 0.20-1.00 [facility] Comment on above: Result Comment: For patients on eltrombopag therapy, use of Dimension [place] TBIL is not recommended. Performed By: #### L 100.0100, L500.4050 #### [facility] [address] [place], [address] BUN/CRE 12.6 RATIO Normal 10-20 [facility] Comment on above: Performed By: #### L 100.0100, L500.4050 #### [facility] [address] [place], [address] CA,Total 9.1 mg/dL Normal 8.5-10.1 [facility] Comment on above: Performed By: #### L 100.0100, L500.4050 #### [facility] [address] [place], [address] Chloride [Moles/Vol] 109 mmol/L High 98-107 [facility] Comment on above: Performed By: #### L 100.0100, L500.4050 #### [facility] [address] [place], [address] CO2 [Moles/Vol] 24.0 mmol/L Normal 21.0-32.0 [facility] Comment on above: Performed By: #### L 100.0100, L500.4050 #### [facility] [address] [place], [address] Creatinine [Mass/Vol] 1.11 mg/dL Normal 0.70-1.30 [facility] Comment on above: Result Comment: The validity of the calculated GFR GFRAA in patients over 70 years has not been determined. Clinical correlation is essential. Performed By: #### L 100.0100, L500.4050 #### [facility] [address] [place], [address] EST GFR - AA 86 mL/min Normal >60 [facility] Comment on above: Result Comment: Afri can Spanish GFR Calc Performed By: #### L 100.0100, L500.4050 #### [facility] [address] [place], [address] GAP 6 Normal 5-15 [facility] Comment on above: Performed By: #### L 100.0100, L500.4050 #### [facility] [address] [place], [address] GFR/1.73 sq M.predicted among non-blacks MDRD (S/P/Bld) [Vol rate/Area] 71 mL/min/{1.73_m2} Normal >60 [facility] Comment on above: Result Comment: Non- GFR Calc Performed By: #### L 100.0100, L500.4050 #### [facility] [address] [place], [address] Globulin (S) [Mass/Vol] 3.7 g/dL Normal 2.2-4.2 [facility] Comment on above: Performed By: #### L 100.0100, L500.4050 #### [facility] [address] [place], [address] Glucose [Mass/Vol] 114 mg/dL High 74-106 [facility] Comment on above: Result Comment: Fast ing Glucose result from 100 to 125 mg/dL suggests IMPAIRED HOMEOSTASIS per A.D.A. criteria. Performed By: #### L 100.0100, L500.4050 #### [facility] [address] [place], [address] Potassium [Moles/Vol] 3.5 mmol/L Normal 3.5-5.1 [facility] Comment on above: Performed By: #### L 100.0100, L500.4050 #### [facility] [address] [place], [address] Sodium [Moles/Vol] 139 mmol/L Normal 136-145 [facility] Comment on above: Performed By: #### L 100.0100, L500.4050 #### [facility] [address] [place], [address] T PROT 7.0 g/dL Normal 6.4-8.2 [facility] Comment on above: Performed By: #### L 100.0100, L500.4050 #### [facility] [address] [place], [address] Urea nitrogen [Mass/Vol] 14 mg/dL Normal 7-18 [facility] Comment on above: Performed By: #### L 100.0100, L500.4050 #### [facility] [address] [place], [address] Absolute lymphocyte countOrd ered By: Bernarda Young on 11-22-2023 Lymphocytes Auto (Unsp spec) [#/Vol] 1.71 10*3/uL 0.83-4.51 [facility] Automated lymphocyte count a s percentage of total leukocytesOrdered By: Bernarda Young on 11-22-2023 Lymphocytes/100 WBC Auto (Unsp spec) 21.0 % 19-41 [facility] Basophil percentageOrdered B y: Bernarda Young on 11-22-2023 Basophils/100 WBC (Bld) 0.6 % 0-1 [facility] Bilirubin [Mass/Vol] 0.40 mg/dL 0.20-1.00 [facility] Comment on above: For patients on eltr ombopag therapy, use of Dimension [place] TBIL is not recommended. Chloride [Moles/Vol] 108 mmol/L 98-107 [facility] Eosinophils/100 WBC (Bld) 3.3 % 0-5 [facility] Glucose [Mass/Vol] 84 mg/dL 74-106 [facility] Hemoglobin (Bld) [Mass/Vol] 14.8 g/dL 13.0-16.5 [facility] Monocytes/100 WBC (Bld) 6.9 % 0-10 [facility] Neutrophils (Bld) [#/Vol] 5.5 10*3/uL 2.0-7.7 [facility] Neutrophils/100 WBC (Bld) 67.3 % 47-70 [facility] Potassium [Moles/Vol] 4.5 mmol/L 3.5-5.1 [facility] Protein [Mass/Vol] 7.5 g/dL 6.4-8.2 [facility] Sodium [Moles/Vol] 139 mmol/L 136-145 [facility] WBC (Bld) [#/Vol] 8.1 10*3/uL 4.4-11.0 [facility] Determination of erythrocyte mean corpuscular volume (MCV)Ordered By: Bernarda Young on 11-22-2023 MCV (RBC) [Entitic vol] 91.8 fL 80-94 [facility] Erythrocyte distribution wid th ratioOrdered By: Bernarda Young on 11-22-2023 Erythrocyte distribution width (RBC) [Ratio] 13.3 % 11.6-14.6 [facility] Erythrocyte distribution wid th standard deviationOrdered By: Bernarda Young on 11-22-2023 Erythrocyte distribution width (RBC) [Entitic vol] 44.1 fL 35.1-43.9 [facility] Hematocrit Auto (Bld) [Volum e fraction]Ordered By: Bernarda Young on 11-22-2023 Hematocrit (Bld) [Volume fraction] 42.8 % 40-54 [facility] Immature granulocytes/100 WB C Auto (Bld)Ordered By: Bernarda Young on 11-22-2023 Immature granulocytes/100 WBC (Bld) 0.900 % 0.0-0.9 [facility] Comment on above: IG% - Immature Granu locytes (promyelocytes, myelocytes and metamyelocytes) > 1% indicates that a LEFT SHIFT is Present. Laboratory - Chemistry and C hemistry - challengeOrdered By: Bernarda Young on 11-22-2023 Albumin/Globulin [Mass ratio] 0.9 {ratio} 0.9-2.4 [facility] ALP [Catalytic activity/Vol] 87 U/L 45-117 [facility] ALT [Catalytic activity/Vol] 20 U/L 16-61 [facility] CO2 [Moles/Vol] 27.0 mmol/L 21.0-32.0 [facility] Globulin (S) [Mass/Vol] 3.9 g/dL 2.2-4.2 [facility] Urea nitrogen/Creatinine [Mass ratio] 16.0 mg/mg 10-20 [facility] Laboratory - Hematology and Cell countsOrdered By: Bernarda Young on 11-22-2023 MCH (RBC) [Entitic mass] 31.8 pg 27.0-32.0 [facility] MCHC (RBC) [Mass/Vol] 34.6 g/dL 32-36 [facility] Nucleated RBC/100 WBC (Bld) [Ratio] 0 % 0-5 [facility] Platelet mean volume (Bld) [Entitic vol] 10.9 fL 6.2-12.0 [facility] Platelets (Bld) [#/Vol] 205 10*3/uL 150-450 [facility] No Panel InformationOrdered By: Bernarda Young on 11-22-2023 Estimated GFR (MDRD) Amer 91 mL/min >60 [facility] Comment on above: GFR Calc Estimated GFR (MDRD) Non-Af Amer 75 mL/min >60 [facility] Comment on above: Non- GFR Calc RBC Auto (Bld) [#/Vol]Ordere d By: Bernarda Young on 11-22-2023 RBC (Bld) [#/Vol] 4.66 10*6/uL 4.6-6.2 [facility] Serum or plasma calcium rekha urement (mass/volume)Ordered By: Bernarda Young on 11-22-2023 Calcium [Mass/Vol] 9.1 mg/dL 8.5-10.1 [facility] Serum or plasma creatinine m easurement (mass/volume)Ordered By: Bernarda Young on 11-22-2023 Creatinine [Mass/Vol] 1.06 mg/dL 0.70-1.30 [facility] Comment on above: The validity of the calculated GFR & GFRAA in patients over 70 years has not been determined. Clinical correlation is essential. Serum or plasma urea nitroge n measurement (mass/volume)Ordered By: Bernarda Young on 11-22-2023 Urea nitrogen [Mass/Vol] 17 mg/dL 7-18 [facility] Thin prep Papanicolaou smear with manual screeningOrdered By: Bernardayariel Young on 11-22-2023 Thin prep Papanicolaou smear with manual screening 3.6 g/dL 3.2-5.0 [facility] Thin prep Papanicolaou smear with manual screening 16 U/L 15-37 [facility] Thin prep Papanicolaou smear with manual screening 4 5-15 [facility] Absolute lymphocyte countOrd ered By: Bernarda Young on 08-28-2023 Lymphocytes Auto (Unsp spec) [#/Vol] 1.73 10*3/uL 0.83-4.51 [facility] Automated lymphocyte count a s percentage of total leukocytesOrdered By: Bernarda Young on 08-28-2023 Lymphocytes/100 WBC Auto (Unsp spec) 22.1 % 19-41 [facility] Basophil percentageOrdered B y: Bernarda Young on 08-28-2023 Basophils/100 WBC (Bld) 0.9 % 0-1 [facility] Bilirubin [Mass/Vol] 0.40 mg/dL 0.20-1.00 [facility] Comment on above: For patients on eltr ombopag therapy, use of Dimension [place] TBIL is not recommended. Chloride [Moles/Vol] 110 mmol/L 98-107 [facility] Eosinophils/100 WBC (Bld) 5.0 % 0-5 [facility] Glucose [Mass/Vol] 80 mg/dL 74-106 [facility] Hemoglobin (Bld) [Mass/Vol] 14.5 g/dL 13.0-16.5 [facility] Monocytes/100 WBC (Bld) 6.9 % 0-10 [facility] Neutrophils (Bld) [#/Vol] 5.1 10*3/uL 2.0-7.7 [facility] Neutrophils/100 WBC (Bld) 64.6 % 47-70 [facility] Potassium [Moles/Vol] 4.2 mmol/L 3.5-5.1 [facility] Protein [Mass/Vol] 7.2 g/dL 6.4-8.2 [facility] Sodium [Moles/Vol] 139 mmol/L 136-145 [facility] WBC (Bld) [#/Vol] 7.8 10*3/uL 4.4-11.0 [facility] Determination of erythrocyte mean corpuscular volume (MCV)Ordered By: Bernarda Young on 08-28-2023 MCV (RBC) [Entitic vol] 94.1 fL 80-94 [facility] Erythrocyte distribution wid th ratioOrdered By: Bernarda Young on 08-28-2023 Erythrocyte distribution width (RBC) [Ratio] 13.5 % 11.6-14.6 [facility] Erythrocyte distribution wid th standard deviationOrdered By: Bernarda Young on 08-28-2023 Erythrocyte distribution width (RBC) [Entitic vol] 45.5 fL 35.1-43.9 [facility] Hematocrit Auto (Bld) [Volum e fraction]Ordered By: Bernarda Young on 08-28-2023 Hematocrit (Bld) [Volume fraction] 43.3 % 40-54 [facility] Immature granulocytes/100 WB C Auto (Bld)Ordered By: Bernarda Young on 08-28-2023 Immature granulocytes/100 WBC (Bld) 0.500 % 0.0-0.9 [facility] Comment on above: IG% - Immature Granu locytes (promyelocytes, myelocytes and metamyelocytes) > 1% indicates that a LEFT SHIFT is Present. Laboratory - Chemistry and C hemistry - challengeOrdered By: Bernarda Young on 08-28-2023 Albumin/Globulin [Mass ratio] 0.9 {ratio} 0.9-2.4 [facility] ALP [Catalytic activity/Vol] 84 U/L 45-117 [facility] ALT [Catalytic activity/Vol] 24 U/L 16-61 [facility] CO2 [Moles/Vol] 28.0 mmol/L 21.0-32.0 [facility] Globulin (S) [Mass/Vol] 3.8 g/dL 2.2-4.2 [facility] Urea nitrogen/Creatinine [Mass ratio] 15.2 mg/mg 10-20 [facility] Laboratory - Hematology and Cell countsOrdered By: Bernarda Young on 08-28-2023 MCH (RBC) [Entitic mass] 31.5 pg 27.0-32.0 [facility] MCHC (RBC) [Mass/Vol] 33.5 g/dL 32-36 [facility] Nucleated RBC/100 WBC (Bld) [Ratio] 0 % 0-5 [facility] Platelets (Bld) [#/Vol] 232 10*3/uL 150-450 [facility] No Panel InformationOrdered By: Bernarda Young on 08-28-2023 Estimated GFR (MDRD) Amer 106 mL/min >60 [facility] Comment on above: GFR Calc Estimated GFR (MDRD) Non-Af Amer 88 mL/min >60 [facility] Comment on above: Non- GFR Calc Platelet mean volume Ronaldo-Ec ker (Bld) [Entitic vol]Ordered By: Bernarda Young on 08-28-2023 Platelet mean volume (Bld) [Entitic vol] 10.6 fL 6.2-12.0 [facility] RBC Auto (Bld) [#/Vol]Ordere d By: Bernarda Young on 08-28-2023 RBC (Bld) [#/Vol] 4.60 10*6/uL 4.6-6.2 [facility] Serum or plasma calcium rekha urement (mass/volume)Ordered By: Bernarda Young on 08-28-2023 Calcium [Mass/Vol] 9.4 mg/dL 8.5-10.1 [facility] Serum or plasma creatinine m easurement (mass/volume)Ordered By: Bernarda Young on 08-28-2023 Creatinine [Mass/Vol] 0.92 mg/dL 0.70-1.30 [facility] Comment on above: The validity of the calculated GFR & GFRAA in patients over 70 years has not been determined. Clinical correlation is essential. Serum or plasma urea nitroge n measurement (mass/volume)Ordered By: Bernrada Young on 08-28-2023 Urea nitrogen [Mass/Vol] 14 mg/dL 7-18 [facility] Thin prep Papanicolaou smear with manual screeningOrdered By: Bernarda Young on 08-28-2023 Thin prep Papanicolaou smear with manual screening 3.4 g/dL 3.2-5.0 [facility] Thin prep Papanicolaou smear with manual screening 13 U/L 15-37 [facility] Thin prep Papanicolaou smear with manual screening 1 5-15 [facility] Absolute lymphocyte countOrd ered By: Bernarda Young on 05-14-2023 Lymphocytes Auto (Unsp spec) [#/Vol] 1.86 10*3/uL 0.83-4.51 [facility] Basophil percentageOrdered B y: Bernarda Young on 05-14-2023 Basophils/100 WBC (Bld) 0.8 % 0-1 [facility] Bilirubin [Mass/Vol] 0.50 mg/dL 0.20-1.00 [facility] Comment on above: For patients on eltr ombopag therapy, use of Dimension [place] TBIL is not recommended. Chloride [Moles/Vol] 107 mmol/L 98-107 [facility] Eosinophils/100 WBC (Bld) 3.4 % 0-5 [facility] Glucose [Mass/Vol] 94 mg/dL 74-106 [facility] Neutrophils (Bld) [#/Vol] 5.1 10*3/uL 2.0-7.7 [facility] Neutrophils/100 WBC (Bld) 65.3 % 47-70 [facility] Potassium [Moles/Vol] 4.7 mmol/L 3.5-5.1 [facility] Protein [Mass/Vol] 7.9 g/dL 6.4-8.2 [facility] Sodium [Moles/Vol] 139 mmol/L 136-145 [facility] WBC (Bld) [#/Vol] 7.9 10*3/uL 4.4-11.0 [facility] Blood erythrocytes count (nu mber/volume)Ordered By: Bernarda Young on 05-14-2023 RBC (Bld) [#/Vol] 5.08 10*6/uL 4.6-6.2 [facility] Blood hemoglobin measurement (mass/volume)Ordered By: Bernarda Young on 05-14-2023 Hemoglobin (Bld) [Mass/Vol] 15.8 g/dL 13.0-16.5 [facility] Blood lymphocytes/100 leukoc ytesOrdered By: Bernarda Young on 05-14-2023 Lymphocytes/100 WBC (Bld) 23.7 % 19-41 [facility] Blood monocytes/100 leukocyt esOrdered By: Bernardayariel Young on 05-14-2023 Monocytes/100 WBC (Bld) 5.9 % 0-10 [facility] Blood platelet mean volumeOr dered By: Bernarda Young on 05-14-2023 Platelet mean volume (Bld) [Entitic vol] 10.9 fL 6.2-12.0 [facility] Determination of erythrocyte mean corpuscular volume (MCV)Ordered By: Bernarda Young on 05-14-2023 MCV (RBC) [Entitic vol] 96.1 fL 80-94 [facility] Erythrocyte sedimentation ra teOrdered By: Bernarda Young on 05-14-2023 ESR (Bld) [Velocity] 13 mm/h 0-20 [facility] Hematocrit Auto (Bld) [Volum e fraction]Ordered By: Bernarda Young on 05-14-2023 Hematocrit (Bld) [Volume fraction] 48.8 % 40-54 [facility] Laboratory - Chemistry and C hemistry - challengeOrdered By: [facility] on 05-14-2023 ALP [Catalytic activity/Vol] 89 U/L 45-117 [facility] ALT [Catalytic activity/Vol] 31 U/L 16-61 [facility] CO2 [Moles/Vol] 29.0 mmol/L 21.0-32.0 [facility] Globulin (S) [Mass/Vol] 4.4 g/dL 2.2-4.2 [facility] Urea nitrogen/Creatinine [Mass ratio] 13.8 mg/mg 10-20 [facility] Laboratory - Hematology and Cell countsOrdered By: Bernarda Young on 05-14-2023 Erythrocyte distribution width (RBC) [Entitic vol] 47.9 fL 35.1-43.9 [facility] Erythrocyte distribution width (RBC) [Ratio] 13.6 % 11.6-14.6 [facility] Immature granulocytes/100 WBC (Bld) 0.900 % 0.0-0.9 [facility] Comment on above: IG% - Immature Granu locytes (promyelocytes, myelocytes and metamyelocytes) > 1% indicates that a LEFT SHIFT is Present. MCH (RBC) [Entitic mass] 31.1 pg 27.0-32.0 [facility] Nucleated RBC/100 WBC (Bld) [Ratio] 0 % 0-5 [facility] MCHC Auto (RBC) [Mass/Vol]Or dered By: Bernarda Young on 05-14-2023 MCHC (RBC) [Mass/Vol] 32.4 g/dL 32-36 [facility] No Panel InformationOrdered By: Bernarda Young on 05-14-2023 Estimated GFR (MDRD) Amer 104 mL/min >60 [facility] Comment on above: GFR Calc Estimated GFR (MDRD) Non-Af Amer 86 mL/min >60 [facility] Comment on above: Non- GFR Calc Hepatitis B Surface Antigen Non-Reactive Nonreactive [facility] Hepatitis C Antibody Non-Reactive Nonreactive [facility] Comment on above: Non Reactive: < 0.8 Equivocal: >/= 0.8 to < 1.0 Reactive: >/= 1.0The CDC recommends that a reactive/equivocal HCV antibody result be followed up by the HCV Nucleic Acid Amplificationtest ([id number]) Platelets bldOrdered By: Tracy Young on 05-14-2023 Platelets (Bld) [#/Vol] 234 10*3/uL 150-450 [facility] Serum cyclic citrullinated p eptide IgG antibody assay (units/volume)Ordered By: Bernarda Young on 05-14-2023 Cyclic citrullinated peptide IgG Qn > 250 units 0-19 [facility] Comment on above: Negative <20 Weak po sitive 20 - 39 Moderate positive 40 - 59 Strong positive >59Performed at: [facility] [address] [id number] Director: Lazaro Mims PhD, Phone: [phone] Serum hepatitis B virus surf ramin antibody IgG detectionOrdered By: Bernarda Young on 05-14-2023 HBV surface IgG Ql (S) Non-Reactive [facility] Comment on above: Non Reactive: Incons istent with immunity less than <10 mIU/mL Reactive: Consistent with immunity greater than or equal to 10 mIU/mL Serum or plasma C reactive p rotein measurement (mass/volume)Ordered By: Bernarda Young on 05-14-2023 CRP [Mass/Vol] 6.63 mg/L 0.0-3.0 [facility] Comment on above: C-Reactive Protein ( CRP) provides useful information for thediagnosis, therapy and monitoring of inflammatory processesand associated diseases. For the evaluation of Relative Riskfor Cardiovascular Disease, a High Sensitivity CRP (HSCRP)should be ordered. Serum or plasma albumin rekha urement (mass/volume)Ordered By: Bernarda Young on 05-14-2023 Albumin [Mass/Vol] 3.5 g/dL 3.2-5.0 [facility] Serum or plasma albumin/glob ulin mass ratioOrdered By: Bernarda Young on 05-14-2023 Albumin/Globulin [Mass ratio] 0.8 {ratio} 0.9-2.4 [facility] Serum or plasma calcium rekha urement (mass/volume)Ordered By: Bernarda Young on 05-14-2023 Calcium [Mass/Vol] 9.4 mg/dL 8.5-10.1 [facility] Serum or plasma creatinine m easurement (mass/volume)Ordered By: Bernarda Young on 05-14-2023 Creatinine [Mass/Vol] 0.94 mg/dL 0.70-1.30 [facility] Comment on above: The validity of the calculated GFR & GFRAA in patients over 70 years has not been determined. Clinical correlation is essential. Serum or plasma urea nitroge n measurement (mass/volume)Ordered By: Bernarda Young on 05-14-2023 Urea nitrogen [Mass/Vol] 13 mg/dL 7-18 [facility] Serum rheumatoid factor dete ctionOrdered By: Bernarda Young on 05-14-2023 Rheumatoid factor Ql (S) 358.0 IU/mL <15 [facility] Thin prep Papanicolaou smear with manual screeningOrdered By: Bernarda Young on 05-14-2023 Thin prep Papanicolaou smear with manual screening 15 U/L 15-37 [facility] Thin prep Papanicolaou smear with manual screening 3 5-15 [facility] LABORATORYOrdered By: SYSTEM SYSTEM on 01-08-2023 Albumin BCP dye [Mass/Vol] 3.7 G/dL Invalid Interpretation Code 3.4 - 4.8 G/dL AO ADM SS Albumin/Globulin [Mass ratio] 1.2 {ratio} Invalid Interpretation Code 1.1 - 2.5 ratio AO ADM SS ALP [Catalytic activity/Vol] 100 U/L Invalid Interpretation Code 40 - 135 U/L AO ADM SS ALT With P-5'-P [Catalytic activity/Vol] 24 U/L Invalid Interpretation Code 16 - 63 U/L AO ADM SS AST With P-5'-P [Catalytic activity/Vol] 15 U/L Invalid Interpretation Code 10 - 40 U/L AO ADM SS Bilirubin [Mass/Vol] 0.5 mg/dL Invalid Interpretation Code 0.2 - 1.0 mg/dL AO ADM SS Bilirubin.direct [Mass/Vol] 0.4 mg/dL Invalid Interpretation Code AO Chemistry S Bilirubin.direct [Mass/Vol] 0.1 mg/dL Invalid Interpretation Code 0.0 - 0.2 mg/dL AO ADM SS Creatinine [Mass/Vol] 1.01 mg/dL Invalid Interpretation Code 0.70 - 1.30 mg/dL AO ADM SS CRP [Mass/Vol] 2.1 mg/dL Invalid Interpretation Code 0.0 - 0.9 mg/dL AO ADM SS GFR/1.73 sq M.predicted among blacks MDRD (S/P/Bld) [Vol rate/Area] 91 ml/min/1.73sqm Invalid Interpretation Code AO Chemistry S GFR/1.73 sq M.predicted among non-blacks MDRD (S/P/Bld) [Vol rate/Area] 75 ml/min/1.73sqm Invalid Interpretation Code AO Chemistry S Globulin 3.2 G/dL Invalid Interpretation Code AO ADM SS Protein [Mass/Vol] 6.9 G/dL Invalid Interpretation Code 6.4 - 8.2 G/dL AO ADM SS LABORATORYOrdered By: Kenyon Patton on 01-08-2023 Basophil, Absolute 0.1 103/mcL Invalid Interpretation Code 0.0 - 0.2 10^3/mcL AO Workflow SS Basophils/100 WBC (Bld) 0.8 % Invalid Interpretation Code 0.0 - 2.5 % AO Workflow SS Eosinophil, Absolute 0.5 103/mcL Invalid Interpretation Code 0.0 - 0.4 10^3/mcL AO Workflow SS Eosinophils/100 WBC (Bld) 4.5 % Invalid Interpretation Code 0.0 - 7.0 % AO Workflow SS Erythrocyte distribution width (RBC) [Ratio] 14.7 % Invalid Interpretation Code 11.5 - 14.5 % AO Workflow SS ESR Photometric method (Bld) [Velocity] 12 mm/hr Invalid Interpretation Code 0 - 20 mm/hr AO Man Heme SS Hematocrit (Bld) [Volume fraction] 43.9 % Invalid Interpretation Code 42.0 - 52.0 % AO Workflow SS Hemoglobin (Bld) [Mass/Vol] 15.0 G/dL Invalid Interpretation Code 14.0 - 18.0 G/dL AO Workflow SS Lymphocyte, Absolute 2.0 103/mcL Invalid Interpretation Code 0.8 - 3.9 10^3/mcL AO Workflow SS Lymphocytes/100 WBC (Bld) 17.9 % Invalid Interpretation Code 10.0 - 50.0 % AO Workflow SS MCH (RBC) [Entitic mass] 31.3 pg Invalid Interpretation Code 27.0 - 31.2 pg AO Workflow SS MCHC 34.1 G/dL Invalid Interpretation Code 31.8 - 35.4 G/dL AO Workflow SS MCV (RBC) [Entitic vol] 91.8 fL Invalid Interpretation Code 80.0 - 94.0 fL AO Workflow SS Monocyte, Absolute 0.6 103/mcL Invalid Interpretation Code 0.2 - 1.0 10^3/mcL AO Workflow SS Monocytes/100 WBC (Bld) 5.8 % Invalid Interpretation Code 1.7 - 13.0 % AO Workflow SS Neutrophil, Absolute 7.9 103/mcL Invalid Interpretation Code 2.9 - 6.2 10^3/mcL AO Workflow SS Neutrophils/100 WBC (Bld) 71.0 % Invalid Interpretation Code 37.0 - 80.0 % AO Workflow SS Platelet mean volume (Bld) [Entitic vol] 8.6 fL Invalid Interpretation Code 7.4 - 10.4 fL AO Workflow SS Platelets (Bld) [#/Vol] 207 103/mcL Invalid Interpretation Code 130 - 400 10^3/mcL AO Workflow SS RBC (Bld) [#/Vol] 4.78 106/mcL Invalid Interpretation Code 4.04 - 6.13 10^6/mcL AO Workflow SS WBC (Bld) [#/Vol] 11.1 103/mcL Invalid Interpretation Code 4.6 - 10.8 10^3/mcL AO Workflow SS LABORATORYOrdered By: SYSTEM SYSTEM on 09-03-2022 Albumin BCP dye [Mass/Vol] 3.6 G/dL Invalid Interpretation Code 3.4 - 4.8 G/dL AO ADM SS Albumin/Globulin [Mass ratio] 1.0 {ratio} Invalid Interpretation Code 1.1 - 2.5 ratio AO ADM SS ALP [Catalytic activity/Vol] 93 U/L Invalid Interpretation Code 40 - 135 U/L AO ADM SS ALT With P-5'-P [Catalytic activity/Vol] 22 U/L Invalid Interpretation Code 16 - 63 U/L AO ADM SS AST With P-5'-P [Catalytic activity/Vol] 15 U/L Invalid Interpretation Code 10 - 40 U/L AO ADM SS Bili Indirect 0.3 mg/dL Invalid Interpretation Code AO Chemistry S Bilirubin [Mass/Vol] 0.4 mg/dL Invalid Interpretation Code 0.2 - 1.0 mg/dL AO ADM SS Bilirubin.direct [Mass/Vol] 0.1 mg/dL Invalid Interpretation Code 0.0 - 0.2 mg/dL AO ADM SS Creatinine [Mass/Vol] 1.00 mg/dL Invalid Interpretation Code 0.70 - 1.30 mg/dL AO ADM SS CRP [Mass/Vol] 0.8 mg/dL Invalid Interpretation Code 0.0 - 0.9 mg/dL AO ADM SS GFR 92 ml/min/1.73sqm Invalid Interpretation Code AO Chemistry S GFR Non- 76 ml/min/1.73sqm Invalid Interpretation Code AO Chemistry S Globulin 3.6 G/dL Invalid Interpretation Code AO ADM SS Protein [Mass/Vol] 7.2 G/dL Invalid Interpretation Code 6.4 - 8.2 G/dL AO ADM SS LABORATORYOrdered By: Kenyon Patton on 09-03-2022 Basophil, Absolute 0.1 103/mcL Invalid Interpretation Code 0.0 - 0.2 10^3/mcL AO Workflow SS Basophils/100 WBC (Bld) 0.8 % Invalid Interpretation Code 0.0 - 2.5 % AO Workflow SS Eosinophil, Absolute 0.3 103/mcL Invalid Interpretation Code 0.0 - 0.4 10^3/mcL AO Workflow SS Eosinophils/100 WBC (Bld) 3.1 % Invalid Interpretation Code 0.0 - 7.0 % AO Workflow SS Erythrocyte distribution width (RBC) [Ratio] 14.6 % Invalid Interpretation Code 11.5 - 14.5 % AO Workflow SS ESR 15 minute reading (Bld) [Velocity] 11 mm/hr Invalid Interpretation Code 0 - 20 mm/hr AO Man Heme SS Hematocrit (Bld) [Volume fraction] 45.1 % Invalid Interpretation Code 42.0 - 52.0 % AO Workflow SS Hemoglobin (Bld) [Mass/Vol] 15.3 G/dL Invalid Interpretation Code 14.0 - 18.0 G/dL AO Workflow SS Lymphocyte, Absolute 1.9 103/mcL Invalid Interpretation Code 0.8 - 3.9 10^3/mcL AO Workflow SS Lymphocytes/100 WBC (Bld) 21.8 % Invalid Interpretation Code 10.0 - 50.0 % AO Workflow SS MCH (RBC) [Entitic mass] 31.5 pg Invalid Interpretation Code 27.0 - 31.2 pg AO Workflow SS MCHC 33.9 G/dL Invalid Interpretation Code 31.8 - 35.4 G/dL AO Workflow SS MCV (RBC) [Entitic vol] 93.1 fL Invalid Interpretation Code 80.0 - 94.0 fL AO Workflow SS Monocyte, Absolute 0.6 103/mcL Invalid Interpretation Code 0.2 - 1.0 10^3/mcL AO Workflow SS Monocytes/100 WBC (Bld) 7.0 % Invalid Interpretation Code 1.7 - 13.0 % AO Workflow SS Neutrophil, Absolute 5.8 103/mcL Invalid Interpretation Code 2.9 - 6.2 10^3/mcL AO Workflow SS Neutrophils/100 WBC (Bld) 67.3 % Invalid Interpretation Code 37.0 - 80.0 % AO Workflow SS Platelet mean volume (Bld) [Entitic vol] 8.7 fL Invalid Interpretation Code 7.4 - 10.4 fL AO Workflow SS Platelets (Bld) [#/Vol] 218 103/mcL Invalid Interpretation Code 130 - 400 10^3/mcL AO Workflow SS RBC (Bld) [#/Vol] 4.85 106/mcL Invalid Interpretation Code 4.04 - 6.13 10^6/mcL AO Workflow SS WBC (Bld) [#/Vol] 8.7 103/mcL Invalid Interpretation Code 4.6 - 10.8 10^3/mcL AO Workflow SS LABORATORYOrdered By: Merlyn Lemus on 05-08-2022 Albumin BCP dye [Mass/Vol] 3.6 G/dL Invalid Interpretation Code 3.4 - 4.8 G/dL AO ADM SS Albumin/Globulin [Mass ratio] 1.1 {ratio} Invalid Interpretation Code 1.1 - 2.5 ratio AO ADM SS ALP [Catalytic activity/Vol] 80 U/L Invalid Interpretation Code 40 - 135 U/L AO ADM SS ALT With P-5'-P [Catalytic activity/Vol] 23 U/L Invalid Interpretation Code 16 - 63 U/L AO ADM SS AST With P-5'-P [Catalytic activity/Vol] 15 U/L Invalid Interpretation Code 10 - 40 U/L AO ADM SS Bili Indirect Unable to Calculate Invalid Interpretation Code AO Chemistry S Comment on above: Result Comment: Unab le to calculate this test result accurately. Results used to calculate this test are outside the reportable range. Bilirubin [Mass/Vol] 0.3 mg/dL Invalid Interpretation Code 0.2 - 1.0 mg/dL AO ADM SS Bilirubin.direct [Mass/Vol] mg/dL Invalid Interpretation Code 0.0 - 0.2 mg/dL AO ADM SS Creatinine [Mass/Vol] 1.16 mg/dL Invalid Interpretation Code 0.70 - 1.30 mg/dL AO ADM SS CRP [Mass/Vol] mg/dL Invalid Interpretation Code 0.0 - 0.9 mg/dL AO ADM SS Globulin 3.2 G/dL Invalid Interpretation Code AO ADM SS Protein [Mass/Vol] 6.8 G/dL Invalid Interpretation Code 6.4 - 8.2 G/dL AO ADM SS LABORATORYOrdered By: Kenyon Viveros on 05-08-2022 Basophil, Absolute 0.1 103/mcL Invalid Interpretation Code 0.0 - 0.2 10^3/mcL AO Workflow SS Basophils/100 WBC (Bld) 0.7 % Invalid Interpretation Code 0.0 - 2.5 % AO Workflow SS Eosinophil, Absolute 0.3 103/mcL Invalid Interpretation Code 0.0 - 0.4 10^3/mcL AO Workflow SS Eosinophils/100 WBC (Bld) 3.3 % Invalid Interpretation Code 0.0 - 7.0 % AO Workflow SS Erythrocyte distribution width (RBC) [Ratio] 14.4 % Invalid Interpretation Code 11.5 - 14.5 % AO Workflow SS ESR 15 minute reading (Bld) [Velocity] 12 mm/hr Invalid Interpretation Code 0 - 20 mm/hr AO Man Heme SS Hematocrit (Bld) [Volume fraction] 42.9 % Invalid Interpretation Code 42.0 - 52.0 % AO Workflow SS Hemoglobin (Bld) [Mass/Vol] 14.8 G/dL Invalid Interpretation Code 14.0 - 18.0 G/dL AO Workflow SS Lymphocyte, Absolute 2.0 103/mcL Invalid Interpretation Code 0.8 - 3.9 10^3/mcL AO Workflow SS Lymphocytes/100 WBC (Bld) 20.9 % Invalid Interpretation Code 10.0 - 50.0 % AO Workflow SS MCH (RBC) [Entitic mass] 31.5 pg Invalid Interpretation Code 27.0 - 31.2 pg AO Workflow SS MCHC 34.6 G/dL Invalid Interpretation Code 31.8 - 35.4 G/dL AO Workflow SS MCV (RBC) [Entitic vol] 91.1 fL Invalid Interpretation Code 80.0 - 94.0 fL AO Workflow SS Monocyte, Absolute 0.9 103/mcL Invalid Interpretation Code 0.2 - 1.0 10^3/mcL AO Workflow SS Monocytes/100 WBC (Bld) 9.1 % Invalid Interpretation Code 1.7 - 13.0 % AO Workflow SS Neutrophil, Absolute 6.3 103/mcL Invalid Interpretation Code 2.9 - 6.2 10^3/mcL AO Workflow SS Neutrophils/100 WBC (Bld) 66.0 % Invalid Interpretation Code 37.0 - 80.0 % AO Workflow SS Platelet mean volume (Bld) [Entitic vol] 8.8 fL Invalid Interpretation Code 7.4 - 10.4 fL AO Workflow SS Platelets (Bld) [#/Vol] 222 103/mcL Invalid Interpretation Code 130 - 400 10^3/mcL AO Workflow SS RBC (Bld) [#/Vol] 4.71 106/mcL Invalid Interpretation Code 4.04 - 6.13 10^6/mcL AO Workflow SS WBC (Bld) [#/Vol] 9.6 103/mcL Invalid Interpretation Code 4.6 - 10.8 10^3/mcL AO Workflow SS LABORATORYOrdered By: SYSTEM SYSTEM on 05-08-2022 GFR 78 ml/min/1.73sqm Invalid Interpretation Code AO Chemistry S GFR Non- 64 ml/min/1.73sqm Invalid Interpretation Code AO Chemistry S LABORATORYOrdered By: Rafi Montiel on 01-12-2022 Albumin BCP dye [Mass/Vol] 3.6 G/dL Invalid Interpretation Code 3.4 - 4.8 G/dL AO ADM SS Albumin/Globulin [Mass ratio] 1.2 {ratio} Invalid Interpretation Code 1.1 - 2.5 ratio AO ADM SS ALP [Catalytic activity/Vol] 87 U/L Invalid Interpretation Code 40 - 135 U/L AO ADM SS ALT With P-5'-P [Catalytic activity/Vol] 24 U/L Invalid Interpretation Code 16 - 63 U/L AO ADM SS AST With P-5'-P [Catalytic activity/Vol] 16 U/L Invalid Interpretation Code 10 - 40 U/L AO ADM SS Bili Indirect 0.2 mg/dL Invalid Interpretation Code AO Chemistry S Bilirubin [Mass/Vol] 0.3 mg/dL Invalid Interpretation Code 0.2 - 1.0 mg/dL AO ADM SS Bilirubin.direct [Mass/Vol] 0.1 mg/dL Invalid Interpretation Code 0.0 - 0.2 mg/dL AO ADM SS Creatinine [Mass/Vol] 1.06 mg/dL Invalid Interpretation Code 0.70 - 1.30 mg/dL AO ADM SS CRP [Mass/Vol] 0.8 mg/dL Invalid Interpretation Code 0.0 - 0.9 mg/dL AO ADM SS Globulin 3.1 G/dL Invalid Interpretation Code AO ADM SS Protein [Mass/Vol] 6.7 G/dL Invalid Interpretation Code 6.4 - 8.2 G/dL AO ADM SS LABORATORYOrdered By: Chavez Novak on 01-12-2022 Basophil, Absolute 0.0 103/mcL Invalid Interpretation Code 0.0 - 0.2 10^3/mcL AO Workflow SS Basophils/100 WBC (Bld) 0.6 % Invalid Interpretation Code 0.0 - 2.5 % AO Workflow SS Eosinophil, Absolute 0.3 103/mcL Invalid Interpretation Code 0.0 - 0.4 10^3/mcL AO Workflow SS Eosinophils/100 WBC (Bld) 3.9 % Invalid Interpretation Code 0.0 - 7.0 % AO Workflow SS Erythrocyte distribution width (RBC) [Ratio] 15.3 % Invalid Interpretation Code 11.5 - 14.5 % AO Workflow SS ESR 15 minute reading (Bld) [Velocity] 15 mm/hr Invalid Interpretation Code 0 - 20 mm/hr AO Man Heme SS Hematocrit (Bld) [Volume fraction] 41.3 % Invalid Interpretation Code 42.0 - 52.0 % AO Workflow SS Hgb 14.0 G/dL Invalid Interpretation Code 14.0 - 18.0 G/dL AO Workflow SS Lymphocyte, Absolute 1.6 103/mcL Invalid Interpretation Code 0.8 - 3.9 10^3/mcL AO Workflow SS Lymphocytes/100 WBC (Bld) 23.5 % Invalid Interpretation Code 10.0 - 50.0 % AO Workflow SS MCH (RBC) [Entitic mass] 30.9 pg Invalid Interpretation Code 27.0 - 31.2 pg AO Workflow SS MCHC 33.9 G/dL Invalid Interpretation Code 31.8 - 35.4 G/dL AO Workflow SS MCV (RBC) [Entitic vol] 91.0 fL Invalid Interpretation Code 80.0 - 94.0 fL AO Workflow SS Monocyte, Absolute 0.6 103/mcL Invalid Interpretation Code 0.2 - 1.0 10^3/mcL AO Workflow SS Monocytes/100 WBC (Bld) 8.3 % Invalid Interpretation Code 1.7 - 13.0 % AO Workflow SS Neutrophil, Absolute 4.4 103/mcL Invalid Interpretation Code 2.9 - 6.2 10^3/mcL AO Workflow SS Neutrophils/100 WBC (Bld) 63.7 % Invalid Interpretation Code 37.0 - 80.0 % AO Workflow SS Platelet 204 103/mcL Invalid Interpretation Code 130 - 400 10^3/mcL AO Workflow SS Platelet mean volume (Bld) [Entitic vol] 8.6 fL Invalid Interpretation Code 7.4 - 10.4 fL AO Workflow SS RBC 4.53 106/mcL Invalid Interpretation Code 4.04 - 6.13 10^6/mcL AO Workflow SS WBC 7.0 103/mcL Invalid Interpretation Code 4.6 - 10.8 10^3/mcL AO Workflow SS LABORATORYOrdered By: SYSTEM SYSTEM on 01-12-2022 GFR 86 ml/min/1.73sqm Invalid Interpretation Code AO Chemistry S GFR Non- 71 ml/min/1.73sqm Invalid Interpretation Code AO Chemistry S Monocyte distribution width Auto (Bld) [Entitic vol] Not Performed 1 *NA* (01/12/22 3:54 PM) Invalid Interpretation Code 0.00 - 20.00 AO Hematology S Comment on above: Result Comment: MDW testing performed only on adult ER patients between the ages of 18-89 years. LABORATORYOrdered By: Merlyn Lemus on 12-06-2021 Albumin BCP dye [Mass/Vol] 3.5 G/dL Invalid Interpretation Code 3.4 - 4.8 G/dL AO ADM SS Albumin/Globulin [Mass ratio] 1.0 {ratio} Invalid Interpretation Code 1.1 - 2.5 ratio AO ADM SS ALP [Catalytic activity/Vol] 99 U/L Invalid Interpretation Code 40 - 135 U/L AO ADM SS ALT With P-5'-P [Catalytic activity/Vol] 17 U/L Invalid Interpretation Code 16 - 63 U/L AO ADM SS AST With P-5'-P [Catalytic activity/Vol] 13 U/L Invalid Interpretation Code 10 - 40 U/L AO ADM SS Bili Indirect Unable to Calculate Invalid Interpretation Code AO Chemistry S Comment on above: Result Comment: Unab le to calculate this test result accurately. Results used to calculate this test are outside the reportable range. Bilirubin [Mass/Vol] 0.3 mg/dL Invalid Interpretation Code 0.2 - 1.0 mg/dL AO ADM SS Bilirubin.direct [Mass/Vol] mg/dL Invalid Interpretation Code 0.0 - 0.2 mg/dL AO ADM SS C-Reactive Protein mg/dL Invalid Interpretation Code 0.0 - 0.9 mg/dL AO Chemistry S Creatinine [Mass/Vol] 1.06 mg/dL Invalid Interpretation Code 0.70 - 1.30 mg/dL AO ADM SS ESR 15 minute reading (Bld) [Velocity] 8 mm/hr Invalid Interpretation Code 0 - 20 mm/hr AO Man Heme SS Globulin 3.4 G/dL Invalid Interpretation Code AO ADM SS Protein [Mass/Vol] 6.9 G/dL Invalid Interpretation Code 6.4 - 8.2 G/dL AO ADM SS LABORATORYOrdered By: Kenyon Patton on 12-06-2021 Basophil, Absolute 0.10 103/mcL Invalid Interpretation Code 0.00 - 0.19 10^3/mcL AO Auto Heme SS Basophils/100 WBC (Bld) 0.8 % Invalid Interpretation Code 0.0 - 2.5 % AO Auto Heme SS Eosinophil, Absolute 0.20 103/mcL Invalid Interpretation Code 0.00 - 0.40 10^3/mcL AO Auto Heme SS Eosinophils/100 WBC (Bld) 3.0 % Invalid Interpretation Code 0.0 - 7.0 % AO Auto Heme SS Erythrocyte distribution width (RBC) [Ratio] 15.3 % Invalid Interpretation Code 11.5 - 14.5 % AO Auto Heme SS Hematocrit (Bld) [Volume fraction] 43.6 % Invalid Interpretation Code 42.0 - 52.0 % AO Auto Heme SS Hemoglobin (Bld) [Mass/Vol] 15.0 G/dL Invalid Interpretation Code 14.0 - 18.0 G/dL AO Auto Heme SS Lymphocyte, Absolute 1.80 103/mcL Invalid Interpretation Code 0.77 - 3.85 10^3/mcL AO Auto Heme SS Lymphocytes/100 WBC (Bld) 23.3 % Invalid Interpretation Code 10.0 - 50.0 % AO Auto Heme SS MCH (RBC) [Entitic mass] 30.6 pg Invalid Interpretation Code 27.0 - 31.2 pg AO Auto Heme SS MCHC (RBC) [Mass/Vol] 34.4 G/dL Invalid Interpretation Code 31.8 - 35.4 G/dL AO Auto Heme SS MCV (RBC) [Entitic vol] 89.0 fL Invalid Interpretation Code 80.0 - 94.0 fL AO Auto Heme SS Monocyte, Absolute 0.50 103/mcL Invalid Interpretation Code 0.15 - 1.00 10^3/mcL AO Auto Heme SS Monocytes/100 WBC (Bld) 6.5 % Invalid Interpretation Code 1.7 - 13.0 % AO Auto Heme SS Neutrophil, Absolute 5.20 103/mcL Invalid Interpretation Code 2.85 - 6.16 10^3/mcL AO Auto Heme SS Neutrophils/100 WBC (Bld) 66.4 % Invalid Interpretation Code 37.0 - 80.0 % AO Auto Heme SS Platelet mean volume (Bld) [Entitic vol] 9.1 fL Invalid Interpretation Code 7.4 - 10.4 fL AO Auto Heme SS Platelets (Bld) [#/Vol] 255 103/mcL Invalid Interpretation Code 130 - 400 10^3/mcL AO Auto Heme SS RBC (Bld) [#/Vol] 4.90 106/mcL Invalid Interpretation Code 4.04 - 6.13 10^6/mcL AO Auto Heme SS WBC (Bld) [#/Vol] 7.90 103/mcL Invalid Interpretation Code 4.60 - 10.80 10^3/mcL AO Auto Heme SS LABORATORYOrdered By: SYSTEM SYSTEM on 12-06-2021 GFR 86 ml/min/1.73sqm Invalid Interpretation Code AO Chemistry S GFR Non- 71 ml/min/1.73sqm Invalid Interpretation Code AO Chemistry S CNOVon 10-14-2019 CNOV Office Visit ([facility]WSTR ) ALINA ALLEN ([id number]) 1960 M Date Time Provider Department 10/14/19 11:00 AM ABRIL KUMAR) [facility] During your visit today, we recorded the following information about you: Temperature Pulse Respiration Blood pressure 97.5 degrees 66/minute 16/minute 128/82 Weight 87.7 kg Abril Kumar PA-C 10/14/2019 11:25 AM Signed Herpes Zoster Infection (Shingles) Herpes zoster infection, also called shingles, is caused by the chickenpox virus. When a person has chickenpox, he or she is never completely cured of the virus. The virus lives at the base of nerves under the skin, and the body's immune system usually keeps the infection confined there. However, sometimes the virus becomes active again, and produces blisters. Pain is usually the first sign of shingles, followed by blisters most often located over one side of the chest and back, or on one side of the face or neck. However, shingles can occur almost anywhere on the body. The blisters of shingles usually heal in about 3 weeks. Several medications can hasten healing slightly if given within the first 2 to 3 days. These medications are acyclovir (Zovirax), famcyclovir (Famvir), and valacyclovir (Valtrex). Occasionally, the pain of shingles lasts after the skin has healed. This is called postherpetic neuralgia. People over about 60 years of age are at greatest risk of this. Postherpetic neuralgia can be treated with oral medications for pain, a cream called Zosqix, and tricyclic antidepressants such as amitriptyline (Elavil). These tricyclic antidepressants are not used for their antidepressant actions, but rather for their beneficial effects on healing inflamed nerves. Postherpetic neuralgia usually disappears within six months. Abril Kumar PA-C 10/14/2019 2:30 PM Signed Subjective HPI Patient presents with left back and rib pain with a rash over the past week. He did have chickenpox as a child. States it started with pain in his back and then past couple days he has noticed a rash in the front as well. No fever or chills. Review of Systems Skin: Painful rash All other systems reviewed and are negative. History reviewed. No pertinent past medical history. Current Outpatient Medications Medication Sig Dispense Refill - valACYclovir (VALTREX) 1 gram Take 1 tablet by mouth three times daily for 7 days. 21 tablet 0 No current facility-administered medications for this visit. No past surgical history on file. No family history on file. Social History Tobacco Use - Smoking status: Current Every Day Smoker - Smokeless tobacco: Never Used Substance Use Topics - Alcohol use: Not on file - Drug use: Not on file BP 128/82 Pulse 66 Temp 36.4 ?C (97.5 ?F) (Tympanic) Resp 16 Wt 87.7 kg (193 lb 6.4 oz) Objective Physical Exam Constitutional: He is well-developed, well-nourished, and in no distress. HENT: Head: Normocephalic and atraumatic. Cardiovascular: Normal rate, regular rhythm and normal heart sounds. Pulmonary/Chest: Effort normal and breath sounds normal. Patient has an erythematous raised vesicular rash on his left posterior back wrapping around to the anterior chest wall. Consistent with shingles. Nursing note and vitals reviewed. ASSESSMENT/PLAN: 1. Herpes zoster without complication - ICD9: 053.9, ICD10: B02.9 Patient's lesions are not crusted and he is still getting new rash the past couple of days. Therefore I did put him on Valtrex. Discussed with him the contagiousness and reasons to follow up with PCP. He is agreeable with plan. Abril Kumar PA-C Referring Provider: SELF [[id number]] Allergies As of Date: 10/14/2019 (No Known Allergies) Date Reviewed: 10/14/2019 Reviewed by: Fabiana Lawrence LPN - Fully Assessed Reason for Visit: Rash [1087] Cmt: painful rash left rib area x 1 week Primary Visit Diagnosis:Herpes zoster without complication [B02.9] Order(s):valACYclovir (VALTREX) 1 gramTake 1 tablet by mouth three times daily for 7 days.Disp: 21 tabletRfl: 0 Prescriptions as of 10/14/2019 Sig: VALACYCLOVIR 1 GRAM TABLET Take 1 tablet by mouth three * Problem List As Of Date: 10/14/2019 (None) Other instructions from your clinician: Herpes Zoster Infection (Shingles) Herpes zoster infection, also called shingles, is caused by the chickenpox virus. When a person has chickenpox, he or she is never completely cured of the virus. The virus lives at the base of nerves under the skin, and the body's immune system usually keeps the infection confined there. However, sometimes the virus becomes active again, and produces blisters. Pain is usually the first sign of shingles, followed by blisters most often located over one side of the chest and back, or on one side of the face or neck. However, shingles can occur almost anywhere on the body. The blisters of shingles usually heal in about 3 weeks. Several medications can hasten healing slightly if given within the first 2 to 3 days. These medications are acyclovir (Zovirax), famcyclovir (Famvir), and valacyclovir (Valtrex). Occasionally, the pain of shingles lasts after the skin has healed. This is called postherpetic neuralgia. People over about 60 years of age are at greatest risk of this. Postherpetic neuralgia can be treated with oral medications for pain, a cream called Zosqix, and tricyclic antidepressants such as amitriptyline (Elavil). These tricyclic antidepressants are not used for their antidepressant actions, but rather for their beneficial effects on healing inflamed nerves. Postherpetic neuralgia usually disappears within six months. Prescriptions ordered this encounter Disp Refills Start End VALACYCLOVIR 1 GRAM TABLET 21 t* 0 10/14/2019 10/21/2019 Route: ORAL Sig: Take 1 tablet by mouth three times daily for 7 days. Encounter Status:Closed by ABRIL KUMAR PA-C on 10/14/19 [facility] PROGRESSon 10-14-2019 PROGRESS HNO ID: [id number] Author: Abril Kumar (Pa) Service: ? Author Type: Physician Hospital Administrative Assistant Type: Progress Notes Filed: 10/14/2019 2:30 PM Note Text: Subjective HPI Patient presents with left back and rib pain with a rash over the past week. He did have chickenpox as a child. States it started with pain in his back and then past couple days he has noticed a rash in the front as well. No fever or chills. Review of Systems Skin: Painful rash All other systems reviewed and are negative. History reviewed. No pertinent past medical history. Current Outpatient Medications Medication Sig Dispense Refill - valACYclovir (VALTREX) 1 gram Take 1 tablet by mouth three times daily for 7 days. 21 tablet 0 No current facility-administered medications for this visit. No past surgical history on file. No family history on file. Social History Tobacco Use - Smoking status: Current Every Day Smoker - Smokeless tobacco: Never Used Substance Use Topics - Alcohol use: Not on file - Drug use: Not on file BP 128/82 Pulse 66 Temp 36.4 ?C (97.5 ?F) (Tympanic) Resp 16 Wt 87.7 kg (193 lb 6.4 oz) Objective Physical Exam Constitutional: He is well-developed, well-nourished, and in no distress. HENT: Head: Normocephalic and atraumatic. Cardiovascular: Normal rate, regular rhythm and normal heart sounds. Pulmonary/Chest: Effort normal and breath sounds normal. Patient has an erythematous raised vesicular rash on his left posterior back wrapping around to the anterior chest wall. Consistent with shingles. Nursing note and vitals reviewed. ASSESSMENT/PLAN: 1. Herpes zoster without complication - ICD9: 053.9, ICD10: B02.9 Patient's lesions are not crusted and he is still getting new rash the past couple of days. Therefore I did put him on Valtrex. Discussed with him the contagiousness and reasons to follow up with PCP. He is agreeable with plan. Abril Kumar PA-C [facility] Office Visit: evaluation cru sh injury left thumb and open fx distal phalanxon 01-16-2017 Alcoholism counseling (procedure) no Invalid Interpretation Code [facility] Work Phone: [phone] Dietary management education, guidance, and counseling (procedure) yes Invalid Interpretation Code [facility] Work Phone: [phone] Documentation of current medications (procedure) Done Invalid Interpretation Code [facility] Work Phone: [phone] Fall risk assessment No [facility] Work Phone: [phone] Protein mass conc Done [facility] Work Phone: [phone] Protein mass conc no [facility] Work Phone: [phone] Protein mass conc yes [facility] Work Phone: [phone] Smoking cessation education (procedure) yes Invalid Interpretation Code [facility] Work Phone: [phone] Tobacco smoking status NHIS Never [facility] Work Phone: [phone] Tobacco smoking status DCIS Current every day smoker [facility] Work Phone: [phone] Tobacco use [facility] Current every day smoker Invalid Interpretation Code [facility] Work Phone: [phone] Office Visit: evaluation cru sh injury left thumb and open fx distal phalanxon 12-03-2016 Alcoholism counseling (procedure) no Invalid Interpretation Code [facility] Work Phone: [phone] Dietary management education, guidance, and counseling (procedure) yes Invalid Interpretation Code [facility] Work Phone: [phone] Documentation of current medications (procedure) Done Invalid Interpretation Code [facility] Work Phone: [phone] Fall risk assessment No Invalid Interpretation Code [facility] Work Phone: [phone] Protein mass conc Done [facility] Work Phone: [phone] Protein mass conc no [facility] Work Phone: [phone] Protein mass conc yes [facility] Work Phone: [phone] Smoking cessation education (procedure) yes Invalid Interpretation Code [facility] Work Phone: [phone] Tobacco smoking status NHIS Never Invalid Interpretation Code [facility] Work Phone: [phone] Tobacco smoking status NHIS Current every day smoker [facility] Work Phone: [phone] Tobacco use [facility] Current every day smoker Invalid Interpretation Code [facility] Work Phone: [phone] Office Visit: evaluation cru sh injury left thumb and open fx distal phalanxon 11-19-2016 Alcoholism counseling (procedure) no Invalid Interpretation Code [facility] Work Phone: [phone] Dietary management education, guidance, and counseling (procedure) yes Invalid Interpretation Code [facility] Work Phone: [phone] Documentation of current medications (procedure) Done Invalid Interpretation Code [facility] Work Phone: [phone] Fall risk assessment No Invalid Interpretation Code [facility] Work Phone: [phone] Smoking cessation education (procedure) yes Invalid Interpretation Code [facility] Work Phone: [phone] Tobacco smoking status NHIS Never Invalid Interpretation Code [facility] Work Phone: [phone] Tobacco use [facility] Current every day smoker Invalid Interpretation Code [facility] Work Phone: [phone] Vital Signs Date Time Vital Sign Value Performing Clinician Facility 12-21-2024 09:05-0400 Diastolic Blood Pressure Non-Invasive 74 mm[Hg] DR LAZARO CERVANTES MD [facility] 12-21-2024 09:05-0400 Heart rate 61 /min DR LAZARO CERVANTES MD [facility] 12-21-2024 09:05-0400 Respiratory rate 17 /min DR LAZARO CERVANTES MD [facility] 12-21-2024 09:05-0400 Systolic Blood Pressure Non-Invasive 125 mm[Hg] DR LAZARO CERVANTES MD [facility] 12-21-2024 09:00-0400 Diastolic Blood Pressure Non-Invasive 72 mm[Hg] DR LAZARO CERVANTES MD [facility] 12-21-2024 09:00-0400 Heart rate 56 /min DR LAZARO CERVANTES MD [facility] 12-21-2024 09:00-0400 Respiratory rate 15 /min DR LAZARO CERVANTES MD [facility] 12-21-2024 09:00-0400 Systolic Blood Pressure Non-Invasive 113 mm[Hg] DR LAZARO CERVANTES MD [facility] 12-21-2024 08:56-0400 Diastolic Blood Pressure Non-Invasive 70 mm[Hg] DR LAZARO CERVANTES MD [facility] 12-21-2024 08:56-0400 Heart rate 58 /min DR LAZARO CERVANTES MD [facility] 12-21-2024 08:56-0400 Respiratory rate 17 /min DR LAZARO CERVANETS MD [facility] 12-21-2024 08:56-0400 Systolic Blood Pressure Non-Invasive 110 mm[Hg] DR LAZARO CERVANTES MD [facility] 12-21-2024 08:47-0400 Body temperature 97.34 [degF] DR LAZARO CERVANTES MD [facility] 12-21-2024 08:45-0400 Respiratory Rate - Anes 18 br/min DR LAZARO CERVANTES MD [facility] 12-21-2024 08:40-0400 Respiratory Rate - Anes 19 br/min DR LAZARO CERVANTES MD [facility] 12-21-2024 08:35-0400 Respiratory Rate - Anes 15 br/min DR LAZARO CERVANTES MD [facility] 12-21-2024 07:53-0400 Body temperature 97.34 [degF] DR LAZARO CERVANTES MD [facility] 12-21-2024 07:53-0400 Heart rate 60 /min DR LAZARO CERVANTES MD [facility] 12-21-2024 07:50-0400 Body height [address] LAZARO CERVANTES MD [facility] 12-21-2024 07:50-0400 Body weight 93.[address] LAZARO CERVANTES MD [facility] 12-21-2024 07:50-0400 Body weight 28.14 kg/m2 DR LAZARO CERVANTES MD [facility] 09-24-2024 23:07-0500 Body temperature 97.9 [degF] Maris Duran RECEPTION SPECIALIST-C Work Phone: [facility] 09-24-2024 23:07-0500 Diastolic blood pressure 84 mm[Hg] Maris Duran RECEPTION SPECIALIST-C Work Phone: [facility] 09-24-2024 23:07-0500 Heart rate 78 /min Maris Duran RECEPTION SPECIALIST-C Work Phone: [facility] 09-24-2024 23:07-0500 Respiratory rate 26 /min Maris Duran RECEPTION SPECIALIST-C Work Phone: [facility] 09-24-2024 23:07-0500 SaO2% (BldA) [Mass fraction] 95 % Maris Duran RECEPTION SPECIALIST-C Work Phone: [facility] 09-24-2024 23:07-0500 Systolic blood pressure 138 mm[Hg] Maris Duran RECEPTION SPECIALIST-C Work Phone: [facility] 09-24-2024 18:25-0500 Body height 15.24 cm Maris Duran RECEPTION SPECIALIST-C Work Phone: [facility] 10-23-2023 15:09-0400 Body height 182.88 cm RECEPTION SPECIALIST-C Maris Duran RECEPTION SPECIALIST Work Phone: [facility] 10-23-2023 15:09-0400 Body mass index (BMI) [Ratio] 27.6 kg/m2 [facility]C Maris Duran RECEPTION SPECIALIST Work Phone: [facility] 10-23-2023 15:09-0400 Body temperature 96.9 [degF] RECEPTION SPECIALIST-C Maris Duran RECEPTION SPECIALIST Work Phone: [facility] 10-23-2023 15:09-0400 Body weight 92.2 kg RECEPTION SPECIALIST-C Maris Duran RECEPTION SPECIALIST Work Phone: [facility] 10-23-2023 15:09-0400 Diastolic blood pressure 82 mm[Hg] RECEPTION SPECIALIST-C Maris Duran RECEPTION SPECIALIST Work Phone: [facility] 10-23-2023 15:09-0400 Heart rate 79 /min RECEPTION SPECIALIST-C Maris Duran RECEPTION SPECIALIST Work Phone: [facility] 10-23-2023 15:09-0400 Respiratory rate 18 /min RECEPTION SPECIALIST-C Maris Duran RECEPTION SPECIALIST Work Phone: [facility] 10-23-2023 15:09-0400 SaO2% (BldA) [Mass fraction] 100 % RECEPTION SPECIALIST-C Maris Duran RECEPTION SPECIALIST Work Phone: [facility] 10-23-2023 15:09-0400 Systolic blood pressure 172 mm[Hg] RECEPTION SPECIALIST-C Maris Duran RECEPTION SPECIALIST Work Phone: [facility] 09-06-2023 08:21-0500 Body mass index (BMI) [Ratio] 28.3 kg/m2 RECEPTION SPECIALIST-C Maris Duran RECEPTION SPECIALIST Work Phone: [facility] 09-06-2023 08:21-0500 Body weight 94.85 kg RECEPTION SPECIALIST-C Maris Duran RECEPTION SPECIALIST Work Phone: [facility] 01-16-2017 11:49-0400 BMI (Body Mass Index) 23.61 kg/m2 [facility] Work Phone: 01-16-2017 11:49-0400 Body Temperature 97 [degF] Rick Dominguez MD [facility] Work Phone: 01-16-2017 11:49-0400 BP Diastolic 80 mm[Hg] Rick Dominguez MD [facility] Work Phone: 01-16-2017 11:49-0400 BP Systolic 120 mm[Hg] Rick Dominguez MD [facility] Work Phone: 01-16-2017 11:49-0400 BSA (Body Surface Area) 2.19 m2 Rick Dominguez MD [facility] Work Phone: 01-16-2017 11:49-0400 Height 193.04 cm Rick Dominguez MD [facility] Work Phone: 01-16-2017 11:49-0400 Pulse (Heart Rate) 60 /min [facility] Work Phone: 01-16-2017 11:49-0400 Respiratory Rate 16 /min Rick Dominguez MD [facility] Work Phone: 01-16-2017 11:49-0400 Weight 88 kg Rick Dominguez MD [facility] Work Phone: 12-03-2016 13:30-0400 BMI (Body Mass Index) 23.81 kg/m2 Rick Dominguez MD [facility] Work Phone: 12-03-2016 13:30-0400 Body Temperature 97.7 [degF] Rick Dominguez MD [facility] Work Phone: 12-03-2016 13:30-0400 BP Diastolic 72 mm[Hg] Rick Dominguez MD [facility] Work Phone: 12-03-2016 13:30-0400 BP Systolic 124 mm[Hg] Rick Dominguez MD [facility] Work Phone: 12-03-2016 13:30-0400 Height 193.04 cm Rick Dominguez MD [facility] Work Phone: 12-03-2016 13:30-0400 Pulse (Heart Rate) 72 /min Rick Dominguez MD [facility] Work Phone: 12-03-2016 13:30-0400 Pulse Oximetry 95 % Rick Dominguez MD [facility] Work Phone: 12-03-2016 13:30-0400 Respiratory Rate 16 /min Rick Dominguez MD [facility] Work Phone: 12-03-2016 13:30-0400 Weight 88.72 kg Rick Dominguez MD [facility] Work Phone: 11-19-2016 13:33-0400 BMI (Body Mass Index) 23.9 kg/m2 [facility] Work Phone: 11-19-2016 13:33-0400 Body Temperature 97.5 [degF] Rosenataly Hagen [facility] Work Phone: 11-19-2016 13:33-0400 BP Diastolic 75 mm[Hg] Rosenataly Hagen [facility] Work Phone: 11-19-2016 13:33-0400 BP Systolic 130 mm[Hg] Rosenataly Hagen [facility] Work Phone: 11-19-2016 13:33-0400 Height 193.04 cm Rosenataly Hagen [facility] Work Phone: 11-19-2016 13:33-0400 Pulse (Heart Rate) 75 /min [facility] Work Phone: 11-19-2016 13:33-0400 Pulse Oximetry 97 % Rose Hagen [facility] Work Phone: 11-19-2016 13:33-0400 Respiratory Rate 16 /min Rose Hagen [facility] Work Phone: 11-19-2016 13:33-0400 Weight 89.09 kg Rose Hagen [facility] Work Phone: 11-12-2016 15:26-0400 BSA (Body Surface Area) 2.1 m2 Rose Hagen [facility] Work Phone: Encounters Encounter Date Encounter Type Care Provider Facility Start: 01-22-2025 End: 01-22-2025 ambulatory Maris Duran RECEPTION SPECIALIST-C Work Phone: [facility] Work Phone: Start: 01-22-2025 End: 01-22-[address] Bernarda Young MD -[facility] Work Phone: Start: 01-22-2025 End: 01-22-2025 ambulatory Maris Duran Facility:[facility] Start: 12-21-2024 End: 12-21-2024 ambulatory LAZARO CERVANTES Facility:[facility] Start: 12-21-2024 End: 12-21-[address] LAZARO CERVANTES MD [facility] Start: 11-02-2024 End: 11-02-2024 ambulatory Maris Duran RECEPTION SPECIALIST-C Work Phone: [facility] Work Phone: Start: 11-02-2024 End: 11-02-[address] Bernarda Young MD -Laboratory, [facility] Work Phone: Start: 11-02-2024 End: 11-02-2024 ambulatory Maris Duran Facility:[facility] Start: 09-24-2024 End: 09-24-2024 Emergency department patient visit Dr. Jace Landeros MD -Emergency Department Work Phone: Start: 07-31-2024 End: 07-31-[address] Bernarda Young MD -Laboratory, [facility] Work Phone: Start: 07-31-2024 End: 07-31-2024 ambulatory [facility] Facility:[facility] Start: 06-15-2024 End: 06-15-2024 ambulatory MARIS DURAN DRAWBRIDGE OPERATOR-HEAD [employer]ER Facility:[facility] Start: 06-15-2024 End: 06-15-2024 Patient encounter procedure MARIS Garza KENNEDI DRAWBRIDGE OPERATOR-HEAD BUT[employer]ER [facility] Start: 05-08-2024 End: 05-08-2024 ambulatory [facility] Facility:[facility] Start: 03-20-2024 End: 03-20-[address] ANGEL CEJA DO Facility:[facility] Start: 03-20-2024 End: 03-20-2024 Patient encounter procedure MARIS Garza KENNEDI DRAWBRIDGE OPERATOR-HEAD [employer] [facility] Start: 03-11-2024 End: 03-11-2024 ambulatory MARIS Garza KENNEDI DRAWBRIDGE OPERATOR-HEAD BUTLER Facility:[facility] Start: 02-27-2024 End: 02-27-2024 ambulatory MARIS Greg DURAN DRAWBRIDGE OPERATOR-HEAD BUT[employer]ER Facility:[facility] Start: 02-27-2024 End: 02-27-2024 Patient encounter procedure MARIS Garza KENNEDI DRAWBRIDGE OPERATOR-HEAD [employer]ER [facility] Start: 01-30-2024 End: 01-30-2024 ambulatory [facility] Facility:[facility] Start: 11-22-2023 End: 11-22-2023 ambulatory RECEPTION SPECIALIST-C Maris Duran RECEPTION SPECIALIST Work Phone: [facility] Work Phone: Start: 11-22-2023 End: 11-22-2023 Patient encounter procedure RECEPTION SPECIALIST-C Maris Duran RECEPTION SPECIALIST Work Phone: [facility] Work Phone: Start: 10-23-2023 End: 10-23-2023 Emergency department patient visit RECEPTION SPECIALIST-Agustina Duran RECEPTION SPECIALIST [facility] Start: 09-06-2023 End: 09-06-2023 Patient encounter procedure RECEPTION SPECIALIST-Agustina Duran RECEPTION SPECIALIST Work Phone: [facility] Start: 08-28-2023 End: 08-28-2023 ambulatory [facility] Work Phone: Start: 08-28-2023 End: 08-28-2023 Patient encounter procedure [facility] Work Phone: Start: 05-14-2023 End: 05-14-2023 ambulatory [facility] Work Phone: Start: 05-14-2023 End: 05-14-2023 Patient encounter procedure [facility] Work Phone: Start: 01-08-2023 End: 01-08-2023 Patient encounter procedure VANESSA VENTURA MD [facility] Start: 09-03-2022 End: 09-03-2022 Patient encounter procedure VANESSA VENTURA MD [facility] Start: 05-08-2022 End: 11-06-2022 Lab-Standing Order VANESSA VENTURA MD [facility] Procedures Date Procedure Procedure Detail Performing Clinician Start: 09-24-2024 CT angiography of ch est with contrast Maris Duran RECEPTION SPECIALIST-C Work Phone: Start: 09-24-2024 Plain chest X-ray Letha Duran RECEPTION SPECIALIST-C Work Phone: Start: 10-23-2023 Plain x-ray of wrist RECEPTION SPECIALIST -C Maris Duran RECEPTION SPECIALIST Work Phone: Start: 09-06-2023 Diagnostic radiograp hy of finger RECEPTION SPECIALIST-C Maris Duran RECEPTION SPECIALIST Work Phone: Start: 09-06-2023 Plain x-ray of elbow RECEPTION SPECIALIST -C Maris Duran RECEPTION SPECIALIST Work Phone: Start: 01-16-2017 End: 01-16-2017 Dietary management education, guidance, and counseling Rick Dominguez MD Start: 01-16-2017 End: 03-07-2017 Follow Up Appt Other Rick Dominguez MD Start: 12-03-2016 End: 12-03-2016 Dietary management education, guidance, and counseling Rose Hagen Start: 12-03-2016 End: 12-12-2016 Follow Up Appt 1 month Rick Dominguez MD Start: 11-19-2016 End: 12-12-2016 Follow Up Appt 2 weeks Rick Domingeuz MD Start: 11-12-2016 End: 12-12-2016 Follow up Appt 1 week Rick Dominguez MD Start: 11-05-2016 End: 12-12-2016 Follow up Appt 1 week Rick Dominguez MD Start: 10-24-2016 End: 12-12-2016 Follow up Appt 1 week Rick Dominguez MD Start: 10-17-2016 End: 11-14-2016 Follow up Appt 1 week Rick Dominguez MD Colonoscopy VANESSA VENTURA MD Partial meniscectomy of knee VANESSA VENTURA MD Comment on above: Left Plan of Treatment Date Care Activity Detail Author Start: 09-24-2024 [facility] Start: 09-24-2024 [facility] Start: 10-23-2023 [facility] Start: 01-16-2017 End: 01-16-2017 Appointment Appointment [facility] Work Phone: Start: 01-16-2017 End: 03-07-2017 Follow Up Appt Other Follow Up Appt Other [facility] Work Phone: Start: 01-14-2017 End: 01-14-2017 Appointment Appointment [facility] Work Phone: Start: 12-03-2016 End: 12-03-2016 Appointment Appointment [facility] Work Phone: Start: 12-03-2016 End: 12-12-2016 Follow Up Appt 1 month Follow Up Appt 1 month [facility] Work Phone: Start: 11-19-2016 End: 12-12-2016 Follow Up Appt 2 weeks Follow Up Appt 2 weeks [facility] Work Phone: Start: 11-12-2016 End: 12-12-2016 Follow up Appt 1 week Follow up Appt 1 week [facility] Work Phone: Start: 11-12-2016 End: 11-21-2016 X-ray exam of finger(s) X-Ray, Fingers [facility] Work Phone: Start: 11-05-2016 End: 12-12-2016 Follow up Appt 1 week Follow up Appt 1 week [facility] Work Phone: Start: 10-24-2016 End: 12-12-2016 Follow up Appt 1 week Follow up Appt 1 week [facility] Work Phone: Start: 10-17-2016 End: 11-14-2016 Follow up Appt 1 week Follow up Appt 1 week [facility] Work Phone: Patient Education [facility] Work Phone: Patient referral [facility] Work Phone: Immunizations Immunization Date Immunization Notes Care Provider Fa [facility] 04-10-2024 SARS-CoV-2 (COVID-19 ) [id number] MARIS KENNEDI DRAWBRIDGE OPERATOR-HEAD [employer]LER [facility] 05-21-2023 SARS-CoV-2 (COVID-19 ) mRNA-[id number] MARIS KENNEDI DRAWBRIDGE OPERATOR-HEAD BUTLER [facility] 04-21-2022 SARS-CoV-2 (CV19)[id number] bivalent vac MARIS KENNEDI [employer]ATOR[employer] [facility] 07-05-2021 tetanus toxoid, redu jessica diphtheria toxoid, and acellular pertussis vaccine, adsorbed [facility] 07-01-2021 SARS-CoV-2 (COVID-19 ) mRNA-1273 vaccine MARIS KENNEDI DRAWBRIDGE OPERATOR[employer] [facility] 01-09-2021 SARS-CoV-2 mRNA (tozinameran) vaccine MARIS KENNEDI DRAWBRIDGE OPERATOR[employer] [facility] Comment on above: Result Comment: 2023: [id number] 12-19-2020 SARS-CoV-2 mRNA (tozinameran) vaccine MARIS KENNEDI DRAWBRIDGE OPERATOR[employer]HEAD [employer] [facility] Comment on above: Result Comment: 2023: [id number] 10-07-2016 tetanus toxoid, redu jessica diphtheria toxoid, and acellular pertussis vaccine, adsorbed [facility] Payers Date Payer Category Payer Self-pay [id number] 2024 Unknown [id number] 2021 Unknown [id number] 2009 Private Health Insurance [employer] [id number] 1960 Unknown [id number] 2.16.8 [id number] 1960 Unknown [id number] 2.16.8 [id number] 1960 Unknown [id number] 2.16.8 [id number] 1960 Unknown [id number] 2.16.8 [id number] 1960 Unknown [id number] 2.16. [id number] 1960 Unknown [id number] 2.16.8 [id number] Unknown [id number] Unknown [id number] 2.16.8 [id number] Unknown [id number] 2.16.8 [id number] Unknown [id number] 2.16.8 [id number] Unknown [id number] 2.16.8 [id number] Unknown [id number] 2.16.8 [id number] Unknown [id number] 2.16.8 [id number] Social History Date Type Detail Facility Start: 04-07-2022 End: 12-10-2024 Tobacco smoking status Light tobacco smoker (finding) [facility] Comment on above: stopped smoking 08/31 Start: 1960 Sex Assigned At Male A [facility] Start: 12-22-2021 End: 10-23-2023 Tobacco smoking status NHIS Unknown if ever smoked [facility] Start: 09-24-2024 Tobacco smoking stat us NHIS Smokes tobacco daily (finding) [facility] Start: 10-08-2019 End: 11-05-2024 Sex Male (finding) [facility] O[facility] Functional Status Date Assessment Result Facility 12-21-2024 Functional Status Awake [facility] 12-21-2024 Functional Status Maintained, More than 8 hours [facility] Mental Status Date Assessment Result Facility 12-21-2024 [facility] 12-21-2024 Mental Status [facility] 09-24-2024 Cognitive function Voice/Name [facility] Work Phone: Clinical Notes 09-03-2022 to 12-21-2024 Note Date & Type Note Facility 12-21-2024 Evaluation + Plan note Extrac yossi from: Title:Clinical Document Author:LAZARO CERVANTES Date:12/21/24 [place] ADMISSION HISTORY AN D PHYSICIAL CHIEF COMPLAINT: HISTORY OF PRESENT ILLNESS: REVIEW OF SYSTEMS: ACTIVE PROBLEMS: (7) Claudication of calf muscles (548788176) COPD mixed type (586854792) Dysphagia (31257467) PAD (peripheral artery disease) (0056280591) Rheumatoid arthritis (459296250) Tobacco use (0742131568) Well adult exam (695416571) MEDICATIONS: Active Inpt Meds: None Active PRN Meds: None One Time Meds: None Active IV Meds: Sodium Chloride 0.9% intravenous solution 1,000 mL (Sodium Chloride 0.9% 1000 mL 1,000 mL) Start: 12/21/24 8:22:00 EDT, 100 mL, 12/21/24 8:22:00 EDT ALLERGIES: (1) [facility] FAMILY HISTORY: SOCIAL HISTORY: PHYSICAL EXAM: VITALS: BmeimiLkyrWXNshwdAZHiG8RRK5BszcCl(kg) 12/21 07:5336.3--3110031AD29/19 93.2 24 Hr Tmax: 36.3 at 12/21 07:53 36 Hr Tmax: 36.3 at 12/21 07:53 Vital Signs are the last 5 in the past 48 hours. Weights display the last 5 within 7 days. Initial Wt: 12/21 93.2 kg 205 lb Current Wt: 12/21 93.2 kg 205 lb GENERAL: HEENT: CARDIOVASCULAR: RESPIRATORY: ABDOMEN: EXREMETIES: NEUROLOGICAL: PSYCHIATRIC: LABS: No 36hr Lab Data DIAGNOSTICS: IMPRESSION: PLAN: History and Physical Update I have examined the patient; reviewed the H&P and there are no changes to the H&P unless noted below. Future Appointments Appointment Date:12/14/2025 03:00:00 PM Scheduled Provider:MARIS DURAN Location:[facility] Appointment Type:PC Wellness Annual [facility] 05-19-2025 Hospital Discharge instructions Patient Education 12/21/2024 09:21:35 Hiatal Hernia Hiatal Hernia A hiatal hernia occurs when part of the stomach slides above the muscle that separates the abdomen from the chest (diaphragm). A person can be born with a hiatal hernia (congenital), or it may develop over time. In almost all cases of hiatal hernia, only the top part of the stomach pushes through the diaphragm. Many people have a hiatal hernia with no symptoms. The larger the hernia, the more likely it is that you will have symptoms. In some cases, a hiatal hernia allows stomach acid to flow back into the tube that carries food from your mouth to your stomach (esophagus). This may cause heartburn symptoms. Severe heartburn symptoms may mean that you have developed a condition called gastroesophageal reflux disease (GERD). What are the causes? This condition is caused by a weakness in the opening (hiatus) where the esophagus passes through the diaphragm to attach to the upper part of the stomach. A person may be born with a weakness in thehiatus, or a weakness can develop over time. What increases the risk? This condition is more likely to develop in: Older people. Age is a major risk factor for a hiatal hernia, especially if you are over the age of50. women. People who are overweight. People who have frequent constipation. What are the signs or symptoms? Symptoms of this condition usually develop in the form of GERD symptoms. Symptoms include: Heartburn. Belching. Indigestion. Trouble swallowing. Coughing or wheezing. Sore throat. Hoarseness. Chest pain. Nausea and vomiting. How is this diagnosed? This condition may be diagnosed during testing for GERD. Tests that may be done include: X-rays of your stomach or chest. An upper gastrointestinal (GI) series. This is an X-ray exam of your GI tract that is taken after you swallow a chalky liquid that shows up clearly on the X-ray. Endoscopy. This is a procedure to look into your stomach using a thin, flexible tube that has a tiny camera and light on the end of it. How is this treated? This condition may be treated by: Dietary and lifestyle changes to help reduce GERD symptoms. Medicines. These may include: ?Mnmv-zvf-bzmkasd antacids. ?Medicines that make your stomach empty more quickly. ?Medicines that block the production of stomach acid (H2 blockers). ?Stronger medicines to reduce stomach acid (proton pump inhibitors). Surgery to repair the hernia, if other treatments are not helping. If you have no symptoms, you may not need treatment. Follow these instructions at home: Lifestyle and activity Do not use any products that contain nicotine or tobacco, such as cigarettes and e-cigarettes. If you need help quitting, ask your health care provider. Try to achieve and maintain a healthy body weight. Avoid putting pressure on your abdomen. Anything that puts pressure on your abdomen increases the amount of acid that may be pushed up into your esophagus. ?Avoid bending over, especially after eating. ?Raise the head of your bed by putting blocks under the legs. This keeps your head and esophagus higher than your stomach. ?Do not wear tight clothing around your chest or stomach. ?Try not to strain when having a bowel movement, when urinating, or when lifting heavy objects. Eating and drinking Avoid foods that can worsen GERD symptoms. These may include: ?Fatty foods, like fried foods. ?[place] fruits, like oranges or lemon. ?Other foods and drinks that contain acid, like orange juice or tomatoes. ?Spicy food. ?Chocolate. Eat frequent small meals instead of three large meals a day. This helps prevent your stomach from getting too full. ?Eat slowly. ?Do not lie down right after eating. ?Do not eat 1 2 hours before bed. Do not drink beverages with caffeine. These include cola, coffee, cocoa, and tea. Do not drink alcohol. General instructions Take nutz-cms-jjfyrgt and prescription medicines only as told by your health care provider. Keep all follow-up visits as told by your health care provider. This is important. Contact a health care provider if: Your symptoms are not controlled with medicines or lifestyle changes. You are having trouble swallowing. You have coughing or wheezing that will not go away. Get help right away if: Your pain is getting worse. Your pain spreads to your arms, neck, jaw, teeth, or back. You have shortness of breath. You sweat for no reason. You feel sick to your stomach (nauseous) or you vomit. You vomit blood. You have bright red blood in your stools. You have black, tarry stools. This information is not intended to replace advice given to you by your health care provider. Make sure you discuss any questions you have with your health care provider. Document Released: 10/11/2004 Document Revised: 07/04/2018 Document Reviewed: 02/24/2018 [employer] Patient Education 2020 [employer]. 12/21/2024 08:53:47 9 - AO Minor Esophagogastroduodenoscopy (10/16)(CUSTOM) Esophagogastroduodenoscopy This is an endoscopic procedure (a procedure that uses a device like a flexible telescope) that allows your caregiver to view the upper stomach and small bowel. This test allows your caregiver to look at the esophagus. The esophagus carries food from your mouth to your stomach. They can also look at your duodenum. This is the first part of the small intestine that attaches to the stomach. This ian t is used to detect problems in the bowel such as ulcers and inflammation. MEANING OF TEST Your caregiver will go over the test results with you and discuss the importance and meaning of your results, as well as treatment options and the need for additional tests if necessary. OBTAINING THE TEST RESULTS Your caregiver s office will call you with the results of the test. POST SEDATION INSTRUCTIONS Rest at home today. Since your coordination may be impaired, be cautious on stairways, do not drive any vehicle or operate any heavy machinery, or use any sharp instruments for the remainder of the day. Do not drink any alcoholic beverages or make any major decisions for 24 hours. POST PROCEDURE INSTRUCTIONS Progress slowly with full liquids then resume previous diet and medications. Belching or passing of gas is to be expected. Notify the physician if you have severe chest pain, fever, or if difficulty when swallowing persists. 10/13/13 Custom 12/21/2024 08:53:31 Monitored Anesthesia Care, Care After Monitored Anesthesia Care, Care After These instructions provide you with information about caring for yourself after your procedure. Your health care provider may also give you more specific instructions. Your treatment has been plannedaccording to current medical practices, but problems sometimes occur. Call your health care provider if you have any problems or questions after your procedure. What can I expect after the procedure? After your procedure, you may: Feel sleepy for several hours. Feel clumsy and have poor balance for several hours. Feel forgetful about what happened after the procedure. Have poor judgment for several hours. Feel nauseous or vomit. Have a sore throat if you had a breathing tube during the procedure. Follow these instructions at home: For at least 24 hours after the procedure: Have a responsible adult stay with you. It is important to have someone help care for you until youare awake and alert. Rest as needed. Do not: ?Participate in activities in which you could fall or become injured. ?Drive. ?Use heavy machinery. ?Drink alcohol. ?Take sleeping pills or medicines that cause drowsiness. ?Make important decisions or sign legal documents. ?Take care of children on your own. Eating and drinking Follow the diet that is recommended by your health care provider. If you vomit, drink water, juice, or soup when you can drink without vomiting. Make sure you have little or no nausea before eating solid foods. General instructions Take fzgr-vnn-sckqazj and prescription medicines only as told by your health care provider. If you have sleep apnea, surgery and certain medicines can increase your risk for breathing problems. Follow instructions from your health care provider about wearing your sleep device: ?Anytime you are sleeping, including during daytime naps. ?While taking prescription pain medicines, sleeping medicines, or medicines that make you drowsy. If you smoke, do not smoke without supervision. Keep all follow-up visits as told by your health care provider. This is important. Contact a health care provider if: You keep feeling nauseous or you keep vomiting. You feel light-headed. You develop a rash. You have a fever. Get help right away if: You have trouble breathing. Summary For several hours after your procedure, you may feel sleepy and have poor judgment. Have a responsible adult stay with you for at least 24 hours or until you are awake and alert. This information is not intended to replace advice given to you by your health care provider. Make sure you discuss any questions you have with your health care provider. Document Released: 11/11/2016 Document Revised: 10/20/2018 Document Reviewed: 11/11/2016 [employer] Patient Education 2020 [employer]. Follow Up Care 12/11/2024 14:26:22 With:LAZARO CERVANTES Address: [address] [place] [phone] Business (1) When: Unknown Comments:CALL OFFICE IN ONE MONTH WITH SWALLOWING UPDATE. [facility] 05-19-2025 Summary of episode note Discharge Instructions Thank you for allowing [employer] to assist you with your healthcare needs. The following is importantdischarge information regarding your hospital visit. Your Care Team MARIS DURAN What to do next Scheduled Follow-Up Appointments Appointment Type When With Where Contact Information Status Wellness Annual 12/14/2025 03:00 PM EDT MARIS DURAN [facility] [address] [place] [phone] Confirmed Follow Up Appointments Follow Up with LAZARO CERVANTES Where:[address] [place] [phone] Business (1) Additional Information: CALL OFFICE IN ONE MONTH WITH SWALLOWING UPDATE. The Following Activity and Diet Have Been Ordered for You Discharge Activity - Ordered -- NO activity restrictions, 12/21/24 8:46:00 EDT Discharge Diet - Ordered -- Follow the post-operative/post-procedure diet instructions provided by your physician's office.,12/21/24 8:46:00 EDT The Following Equipment Has Been Ordered for You Discharge Home Equipment Discharge Wound Care - Ordered -- Follow the post-operative/post-procedure wound care instructions provided by your physician's office., 12/21/24 8:46:00 EDT The Following Treatments Have Been Ordered for You Discharge Labs No qualifying data available. Discharge Radiology No qualifying data available. Other Therapies No qualifying data available. Post Acute Orders No qualifying data available. Someone Will Contact You Regarding These Home Health Referrals No home referrals have been ordered for you. No one will call you. Allergies [facility] Medications Please ask your primary doctor or pharmacist before taking any other medication not listed, including over the counter drugs, herbal medications, vitamins and or supplements as they may interact withyour home medications. What How Much When Instructions Last Dose Unchanged albuterol (albuterol MDI (90 mcg/ inh) CFC freeinhalation aerosol) 2 puff(s) by inhalation Every 4 hours as needed for as needed for wheezing Unchanged cilostazol (cilostazol 100 mg oral tablet) TAKE 1 TABLET BY MOUTH TWICE A DAY Unchanged folic acid (folic acid 1 mg oral tablet) 1 tab(s) by mouth Two (2) times a day Unchanged hydroxychloroquine (hydroxychloroquine 200 mg oral tablet) 1 tab(s) by mouth Two (2) times a day Unchanged methotrexate (methotrexate 2.5 mg oral tablet) 8 tab(s) by mouth Every week Unchanged varenicline (Chantix Continuing Month 1 mg oral tablet) 1 tab(s) by mouth Two (2) times a day Unchanged varenicline (Chantix Starter Pack 0.5 mg-1 mg oral tablet) 1 tab(s) by mouth Two (2) times a day Please take this list to your next doctor s visit. Bring all medications you take, including over the counter medications, herbals and other supplements with you to your doctor s visit. Patients and families are reminded to discard old lists and to update any records with all medication providers or retail pharmacies. Education Materials Hiatal Hernia A hiatal hernia occurs when part of the stomach slides above the muscle that separates the abdomen from the chest (diaphragm). A person can be born with a hiatal hernia (congenital), or it may develop over time. In almost all cases of hiatal hernia, only the top part of the stomach pushes through the diaphragm. Many people have a hiatal hernia with no symptoms. The larger the hernia, the more likely it is that you will have symptoms. In some cases, a hiatal hernia allows stomach acid to flow back into the tube that carries food from your mouth to your stomach (esophagus). This may cause heartburn symptoms. Severe heartburn symptoms may mean that you have developed a condition called gastroesophageal reflux disease (GERD). What are the causes? This condition is caused by a weakness in the opening (hiatus) where the esophagus passes through the diaphragm to attach to the upper part of the stomach. A person may be born with a weakness in thehiatus, or a weakness can develop over time. What increases the risk? This condition is more likely to develop in: Older people. Age is a major risk factor for a hiatal hernia, especially if you are over the age of50. women. People who are overweight. People who have frequent constipation. What are the signs or symptoms? Symptoms of this condition usually develop in the form of GERD symptoms. Symptoms include: Heartburn. Belching. Indigestion. Trouble swallowing. Coughing or wheezing. Sore throat. Hoarseness. Chest pain. Nausea and vomiting. How is this diagnosed? This condition may be diagnosed during testing for GERD. Tests that may be done include: X-rays of your stomach or chest. An upper gastrointestinal (GI) series. This is an X-ray exam of your GI tract that is taken after you swallow a chalky liquid that shows up clearly on the X-ray. Endoscopy. This is a procedure to look into your stomach using a thin, flexible tube that has a tiny camera and light on the end of it. How is this treated? This condition may be treated by: Dietary and lifestyle changes to help reduce GERD symptoms. Medicines. These may include: ? Lswq-llg-yxudiul antacids. ? Medicines that make your stomach empty more quickly. ? Medicines that block the production of stomach acid (H2 blockers). ? Stronger medicines to reduce stomach acid (proton pump inhibitors). Surgery to repair the hernia, if other treatments are not helping. If you have no symptoms, you may not need treatment. Follow these instructions at home: Lifestyle and activity Do not use any products that contain nicotine or tobacco, such as cigarettes and e-cigarettes. If you need help quitting, ask your health care provider. Try to achieve and maintain a healthy body weight. Avoid putting pressure on your abdomen. Anything that puts pressure on your abdomen increases the amount of acid that may be pushed up into your esophagus. ? Avoid bending over, especially after eating. ? Raise the head of your bed by putting blocks under the legs. This keeps your head and esophagus higher than your stomach. ? Do not wear tight clothing around your chest or stomach. ? Try not to strain when having a bowel movement, when urinating, or when lifting heavy objects. Eating and drinking Avoid foods that can worsen GERD symptoms. These may include: ? Fatty foods, like fried foods. ? [place] fruits, like oranges or lemon. ? Other foods and drinks that contain acid, like orange juice or tomatoes. ? Spicy food. ? Chocolate. Eat frequent small meals instead of three large meals a day. This helps prevent your stomach from getting too full. ? Eat slowly. ? Do not lie down right after eating. ? Do not eat 1 2 hours before bed. Do not drink beverages with caffeine. These include cola, coffee, cocoa, and tea. Do not drink alcohol. General instructions Take idju-xpz-oqbbxqj and prescription medicines only as told by your health care provider. Keep all follow-up visits as told by your health care provider. This is important. Contact a health care provider if: Your symptoms are not controlled with medicines or lifestyle changes. You are having trouble swallowing. You have coughing or wheezing that will not go away. Get help right away if: Your pain is getting worse. Your pain spreads to your arms, neck, jaw, teeth, or back. You have shortness of breath. You sweat for no reason. You feel sick to your stomach (nauseous) or you vomit. You vomit blood. You have bright red blood in your stools. You have black, tarry stools. This information is not intended to replace advice given to you by your health care provider. Make sure you discuss any questions you have with your health care provider. Document Released: 10/11/2004 Document Revised: 07/04/2018 Document Reviewed: 02/24/2018 [employer] Patient Education 2020 [employer] Esophagogastroduodenoscopy This is an endoscopic procedure (a procedure that uses a device like a flexible telescope) that allows your caregiver to view the upper stomach and small bowel. This test allows your caregiver to look at the esophagus. The esophagus carries food from your mouth to your stomach. They can also look at your duodenum. This is the first part of the small intestine that attaches to the stomach. This ian t is used to detect problems in the bowel such as ulcers and inflammation. MEANING OF TEST Your caregiver will go over the test results with you and discuss the importance and meaning of your results, as well as treatment options and the need for additional tests if necessary. OBTAINING THE TEST RESULTS Your caregiver s office will call you with the results of the test. POST SEDATION INSTRUCTIONS Rest at home today. Since your coordination may be impaired, be cautious on stairways, do not drive any vehicle or operate any heavy machinery, or use any sharp instruments for the remainder of the day. Do not drink any alcoholic beverages or make any major decisions for 24 hours. POST PROCEDURE INSTRUCTIONS Progress slowly with full liquids then resume previous diet and medications. Belching or passing of gas is to be expected. Notify the physician if you have severe chest pain, fever, or if difficulty when swallowing persists. 10/13/13 Custom Monitored Anesthesia Care, Care After These instructions provide you with information about caring for yourself after your procedure. Your health care provider may also give you more specific instructions. Your treatment has been plannedaccording to current medical practices, but problems sometimes occur. Call your health care provider if you have any problems or questions after your procedure. What can I expect after the procedure? After your procedure, you may: Feel sleepy for several hours. Feel clumsy and have poor balance for several hours. Feel forgetful about what happened after the procedure. Have poor judgment for several hours. Feel nauseous or vomit. Have a sore throat if you had a breathing tube during the procedure. Follow these instructions at home: For at least 24 hours after the procedure: Have a responsible adult stay with you. It is important to have someone help care for you until youare awake and alert. Rest as needed. Do not: ? Participate in activities in which you could fall or become injured. ? Drive. ? Use heavy machinery. ? Drink alcohol. ? Take sleeping pills or medicines that cause drowsiness. ? Make important decisions or sign legal documents. ? Take care of children on your own. Eating and drinking Follow the diet that is recommended by your health care provider. If you vomit, drink water, juice, or soup when you can drink without vomiting. Make sure you have little or no nausea before eating solid foods. General instructions Take [id number] and prescription medicines only as told by your health care provider. If you have sleep apnea, surgery and certain medicines can increase your risk for breathing problems. Follow instructions from your health care provider about wearing your sleep device: ? Anytime you are sleeping, including during daytime naps. ? While taking prescription pain medicines, sleeping medicines, or medicines that make you drowsy. If you smoke, do not smoke without supervision. Keep all follow-up visits as told by your health care provider. This is important. Contact a health care provider if: You keep feeling nauseous or you keep vomiting. You feel light-headed. You develop a rash. You have a fever. Get help right away if: You have trouble breathing. Summary For several hours after your procedure, you may feel sleepy and have poor judgment. Have a responsible adult stay with you for at least 24 hours or until you are awake and alert. This information is not intended to replace advice given to you by your health care provider. Make sure you discuss any questions you have with your health care provider. Document Released: 11/11/2016 Document Revised: 10/20/2018 Document Reviewed: 11/11/2016 [employer] Patient Education 2020 [employer]. Additional Information VACCINATE! IT SAVES LIVES! Members of the community who have not yet received the COVID-19 vaccine and would like to receive it can visit one of [facility] vaccine clinics. There are many vaccine clinic locations within the [facility]. For locations and available times, please visit [email or web address] It is important to note that some COVID mobile vaccine clinics are held outdoors and may be canceled in rainy or stormy conditions. To learn more about pediatric vaccinations (ages 5-11), we invite you to visit the [facility] webpage. [email or web address] learn more about the COVID-19 vaccine, we invite you to visit the CDC website for a list of frequently asked questions.https://www.cdc.gov/coronavirus/2019-ncov/vaccines/faq.html [facility] Patient Portal Access Instructions: Stay connected with your healthcare team and access your personal medical information anytime with the [facility] Patient Portal. Please follow the directions below to create your [facility] account: 1.Access the email account you provided upon registration to the hospital/physician office.2.Look for an invitation email from [facility].3.Open the email and access the invitation link: AcceptInvitation to [facility].4.Fill in the required stoll to create your account. To access your account, visit [email or web address]. Click the blue button labeled Access Patient Portal and then log in with the username and password that you created in the steps above. You will be able to view your test results, lab results, a summary of your visits, upcoming appointments and more. There is also a convenient messaging option where you can send secure messages to your p rovider. In addition, you will have the ability to download any documents or summaries to your computer and/or send the information securely to a physician. Remember that your healthcare information is confidential, so carefully consider who you will allowto register on the [facility] Patient Portal for access to your information. You can also access the [facility] Patient Portal on the [facility] yumiko. Simply click on Patient Portal and then log into your account. If you would like to receive a full copy of your medical records, please contact the [facility] Medical Records Department by calling [phone], Saturday through Saturday between 8 a.m. and 4:30 p.m. HOW TO SAFELY DISPOSE OF PRESCRIPTION MEDICATIONS Please use one of the following methods to safely dispose of your unused medications. 1.Use a drug disposal kit: the drug disposal pouch allows you to safely discard your old and unuseddrugs. Ask your nurse to give you one when you are discharged.2.Visit a local take-back location: Many local pharmacies and police departments have programs that collect old and unwanted prescriptiondrugs. Call your local pharmacy or go to http://bit.[employer]/9B8Pw0q to find one close to you.3.Make use of household items: Use cat litter or old coffee grounds to dispose medications if other options arenot available. Mix your drugs with these household products, seal them in an airtight container andthrow it into the garbage. Call [facility]: [phone] to be sure your drugs can be disposed of in this way. Some medicines may require a different approach.4.Never flush your medications down the toilet. IF YOU HAVE BEEN PRESCRIBED AN OPIOID FOR PAIN If you have been prescribed an opioid (such as hydrocodone, oxycodone or morphine), it is critical to understand the possible side effects and risks of opioid pain medications. Even when taken as directed, opioids can have several side effects including: Tolerance, meaning you might need to take more of a medication for the same pain relief. Nausea, vomiting and/or constipation. Sleepiness, dizziness, dry mouth, confusion, depression or itching. Physical dependence, meaning you have withdrawal symptoms when a medication is stopped, can develop within a few days. KNOW YOUR RESPONSIBILITIES It is important to know exactly how much and how often to take the opioid pain medications you are prescribed. Never take opioids in higher amounts or more often than prescribed. Do not combine opioids with alcohol or other drugs that cause drowsiness, such as benzodiazepines, also known as benzos, including diazepam and alprazolam, muscle relaxants or sleep aids. Never sell or share prescription opioids. This is illegal. Store opioids in a secure place and out of reach of others (including children, family, friends and visitors). The last page of this document has been signed and retained as a CHART COPY. Signatures Patient Education Materials Hiatal Hernia 9 - AO Minor Esophagogastroduodenoscopy (10/16)(CUSTOM) Monitored Anesthesia Care, Care After Medication Leaflets My discharge plan and instructions have been reviewed and explained to me and IALEJANDRO RALPH J understand my current condition and have read and understand these discharge instructions. I have received a written copy of the plan/instructions. If I have questions, I am aware that I should contact my doctor. Patient/Office Cleaner Signature: Date/Time: Relationship to Patient: Witness Name/Signature: Date/Time: [facility]05-19-2025 Note Date of Service 12/21/2024 Procedure Name Screening colonoscopy Consent Taken before procedure Indication Screening colonoscopy Location [facility] Pre-Procedure Exam Screening colonoscopy Procedural Sedation Anesthesia provided a MAC Technique Patient was brought to the Endo suite and placed left shoulder down. The colonoscope was passed into the rectum and advanced up to the left colon where there was diverticulosis. Scope was advanced tothe cecum where the base the cecum was photographed the patient had an excellent preparation. No obvious large polyps seen in the right colon. In the transverse colon the mucosa remained normal. Below the splenic flexure down to the left colon there was diverticulosis and myochosis. Reflexion performed in the rectum revealed internal hemorrhoids the colon was decompressed the patient tolerated the procedure well. Post-Procedure Exam Screening colonoscopy Findings Normal exam diverticulosis noted in the sigmoid Complications None apparent Total Time Approximately 20 minutes Assessment/Plan Orders: Sodium Chloride 0.9% intravenous solution 1,000 mL(Sodium Chloride 0.9% 1000 mL 1,000 mL), 1000 mL,Intravenous Bedrest, 12/21/24 8:46:00 EDT, Strict, continuous, Constant order, Lying on side until alert or as ordered Bedrest, 12/21/24 8:46:00 EDT, Strict, continuous, Constant order, Lying on side until alert or as ordered Call Parameters, 12/21/24 8:46:00 EDT, Notify for vomiting, severe pain, signs of bleeding, severe abdominal pain, distention or rigidity, Constant order Communication Order (scheduled), 12/21/24 7:44:00 EDT, Once, 12/21/24 7:44:00 EDT, Pathology TissueRequest Communication Order (scheduled), 12/21/24 7:44:00 EDT, Once, 12/21/24 7:44:00 EDT, Urine Test or waiver for women of child bearing age Communication Order (scheduled), 12/21/24 7:44:00 EDT, Once, 12/21/24 7:44:00 EDT, Fasting Blood Sugar priot to procedure of patient is diabetic Consult to Anesthesia, 12/21/24 7:44:00 EDT, *Other (specify in special instructions), Provide Anesthesia during Procedure Diet Order, 12/21/24 8:46:00 EDT, Start Meal: Next meal, Clear Liquid Diet, Post exam or after gag reflex returns if EGD, Constant Order, : N/A, : N/A Discharge, 12/21/24 7:44:00 EDT, Discharged to: Home, when able to ambulate and after being seen byphysician Discharge Activity, NO activity restrictions, 12/21/24 8:46:00 EDT Discharge Diet, Follow the post-operative/post-procedure diet instructions provided by your physician's office., 12/21/24 8:46:00 EDT Discharge Wound Care, Follow the post-operative/post-procedure wound care instructions provided by your physician's office., 12/21/24 8:46:00 EDT IV Catheter Insertion/Care(Peripheral IV Insertion/Care), 12/21/24 7:44:00 EDT, IV Care: q4h, Rotate when clinically indicated & q7day drsg change Post Procedure Assessment, 12/21/24 8:46:00 EDT, Stop Date 12/21/24 8:46:00 EDT, [facility] in [facility] Recovery Room until Ave Score of 12 or Preprocedure Sign Consent, 12/21/24 7:44:00 EDT, Once, For EGD Vital Signs, 12/21/24 8:46:00 EDT, q15min, 1 hour(s), 12/21/24 9:45:00 EDT Vital Signs, 12/21/24 8:46:00 EDT, q30min, 1 hour(s), 12/21/24 9:30:00 EDT Vital Signs PRN, 12/21/24 8:46:00 EDT, PRN order Follow Up/Recommendation Repeat a colonoscopy in 10 years high-fiber diet Digitally Signed by LAZARO CERVANTES MD on 12/21/2024 09:14 AM [facility]05-19-2025 Note Date of Service 12/21/2020 Procedure Name EGD with guidewire dilatation Consent Taken before procedure Indication Dysphagia Location [facility] Pre-Procedure Exam Dysphagia chronic reflux Procedural Sedation Anesthesia provided a MAC Technique The patient was brought to the Endo suite and placed left shoulder down. The endoscope was passed direct visualization down to the esophagus. Proximal to mid esophagus appeared normal the Z-line was 36 cm from the incisors there was LA classification B esophagitis noted. The stomach was insufflatedthere was a hiatal hernia extending for about 1-1/2 cm. Stomach showed no ulcers the duodenum was unremarkable. Retroflexion performed in the stomach revealed a hiatal hernia from this angle. At thispoint a guidewire was placed on the channel of the endoscope and placed into the distal portion of the stomach. The endoscope was withdrawn off of the guidewire. And a 16 mm dilator was passed with little resistance noted. 17 mm dilator was passed and there was some slight resistance noted. It was felt to be sufficient for today's session guidewire was withdrawn the endoscope was reintroduced back down the esophagus appeared to be a small break in the mucosa in the distal esophagus the esophagus was unremarkable. Scope was withdrawn and the patient tolerated the procedure well Post-Procedure Exam EGD with guidewire dilatation Findings Esophagitis small hiatal hernia Complications None apparent Total Time Approximately 20 minutes Assessment/Plan Orders: Sodium Chloride 0.9% intravenous solution 1,000 mL(Sodium Chloride 0.9% 1000 mL 1,000 mL), 1000 mL,Intravenous Bedrest, 12/21/24 8:46:00 EDT, Strict, continuous, Constant order, Lying on side until alert or as ordered Bedrest, 12/21/24 8:46:00 EDT, Strict, continuous, Constant order, Lying on side until alert or as ordered Call Parameters, 12/21/24 8:46:00 EDT, Notify for vomiting, severe pain, signs of bleeding, severe abdominal pain, distention or rigidity, Constant order Communication Order (scheduled), 12/21/24 7:44:00 EDT, Once, 12/21/24 7:44:00 EDT, Pathology TissueRequest Communication Order (scheduled), 12/21/24 7:44:00 EDT, Once, 12/21/24 7:44:00 EDT, Urine Test or waiver for women of child bearing age Communication Order (scheduled), 12/21/24 7:44:00 EDT, Once, 12/21/24 7:44:00 EDT, Fasting Blood Sugar priot to procedure of patient is diabetic Consult to Anesthesia, 12/21/24 7:44:00 EDT, *Other (specify in special instructions), Provide Anesthesia during Procedure Diet Order, 12/21/24 8:46:00 EDT, Start Meal: Next meal, Clear Liquid Diet, Post exam or after gag reflex returns if EGD, Constant Order, : N/A, : N/A Discharge, 12/21/24 7:44:00 EDT, Discharged to: Home, when able to ambulate and after being seen byphysician Discharge Activity, NO activity restrictions, 12/21/24 8:46:00 EDT Discharge Diet, Follow the post-operative/post-procedure diet instructions provided by your physician's office., 12/21/24 8:46:00 EDT Discharge Wound Care, Follow the post-operative/post-procedure wound care instructions provided by your physician's office., 12/21/24 8:46:00 EDT IV Catheter Insertion/Care(Peripheral IV Insertion/Care), 12/21/24 7:44:00 EDT, IV Care: q4h, Rotate when clinically indicated & q7day drsg change Post Procedure Assessment, 12/21/24 8:46:00 EDT, Stop Date 12/21/24 8:46:00 EDT, [facility] in [facility] Recovery Room until Ave Score of 12 or Preprocedure Sign Consent, 12/21/24 7:44:00 EDT, Once, For EGD Vital Signs, 12/21/24 8:46:00 EDT, q15min, 1 hour(s), 12/21/24 9:45:00 EDT Vital Signs, 12/21/24 8:46:00 EDT, q30min, 1 hour(s), 12/21/24 9:30:00 EDT Vital Signs PRN, 12/21/24 8:46:00 EDT, PRN order Follow Up/Recommendation Reevaluate swallowing after the dilatation continue the patient on his PPI indefinitely. Digitally Signed by LAZARO CERVANTES MD on 12/21/2024 08:50 AM [facility]05-19-2025 Note [place] ADMISSION HISTORY AND PHYSICIAL CHIEF COMPLAINT: HISTORY OF PRESENT ILLNESS: REVIEW OF SYSTEMS: ACTIVE PROBLEMS: (7) Claudication of calf muscles (639838315) COPD mixed type (514513841) Dysphagia (74487106) PAD (peripheral artery disease) (8564885847) Rheumatoid arthritis (625293232) Tobacco use (1740208081) Well adult exam (448616050) MEDICATIONS: Active Inpt Meds: None Active PRN Meds: None One Time Meds: None Active IV Meds: Sodium Chloride 0.9% intravenous solution 1,000 mL (Sodium Chloride 0.9% 1000 mL 1,000 mL) Start: 12/21/24 8:22:00 EDT, 100 mL, 12/21/24 8:22:00 EDT ALLERGIES: (1) NKA FAMILY HISTORY: SOCIAL HISTORY: PHYSICAL EXAM: VITALS: IeecvzStmmYTTdyyqSVHkS5BSH8GcinYt(kg) 12/21 07:5336.3--3402838CT69/19 93.2 24 Hr Tmax: 36.3 at 12/21 07:53 36 Hr Tmax: 36.3 at 12/21 07:53 Vital Signs are the last 5 in the past 48 hours. Weights display the last 5 within 7 days. Initial Wt: 12/21 93.2 kg 205 lb Current Wt: 12/21 93.2 kg 205 lb GENERAL: HEENT: CARDIOVASCULAR: RESPIRATORY: ABDOMEN: EXREMETIES: NEUROLOGICAL: PSYCHIATRIC: LABS: No 36hr Lab Data DIAGNOSTICS: IMPRESSION: PLAN: History and Physical Update I have examined the patient; reviewed the H&P and there are no changes to the H&P unless noted below. Digitally Signed by LAZARO CERVANTES MD on 12/21/2024 08:33 AM [facility]05-19-2025 Anesthesiology Consult note Patient: ALINA ALLEN Age: 64 years Sex: Male : 1960 Associated Diagnoses: None Author: DARLEEN KEITA DRAWBRIDGE OPERATOR-HONING MACHINE SET UP OPERATOR Preoperative Information Time of last food or liquid consumption: 12/21/2024 00:00:00 Anesthesia history Patient's history: negative. Family's history: negative. Review of Systems Ear/Nose/Mouth/Throat: Negative. Respiratory: smoker, COPD. Cardiovascular: PAD. Gastrointestinal: Negative. Genitourinary: Negative. Endocrine: Negative. Musculoskeletal: RA. Integumentary: Negative. Neurologic: Negative. Health Status Allergies: Allergic Reactions (Selected) NKA, Allergies (1) ActiveSeverityReaction NKANone Documented Current medications: (Selected) Inpatient Medications Ordered Sodium Chloride 0.9% 1000 mL 1,000 mL: 100 mL, Intravenous Prescriptions Prescribed Chantix Continuing Month 1 mg oral tablet: 1 mg, 1 tab(s), Oral, BID, 56 tab(s), 5 Refill(s) Chantix Starter Pack 0.5 mg-1 mg oral tablet: 1 tab(s), Oral, BID, 1 kit(s), 0 Refill(s) albuterol MDI (90 mcg/inh) CFC free inhalation aerosol: 2 puff(s), Inhalation, q4h, PRN: as needed for wheezing, 18 gram(s), 11 Refill(s) Documented Medications Documented cilostazol 100 mg oral tablet: TAKE 1 TABLET BY MOUTH TWICE A DAY folic acid 1 mg oral tablet: 1 mg, 1 tab(s), Oral, BID, 90 tab(s), 0 Refill(s) hydroxychloroquine 200 mg oral tablet: 200 mg, 1 tab(s), Oral, BID, 0 Refill(s) methotrexate 2.5 mg oral tablet: 20 mg, 8 tab(s), Oral, qWeek, 72 tab(s), 0 Refill(s), Medications (1) Active Scheduled: (0) Continuous: (1) NS (0.9% nacl) 1,000 mL 1,000 mL, Intravenous PRN: (0) Problem list: Medical COPD mixed type / SNOMED CT 837754052 / Confirmed Dysphagia / SNOMED CT 35292380 / Confirmed Claudication of calf muscles / SNOMED CT 596282996 / Confirmed Well adult exam / SNOMED CT 521729497 / Confirmed PAD (peripheral artery disease) / SNOMED CT 5000703310 / Confirmed Rheumatoid arthritis / SNOMED CT 460160037 / Confirmed, Active Problems (7) Claudication of calf muscles COPD mixed type Dysphagia PAD (peripheral artery disease) Rheumatoid arthritis Tobacco use Well adult exam Histories Past Medical History: Resolved Kidney stones ([id number]): Resolved. Tobacco use (3413560076): Resolved. Family History: Diabetes mellitus Mother Leukemia Father Cancer Father HTN - Hypertension Mother Procedure history: Partial meniscectomy of knee (697273735). Comments: 09/07/2016 9:50 SMITH - ALEXIS MACDONALD RN Left Colonoscopy ([id number]). Social History: Social & Psychosocial Habits Alcohol 12/21/2024 Use: Current Comment: occasional - 10/20/2019 09:48 - Aidee Nathan LPN Employment/School 12/10/2024 Status: Employed Activity level: Moderate physical work Substance Abuse 12/21/2024 Use: Never Tobacco 12/21/2024 Tobacco Use: Smoker, current status un Exposure to Tobacco Smoke tobacco/smoke exposure: daily 12/21/2024 Tobacco Use: 1 cigarette/day, 4 or less cigarettes(less Comment: stopped smoking 08/31/24 - 09/17/2024 08:30 - Angela Deleon LPN Home/Environment 12/21/2024 Domestic Concerns None Living situation: Home/Independent Nutrition/Health 12/21/2024 Caffeine intake amount: coffee; 4 servings per day Physical Examination Vital Signs 12/21/2024 7:53 EDT Temperature Temporal Artery 36.3 DegC Peripheral Pulse Rate 60 bpm Respiratory Rate 16 br/min Systolic Blood Pressure Non-Invasive 138 mmHg Diastolic Blood Pressure Non-Invasive 78 mmHg Vital Signs (last 24 hrs) Last Charted Temp Tofovpfc01.3 DegC (DECEMBER 21 07:53) HYM458 mmHg (DECEMBER 21 07:53) DBP78 mmHg (DECEMBER 21 07:53) BMI28.14 (DECEMBER 21 07:50) Measurements from flowsheet : Measurements 12/21/2024 7:50 EDT Height 182 cm Admission Weight 93.2 kg Weight Method Stated [place] Body Weight 76.80 kg BSA Admission 2.15 Body Mass Index 28.14 kg/m2 Pain assessment: Pain Assessment 12/21/2024 7:53 EDT Primary Pain Intensity 0 Pain Scale Type 0-10 Pain scale . General: Alert and oriented. Airway: Normal temporomandibular joint mobility. Mallampati classification: II (soft palate, fauces, uvula visible). Head: Normocephalic. Dentition Evaluation: Own teeth. Neck: Supple. Respiratory: Lungs are clear to auscultation. Cardiovascular: Normal rate. Heart Sounds: Normal. Gastrointestinal: Soft. Musculoskeletal Normal range of motion. Integumentary: Intact. Neurologic: Alert, Oriented. Review / Management Results review: No qualifying data available , Lab results 12/21/2024 8:23 EDT SN - Proc - Anesthesia Type MAC SN - Proc - EBL 0 mL SN - Proc - Actual Procedure ESOPHAGOGASTRODUODENOSCOPY WITH DILATION 12/21/2024 8:22 EDT SN - PP - Body Position Lateral Right Side-up Standard Intra-op 12/21/2024 8:22 EDT SN - GCD - Post-operative Diagnosis DYSPHAGIA SN - GCD - Case Level OPD Level 3 12/21/2024 8:22 EDT Sodium Chloride 0.9% Begin Bag 1,000 mL mL 12/21/2024 8:21 EDT SN - CAt - Case Attendee SN - CAt - Case Attendee SN - CAt - Case Attendee SN - CAt - Case Attendee SN - CAt - Case Attendee SN - CAt - Case Attendee SN - CAt - Case Attendee SN - CAt - Case Attendee SN - CAt - Role Performed Primary Surgeon SN - CAt - Role Performed HONING MACHINE SET UP OPERATOR SN - CAt - Role Performed Brick Paving Checker 1 SN - CAt - Role Performed Compensation/Benefits Specialist 1 12/21/2024 8:17 EDT Continuous IV Infusions NS Forearm Right 12/21/2024 22 gauge Peripheral IV Activity: Insert new site Peripheral IV Dressing Condition: Clean, Dry, Intact Peripheral IV Dressing Activity: Applied, Transparent dressing Peripheral IV Line Status/Patency: Flushes easily, Continuous infusion Peripheral IV Site Condition: No complications Peripheral IV Number of Attempts: 3 12/21/2024 7:59 EDT Anesthesia Consent Signed Yes 12/21/2024 7:54 EDT Allergies No Consent Form Signed Yes Patient Dressed In Hospital gown Pre-op Preparation Glasses removed History & Physical On Chart Yes Belongings At Bedside Cell phone, Shirt, Shoes, T-shirt, Undergarments, Wallet NPO Status Maintained, More than 8 hours Patient ID Band on and Verified Yes Implants Verified Yes Pacemaker/AICD Verified Yes Last Fluid Intake 12/20/2024 17:00 Last Food Intake 12/20/2024 17:00 Last Void 12/21/2024 7:00 12/21/2024 7:53 EDT Temperature Temporal Artery 36.3 DegC Peripheral Pulse Rate 60 bpm Respiratory Rate 16 br/min Systolic Blood Pressure Non-Invasive 138 mmHg Diastolic Blood Pressure Non-Invasive 78 mmHg Primary Pain Intensity 0 Pain Scale Type 0-10 Pain scale Respirations Unlabored Oxygen Therapy Room air Oxygen Saturation 100 % Skin Description [place], Dry Skin Temperature Warm Skin Integrity Intact Neurological Symptoms Patient denies Extremity Movement Equal Characteristics of Speech Clear Level of Consciousness Alert Strength All Extremities Strong Tone All Extremities Normal Sensation All Extremities Intact Affect/Behavior Appropriate, Calm, Cooperative Orientation Oriented x 4 Activity Status ADL Awake Standard Safety ID band on, Call device within reach, Bed in low position, Wheels locked, Upper/Half-Length side-rails up 12/21/2024 7:50 EDT Designated Person #1 We May Share PHI Designated Person #1 We May Share PHI Designated Person #1 Relationship Significant other Height 182 cm Admission Weight 93.2 kg Weight Method Stated [place] Body Weight 76.80 kg BSA Admission 2.15 Body Mass Index 28.14 kg/m2 Status N/A Sensory Deficits None Infectious Disease Symptoms Patient states no symptoms Infectious Disease Recent Exposure No Alcohol and Drug Use No Employee of Institutional Living No Health Care Employee No History of Exposure to TB No History of Positive Chest X-Ray for TB No History of Positive TB Skin Test No Homeless No Known Immunosuppression No Recent Immigrant No Resident of Institutional Living No Bloody Sputum No Fatigue No Fever No Loss of Appetite No Night Sweats No Persistent Cough > 3 Weeks No Weight Loss No Individuals Taught Patient Learning Readiness Willing to learn Barriers to Learning None evident Teaching Method Explanation, Printed materials Preferred Spoken Language Indonesian Preferred Written Language Indonesian Pre Procedure/Surgery Education Appropriate expectations Procedure/Surgical Teaching Evaluation Verbalizes/Nonverbally indicates understanding Patient's Current Physicians Patient's Current Physicians Discharge To, Anticipated Home independently Prev Test Positive/Diagnosis w/COVID-19 No Current Quarantine/Isolated any Illness No Any Contact with Sick Animals/Birds No Traveled Anywhere in Last 30 Days No N/A Personal Devices, Patient Valuables Glasses Admission Note-Nursing Procedure/Therapy Intake . Assessment and Plan [place] [employer] (ASA) physical status classification: Class III. Anesthetic Preoperative Plan Anesthetic technique: MAC. Postoperative pain management: Per surgeon. Informed consent: signed by patient. Digitally Signed by DARLEEN KEITA on 12/21/2024 08:27 AM [facility]11-11-2024 Note* Exam Date Time Procedure Performing Provider Status 06/15/24 1:54 PM VL Arterial Dopplers Both Legs Rest/PVR- Auth (Verified) [facility] 08-16-2024 Note ORIGINAL EXAMINATION: LOW DOSE SCREENING CT OF THE CHEST WITHOUT CONTRAST03/20/2024 7:32 am TECHNIQUE: Low dose lung cancer screening CT of the chest was performed without the administration of intravenous contrast. Multiplanar reformatted images are provided for review. Automated exposure control, iterative reconstruction, and/or weight based adjustment of the mA/kV was utilized to reduce the radiation dose to as low as reasonably achievable. COMPARISON: None. HISTORY: ORDERING SYSTEM PROVIDED HISTORY: Reason for Exam: screening for lung cancer, 30 pack-year history 15 cig a day/ 49 years, chest tightness in mornings, cough, no sx, no ca FINDINGS: Lung nodules: None. There is moderate centrilobular and paraseptal emphysema. There is no consolidation. The airways are unremarkable. There is no pleural effusion. There are no enlarged lymph nodes. The heart and great vessels are normal in size. Prominent coronary arterial calcifications are noted. There is no pericardial effusion. A small to moderate hiatal hernia is present. There is no acute abnormality in the imaged abdomen, a couple of right renal cysts are noted. There is no acute bony abnormality. IMPRESSION: No lung nodules. For patients with appropriate lung cancer risk, annual CT screening is recommended. Coronary artery disease. Emphysema. Information below is for Lung nodule tracking purposes: Nodule: NLN Other Findings: P-CAC Change: No Change Recall : 1yr scr Recall Type: LDCT LungRads: 1s Interpreted by: Tim Brown Preliminary Report By: Tim Brown Electronically signed By Tim Brown Dictated Date: 03/20/2024 3:38:38 PM Prelim Date: 03/20/2024 3:41:33 PM Sign Date: 03/20/2024 3:41:33 PM [facility] Plan note Diagnostic Tests Pending * Rheumatoid Factor 09/03/22 * Cyclic Citrullinated Peptide 09/03/22 [facility] Evaluation + Plan note Future Appointments Appointment Date:05/28/2024 10:00:00 AM Scheduled Provider:MARIS DURAN Location:[facility] Appointment Type: OV Future Scheduled Tests Radiology* CT Low Dose Lung Cancer Screening (LDCT) 02/27/24 [facility] Evaluation + Plan note Future Appointments Appointment Date:05/28/2024 10:00:00 AM Scheduled Provider:MARIS DURAN Location:[facility] Appointment Type: OV [facility] Evaluation + Plan note Future Appointments Appointment Date:11/19/2024 02:00:00 PM Scheduled Provider:MARIS DURAN Location:[facility] Appointment Type: OV [facility] Evaluation noteNo assessment information available [facility] Work Phone: Evaluation note* Diagnosis Onset Date Resolution Status Digital mucous cyst of finger of right hand acute Olecranon bursitis, left elbow acute [facility] Work Phone: Hospital course Narrative No data available for this section [facility] Hospital Discharge instructions No data available for this section [facility] Hospital Discharge instructions Additional Instructions Your right wrist x-ray negative today. You have tenderness slight swelling at the snuffbox. Maintain the splint, may remove for showers. Use Tylenol Motrin every 6 hours. If you have persistent pain after week, he may need reimaging for evaluation for occult fracture.[facility] Work Phone: Progress note No data available for this section [facility] Reason for referral (narrative)No reason for referral [facility] Work [facility]: Summary Purpose Family History No Family History Records Found No data available for this section No data available for this section No data available for this section No Family History Records Found No data available for this section No data available for this section No Family History Records FoundNo Family History Records Found Advance Directives No Advanced Directives Records Found Advance Directive Response Recorded Date/ Time Living Will No July 27 11:41am Power of Sandblaster [employer] No July 27, 2021 11:41am Advance Directive Response Recorded Date/ Time Living Will No July 27 10:41am Power of [employer]blaster [employer] No July 27, 2021 10:41am Advance Directive Response Recorded Date/ Time Living Will No October 23, 2023 4:17pm Power of Sandblaster [employer] No October 22 4:17pm Advance Directive Response Recorded Date/ Time Living Will No September 24 7:52pm Do you have a Healthcare Power of Sandblaster Stone? No September 24, 2024 7:52pm Chief Complaint and Reason for Visit Chief Complaint PAIN- COPY PCP Chief Complaint RIGHT HAND RM 6 R Wrist Reason for Visit Digital mucous cyst of finger of right hand Olecranon bursitis, left elbow Chief Complaint RIGHT HAND RM 6 R Wrist PAIN- COPY PCP Reason for Visit Digital mucous cyst of finger of right hand Olecranon bursitis, left elbow Chief Complaint Admit Date PAIN- COPY PCP July 31, 2024 1:29pm CHEST OTHER September 24, 2024 6:24pm PAIN- COPY PCP November 02, 2024 11: 38am Chief Complaint Admit Date PAIN- COPY PCP November 02, 2024 11: 38am Additional Source Comments (unrecognized sect ion and content) No Status Records FoundNo Status Records FoundNo Status Records FoundNo Status Records Found INFORMATION SOURCE (unrecogn ized section and content) DATE CREATED AUTHOR 10/14/2019 [facility] DATE CREATED AUTHOR AUTHOR'S ORGANIZ ATION 03/23/2024 [facility] DATE CREATED AUTHOR AUTHOR'S ORGANIZ ATION 01/28/[address] [facility] DATE CREATED AUTHOR AUTHOR'S ORGANIZ ATION 02/17/2025 [facility] Care Team (unrecognized sect ion and content) Care Team Personnel Name: MARIS DURAN APRN-HEAD [employer]LER Position: P4 Advanced Practice Nurse Member Role: Primary Care Physician Address: Address: [address] [facility] [place] [address]- [place] Care Team Related Persons Name: JUANJOSE HUNTLEY Patient Care team informatio n (unrecognized section and content) Team Status: Active Member Role Status Dates Maris Duran RECEPTION SPECIALIST, RECEPTION SPECIALIST-C Family Provider Active Maris Duran RECEPTION SPECIALIST, RECEPTION SPECIALIST-C Primary Care Provider Active Team Status: Inactive Member Role Status Dates Maris Duran RECEPTION SPECIALIST, RECEPTION SPECIALIST-C Primary Care Provider Active Dr. Bernarda Young MD Attending Provider, Referring Provider Active Team Status: Inactive Member Role Status Dates Maris Duran RECEPTION SPECIALIST, RECEPTION SPECIALIST-C Primary Care Provider, Referri ng Provider Active Christopher Crain MD Attending Provider Active Team Status: Inactive Member Role Status Dates Maris Duran RECEPTION SPECIALIST, RECEPTION SPECIALIST-C Primary Care Provider Active Dr. Salvatore Larson MD Attending Provider Active Team Status: Inactive Member Role Status Dates Maris Duran RECEPTION SPECIALIST, RECEPTION SPECIALIST-C Primary Care Provider Active Dr. Huber Chowdary DO Emergency Provider Active Team Status: Inactive Member Role Status Dates Maris Duran RECEPTION SPECIALIST, RECEPTION SPECIALIST-C Primary Care Provider Active Dr. Huber Chowdary DO Attending Provider, Emergency Provide r Active Team Status: Active Member Role Status Dates Maris Duran RECEPTION SPECIALIST, RECEPTION SPECIALIST-C Primary Care Provider Active Team Status: Inactive Member Role Status Dates Maris Duran RECEPTION SPECIALIST, RECEPTION SPECIALIST-C Primary Care Provider Active Start: July 31, 2024 End: July 31, 2024 Dr. Bernarda Young MD Attending Provider Active Start: July 31, 2024 End: July 31, 2024 Dr. Bernarda Young MD Referring Provider Active Start: July 31, 2024 End: July 31, 2024 Team Status: Inactive Member Role Status Dates Maris Duran RECEPTION SPECIALIST, RECEPTION SPECIALIST-C Primary Care Provider Active Start: September 24, 2024 End: September 24, 2024 Jace Landeros MD Attending Provider Active Star t: September 24, 2024 End: September 24, 2024 Jace Landeros MD Emergency Provider Active Star t: September 24, 2024 End: September 24, 2024 Team Status: Inactive Member Role Status Dates Maris Duran RECEPTION SPECIALIST, RECEPTION SPECIALIST-C Primary Care Provider Active Start: November 02, 2024 End: November 02, 2024 Dr. Bernarda Young MD Attending Provider Active Start: November 02, 2024 End: November 02, 2024 Dr. Bernarda Young MD Referring Provider Active Start: November 02, 2024 End: November 02, 2024 Team Status: Inactive Member Role Status Dates Maris Duran RECEPTION SPECIALIST, RECEPTION SPECIALIST-C Primary Care Provider Active Start: January 22, 2025 End: January 22, 2025 Dr. Bernarda Young MD Attending Provider Active Start: January 22, 2025 End: January 22, 2025 Dr. Bernarda Young MD Referring Provider Active Start: January 22, 2025 End: January 22, 2025 Goals (unrecognized section and content) Goals may be documented in a n alternate section FOR RECORDS PERTAINING TO PATIENTS WHO ARE OR HAVE BEEN ENROLLED IN A CHEMICAL DEPENDENCY/SUBSTANCEABUSE PROGRAM, SOME INFORMATION MAY BE OMITTED. This clinical summary was aggregated from multiple sources. Caution should be exercised in using it in the provision of clinical care. This summary normalizes information from multiple sources, and as a consequence, information in this document may materially change the coding, format and clinical context of patient data. In addition, data may be omitted in some cases. CLINICAL DECISIONS SHOULD BE BASED ON THE PRIMARY CLINICAL RECORDS. [employer] provides no warranty or guarantee of the accuracy or completeness of information in this document.
== END 2025-02-28 03:48 | disposition home or self-care (01) ==
LOC: ED 03:44
PROVIDERS: Emergency Provider Emergency Medicine; PCP Nurse Practitioner Primary Care; Visit Provider Emergency Medicine
DX: M75.22 Bicipital tendinitis, left shoulder (principal); S46.912A Strain of unspecified muscle, fascia and tendon at shoulder and upper arm level, left arm, initial encounter; F17.210 Nicotine dependence, cigarettes, uncomplicated; X58.XXXA Exposure to other specified factors, initial encounter
CPT/HCPCS: 73030; 99282

== ENCOUNTER → 2025-04-13 | Outpatient (CLI) | payer BC, SELFPAY ==
--- OUTSIDE RECORDS SUMMARY | 2025-04-13 07:20 | XMS RPT_ITS | CCD ---
Author Organization [facility] Care Team Providers Care Veneer Jointer Offbearer Name Role Phone Rick Dominguez MD Unavailable Rose Hagen Unavailable Unavailable Rose Hagen Unavailable Unavailable Rick Dominguez MD Unavailable KENNEDI TREE SAPPER-ROUTE CLERK, MARIS S Primary Care Physicia n Kennedi BARREL LAPPER, BARREL LAPPER-C Maris Primary Care Provider Kennedi BARREL LAPPER, BARREL LAPPER-C Maris Referring Provider MD Christopher Crain Attending Provider [phone] Salvatore Larson Attending Provider KENNEDI TREE SAPPER-ROUTE CLERK, MARIS S Primary Care Unava ilable KENNEDI TREE SAPPER-ROUTE CLERK, MARIS S Attending Unava ilable DR ANGEL CEJA DO Attending Unavailable KENNEDI TREE SAPPER-ROUTE CLERK, MARIS S Primary Care Unava ilable KENNEDI TREE SAPPER-ROUTE CLERK, MARIS S Attending Unava ilable KENNEDI TREE SAPPER-ROUTE CLERK, MARIS S Primary Care Unava ilable KENNEDI TREE SAPPER-ROUTE CLERK, MARIS S Attending Unava ilable KENNEDI TREE SAPPER-ROUTE CLERK, MARIS S Primary Care Unava ilable Kennedi BARREL LAPPER-C, Maris Primary Care Provider Dr. Bernarda Young MD Attending Provider Dr. Bernarda Young MD Referring Provider Jace Landeros MD Attending Provider Jace Landeros MD Emergency Provider [phone] Kennedi BARREL LAPPER-C, Maris Primary Care Provider [phone] Hector MORALES, Dr. Menchaca Attending Provider Dr. Bernarda Young MD Referring Provider LAZARO CERVANTES Attending Unavailable KENNEDI TREE SAPPER-ROUTE CLERK, MARIS S Primary Care Unava ilable KENNEDI TREE SAPPER-ROUTE CLERK, MARIS S Primary Care Unava ilable KENNEDI TREE SAPPER-IRIS, MARIS S Attending Unava ilable Dr. Huber Chowdary DO Emergency Provider Kennedi, Maris Primary Care Unavailable Vellanki, Bernarda Referring Unavailable Vellanki, Bernarda Attending Unavailable Huber Chowdary Attending Unavailable Kennedi, Maris Primary Care Unavailable Jace Landeros Attending Unavailable [place], Maris Primary Care Unavailable Vellanki, Bernarda Referring Unavailable Vellanmya, Bernarda Attending Unavailable [place], Maris Primary Care Unavailable [place], Maris Primary Care Unavailable Vellanki, Bernarda Attending Unavailable Vellanki, Bernarda Referring Unavailable [place], Maris Primary Care Unavailable Vellanki, Bernarda Referring Unavailable TuliolanTracy roquema Attending Unavailable Allergies Allergy Classification Reported Allergen(s) Allergy Type Date of Onset Reaction(s) Facility (1 source) cat dander Drug allergy (disorder) 02-28-2025 [facility] Repository Medications Current Medications Medication Drug Class(es) Dates Sig (Normalized) Sig (Original) acetaminophen 500 mg oral tablet (9 sources) Start: 09-06-2023 take 1 tablet by [...] wheezing, # 18 gram(s), 11 Refill(s), Pharmacy: [facility]/pharmacy #[id number], 183, cm, 05/28/24 9:49:00 EDT, Height, kg, 05/28/24 9:49:00 EDT, Dosing Weight Start Date: 05/28/24 Status: Ordered Quantity: 18.0 Unit: g Repeat number: 12 Start: 05-28-2024 take 2 puff(s) by in halation every four hours as needed for wheezing albuterol MDI (90 mcg/inh) CFC free inhalation aerosol 2 puff(s), Inhalation, q4h, PRN as needed for wheezing, # 18 gram(s), 11 Refill(s), Pharmacy: [facility]/pharmacy #[id number], 183, cm, 05/28/24 9:49:00 EDT, Height, kg, 05/28/24 9:49:00 EDT, Dosing Weight Start Date: 05/28/24 Status: Ordered benzonatate 100 mg oral capsule (3 sources) Non-narcotic Antitussive Start: 09-24-2024 take 2 capsules by mouth three times daily as needed for cough Benzonatate 100 mg capsule Active 200 mg PO THREE TIMES A DAY as needed for cough 30 0 September 24, 2024 1:00am cilostazol 100 mg oral tablet (1 source) Phosphodiesterase 3 Inhibitor Start: 09-17-2024 take 1 tablet by mouth twice daily cilostazol 100 mg oral tablet TAKE 1 TABLET BY MOUTH TWICE A DAY Start Date: 09/17/24 Status: Ordered Repeat number: 1 folic acid 0.8 mg oral tablet (13 sources) Start: 09-06-2023 take 0.8 mg by [...] Date: 02/27/24 Status: Ordered Repeat number: 1 ibuprofen 600 mg oral tablet (1 source) Nonsteroidal Anti-inflammatory Drug Start: 02-28-2025 take 1 tablet by mouth every six hours as needed for pain Ibuprofen 600 mg tablet Active 600 mg PO EVERY 6 HOURS NEEDED as needed for pain February 28, 2025 12:00am methotrexate 2.5 mg oral tablet (15 sources) Folate Analog Metabolic Inhibitor Start: 12-22-2021 take 1 tablet by mouth every week Methotrexate Sodium 2.5 mg tablet Active 2.5 mg PO EVERY WEEK December 22, 2021 12:00am naproxen 500 mg oral tablet (17 sources) Nonsteroidal Anti-inflammatory Drug Start: 09-24-2024 take [...] BID, # 56 tab(s), 5 Refill(s), Pharmacy: [facility]/pharmacy #[id number], 183, , 02/27/24 7:16:00 EDT, Height, kg, 02/27/24 7:16:00 EDT, Dosing Weight Start Date: 02/27/24 Status: Ordered Quantity: 56.0 Unit: tab(s) Repeat number: 6 Start: 02-27-2024 take 1 tablet by nataliia th twice daily Chantix Starter Pack 0.5 mg-1 mg oral tablet Dose = 1 tab(s), Oral, BID, # 1 kit(s), 0 Refill(s), Pharmacy: [facility]/pharmacy #[id number], 183, cm, 02/27/24 7:16:00 EDT, Height, kg, 02/27/24 7:16:00 EDT, Dosing Weight Start Date: 02/27/24 Status: Ordered Quantity: 1.0 Unit: kit(s) Repeat number: 1 Start: 02-27-2024 take 1 tablet by nataliia twice daily Chantix Starter Pack 0.5 mg-1 mg oral tablet Dose = 1 tab(s), Oral, BID, # 1 kit(s), 0 Refill(s), Pharmacy: [facility]/pharmacy #[id number], 183, cm, 02/27/24 7:16:00 EDT, [...] daily as needed for pain HYDROCODONE-ACETAM INOPHEN [id number] Rick Dominguez MD Start: 10-17-2016 End: 12-03-2016 take 1-2 tablets by mouth four times daily as needed for pain NORCO 5-325 MG TABS one to two tablets b y mouth four times daily as needed for pain HYDROCODONE-ACETAMINOPHEN [id number] Merna Greenfield LPN Start: 10-17-2016 take 1-2 tablets by mouth four times daily as needed for pain NORCO 5-325 MG TABS one to two tablets b y mouth four times daily as needed for pain HYDROCODONE-ACETAMINOPHEN [id number] Rick Dominguez MD meloxicam 15 mg oral tablet (7 sources) Nonsteroidal Anti-inflammatory Drug Start: 07-05-2021 End: [...] tablet by mouth twice daily MINOCYCLINE HCL [id number] Rick Dominguez MD Nirmatrelvir-Kurt navir (7 sources) Start: 12-22-2021 End: 09-06-2023 Nirmatrelvir-Kurt navir (Paxlovid (Eua)) 150 mg x 2- 100 mg tablet Discontinued 0 PO .COMPLEX 30 December 22, 2021 12:00am September 06, 2023 9:24am take TWO 150 mg tablets of nirmatrelvir with ONE 100 mg tablet of ritonavir twice daily for 5 days PO Start: 12-22-2021 End: 09-06-2023 Nirmatrelvir-Ritonavir (Paxl ovid (Eua)) 150 mg x 2- 100 mg [...] days PO predniSONE 10 mg oral tablet (10 sources) Start: 02-27-2024 End: 03-10-2024 prednisone 10mg tab (TAPER) Taper 40-30-20-10 x 3 days each dose, Oral, qDay, Take with food/meal, # 30 tab(s), 0 Refill(s), Pharmacy: [facility]/pharmacy #[id number], 183, cm, 02/27/24 7:16:00 EDT, Height, kg, 02/27/24 7:16:00 EDT, Dosing Weight Start Date: 02/27/24 Stop Date: 03/10/24 Status: Ordered Start: 04-21-2021 End: 07-27-2021 take 3 tablets by mouth once daily Prednisone 20 mg tablet Discontinued 60 mg PO DAILY 15 April 21, 2021 12:00am July 27, 2021 [...] lung disease 05-28-2024 Chronic E Codes: Fall (5 sources) Fall; Translations: [Unspecified fall, initial encounter] 10-23-2023 Episodic Immunizations and screening for infectious disease (10 sources) Rheumatoid factor positive; Translations: [Requires tetanus and diphtheria vaccination] 07-17-2021 Episodic Open wounds of extremities (18 sources) Unspecified open wound of left thumb with damage to nail, initial encounter; Translations: [Unspecified open wound of left thumb with damage to nail, subsequent encounter] Onset: 10-17-2016 10-31-2016 Episodic Other aftercare (2 sources) Long-term current use of drug therapy; Translations: [Other shaft sinker (current) drug therapy] Episodic Other aftercare (1 source) Drug monitoring done; Translations: [Encounter for therapeutic drug level monitoring] Episodic Other connective tissue disease (5 sources) Bursitis of olecranon of left elbow; Translations: [Olecranon bursitis, left elbow] 09-06-2023 Episodic Other connective tissue disease (5 sources) Digital mucous cyst of right hand; Translations: [Ganglion, right hand] 09-06-2023 Episodic Other connective tissue disease (2 sources) Ganglion, right hand; Translations: [Ganglion, unspecified] 09-06-2023 Episodic Other connective tissue disease (2 sources) Olecranon bursitis, left elbow; Translations: [Olecranon bursitis] 09-06-2023 Episodic Other connective tissue disease (1 source) Bicipital tendinitis, left shoulder; Translations: [Biceps tendinitis of left upper extremity] 02-28-2025 Episodic Other gastrointestinal disorders (1 source) Dysphagia 09-17-2024 Episodic Other lower respiratory disease (3 sources) Chronic cough 02-27-2024 Episodic Other lower respiratory disease (3 sources) Pleuritic pain; Translations: [Pleurodynia] 10-02-2024 Episodic Other lower respiratory disease (3 sources) Cough; Translations: [Cough] 10-02-2024 Episodic Other nervous system disorders (10 sources) Carpal tunnel syndrome; Translations: [Carpal tunnel syndrome, unspecified upper limb] 07-04-2021 Chronic Other non-traumatic joint disorders (3 sources) Joint pain 06-28-2021 Episodic Other non-traumatic joint disorders (1 source) Pain in right shoulder; Translations: [Pain in right shoulder] Onset: 03-04-2025 Episodic Other screening for suspected conditions (not mental disorders or infectious disease) (3 sources) D-dimer above reference range; Translations: [Other specified abnormal findings of blood chemistry] 10-02-2024 Episodic Other skin disorders (3 sources) Swelling of hand 06-28-2021 Episodic Peripheral and visceral atherosclerosis (2 sources) Intermittent claudication 05-28-2024 Chronic Pleurisy; pneumothorax; pulmonary collapse (3 sources) Pleurisy; Translations: [Pleurisy] 10-02-2024 Episodic Rheumatoid arthritis and related disease (8 sources) Rheumatoid arthritis of multiple joints; Translations: [Rheumatoid arthritis with rheumatoid factor of multiple sites without organ or systems involvement] Onset: 01-27-2025 Chronic Screening or history of mental health and substance abuse (13 sources) Smoker; Translations: [Tobacco use and exposure - finding] Onset: 10-17-2016 10-31-2016 Chronic Sprains and strains (13 sources) Unspecified sprain of right shoulder joint, initial encounter; Translations: [Sprain of right shoulder] 08-04-2021 Episodic Unclassified (1 source) Patient encounter status 12-10-2024 Unclassified (1 source) Peripheral arterial disease 09-17-2024 Viral infection (7 sources) Disease caused by 2019-nCoV; Translations: [COVID-19] [...] Test Name Value Interpretation Reference Range Facility Emergency Department Summary on 02-28-2025 Emergency Department Summary [facility] Medical Records Department [address] [place] [address] Emergency Department Summary 02/28/25 MR#: [id number] Acct: [id number] Name: ALINA ALLEN Rep #: [id number] : 1960 64 From: Huber Alfred PCP: Maris Duran NP-C Status:DEP ER Location: ED HPI History of Present Illness Chief Complaint: Upper Extremity Injury Informant: patient Narrative Narrative: [id number] male presents increasing right shoulder pain this evening. Took Tylenol relief. Reports doing a lot heavy lifting throughout the day lifting pallets. No direct injuries. Pain worsened this evening. Worse with movement. No history of similar. Prior similar symptoms: No PFSH PFSH Medical History Olecranon bursitis, left elbow Digital [...] pain #20 tab s 09/24/24 Unknown Rx ibuprofen 600 mg tablet 600 mg PO Q6H PRN PRN pain #20 Unknown Rx TABLETS Allergy/AdvReac Type Severity Reaction Status Date / Time cat dander Allergy Itching Verified 02/28/25 02:33 Social History Smoking Status: Current every day smoker tobacco type: cigarettes ROS ROS ED Constitutional Constitutional ED: Denies fever(s) Cardiovascular Cardiovascular: Denies chest pain Respiratory/Chest Respiratory/Chest: Denies cough Gastrointestinal Gastrointestinal: Denies diarrhea or vomiting Musculoskeletal Musculoskeletal: Reports other Details: Left shoulder pain Integumentary Denies rash or wounds Neurologic Neurologic: Denies weakness EXAM Physical Exam Const Vital Signs: 02/28/25 02:33 Temperature 98.3 F Temperature Source Oral Pulse Rate 75 Respiratory Rate 15 Blood Pressure 157/91 H Blood Pressure Mean 113 Pulse Ox 98 Oxygen Delivery Method Room Air Positive well nourished and well developed General Appearance ED: well developed HEENT normocephalic and atraumatic Eyes General Eye ED: Yes normal appearance of both eyes Neck full ROM Resp normal respiratory effort and normal air movement Cardio regular rate and regular rhythm GI soft to palpation Extremity Extremity Narrative: Left upper extremity: No clavicle tenderness no acromioclavicular tenderness. Positive speeds test pain with abduction of the shoulder. No deformities. Soft compartments. Neuro vas intact distally. Neuro oriented x3 Skin no rashes or lesions noted and no wounds MDM MDM MDM Narrative Medical decision making narrative: Interventions / MDM: Differential diagnosis: Biceps tendinitis, shoulder strain. Diagnosis considered but do not suspect: Fracture or dislocation however x-ray negative. My EKG interpretation: N/A Imaging independently reviewed and interpreted by myself: Left shoulder x-ray 4 views: Degenerative changes, no fracture or dislocation. External documents reviewed: N/A Test considered but not ordered:N/A ED course: Patient clinical exam turns for bicep tenderness shoulder strain. X-ray from nursing protocol obtained degenerative changes. He started on Motrin. Denies any stomach ulcers or kidney injury. Will continue vhvguq-yck-iefsw NSAIDs. He is given fall with orthopedics. All questions were answered. Re-evaluation: stable Disposition discussed with patient/family/signif icant other: Patient Case discussed with consulting clinician: N/A This note was generated with [employer] dictation software. It may contain incorrect words, spelling, and punctuation that were not noted in checking the note before signing. Radiography Diagnostic Testing: Clinical Impression(s) from Imaging Studies Shoulder X-Ray 02/28/25 02:50 IMPRESSION: Mild left shoulder joints degeneration. Reading Location: [place] [address] Discharge Plan Triage Chief Complaint: Upper Extremity Injury ED Provider: Huber Chowdary Dx/Rx/DC Orders Clinical Impression: Biceps tendonitis on left, Left shoulder strain Instructions: Biceps Tendonitis, ED Shoulder Sprain Prescriptions: New ibuprofen 600 mg tablet 600 mg PO Q6H PRN PRN (Reason: pain) Qty: 20 0RF No Action methotrexate sodium 2.5 mg (more content not included)... Normal [facility] Shoulder min 2 Viewson 02-28 Shoulder min 2 Views [facility] Imaging Services [address] [place] [address] Shoulder min 2 Views MR#: [id number] Acct: [id number] Name: ALINA ALLEN Rep #: [id number] : 1960 M 64 From: Michel Ruano MD PCP: Maris Duran NP-C Status: PRE ER Study: Shoulder min 2 Views Date of Exam: 02/28/25 Exam# [id number] Ordering Dr: Provider,Ed P. 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 No acute bone, soft tissue, or lung pathology noted. RAD/Shoulder min 2 Views IMPRESSION: Mild left shoulder joints degeneration. Reading Location: [place] [address] CC: SIMIN Duran; ED PHYSICIAN PROVIDER Counter Stitcher: Signed Normal [facility] Absolute lymphocyte countOrd ered By: Bernardayariel Young on 01-22-2025 Lymphocytes Auto (Unsp spec) [#/Vol] 1.51 10*3/uL 0.83-4.51 [facility] Absolute neutrophil countOrd ered By: Bernardayariel Young on 01-22-2025 Neutrophils (Bld) [#/Vol] 4.7 10*3/uL 2.0-7.7 [facility] Anion gap in Serum or Plasma Ordered By: Bernarda Young on 01-22-2025 Anion gap [Moles/Vol] 11 mmol/L 5- [facility] Automated lymphocyte count a s percentage of total leukocytesOrdered By: Bernarda Young on 01-22-2025 Lymphocytes/100 WBC Auto (Unsp spec) 21.1 % - [facility] BUN/creatinine ratioOrdered By: [facility] Hector on 01-22-2025 Urea nitrogen/Creatinine [Mass ratio] 13.4 mg/mg - [facility] Basophil percentageOrdered B y: Bernarda Young on 01-22-2025 Basophils/100 WBC (Bld) 0.8 % 0-1 [facility] Bilirubin, totalOrdered By: Bernarda Young on 01-22-2025 Bilirubin [Mass/Vol] 0.32 mg/dL 0.00-1.30 [facility] CBC W/Diff, Automatedon 01-04 Absolute Lymph 1.51 X10 3/uL Normal 0.83-4.51 [facility] Comment on above: Performed By: #### L 500.4050, L100.0100 #### [facility] [address] [facility] [place], [address] Absolute Neut 4.7 X10 3/uL Normal 2.0-7.7 [facility] Comment on above: Performed By: #### L 500.4050, L100.0100 #### [facility] [address] [place], [address] Basophils/100 WBC (Bld) 0.8 % Normal 0-1 [facility] Comment on above: Performed By: #### L 500.4050, L100.0100 #### [facility] [address] [place], [address] Eosinophils/100 WBC (Bld) 2.8 % Normal 0-5 [facility] Comment on above: Performed By: #### L 500.4050, L100.0100 #### [facility] [address] [place], [address] Erythrocyte distribution width (RBC) [Ratio] 13.6 % Normal 11.6-14.6 [facility] Comment on above: Performed By: #### L 500.4050, L100.0100 #### [facility] [address] [place], [address] Hematocrit (Bld) [Volume fraction] 44.2 % Normal 40-54 [facility] Comment on above: Performed By: #### L 500.4050, L100.0100 #### [facility] [address] [place], [address] Hemoglobin (Bld) [Mass/Vol] 14.9 g/dL Normal 13.0-16.5 [facility] Comment on above: Performed By: #### L 500.4050, L100.0100 #### [facility] [address] [place], [address] IG% 1.000 High 0.0-0.9 [facility] Comment on above: Result Comment: IG% - Immature Granulocytes (promyelocytes, myelocytes and metamyelocytes) > 1% indicates that a LEFT SHIFT is Present. Performed By: #### L 500.4050, L100.0100 #### [facility] [address] [place], [address] Lymphocytes/100 WBC (Bld) 21.1 % Normal 19-41 [facility] Comment on above: Performed By: #### L 500.4050, L100.0100 #### [facility] [address] [place], [address] MCH (RBC) [Entitic mass] 30.8 pg Normal 27.0-32.0 [facility] Comment on above: Performed By: #### L 500.4050, L100.0100 #### [facility] [address] [place], [address] MCHC (RBC) [Mass/Vol] 33.7 g/dL Normal 32-36 [facility] Comment on above: Performed By: #### L 500.4050, L100.0100 #### [facility] [address] [place], [address] MCV (RBC) [Entitic vol] 91.5 fL Normal 80-94 [facility] Comment on above: Performed By: #### L 500.4050, L100.0100 #### [facility] [address] [place], [address] Monocytes/100 WBC (Bld) 8.8 % Normal 0-10 [facility] Comment on above: Performed By: #### L 500.4050, L100.0100 #### [facility] [address] [place], [address] Neutrophils/100 WBC (Bld) 65.5 % Normal 47-70 [facility] Comment on above: Performed By: #### L 500.4050, L100.0100 #### [facility] [address] [place], [address] Nucleated RBC (Bld) [#/Vol] 0 10*3/uL Normal 0-5 [facility] Comment on above: Performed By: #### L 500.4050, L100.0100 #### [facility] [address] [place], [address] Platelet mean volume (Bld) [Entitic vol] 10.9 fL Normal 6.2-12.0 [facility] Comment on above: Performed By: #### L 500.4050, L100.0100 #### [facility] [address] [place], [address] Platelets (Bld) [#/Vol] 265 10*3/uL Normal 150-450 [facility] Comment on above: Performed By: #### L 500.4050, L100.0100 #### [facility] [address] [place], [address] RBC (Bld) [#/Vol] 4.83 10*6/uL Normal 4.6-6.2 [facility] Comment on above: Performed By: #### L 500.4050, L100.0100 #### [facility] [address] [place], [address] RDW SD 44.8 fl High 35.1-43.9 [facility] Comment on above: Performed By: #### L 500.4050, L100.0100 #### [facility] [address] [place], [address] WBC (Bld) [#/Vol] 7.2 10*3/uL Normal 4.4-11.0 [facility] Comment on above: Performed By: #### L 500.4050, L100.0100 #### [facility] [address] [place], [address] Carbon dioxide, total [Moles /volume] in Central venous bloodOrdered By: Bernarda Young on 01-22-2025 CO2 [Moles/Vol] 23.6 mmol/L 21.0-32.0 [facility] Chloride assayOrdered By: Eder Young on 01-22-2025 Chloride [Moles/Vol] 105 mmol/L 98-108 [facility] Comprehensive Metabolic Prof ilon 01-22-2025 Albumin [Mass/Vol] 3.7 g/dL Normal 3.4-4.8 [facility] Comment on above: Performed By: #### L 500.4050, L100.0100 #### [facility] [address] [place], [address] Albumin/Globulin [Mass ratio] 1.1 {ratio} Normal 0.9-2.4 [facility] Comment on above: Performed By: #### L 500.4050, L100.0100 #### [facility] [address] [place], [address] ALK PHOS 100 U/L Normal 40-129 [facility] Comment on above: Performed By: #### L 500.4050, L100.0100 #### [facility] [address] [place], [address] ALT [Catalytic activity/Vol] 12 U/L Normal <=46 [facility] Comment on above: Performed By: #### L 500.4050, L100.0100 #### [facility] [address] [place], [address] AST [Catalytic activity/Vol] 15 U/L Normal <=37 [facility] Comment on above: Performed By: #### L 500.4050, L100.0100 #### [facility] [address] [place], [address] Bilirubin [Mass/Vol] 0.32 mg/dL Normal 0.00-1.30 [facility] Comment on above: Performed By: #### L 500.4050, L100.0100 #### [facility] [address] [place], [address] BUN/CRE 13.4 RATIO Normal 10-20 [facility] Comment on above: Performed By: #### L 500.4050, L100.0100 #### [facility] [address] [place], [address] Calcium [Mass/Vol] 9.3 mg/dL Normal 7.6-11.0 [facility] Comment on above: Performed By: #### L 500.4050, L100.0100 #### [facility] [address] [place], [address] Chloride [Moles/Vol] 105 mmol/L Normal 98-108 [facility] Comment on above: Performed By: #### L 500.4050, L100.0100 #### [facility] [address] [place], [address] CO2 [Moles/Vol] 23.6 mmol/L Normal 21.0-32.0 [facility] Comment on above: Performed By: #### L 500.4050, L100.0100 #### [facility] [address] [place], [address] Creatinine [Mass/Vol] 1.06 mg/dL Normal 0.70-1.20 [facility] Comment on above: Performed By: #### L 500.4050, L100.0100 #### [facility] [address] [place], [address] GAP 11 Normal 5-15 [facility] Comment on above: Performed By: #### L 500.4050, L100.0100 #### [facility] [address] [place], [address] GFR/1.73 sq M.predicted among non-blacks MDRD (S/P/Bld) [Vol rate/Area] 78 mL/min/{1.73_m2} Normal >60 [facility] Comment on above: Result Comment: mL/m in/1.73m2 CKD-EPI Creatinine Equation (2020) Performed By: #### L 500.4050, L100.0100 #### [facility] [address] [place], [address] Globulin (S) [Mass/Vol] 3.5 g/dL Normal 2.2-4.2 [facility] Comment on above: Performed By: #### L 500.4050, L100.0100 #### [facility] [address] [place], [address] Glucose [Mass/Vol] 86 mg/dL Normal 70-99 [facility] Comment on above: Performed By: #### L 500.4050, L100.0100 #### [facility] [address] [place], [address] Potassium [Moles/Vol] 4.4 mmol/L Normal 3.3-5.1 [facility] Comment on above: Performed By: #### L 500.4050, L100.0100 #### [facility] [address] [place], [address] Sodium [Moles/Vol] 139 mmol/L Normal 133-145 [facility] Comment on above: Performed By: #### L 500.4050, L100.0100 #### [facility] [address] [place], [address] T PROT 7.2 g/dL Normal 5.9-8.4 [facility] Comment on above: Performed By: #### L 500.4050, L100.0100 #### [facility] [address] [place], [address] Urea nitrogen [Mass/Vol] 14 mg/dL Normal 4-19 [facility] Comment on above: Performed By: #### L 500.4050, L100.0100 #### [facility] [address] [place], [address] Eosinophil percentageOrdered By: Bernarda Young on 01-22-2025 Eosinophils/100 WBC (Bld) 2.8 % 0-5 [facility] Erythrocyte distribution wid th ratioOrdered By: Bernarda Young on 01-22-2025 Erythrocyte distribution width (RBC) [Ratio] 13.6 % 11.6-14.6 [facility] Erythrocyte distribution wid th standard deviationOrdered By: Bernarda Young on 01-22-2025 Erythrocyte distribution width (RBC) [Ratio] 44.8 fl High 35.1-43.9 [facility] Glomerular filtration rate ( GFR) estimation/1.73 sq m using serum, plasma, or whole bOrdered By: Bernarda Young on 01-22-2025 GFR/1.73 sq M.predicted among non-blacks MDRD (S/P/Bld) [Vol rate/Area] 78 mL/min/{1.73_m2} >60 [facility] Comment on above: mL/min/1.73m2 CKD-EP I Creatinine Equation (2020) Hematocrit Auto (Bld) [Volum e fraction]Ordered By: Bernarda Young on 01-22-2025 Hematocrit (Bld) [Volume fraction] 44.2 % 40-54 [facility] Hemoglobin measurementOrdere d By: Bernarda Young on 01-22-2025 Hemoglobin (Bld) [Mass/Vol] 14.9 g/dL 13.0-16.5 [facility] Immature granulocytes/100 WB C Auto (Bld)Ordered By: Bernarda Young on 01-22-2025 Immature granulocytes/100 WBC (Bld) 1.000 % High 0.0-0.9 [facility] Comment on above: IG% - Immature Granu locytes (promyelocytes, myelocytes and metamyelocytes) > 1% indicates that a LEFT SHIFT is Present. Laboratory - Chemistry and C hemistry - challengeOrdered By: Bernarda Young on 01-22-2025 AST [Catalytic activity/Vol] 15 U/L <38 [facility] MCV (mean corpuscular volume ) determinationOrdered By: Bernarda Young 01-22-2025 MCV (RBC) [Entitic vol] 91.5 fL 80-94 [facility] Mean corpuscular hemoglobin (MCH) determinationOrdered By: Bernarda Young on 01-22-2025 MCH (RBC) [Entitic mass] 30.8 pg 27.0-32.0 [facility] Mean corpuscular hemoglobin concentration (MCHC) determinationOrdered By: Bernarda Young on 01-22-2025 MCHC (RBC) [Mass/Vol] 33.7 g/dL 32-36 [facility] Mean platelet volume determi nationOrdered By: Bernarda Young on 01-22-2025 Platelet mean volume (Bld) [Entitic vol] 10.9 fL 6.2-12.0 [facility] Monocyte percentageOrdered B y: Bernarda Young on 01-22-2025 Monocytes/100 WBC (Bld) 8.8 % 0-10 [facility] Neutrophil percentageOrdered By: Bernarda Young on 01-22-2025 Neutrophils/100 WBC (Bld) 65.5 % 47-70 [facility] Nucleated red blood cell per centageOrdered By: Bernarda Young on 01-22-2025 Nucleated RBC/100 WBC (Bld) [Ratio] 0 % 0-5 [facility] Platelet countOrdered By: Eder Young on 01-22-2025 Platelets (Bld) [#/Vol] 265 10*3/uL 150-450 [facility] Potassium measurement (mass/ volume)Ordered By: Bernarda Young on 01-22-2025 Potassium (Unsp spec) [Mass/Vol] 4.4 mmol/L 3.3-5.1 [facility] RBC Auto (Bld) [#/Vol]Ordere d By: Bernarda Young on 01-22-2025 RBC (Bld) [#/Vol] 4.83 10*6/uL 4.6-6.2 [facility] Serum creatinine measurement (mass/volume)Ordered By: Bernarda Young on 01-22-2025 Creatinine [Mass/Vol] 1.06 mg/dL 0.70-1.20 [facility] Serum globulin measurementOr dered By: Bernarda Young on 01-22-2025 Globulin (S) [Mass/Vol] 3.5 g/dL 2.2-4.2 [facility] Serum glucose measurement (m ass/volume)Ordered By: Bernarda Young on 01-22-2025 Glucose [Mass/Vol] 86 mg/dL 70-99 [facility] Serum or plasma alanine myers otransferase (ALT) measurementOrdered By: Bernarda Young on 01-22-2025 ALT [Catalytic activity/Vol] 12 U/L <47 [facility] Serum or plasma albumin rekha urement (mass/volume)Ordered By: Bernarda Young on 01-22-2025 Albumin [Mass/Vol] 3.7 g/dL 3.4-4.8 [facility] Serum or plasma albumin/glob ulin mass ratioOrdered By: Bernarda Young on 01-22-2025 Albumin/Globulin [Mass ratio] 1.1 {ratio} 0.9-2.4 [facility] Serum or plasma alkaline shreyas sphatase measurementOrdered By: Bernarda Young on 01-22-2025 ALP [Catalytic activity/Vol] 100 U/L 40-129 [facility] Serum or plasma calcium rekha urement (mass/volume)Ordered By: Bernarda Young on 01-22-2025 Calcium [Mass/Vol] 9.3 mg/dL 7.6-11.0 [facility] Serum or plasma urea nitroge n measurement (mass/volume)Ordered By: Bernarda Young on 01-22-2025 Urea nitrogen [Mass/Vol] 14 mg/dL 4-19 [facility] Sodium levelOrdered By: Cole Young on 01-22-2025 Sodium [Moles/Vol] 139 mmol/L 133-145 [facility] Total proteinOrdered By: Tracy Young on 01-22-2025 Protein [Mass/Vol] 7.2 g/dL 5.9-8.4 [facility] White blood cell (WBC) count Ordered By: Bernarda Young on 01-22-2025 WBC (Bld) [#/Vol] 7.2 10*3/uL 4.4-11.0 [facility] Absolute lymphocyte countOrd ered By: Bernarda Young on 11-02-2024 Lymphocytes Auto (Unsp spec) [#/Vol] 1.43 10*3/uL 0.83-4.51 [facility] Absolute neutrophil countOrd ered By: Bernarda Young on 11-02-2024 Neutrophils (Bld) [#/Vol] 5.4 10*3/uL 2.0-7.7 [facility] Anion gap in Serum or Plasma Ordered By: Bernarda Young on 11-02-2024 Anion gap [Moles/Vol] 14 mmol/L 5- [facility] Automated lymphocyte count a s percentage of total leukocytesOrdered By: Bernarda Young on 11-02-2024 Lymphocytes/100 WBC Auto (Unsp spec) 19.3 % - [facility] BUN/creatinine ratioOrdered By: Bernardayariel Young on 11-02-2024 Urea nitrogen/Creatinine [Mass ratio] 11.8 mg/mg 10- [facility] Basophil percentageOrdered B y: Bernarda Young on 11-02-2024 Basophils/100 WBC (Bld) 0.7 % 0-1 [facility] Bilirubin, totalOrdered By: Bernarda Young on 11-02-2024 Bilirubin [Mass/Vol] 0.31 mg/dL 0.00-1.30 [facility] CBC W/Diff, Automatedon 10-05 Absolute Lymph 1.43 X10 3/uL Normal 0.83-4.51 [facility] Comment on above: Performed By: #### L 100.0100, L500.4050 #### [facility] [address] [place], [address] Absolute Neut 5.4 X10 3/uL Normal 2.0-7.7 [facility] Comment on above: Performed By: #### L 100.0100, L500.4050 #### [facility] [address] [place], [address] Basophils/100 WBC (Bld) 0.7 % Normal 0-1 [facility] Comment on above: Performed By: #### L 100.0100, L500.4050 #### [facility] [address] [place], [address] Eosinophils/100 WBC (Bld) 2.7 % Normal 0-5 [facility] Comment on above: Performed By: #### L 100.0100, L500.4050 #### [facility] [address] [place], [address] Erythrocyte distribution width (RBC) [Ratio] 13.4 % Normal 11.6-14.6 [facility] Comment on above: Performed By: #### L 100.0100, L500.4050 #### [facility] [address] [place], [address] Hematocrit (Bld) [Volume fraction] 39.3 % Low 40-54 [facility] Comment on above: Performed By: #### L 100.0100, L500.4050 #### [facility] [address] [place], [address] Hemoglobin (Bld) [Mass/Vol] 13.3 g/dL Normal 13.0-16.5 [facility] Comment on above: Performed By: #### L 100.0100, L500.4050 #### [facility] [address] [place], [address] IG% 0.400 Normal 0.0-0.9 [facility] Comment on above: Result Comment: IG% - Immature Granulocytes (promyelocytes, myelocytes and metamyelocytes) > 1% indicates that a LEFT SHIFT is Present. Performed By: #### L 100.0100, L500.4050 #### [facility] [address] [place], [address] Lymphocytes/100 WBC (Bld) 19.3 % Normal 19-41 [facility] Comment on above: Performed By: #### L 100.0100, L500.4050 #### [facility] [address] [place], [address] MCH (RBC) [Entitic mass] 30.8 pg Normal 27.0-32.0 [facility] Comment on above: Performed By: #### L 100.0100, L500.4050 #### [facility] [address] [place], [address] MCHC (RBC) [Mass/Vol] 33.8 g/dL Normal 32-36 [facility] Comment on above: Performed By: #### L 100.0100, L500.4050 #### [facility] [address] [place], [address] MCV (RBC) [Entitic vol] 91.0 fL Normal 80-94 [facility] Comment on above: Performed By: #### L 100.0100, L500.4050 #### [facility] [address] [place], [address] Monocytes/100 WBC (Bld) 4.2 % Normal 0-10 [facility] Comment on above: Performed By: #### L 100.0100, L500.4050 #### [facility] [address] [place], [address] Neutrophils/100 WBC (Bld) 72.7 % High 47-70 [facility] Comment on above: Performed By: #### L 100.0100, L500.4050 #### [facility] [address] [place], [address] Nucleated RBC (Bld) [#/Vol] 0 10*3/uL Normal 0-5 [facility] Comment on above: Performed By: #### L 100.0100, L500.4050 #### [facility] [address] [place], [address] Platelet mean volume (Bld) [Entitic vol] 10.7 fL Normal 6.2-12.0 [facility] Comment on above: Performed By: #### L 100.0100, L500.4050 #### [facility] [address] [place], [address] Platelets (Bld) [#/Vol] 190 10*3/uL Normal 150-450 [facility] Comment on above: Performed By: #### L 100.0100, L500.4050 #### [facility] [address] [place], [address] RBC (Bld) [#/Vol] 4.32 10*6/uL Low 4.6-6.2 [facility] Comment on above: Performed By: #### L 100.0100, L500.4050 #### [facility] [address] [place], [address] RDW SD 43.9 fl Normal 35.1-43.9 [facility] Comment on above: Performed By: #### L 100.0100, L500.4050 #### [facility] [address] [place], [address] WBC (Bld) [#/Vol] 7.4 10*3/uL Normal 4.4-11.0 [facility] Comment on above: Performed By: #### L 100.0100, L500.4050 #### [facility] [address] [place], [address] Carbon dioxide, total [Moles /volume] in Central venous bloodOrdered By: Bernarda Young on 11-02-2024 CO2 [Moles/Vol] 21.3 mmol/L 21.0-32.0 [facility] Chloride assayOrdered By: Eder Young on 11-02-2024 Chloride [Moles/Vol] 103 mmol/L 98-108 [facility] Comprehensive Metabolic Prof ilon 11-02-2024 Albumin [Mass/Vol] 3.7 g/dL Normal 3.4-4.8 [facility] Comment on above: Performed By: #### L 100.0100, L500.4050 ####[facility] [address] [place], [address] Albumin/Globulin [Mass ratio] 1.3 {ratio} Normal 0.9-2.4 [facility] Comment on above: Performed By: #### L 100.0100, L500.4050 ####[facility] [address] [place], [address] ALK PHOS 80 U/L Normal 40-129 [facility] Comment on above: Performed By: #### L 100.0100, L500.4050 ####[facility] [address] [place], [address] ALT [Catalytic activity/Vol] 11 U/L Normal <=46 [facility] Comment on above: Performed By: #### L 100.0100, L500.4050 ####[facility] [address] [place], [address] AST [Catalytic activity/Vol] 16 U/L Normal <=37 [facility] Comment on above: Performed By: #### L 100.0100, L500.4050 ####[facility] [address] [place], [address] Bilirubin [Mass/Vol] 0.31 mg/dL Normal 0.00-1.30 [facility] Comment on above: Performed By: #### L 100.0100, L500.4050 ####[facility] [address] [place], [address] BUN/CRE 11.8 RATIO Normal 10-20 [facility] Comment on above: Performed By: #### L 100.0100, L500.4050 ####[facility] [address] [place], [address] Calcium [Mass/Vol] 9.2 mg/dL Normal 7.6-11.0 [facility] Comment on above: Performed By: #### L 100.0100, L500.4050 ####[facility] [address] [place], [address] Chloride [Moles/Vol] 103 mmol/L Normal 98-108 [facility] Comment on above: Performed By: #### L 100.0100, L500.4050 ####[facility] [address] [place], [address] CO2 [Moles/Vol] 21.3 mmol/L Normal 21.0-32.0 [facility] Comment on above: Performed By: #### L 100.0100, L500.4050 ####[facility] [address] [place], [address] Creatinine [Mass/Vol] 1.20 mg/dL Normal 0.70-1.20 [facility] Comment on above: Performed By: #### L 100.0100, L500.4050 ####[facility] [address] [place], [address] GAP 14 Normal 5-15 [facility] Comment on above: Performed By: #### L 100.0100, L500.4050 ####[facility] [address] [place], [address] GFR/1.73 sq M.predicted among non-blacks MDRD (S/P/Bld) [Vol rate/Area] 68 mL/min/{1.73_m2} Normal >60 [facility] Comment on above: Result Comment: mL/m in/1.73m2 CKD-EPI Creatinine Equation (2020) Performed By: #### L 100.0100, L500.4050 ####[facility] [address] [place], [address] Globulin (S) [Mass/Vol] 2.8 g/dL Normal 2.2-4.2 [facility] Comment on above: Performed By: #### L 100.0100, L500.4050 ####[facility] [address] [place], [address] Glucose [Mass/Vol] 104 mg/dL High 70-99 [facility] Comment on above: Performed By: #### L 100.0100, L500.4050 ####[facility] [address] [place], [address] Potassium [Moles/Vol] 4.1 mmol/L Normal 3.3-5.1 [facility] Comment on above: Performed By: #### L 100.0100, L500.4050 ####[facility] [address] [place], [address] Sodium [Moles/Vol] 138 mmol/L Normal 133-145 [facility] Comment on above: Performed By: #### L 100.0100, L500.4050 ####[facility] [address] [place], [address] T PROT 6.5 g/dL Normal 5.9-8.4 [facility] Comment on above: Performed By: #### L 100.0100, L500.4050 ####[facility] [address] [place], [address] Urea nitrogen [Mass/Vol] 14 mg/dL Normal 4-19 [facility] Comment on above: Performed By: #### L 100.0100, L500.4050 ####[facility] [address] [place], [address] Eosinophil percentageOrdered By: Bernarda Young on 11-02-2024 Eosinophils/100 WBC (Bld) 2.7 % 0-5 [facility] Erythrocyte distribution wid th (RBC) [Ratio]Ordered By: Bernarda Young on 11-02-2024 Erythrocyte distribution width (RBC) [Entitic vol] 43.9 fL 35.1-43.9 [facility] Erythrocyte distribution wid th ratioOrdered By: Bernarda Young on 11-02-2024 Erythrocyte distribution width (RBC) [Ratio] 13.4 % 11.6-14.6 [facility] Erythrocyte distribution wid th standard deviationOrdered By: Bernarda Young on 11-02-2024 Erythrocyte distribution width (RBC) [Ratio] 43.9 fl 35.1-43.9 [facility] GFR/1.73 sq M.predicted dary g non-blacks MDRD (S/P/Bld) [Vol rate/Area]Ordered By: Bernarda Young on 11-02-2024 Estimated GFR (MDRD) Non-Af Amer 68 >60 [facility] Comment on above: mL/min/1.73m2 CKD-EP I Creatinine Equation (2020) Glomerular filtration rate ( GFR) estimation/1.73 sq m using serum, plasma, or whole bOrdered By: Bernarda Young on 11-02-2024 GFR/1.73 sq M.predicted among non-blacks MDRD (S/P/Bld) [Vol rate/Area] 68 mL/min/{1.73_m2} >60 [facility] Comment on above: mL/min/1.73m2 CKD-EP I Creatinine Equation (2020) Hematocrit Auto (Bld) [Volum e fraction]Ordered By: Bernarda Young on 11-02-2024 Hematocrit (Bld) [Volume fraction] 39.3 % Low 40-54 [facility] Hemoglobin measurementOrdere d By: Bernarda Young on 11-02-2024 Hemoglobin (Bld) [Mass/Vol] 13.3 g/dL 13.0-16.5 [facility] Immature granulocytes/100 WB C Auto (Bld)Ordered By: Bernarda Young on 11-02-2024 Immature granulocytes/100 WBC (Bld) 0.400 % 0.0-0.9 [facility] Comment on above: IG% - Immature Granu locytes (promyelocytes, myelocytes and metamyelocytes) > 1% indicates that a LEFT SHIFT is Present. Laboratory - Chemistry and C hemistry - challengeOrdered By: Bernarda Young on 11-02-2024 AST [Catalytic activity/Vol] 16 U/L <38 [facility] Lymphocytes Auto (Unsp spec) [#/Vol]Ordered By: Bernarda Young on 11-02-2024 Lymphocytes (Bld) [#/Vol] 1.43 10*3/uL 0.83-4.51 [facility] Lymphocytes/100 WBC Auto (Un sp spec)Ordered By: Bernarda Young on 11-02-2024 Lymphocytes/100 WBC (Bld) 19.3 % 19-41 [facility] MCV (mean corpuscular volume ) determinationOrdered By: Bernarda Young on 11-02-2024 MCV (RBC) [Entitic vol] 91.0 fL 80-94 [facility] Mean corpuscular hemoglobin (MCH) determinationOrdered By: Bernarda Young on 11-02-2024 MCH (RBC) [Entitic mass] 30.8 pg 27.0-32.0 [facility] Mean corpuscular hemoglobin concentration (MCHC) determinationOrdered By: Bernarda Young on 11-02-2024 MCHC (RBC) [Mass/Vol] 33.8 g/dL 32-36 [facility] Mean platelet volume determi nationOrdered By: Bernarda Young on 11-02-2024 Platelet mean volume (Bld) [Entitic vol] 10.7 fL 6.2-12.0 [facility] Monocyte percentageOrdered B y: Bernarda Young on 11-02-2024 Monocytes/100 WBC (Bld) 4.2 % 0-10 [facility] Neutrophil percentageOrdered By: Bernarda Young on 11-02-2024 Neutrophils/100 WBC (Bld) 72.7 % High 47-70 [facility] Nucleated red blood cell per centageOrdered By: Bernarda Young on 11-02-2024 Nucleated RBC/100 WBC (Bld) [Ratio] 0 % 0-5 [facility] Platelet countOrdered By: Eder Young on 11-02-2024 Platelets (Bld) [#/Vol] 190 10*3/uL 150-450 [facility] Potassium (Unsp spec) [Mass/ Vol]Ordered By: Bernarda Young on 11-02-2024 Potassium [Moles/Vol] 4.1 mmol/L 3.3-5.1 [facility] Potassium measurement (mass/ volume)Ordered By: Bernarda Young on 11-02-2024 Potassium (Unsp spec) [Mass/Vol] 4.1 mmol/L 3.3-5.1 [facility] RBC Auto (Bld) [#/Vol]Ordere d By: Bernarda Young on 11-02-2024 RBC (Bld) [#/Vol] 4.32 10*6/uL Low 4.6-6.2 [facility] Serum creatinine measurement (mass/volume)Ordered By: Bernarda Young on 11-02-2024 Creatinine [Mass/Vol] 1.20 mg/dL 0.70-1.20 [facility] Serum globulin measurementOr dered By: Bernarda Young on 11-02-2024 Globulin (S) [Mass/Vol] 2.8 g/dL 2.2-4.2 [facility] Serum glucose measurement (m ass/volume)Ordered By: Bernarda Young on 11-02-2024 Glucose [Mass/Vol] 104 mg/dL High 70-99 [facility] Serum or plasma alanine myers otransferase (ALT) measurementOrdered By: Bernarda Young on 11-02-2024 ALT [Catalytic activity/Vol] 11 U/L <47 [facility] Serum or plasma albumin rekha urement (mass/volume)Ordered By: Bernarda Young on 11-02-2024 Albumin [Mass/Vol] 3.7 g/dL 3.4-4.8 [facility] Serum or plasma albumin/glob ulin mass ratioOrdered By: Bernarda Young on 11-02-2024 Albumin/Globulin [Mass ratio] 1.3 {ratio} 0.9-2.4 [facility] Serum or plasma alkaline shreyas sphatase measurementOrdered By: Bernarda Young on 11-02-2024 ALP [Catalytic activity/Vol] 80 U/L 40-129 [facility] Serum or plasma calcium rekha urement (mass/volume)Ordered By: Bernarda Young on 11-02-2024 Calcium [Mass/Vol] 9.2 mg/dL 7.6-11.0 [facility] Serum or plasma urea nitroge n measurement (mass/volume)Ordered By: Bernarda Young on 11-02-2024 Urea nitrogen [Mass/Vol] 14 mg/dL 4-19 [facility] Sodium levelOrdered By: Cole Young on 11-02-2024 Sodium [Moles/Vol] 138 mmol/L 133-145 [facility] Total proteinOrdered By: Tracy Young on 11-02-2024 Protein [Mass/Vol] 6.5 g/dL 5.9-8.4 [facility] White blood cell (WBC) count Ordered By: Bernarda Young on 11-02-2024 WBC (Bld) [#/Vol] 7.4 10*3/uL 4.4-11.0 [facility] 12 Lead EKGon 09-24-2024 12 Lead EKG [facility] Cardiovascular Services [address] [place] [address] 12 Lead EKG 09/24/24 1838 MR#: [id number] Acct: [id number] Name: ALINA ALLEN Rep #: [id number] : 1960 64 From: Pedro Vincent MD [...] undetermined Abnormal ECG Confirmed by PEDRO VINCENT ([id number]), avid editor JASON MUSTAFA ([id number]) on 09/28/2024 7:14:30 AM Referred By: VIKAS Confirmed By: PEDRO VINCENT 09/28/24 0714 Date Pedro Vincent MD CC: SIMIN Duran; Dr. Jace Landeros MD Signed Normal [facility] Absolute neutrophil countOrd ered By: Jace Landeros on 09-24-2024 Neutrophils (Bld) [#/Vol] 8.4 10*3/uL High 2.0-7.7 [facility] Basic Metabolic Profile (BMP )on 09-24-2024 BUN/CRE 17.6 RATIO Normal 10-20 [facility] Comment on above: Performed By: #### L 500.2500, L501.5425, L100.0100 #### [facility] [address] [place], [address] CA,Total 9.5 mg/dL Normal 8.5-10.1 [facility] Comment on above: Performed By: #### L 500.2500, L501.5425, L100.0100 #### [facility] [address] [place], [address] Chloride [Moles/Vol] 108 mmol/L High 98-107 [facility] Comment on above: Performed By: #### L 500.2500, L501.5425, L100.0100 #### [facility] [address] [place], [address] CO2 [Moles/Vol] 28.0 mmol/L Normal 21.0-32.0 [facility] Comment on above: Performed By: #### L 500.2500, L501.5425, L100.0100 #### [facility] [address] [place], [address] Creatinine [Mass/Vol] 1.25 mg/dL Normal 0.70-1.30 [facility] Comment on above: Result Comment: The validity of the calculated GFR GFRAA in patients over 70 years has not been determined. Clinical correlation is essential. Performed By: #### L 500.2500, L501.5425, L100.0100 #### [facility] [address] [place], [address] EST GFR - AA 75 mL/min Normal >60 [facility] Comment on above: Result Comment: Afri can [place] GFR Calc Performed By: #### L 500.2500, L501.5425, L100.0100 #### [facility] [address] [place], [address] GAP 5 Normal 5-15 [facility] Comment on above: Performed By: #### L 500.2500, L501.5425, L100.0100 #### [facility] [address] [place], [address] GFR/1.73 sq M.predicted among non-blacks MDRD (S/P/Bld) [Vol rate/Area] 62 mL/min/{1.73_m2} Normal >60 [facility] Comment on above: Result Comment: Non- GFR Calc Performed By: #### L 500.2500, L501.5425, L100.0100 #### [facility] [address] [place], [address] Glucose [Mass/Vol] 108 mg/dL High 74-106 [facility] Comment on above: Result Comment: Fast ing Glucose result from 100 to 125 mg/dL suggests IMPAIRED HOMEOSTASIS per A.D.A. criteria. Performed By: #### L 500.2500, L501.5425, L100.0100 #### [facility] [address] [place], [address] Potassium [Moles/Vol] 4.2 mmol/L Normal 3.5-5.1 [facility] Comment on above: Performed By: #### L 500.2500, L501.5425, L100.0100 #### [facility] [address] [place], [address] Sodium [Moles/Vol] 141 mmol/L Normal 136-145 [facility] Comment on above: Performed By: #### L 500.2500, L501.5425, L100.0100 #### [facility] [address] [place], [address] Urea nitrogen [Mass/Vol] 22 mg/dL High 7-18 [facility] Comment on above: Performed By: #### L 500.2500, L501.5425, L100.0100 #### [facility] [address] [place], [address] Basophil percentageOrdered B y: Jace Corteztung on 09-24-2024 Basophils/100 WBC (Bld) 0.4 % 0-1 [facility] Blood urea nitrogen (BUN)/cr eatinine ratioOrdered By: Jace Landeros on 09-24-2024 Urea nitrogen/Creatinine [Mass ratio] 17.6 mg/mg 05-24 [facility] CBC W/Diff, Automatedon 09-06 0 Absolute Lymph 1.01 X10 3/uL Normal 0.83-4.51 [facility] Comment on above: Performed By: #### L 500.2500, L501.5425, L100.0100 #### [facility] [address] [place], [address] Absolute Neut 8.4 X10 3/uL High 2.0-7.7 [facility] Comment on above: Performed By: #### L 500.2500, L501.5425, L100.0100 #### [facility] [address] [place], [address] Basophils/100 WBC (Bld) 0.4 % Normal 0-1 [facility] Comment on above: Performed By: #### L 500.2500, L501.5425, L100.0100 #### [facility] [address] [place], [address] Eosinophils/100 WBC (Bld) 1.8 % Normal 0-5 [facility] Comment on above: Performed By: #### L 500.2500, L501.5425, L100.0100 #### [facility] [address] [place], [address] Erythrocyte distribution width (RBC) [Ratio] 13.1 % Normal 11.6-14.6 [facility] Comment on above: Performed By: #### L 500.2500, L501.5425, L100.0100 #### [facility] [address] [place], [address] Hematocrit (Bld) [Volume fraction] 41.4 % Normal 40-54 [facility] Comment on above: Performed By: #### L 500.2500, L501.5425, L100.0100 #### [facility] [address] [place], [address] Hemoglobin (Bld) [Mass/Vol] 14.4 g/dL Normal 13.0-16.5 [facility] Comment on above: Performed By: #### L 500.2500, L501.5425, L100.0100 #### [facility] [address] [place], [address] IG% 0.600 Normal 0.0-0.9 [facility] Comment on above: Result Comment: IG% - Immature Granulocytes (promyelocytes, myelocytes and metamyelocytes) > 1% indicates that a LEFT SHIFT is Present. Performed By: #### L 500.2500, L501.5425, L100.0100 #### [facility] [address] [place], [address] Lymphocytes/100 WBC (Bld) 9.7 % Low 19-41 [facility] Comment on above: Performed By: #### L 500.2500, L501.5425, L100.0100 #### [facility] [address] [place], [address] MCH (RBC) [Entitic mass] 31.6 pg Normal 27.0-32.0 [facility] Comment on above: Performed By: #### L 500.2500, L501.5425, L100.0100 #### [facility] [address] [place], [address] MCHC (RBC) [Mass/Vol] 34.8 g/dL Normal 32-36 [facility] Comment on above: Performed By: #### L 500.2500, L501.5425, L100.0100 #### [facility] [address] [place], [address] MCV (RBC) [Entitic vol] 90.8 fL Normal 80-94 [facility] Comment on above: Performed By: #### L 500.2500, L501.5425, L100.0100 #### [facility] [address] [place], [address] Monocytes/100 WBC (Bld) 6.3 % Normal 0-10 [facility] Comment on above: Performed By: #### L 500.2500, L501.5425, L100.0100 #### [facility] [address] [place], [address] Neutrophils/100 WBC (Bld) 81.2 % High 47-70 [facility] Comment on above: Performed By: #### L 500.2500, L501.5425, L100.0100 #### [facility] [address] [place], [address] Nucleated RBC (Bld) [#/Vol] 0 10*3/uL Normal 0-5 [facility] Comment on above: Performed By: #### L 500.2500, L501.5425, L100.0100 #### [facility] [address] [place], [address] Platelet mean volume (Bld) [Entitic vol] 10.4 fL Normal 6.2-12.0 [facility] Comment on above: Performed By: #### L 500.2500, L501.5425, L100.0100 #### [facility] [address] [place], [address] Platelets (Bld) [#/Vol] 220 10*3/uL Normal 150-450 [facility] Comment on above: Performed By: #### L 500.2500, L501.5425, L100.0100 #### [facility] [address] [place], [address] RBC (Bld) [#/Vol] 4.56 10*6/uL Low 4.6-6.2 [facility] Comment on above: Performed By: #### L 500.2500, L501.5425, L100.0100 #### [facility] [address] [place], [address] RDW SD 42.4 fl Normal 35.1-43.9 [facility] Comment on above: Performed By: #### L 500.2500, L501.5425, L100.0100 #### [facility] [address] [place], [address] WBC (Bld) [#/Vol] 10.4 10*3/uL Normal 4.4-11.0 [facility] Comment on above: Performed By: #### L 500.2500, L501.5425, L100.0100 #### [facility] [address] [place], [address] CTA Chest W/WO Contraston CTA Chest W/WO Contrast [facility] Services [address] [place] [address] CTA Chest W/WO Contrast MR#: [id number] Acct: [id number] Name: ALINA ALLEN Rep #: [id number] : 1960 M 64 From: Patricio New MD PCP: Maris Duran BARREL LAPPER-C Status: REG ER Study: CTA Chest W/WO Contrast Date of Exam: 09/24/24 Exam# [id number] Ordering Dr: Jace Landeros MD PROCEDURE: CTA [...] use of iterative reconstruction technique). Reading Location: [id number] CC: SIMIN Duran; Dr. Jace Landeros MD Counter Stitcher: Signed Normal [facility] Carbon dioxide measurementOr dered By: Jace Landeros on 09-24-2024 CO2 [Moles/Vol] 28.0 mmol/L 21.0-32.0 [facility] Chest 1 View (Portable)on Chest 1 View (Portable) [facility] Services [address] [place] [id number] Chest 1 View (Portable) MR#: [id number] Acct: [id number] Name: ALINA ALLEN Rep #: [id number] : 1960 M 64 From: Jerson Viera MD PCP: CHETAN TellesC Status: REG ER Study: Chest 1 View (Portable) Date of Exam: 09/24/24 Exam# [id number] Ordering Dr: Provider,Ed P. PROCEDURE: CHEST 1 VIEW (PORTABLE) REASON FOR EXAM: Shortness of breath TECHNIQUE: Frontal view of the chest. COMPARISON: None. FINDINGS: The heart size is normal. The mediastinal contour is unremarkable. Mild bibasilar opacities, ancc-tdzkref-scti-rig ht Degenerative changes are identified within the thoracic spine and left shoulder. RAD/Chest 1 View (Portable) IMPRESSION: Mild bibasilar atelectasis versus airspace disease. Reading Location: KATLYN CC: BARREL LAPPER-Agustina Duran; ED PHYSICIAN PROVIDER Counter Stitcher: Signed Normal [facility] Chloride measurementOrdered By: Jace Landeros on 09-24-2024 Chloride [Moles/Vol] 108 mmol/L High 98-107 [facility] D-Dimer Quantitative (DVT/PE )on 09-24-2024 D-DIMER QUANT 1.15 FEU/ug/m Invalid Interpretation Code 0.27-0.49 [facility] Comment on above: Result Comment: D-Di britt ELEVATED (>0.49): Additional studies and clinical assessments are indicated to conclude diagnosis of: Deep Vein Thrombosis (DVT) or Pulmonary Embolism (PE) CRITICAL VALUE CALLED TO [facility] 09/24/24 Dian Medrano. RESULTS READ BACK BY SAME. Performed By: #### L 300.8000 ####[facility] [address] [place], [address] D-dimer measurement for deep venous thrombosisOrdered By: Jace Landeros on 09-24-2024 D-Dimer Quantitative (PE/DVT) 1.15 FEU/ug/m High 0.27-0.49 [facility] Comment on above: D-Dimer ELEVATED (>0 .49): Additional studies and clinicalassessments are indicated to conclude diagnosis of:Deep Vein Thrombosis (DVT) or Pulmonary Embolism (PE)CRITICAL VALUE CALLED TO ZSLAFX53/20/25 Dian Medrano.RESULTS READ BACK BY SAME. Emergency Department Summary on 09-24-2024 Emergency Department Summary [facility] Medical Records Department [address] [place] [address] Emergency Department Summary 09/24/24 MR#: [id number] Acct: [id number] Name: ALINA ALLEN Rep #: [id number] : 1960 64 From: Jace Landeros MD PCP: Maris Duran BARREL LAPPER-C Status:REG ER Location: ED HPI History of [...] sharp pain in his left lower lung. [facility] Medical History Olecranon bursitis, left elbow Digital [...] slightly vinay (more content not included)... Normal [facility] Eosinophil percentageOrdered By: Jace Landeros on 09-24-2024 Eosinophils/100 WBC (Bld) 1.8 % 0-5 [facility] Erythrocyte distribution wid th (RBC) [Ratio]Ordered By: Jace Landeros on 09-24-2024 Erythrocyte distribution width (RBC) [Entitic vol] 42.4 fL 35.1-43.9 [facility] Erythrocyte distribution wid th ratioOrdered By: Jace Landeros on 09-24-2024 Erythrocyte distribution width (RBC) [Ratio] 13.1 % 11.6-14.6 [facility] Estimated glomerular filtrat ion rate (GFR) AmericanOrdered By: Jace Landeros on 09-24-2024 Estimated GFR (MDRD) Amer 75 mL/min >60 [facility] Comment on above: GFR Calc Glomerular filtration rate ( GFR) estimationOrdered By: Jace Landeros on 09-24-2024 Estimated GFR (MDRD) Non-Af Amer 62 mL/min >60 [facility] Comment on above: Non- GFR Calc Glucose measurementOrdered B y: Jace Landeros on 09-24-2024 Glucose [Mass/Vol] 108 mg/dL High 74-106 [facility] Comment on above: Fasting Glucose resu lt from 100 to 125 mg/dL suggests IMPAIRED HOMEOSTASIS per A.D.A. criteria. Hematocrit Auto (Bld) [Volum e fraction]Ordered By: Jace Landeros on 09-24-2024 Hematocrit (Bld) [Volume fraction] 41.4 % 40-54 [facility] Hemoglobin measurementOrdere d By: Jace Landeros on 09-24-2024 Hemoglobin (Bld) [Mass/Vol] 14.4 g/dL 13.0-16.5 [facility] Immature granulocytes/100 WB C Auto (Bld)Ordered By: Jace Landeros on 09-24-2024 Immature granulocytes/100 WBC (Bld) 0.600 % 0.0-0.9 [facility] Comment on above: IG% - Immature Granu locytes (promyelocytes, myelocytes and metamyelocytes) > 1% indicates that a LEFT SHIFT is Present. L501.4020on 09-24-2024 TROPONIN-I HS 6 pg/mL Normal 3.0-78.0 [facility] Comment on above: Result Comment: [place] deleon Note: New Test Units and Gender Specific Reference Ranges. For more information see Policy Stat Procedure [place] High Sensitivity Troponin (TNIH) and attachments. Performed By: #### L 501.4020 ####[facility] [address] [facility] [place], [address] L501.5425on 09-24-2024 TROPONIN-I HS 6 pg/mL Normal 3.0-78.0 [facility] Comment on above: Order Comment: 1 Y Result Comment: [place] deleon Note: New Test Units and Gender Specific Reference Ranges. For more information see Policy Stat Procedure [place] High Sensitivity Troponin (TNIH) and attachments. Performed By: #### L 500.2500, L501.5425, L100.0100 #### [facility] [address] [facility] [place], [address] Lymphocytes Auto (Unsp spec) [#/Vol]Ordered By: Jace Landeros on 09-24-2024 Lymphocytes (Bld) [#/Vol] 1.01 10*3/uL 0.83-4.51 [facility] Lymphocytes/100 WBC Auto (Un sp spec)Ordered By: Jace Landeros on 09-24-2024 Lymphocytes/100 WBC (Bld) 9.7 % Low 19-41 [facility] MCV (mean corpuscular volume ) determinationOrdered By: Jace Landeros on 09-24-2024 MCV (RBC) [Entitic vol] 90.8 fL 80-94 [facility] Mean corpuscular hemoglobin (MCH) determinationOrdered By: Jace Landeros on 09-24-2024 MCH (RBC) [Entitic mass] 31.6 pg 27.0-32.0 [facility] Mean corpuscular hemoglobin concentration (MCHC) determinationOrdered By: Jace Landeros on 09-24-2024 MCHC (RBC) [Mass/Vol] 34.8 g/dL 32-36 [facility] Mean platelet volume determi nationOrdered By: Jace Landeros on 09-24-2024 Platelet mean volume (Bld) [Entitic vol] 10.4 fL 6.2-12.0 [facility] Monocyte percentageOrdered B y: Jace Landeros on 09-24-2024 Monocytes/100 WBC (Bld) 6.3 % 0-10 [facility] Neutrophil percentageOrdered By: Jace Landeros on 09-24-2024 Neutrophils/100 WBC (Bld) 81.2 % High 47-70 [facility] Nucleated red blood cell per centageOrdered By: Jace Landeros on 09-24-2024 Nucleated RBC/100 WBC (Bld) [Ratio] 0 % 0-5 [facility] Platelet countOrdered By: Brody Landeros on 09-24-2024 Platelets (Bld) [#/Vol] 220 10*3/uL 150-450 [facility] Potassium measurementOrdered By: Jace Landeros on 09-24-2024 Potassium [Moles/Vol] 4.2 mmol/L 3.5-5.1 [facility] RBC Auto (Bld) [#/Vol]Ordere d By: Jace Landeros on 09-24-2024 RBC (Bld) [#/Vol] 4.56 10*6/uL Low 4.6-6.2 [facility] Serum anion gap measurementO rdered By: Jace Landeros on 09-24-2024 Anion gap [Moles/Vol] 5 mmol/L 5-15 [facility] Serum or plasma calcium rekha urement (mass/volume)Ordered By: Jace Landeros on 09-24-2024 Calcium [Mass/Vol] 9.5 mg/dL 8.5-10.1 [facility] Serum or plasma creatinine m easurement (mass/volume)Ordered By: Jace Landeros on 09-24-2024 Creatinine [Mass/Vol] 1.25 mg/dL 0.70-1.30 [facility] Comment on above: The validity of the calculated GFR & GFRAA in patients over 70 years has not been determined. Clinical correlation is essential. Serum or plasma urea nitroge n measurement (mass/volume)Ordered By: Jace Landeros on 09-24-2024 Urea nitrogen [Mass/Vol] 22 mg/dL High 7-18 [facility] Sodium levelOrdered By: Jace Landeros on 09-24-2024 Sodium [Moles/Vol] 141 mmol/L 136-145 [facility] Troponin IOrdered By: Jace pedroza on 09-24-2024 Troponin I High Sensitivity 6 pg/mL 3.0-78.0 [facility] Comment on above: Please Note: New Ian t Units and Gender Specific Reference Ranges. For more information see Policy Stat Procedure [place] High Sensitivity Troponin (TNIH) and attachments. White blood cell (WBC) count Ordered By: Jace Landeros on 09-24-2024 WBC (Bld) [#/Vol] 10.4 10*3/uL 4.4-11.0 [facility] Absolute neutrophil countOrd ered By: Bernarda Young on 07-31-2024 Neutrophils (Bld) [#/Vol] 5.4 10*3/uL 2.0-7.7 [facility] Albumin to globulin ratioOrd ered By: Bernarda Young on 07-31-2024 Albumin/Globulin [Mass ratio] 0.8 {ratio} Low 0.9-2.4 [facility] Basophil percentageOrdered B y: Bernarda Young on 07-31-2024 Basophils/100 WBC (Bld) 0.8 % 0-1 [facility] Bilirubin, totalOrdered By: Bernarda Young on 07-31-2024 Bilirubin [Mass/Vol] 0.30 mg/dL 0.20-1.00 [facility] Comment on above: For patients on eltr ombopag therapy, use of Dimension [place] TBIL is not recommended. Blood urea nitrogen (BUN)/cr eatinine ratioOrdered By: Bernarda Young on 07-31-2024 Urea nitrogen/Creatinine [Mass ratio] 14.2 mg/mg - [facility] CBC W/Diff, Automatedon 07-06 Absolute Lymph 1.98 X10 3/uL Normal 0.83-4.51 [facility] Comment on above: Performed By: #### L 100.0100, L500.4050 ####[facility] [address] [place], [address] Absolute Neut 5.4 X10 3/uL Normal 2.0-7.7 [facility] Comment on above: Performed By: #### L 100.0100, L500.4050 ####[facility] [address] [place], [address] Basophils/100 WBC (Bld) 0.8 % Normal 0-1 [facility] Comment on above: Performed By: #### L 100.0100, L500.4050 ####[facility] [address] [place], [address] Eosinophils/100 WBC (Bld) 3.8 % Normal 0-5 [facility] Comment on above: Performed By: #### L 100.0100, L500.4050 ####[facility] [address] [place], [address] Erythrocyte distribution width (RBC) [Ratio] 13.2 % Normal 11.6-14.6 [facility] Comment on above: Performed By: #### L 100.0100, L500.4050 ####[facility] [address] [place], [address] Hematocrit (Bld) [Volume fraction] 44.5 % Normal 40-54 [facility] Comment on above: Performed By: #### L 100.0100, L500.4050 ####[facility] [address] [place], [address] Hemoglobin (Bld) [Mass/Vol] 14.5 g/dL Normal 13.0-16.5 [facility] Comment on above: Performed By: #### L 100.0100, L500.4050 ####[facility] [address] [place], [address] IG% 0.500 Normal 0.0-0.9 [facility] Comment on above: Result Comment: IG% - Immature Granulocytes (promyelocytes, myelocytes and metamyelocytes) > 1% indicates that a LEFT SHIFT is Present. Performed By: #### L 100.0100, L500.4050 ####[facility] [address] [place], [address] Lymphocytes/100 WBC (Bld) 23.2 % Normal 19-41 [facility] Comment on above: Performed By: #### L 100.0100, L500.4050 ####[facility] [address] [place], [address] MCH (RBC) [Entitic mass] 30.7 pg Normal 27.0-32.0 [facility] Comment on above: Performed By: #### L 100.0100, L500.4050 ####[facility] [address] [place], [address] MCHC (RBC) [Mass/Vol] 32.6 g/dL Normal 32-36 [facility] Comment on above: Performed By: #### L 100.0100, L500.4050 ####[facility] [address] [place], [address] MCV (RBC) [Entitic vol] 94.1 fL High 80-94 [facility] Comment on above: Performed By: #### L 100.0100, L500.4050 ####[facility] [address] [place], [address] Monocytes/100 WBC (Bld) 8.0 % Normal 0-10 [facility] Comment on above: Performed By: #### L 100.0100, L500.4050 ####[facility] [address] [place], [address] Neutrophils/100 WBC (Bld) 63.7 % Normal 47-70 [facility] Comment on above: Performed By: #### L 100.0100, L500.4050 ####[facility] [address] [place], [address] Nucleated RBC (Bld) [#/Vol] 0 10*3/uL Normal 0-5 [facility] Comment on above: Performed By: #### L 100.0100, L500.4050 ####[facility] [address] [place], [address] Platelet mean volume (Bld) [Entitic vol] 10.9 fL Normal 6.2-12.0 [facility] Comment on above: Performed By: #### L 100.0100, L500.4050 ####[facility] [address] [place], [address] Platelets (Bld) [#/Vol] 204 10*3/uL Normal 150-450 [facility] Comment on above: Performed By: #### L 100.0100, L500.4050 ####[facility] [address] [place], [address] RBC (Bld) [#/Vol] 4.73 10*6/uL Normal 4.6-6.2 [facility] Comment on above: Performed By: #### L 100.0100, L500.4050 ####[facility] [address] [place], [address] RDW SD 45.2 fl High 35.1-43.9 [facility] Comment on above: Performed By: #### L 100.0100, L500.4050 ####[facility] [address] [place], [address] WBC (Bld) [#/Vol] 8.5 10*3/uL Normal 4.4-11.0 [facility] Comment on above: Performed By: #### L 100.0100, L500.4050 ####[facility] [address] [place], [address] Carbon dioxide measurementOr dered By: Bernarda Young on 07-31-2024 CO2 [Moles/Vol] 27.0 mmol/L 21.0-32.0 [facility] Chloride measurementOrdered By: Bernarda Young on 07-31-2024 Chloride [Moles/Vol] 108 mmol/L High 98-107 [facility] Comprehensive Metabolic Prof ilon 07-31-2024 Albumin [Mass/Vol] 3.2 g/dL Normal 3.2-5.0 [facility] Comment on above: Performed By: #### L 100.0100, L500.4050 ####[facility] [address] [place], [address] Albumin/Globulin [Mass ratio] 0.8 {ratio} Low 0.9-2.4 [facility] Comment on above: Performed By: #### L 100.0100, L500.4050 ####[facility] [address] [place], [address] ALK P 87 U/L Normal 45-117 [facility] Comment on above: Performed By: #### L 100.0100, L500.4050 ####[facility] [address] [place], [address] ALT [Catalytic activity/Vol] 19 U/L Normal 16-61 [facility] Comment on above: Performed By: #### L 100.0100, L500.4050 ####[facility] [address] [place], [address] AST [Catalytic activity/Vol] 12 U/L Low 15-37 [facility] Comment on above: Performed By: #### L 100.0100, L500.4050 ####[facility] [address] [place], [address] Bilirubin [Mass/Vol] 0.30 mg/dL Normal 0.20-1.00 [facility] Comment on above: Result Comment: For patients on eltrombopag therapy, use of Dimension [place] TBIL is not recommended. Performed By: #### L 100.0100, L500.4050 ####[facility] [address] [place], [address] BUN/CRE 14.2 RATIO Normal 10-20 [facility] Comment on above: Performed By: #### L 100.0100, L500.4050 ####[facility] [address] [place], [address] CA,Total 9.0 mg/dL Normal 8.5-10.1 [facility] Comment on above: Performed By: #### L 100.0100, L500.4050 ####[facility] [address] [place], [address] Chloride [Moles/Vol] 108 mmol/L High 98-107 [facility] Comment on above: Performed By: #### L 100.0100, L500.4050 ####[facility] [address] [place], [address] CO2 [Moles/Vol] 27.0 mmol/L Normal 21.0-32.0 [facility] Comment on above: Performed By: #### L 100.0100, L500.4050 ####[facility] [address] [place], [address] Creatinine [Mass/Vol] 1.06 mg/dL Normal 0.70-1.30 [facility] Comment on above: Result Comment: The validity of the calculated GFR GFRAA in patients over 70 years has not been determined. Clinical correlation is essential. Performed By: #### L 100.0100, L500.4050 ####[facility] [address] [place], [address] EST GFR - AA 91 mL/min Normal >60 [facility] Comment on above: Result Comment: Afri can [place] GFR Calc Performed By: #### L 100.0100, L500.4050 ####[facility] [address] [place], [address] GAP 2 Low 5-15 [facility] Comment on above: Performed By: #### L 100.0100, L500.4050 ####[facility] [address] [place], [address] GFR/1.73 sq M.predicted among non-blacks MDRD (S/P/Bld) [Vol rate/Area] 75 mL/min/{1.73_m2} Normal >60 [facility] Comment on above: Result Comment: Non- GFR Calc Performed By: #### L 100.0100, L500.4050 ####[facility] [address] [place], [address] Globulin (S) [Mass/Vol] 3.8 g/dL Normal 2.2-4.2 [facility] Comment on above: Performed By: #### L 100.0100, L500.4050 ####[facility] [address] [place], [address] Glucose [Mass/Vol] 92 mg/dL Normal 74-106 [facility] Comment on above: Performed By: #### L 100.0100, L500.4050 ####[facility] [address] [place], [address] Potassium [Moles/Vol] 4.4 mmol/L Normal 3.5-5.1 [facility] Comment on above: Performed By: #### L 100.0100, L500.4050 ####[facility] [address] [place], [address] Sodium [Moles/Vol] 137 mmol/L Normal 136-145 [facility] Comment on above: Performed By: #### L 100.0100, L500.4050 ####[facility] [address] [place], [address] T PROT 7.0 g/dL Normal 6.4-8.2 [facility] Comment on above: Performed By: #### L 100.0100, L500.4050 ####[facility] [address] [place], [address] Urea nitrogen [Mass/Vol] 15 mg/dL Normal 7-18 [facility] Comment on above: Performed By: #### L 100.0100, L500.4050 ####[facility] [address] [place], [address] Eosinophil percentageOrdered By: Bernarda Young on 07-31-2024 Eosinophils/100 WBC (Bld) 3.8 % 0-5 [facility] Erythrocyte distribution wid th (RBC) [Ratio]Ordered By: Bernarda Young on 07-31-2024 Erythrocyte distribution width (RBC) [Entitic vol] 45.2 fL High 35.1-43.9 [facility] Erythrocyte distribution wid th ratioOrdered By: Bernarda Young on 07-31-2024 Erythrocyte distribution width (RBC) [Ratio] 13.2 % 11.6-14.6 [facility] Estimated glomerular filtrat ion rate (GFR) AmericanOrdered By: Bernarda Young on 07-31-2024 Estimated GFR (MDRD) Amer 91 mL/min >60 [facility] Comment on above: GFR Calc Glomerular filtration rate ( GFR) estimationOrdered By: Bernarda Young on 12-27-2024 Estimated GFR (MDRD) Non-Af Amer 75 mL/min >60 [facility] Comment on above: Non- GFR Calc Glucose measurementOrdered B y: Bernarda Young on 07-31-2024 Glucose [Mass/Vol] 92 mg/dL 74-106 [facility] Hematocrit Auto (Bld) [Volum e fraction]Ordered By: Bernarda Young on 07-31-2024 Hematocrit (Bld) [Volume fraction] 44.5 % 40-54 [facility] Hemoglobin measurementOrdere d By: Bernarda Young on 07-31-2024 Hemoglobin (Bld) [Mass/Vol] 14.5 g/dL 13.0-16.5 [facility] Immature granulocytes/100 WB C Auto (Bld)Ordered By: Bernarda Young on 07-31-2024 Immature granulocytes/100 WBC (Bld) 0.500 % 0.0-0.9 [facility] Comment on above: IG% - Immature Granu locytes (promyelocytes, myelocytes and metamyelocytes) > 1% indicates that a LEFT SHIFT is Present. Laboratory - Chemistry and C hemistry - challengeOrdered By: Bernarda Young on 07-31-2024 AST [Catalytic activity/Vol] 12 U/L Low 15-37 [facility] Lymphocytes Auto (Unsp spec) [#/Vol]Ordered By: Bernarda Young on 07-31-2024 Lymphocytes (Bld) [#/Vol] 1.98 10*3/uL 0.83-4.51 [facility] Lymphocytes/100 WBC Auto (Un sp spec)Ordered By: Bernarda Young on 07-31-2024 Lymphocytes/100 WBC (Bld) 23.2 % 19-41 [facility] MCV (mean corpuscular volume ) determinationOrdered By: Bernarda Young on 07-31-2024 MCV (RBC) [Entitic vol] 94.1 fL High 80-94 [facility] Mean corpuscular hemoglobin (MCH) determinationOrdered By: Bernarda Young on 07-31-2024 MCH (RBC) [Entitic mass] 30.7 pg 27.0-32.0 [facility] Mean corpuscular hemoglobin concentration (MCHC) determinationOrdered By: Bernarda Young on 07-31-2024 MCHC (RBC) [Mass/Vol] 32.6 g/dL 32-36 [facility] Mean platelet volume determi nationOrdered By: Bernarda Young on 07-31-2024 Platelet mean volume (Bld) [Entitic vol] 10.9 fL 6.2-12.0 [facility] Monocyte percentageOrdered B y: Bernarda Young on 07-31-2024 Monocytes/100 WBC (Bld) 8.0 % 0-10 [facility] Neutrophil percentageOrdered By: Bernarda Young on 07-31-2024 Neutrophils/100 WBC (Bld) 63.7 % 47-70 [facility] Nucleated red blood cell per centageOrdered By: Bernarda Young on 07-31-2024 Nucleated RBC/100 WBC (Bld) [Ratio] 0 % 0-5 [facility] Platelet countOrdered By: Eder Young on 07-31-2024 Platelets (Bld) [#/Vol] 204 10*3/uL 150-450 [facility] Potassium measurementOrdered By: Bernarda Young on 07-31-2024 Potassium [Moles/Vol] 4.4 mmol/L 3.5-5.1 [facility] RBC Auto (Bld) [#/Vol]Ordere d By: Bernarda Young on 07-31-2024 RBC (Bld) [#/Vol] 4.73 10*6/uL 4.6-6.2 [facility] Serum anion gap measurementO rdered By: Bernarda Young on 07-31-2024 Anion gap [Moles/Vol] 2 mmol/L Low 5-15 [facility] Serum globulin measurementOr dered By: Bernarda Young on 07-31-2024 Globulin (S) [Mass/Vol] 3.8 g/dL 2.2-4.2 [facility] Serum or plasma alanine myers otransferase (ALT) measurementOrdered By: Bernarda Young on 07-31-2024 ALT [Catalytic activity/Vol] 19 U/L 16-61 [facility] Serum or plasma albumin rekha urement (mass/volume)Ordered By: Bernarda Young on 07-31-2024 Albumin [Mass/Vol] 3.2 g/dL 3.2-5.0 [facility] Serum or plasma alkaline shreyas sphatase measurementOrdered By: Bernarda Young on 07-31-2024 ALP [Catalytic activity/Vol] 87 U/L 45-117 [facility] Serum or plasma calcium rekha urement (mass/volume)Ordered By: Bernarda Young on 07-31-2024 Calcium [Mass/Vol] 9.0 mg/dL 8.5-10.1 [facility] Serum or plasma creatinine m easurement (mass/volume)Ordered By: Bernarda Young on 07-31-2024 Creatinine [Mass/Vol] 1.06 mg/dL 0.70-1.30 [facility] Comment on above: The validity of the calculated GFR & GFRAA in patients over 70 years has not been determined. Clinical correlation is essential. Serum or plasma urea nitroge n measurement (mass/volume)Ordered By: Bernarda Young on 07-31-2024 Urea nitrogen [Mass/Vol] 15 mg/dL 7-18 [facility] Sodium levelOrdered By: Cole Young on 07-31-2024 Sodium [Moles/Vol] 137 mmol/L 136-145 [facility] Total proteinOrdered By: Tracy Young on 07-31-2024 Protein [Mass/Vol] 7.0 g/dL 6.4-8.2 [facility] White blood cell (WBC) count Ordered By: Bernarda Young on 07-31-2024 WBC (Bld) [#/Vol] 8.5 10*3/uL 4.4-11.0 [facility] CBC W/Diff, Automatedon 10-0 Absolute Lymph 1.36 X10 3/uL Normal 0.83-4.51 [facility] Comment on above: Performed By: #### L 500.4050, L100.0100 ####[facility] [address] [place], [address] Absolute Neut 5.3 X10 3/uL Normal 2.0-7.7 [facility] Comment on above: Performed By: #### L 500.4050, L100.0100 ####[facility] [address] [place], [address] Basophils/100 WBC (Bld) 0.8 % Normal 0-1 [facility] Comment on above: Performed By: #### L 500.4050, L100.0100 ####[facility] [address] [place], [address] Eosinophils/100 WBC (Bld) 3.0 % Normal 0-5 [facility] Comment on above: Performed By: #### L 500.4050, L100.0100 ####[facility] [address] [place], [address] Erythrocyte distribution width (RBC) [Ratio] 13.8 % Normal 11.6-14.6 [facility] Comment on above: Performed By: #### L 500.4050, L100.0100 ####[facility] [address] [place], [address] Hematocrit (Bld) [Volume fraction] 45.9 % Normal 40-54 [facility] Comment on above: Performed By: #### L 500.4050, L100.0100 ####[facility] [address] [place], [address] Hemoglobin (Bld) [Mass/Vol] 15.1 g/dL Normal 13.0-16.5 [facility] Comment on above: Performed By: #### L 500.4050, L100.0100 ####[facility] [address] [place], [address] IG% 0.700 Normal 0.0-0.9 [facility] Comment on above: Result Comment: IG% - Immature Granulocytes (promyelocytes, myelocytes and metamyelocytes) > 1% indicates that a LEFT SHIFT is Present. Performed By: #### L 500.4050, L100.0100 ####[facility] [address] [place], [address] Lymphocytes/100 WBC (Bld) 18.0 % Low 19-41 [facility] Comment on above: Performed By: #### L 500.4050, L100.0100 ####[facility] [address] [place], [address] MCH (RBC) [Entitic mass] 31.2 pg Normal 27.0-32.0 [facility] Comment on above: Performed By: #### L 500.4050, L100.0100 ####[facility] [address] [place], [address] MCHC (RBC) [Mass/Vol] 32.9 g/dL Normal 32-36 [facility] Comment on above: Performed By: #### L 500.4050, L100.0100 ####[facility] [address] [place], [address] MCV (RBC) [Entitic vol] 94.8 fL High 80-94 [facility] Comment on above: Performed By: #### L 500.4050, L100.0100 ####[facility] [address] [place], [address] Monocytes/100 WBC (Bld) 8.1 % Normal 0-10 [facility] Comment on above: Performed By: #### L 500.4050, L100.0100 ####[facility] [address] [place], [address] Neutrophils/100 WBC (Bld) 69.4 % Normal 47-70 [facility] Comment on above: Performed By: #### L 500.4050, L100.0100 ####[facility] [address] [place], [address] Nucleated RBC (Bld) [#/Vol] 0 10*3/uL Normal 0-5 [facility] Comment on above: Performed By: #### L 500.4050, L100.0100 ####[facility] [address] [place], [address] Platelet mean volume (Bld) [Entitic vol] 11.0 fL Normal 6.2-12.0 [facility] Comment on above: Performed By: #### L 500.4050, L100.0100 ####[facility] [address] [place], [address] Platelets (Bld) [#/Vol] 208 10*3/uL Normal 150-450 [facility] Comment on above: Performed By: #### L 500.4050, L100.0100 ####[facility] [address] [place], [address] RBC (Bld) [#/Vol] 4.84 10*6/uL Normal 4.6-6.2 [facility] Comment on above: Performed By: #### L 500.4050, L100.0100 ####[facility] [address] [place], [address] RDW SD 47.7 fl High 35.1-43.9 [facility] Comment on above: Performed By: #### L 500.4050, L100.0100 ####[facility] [address] [place], [address] WBC (Bld) [#/Vol] 7.6 10*3/uL Normal 4.4-11.0 [facility] Comment on above: Performed By: #### L 500.4050, L100.0100 ####[facility] [address] [place], [address] Comprehensive Metabolic Prof ilon 05-08-2024 Albumin [Mass/Vol] 3.4 g/dL Normal 3.2-5.0 [facility] Comment on above: Performed By: #### L 500.4050, L100.0100 ####[facility] [address] [place], [address] Albumin/Globulin [Mass ratio] 0.8 {ratio} Low 0.9-2.4 [facility] Comment on above: Performed By: #### L 500.4050, L100.0100 ####[facility] [address] [place], [address] ALK P 89 U/L Normal 45-117 [facility] Comment on above: Performed By: #### L 500.4050, L100.0100 ####[facility] [address] [place], [address] ALT [Catalytic activity/Vol] 23 U/L Normal 16-61 [facility] Comment on above: Performed By: #### L 500.4050, L100.0100 ####[facility] [address] [place], [address] AST [Catalytic activity/Vol] 13 U/L Low 15-37 [facility] Comment on above: Performed By: #### L 500.4050, L100.0100 ####[facility] [address] [place], [address] Bilirubin [Mass/Vol] 0.40 mg/dL Normal 0.20-1.00 [facility] Comment on above: Result Comment: For patients on eltrombopag therapy, use of Dimension [place] TBIL is not recommended. Performed By: #### L 500.4050, L100.0100 ####[facility] [address] [place], [address] BUN/CRE 12.8 RATIO Normal 10-20 [facility] Comment on above: Performed By: #### L 500.4050, L100.0100 ####[facility] [address] [place], [address] CA,Total 9.4 mg/dL Normal 8.5-10.1 [facility] Comment on above: Performed By: #### L 500.4050, L100.0100 ####[facility] [address] [place], [address] Chloride [Moles/Vol] 108 mmol/L High 98-107 [facility] Comment on above: Performed By: #### L 500.4050, L100.0100 ####[facility] [address] [place], [address] CO2 [Moles/Vol] 30.0 mmol/L Normal 21.0-32.0 [facility] Comment on above: Performed By: #### L 500.4050, L100.0100 ####[facility] [address] [place], [address] Creatinine [Mass/Vol] 1.09 mg/dL Normal 0.70-1.30 [facility] Comment on above: Result Comment: The validity of the calculated GFR GFRAA in patients over 70 years has not been determined. Clinical correlation is essential. Performed By: #### L 500.4050, L100.0100 ####[facility] [address] [place], [address] EST GFR - AA 88 mL/min Normal >60 [facility] Comment on above: Result Comment: Afri can [place]ian GFR Calc Performed By: #### L 500.4050, L100.0100 ####[facility] [address] [place], [address] GAP 3 Low 5-15 [facility] Comment on above: Performed By: #### L 500.4050, L100.0100 ####[facility] [address] [place], [address] GFR/1.73 sq M.predicted among non-blacks MDRD (S/P/Bld) [Vol rate/Area] 72 mL/min/{1.73_m2} Normal >60 [facility] Comment on above: Result Comment: Non- GFR Calc Performed By: #### L 500.4050, L100.0100 ####[facility] [address] [place], [address] Globulin (S) [Mass/Vol] 4.0 g/dL Normal 2.2-4.2 [facility] Comment on above: Performed By: #### L 500.4050, L100.0100 ####[facility] [address] [place], [address] Glucose [Mass/Vol] 96 mg/dL Normal 74-106 [facility] Comment on above: Performed By: #### L 500.4050, L100.0100 ####[facility] [address] [place], [address] Potassium [Moles/Vol] 4.9 mmol/L Normal 3.5-5.1 [facility] Comment on above: Performed By: #### L 500.4050, L100.0100 ####[facility] [address] [place], [address] Sodium [Moles/Vol] 141 mmol/L Normal 136-145 [facility] Comment on above: Performed By: #### L 500.4050, L100.0100 ####[facility] [address] [place], [address] T PROT 7.4 g/dL Normal 6.4-8.2 [facility] Comment on above: Performed By: #### L 500.4050, L100.0100 ####[facility] [address] [place], [address] Urea nitrogen [Mass/Vol] 14 mg/dL Normal 7-18 [facility] Comment on above: Performed By: #### L 500.4050, L100.0100 ####[facility] [address] [place], [address] CT THORAX SCREENING W/O CONT EDWINTon 03-20-2024 CT THORAX SCREENING W/O CONTRAST ORIGINAL [...] Date: 03/20/2024 3:41:33 PM Ordering Provider: MARIS [facility] ([place]) GLUon 03-20-2024 Glucose [Mass/Vol] 94 mg/dL Normal 80-115 [facility]) Comment on above: Performed By: #### G MIS, LIPID #### [place] [address] LABORATORYOrdered By: Keynon Patton on 03-20-2024 Cholesterol [Mass/Vol] 160 mg/dL [...] 03-20-2024 Cholesterol [Mass/Vol] 160 mg/dL Normal 0-200 [facility] ([place]) Comment on above: Result Comment: Chol esterol Reference Interval: Less than 200 Desirable 200-239 Borderline high risk 240 and above High risk Performed By: #### Rosendo ABEBE, LIPID #### [address] [address] Cholesterol in HDL [Mass/Vol] 56 mg/dL Normal 40-60 [facility] Comment on above: Performed By: #### Rosendo ABEBE, LIPID #### [address] [address] Cholesterol in LDL [Mass/Vol] 91 mg/dL Normal 0-130 [facility] [place] Comment on above: Performed By: #### Rosendo ABEBE, LIPID #### [address] [address] Triglyceride [Mass/Vol] 66 mg/dL Normal 0-150 [facility] ([place]) Comment on above: Result Comment: Trig lyceride Reference Interval: Less than 150 Normal 150-199 Borderline high risk 200-499 High risk 500 or higher Very high risk Performed By: #### Rosendo ABEBE, LIPID #### [address] [address] GLUon 02-27-2024 Glucose [Mass/Vol] 82 mg/dL Normal 80-115 [facility] ([place]) Comment on above: Performed By: #### L IPID, GLU, PSA #### [address] [address] LABORATORYOrdered By: Kenyon Patton on 02-27-2024 Cholesterol [...] 02-27-2024 Cholesterol [Mass/Vol] 163 mg/dL Normal 0-200 [facility] ([place]) Comment on above: Result Comment: Chol esterol Reference Interval: Less than 200 Desirable 200-239 Borderline high risk 240 and above High risk Performed By: #### L IPID, GLU, PSA #### [address] [address] Cholesterol in HDL [Mass/Vol] 57 mg/dL Normal 40-60 [facility] [place] Comment on above: Performed By: #### L IPID, GLU, PSA #### [address] [address] Cholesterol in LDL [Mass/Vol] 93 mg/dL Normal 0-130 [facility] [place] Comment on above: Performed By: #### L IPID, GLU, PSA #### [address] [place], [place] [address] Triglyceride [Mass/Vol] 64 mg/dL Normal 0-150 [facility] ([place]) Comment on above: Result Comment: Trig lyceride Reference Interval: Less than 150 Normal 150-199 Borderline high risk 200-499 High risk 500 or higher Very high risk Performed By: #### L IPID, GLU, PSA #### [address] [place], [place] [address] PSAon 02-27-2024 Prostate Specific Antigen 0.40 ng/mL Normal 0.00-4.00 [facility] ([place] Comment on above: Performed By: #### L IPID, GLU, PSA #### [address] [place], [place] [address] Absolute lymphocyte countOrd ered By: Bernarda Young on 11-22-2023 Lymphocytes Auto (Unsp spec) [#/Vol] 1.71 10*3/uL 0.83-4.51 [facility] Automated lymphocyte count a s percentage of total leukocytesOrdered By: Bernarda Young on 11-22-2023 Lymphocytes/100 WBC Auto (Unsp spec) 21.0 % 19-41 [facility] Basophil percentageOrdered B y: Bernarda Young on 11-22-2023 Basophils/100 WBC (Bld) 0.6 % 0-1 [facility] Bilirubin [Mass/Vol] 0.40 mg/dL 0.20-1.00 [facility] Comment on above: For patients on eltr ombopag therapy, use of Dimension [place] TBIL is not recommended. Chloride [Moles/Vol] 108 mmol/L 98-107 [facility] Eosinophils/100 WBC (Bld) 3.3 % 0-5 [facility] Glucose [Mass/Vol] 84 mg/dL 74-106 [facility] Hemoglobin (Bld) [Mass/Vol] 14.8 g/dL 13.0-16.5 [facility] Monocytes/100 WBC (Bld) 6.9 % 0-10 [facility] Neutrophils (Bld) [#/Vol] 5.5 10*3/uL 2.0-7.7 [facility] Neutrophils/100 WBC (Bld) 67.3 % 47-70 [facility] Potassium [Moles/Vol] 4.5 mmol/L 3.5-5.1 [facility] Protein [Mass/Vol] 7.5 g/dL 6.4-8.2 [facility] Sodium [Moles/Vol] 139 mmol/L 136-145 [facility] WBC (Bld) [#/Vol] 8.1 10*3/uL 4.4-11.0 [facility] Determination of erythrocyte mean corpuscular volume (MCV)Ordered By: Bernarda Young on 11-22-2023 MCV (RBC) [Entitic vol] 91.8 fL 80-94 [facility] Erythrocyte distribution wid th ratioOrdered By: Bernarda Young on 11-22-2023 Erythrocyte distribution width (RBC) [Ratio] 13.3 % 11.6-14.6 [facility] Erythrocyte distribution wid th standard deviationOrdered By: Bernarda Young on 11-22-2023 Erythrocyte distribution width (RBC) [Entitic vol] 44.1 fL 35.1-43.9 [facility] Hematocrit Auto (Bld) [Volum e fraction]Ordered By: Bernarda Young on 11-22-2023 Hematocrit (Bld) [Volume fraction] 42.8 % 40-54 [facility] Immature granulocytes/100 WB C Auto (Bld)Ordered By: Bernarda Young on 11-22-2023 Immature granulocytes/100 WBC (Bld) 0.900 % 0.0-0.9 [facility] Comment on above: IG% - Immature Granu locytes (promyelocytes, myelocytes and metamyelocytes) > 1% indicates that a LEFT SHIFT is Present. Laboratory - Chemistry and C hemistry - challengeOrdered By: Bernarda Young on 11-22-2023 Albumin/Globulin [Mass ratio] 0.9 {ratio} 0.9-2.4 [facility] ALP [Catalytic activity/Vol] 87 U/L 45-117 [facility] ALT [Catalytic activity/Vol] 20 U/L 16-61 [facility] CO2 [Moles/Vol] 27.0 mmol/L 21.0-32.0 [facility] Globulin (S) [Mass/Vol] 3.9 g/dL 2.2-4.2 [facility] Urea nitrogen/Creatinine [Mass ratio] 16.0 mg/mg 10-20 [facility] Laboratory - Hematology and Cell countsOrdered By: Bernarda Young on 11-22-2023 MCH (RBC) [Entitic mass] 31.8 pg 27.0-32.0 [facility] MCHC (RBC) [Mass/Vol] 34.6 g/dL 32-36 [facility] Nucleated RBC/100 WBC (Bld) [Ratio] 0 % 0-5 [facility] Platelet mean volume (Bld) [Entitic vol] 10.9 fL 6.2-12.0 [facility] Platelets (Bld) [#/Vol] 205 10*3/uL 150-450 [facility] No Panel InformationOrdered By: Bernarda Young on 11-22-2023 Estimated GFR (MDRD) Amer 91 mL/min >60 [facility] Comment on above: GFR Calc Estimated GFR (MDRD) Non-Af Amer 75 mL/min >60 [facility] Comment on above: Non- GFR Calc RBC Auto (Bld) [#/Vol]Ordere d By: Bernarda Young on 11-22-2023 RBC (Bld) [#/Vol] 4.66 10*6/uL 4.6-6.2 [facility] Serum or plasma calcium rekha urement (mass/volume)Ordered By: Bernarda Young on 11-22-2023 Calcium [Mass/Vol] 9.1 mg/dL 8.5-10.1 [facility] Serum or plasma creatinine m easurement (mass/volume)Ordered By: Bernarda Young on 11-22-2023 Creatinine [Mass/Vol] 1.06 mg/dL 0.70-1.30 [facility] Comment on above: The validity of the calculated GFR & GFRAA in patients over 70 years has not been determined. Clinical correlation is essential. Serum or plasma urea nitroge n measurement (mass/volume)Ordered By: Bernarda Young on 11-22-2023 Urea nitrogen [Mass/Vol] 17 mg/dL 7-18 [facility] Thin prep Papanicolaou smear with manual screeningOrdered By: Bernarda Young on 11-22-2023 Thin prep Papanicolaou smear with manual screening 3.6 g/dL 3.2-5.0 [facility] Thin prep Papanicolaou smear with manual screening 16 U/L 15-37 [facility] Thin prep Papanicolaou smear with manual screening 4 5-15 [facility] Absolute lymphocyte countOrd ered By: Bernarda Young on 08-28-2023 Lymphocytes Auto (Unsp spec) [#/Vol] 1.73 10*3/uL 0.83-4.51 [facility] Automated lymphocyte count a s percentage of total leukocytesOrdered By: Bernarda Young on 08-28-2023 Lymphocytes/100 WBC Auto (Unsp spec) 22.1 % 19-41 [facility] Basophil percentageOrdered B y: Bernarda Young on 08-28-2023 Basophils/100 WBC (Bld) 0.9 % 0-1 [facility] Bilirubin [Mass/Vol] 0.40 mg/dL 0.20-1.00 [facility] Comment on above: For patients on eltr ombopag therapy, use of Dimension [place] TBIL is not recommended. Chloride [Moles/Vol] 110 mmol/L 98-107 [facility] Eosinophils/100 WBC (Bld) 5.0 % 0-5 [facility] Glucose [Mass/Vol] 80 mg/dL 74-106 [facility] Hemoglobin (Bld) [Mass/Vol] 14.5 g/dL 13.0-16.5 [facility] Monocytes/100 WBC (Bld) 6.9 % 0-10 [facility] Neutrophils (Bld) [#/Vol] 5.1 10*3/uL 2.0-7.7 [facility] Neutrophils/100 WBC (Bld) 64.6 % 47-70 [facility] Potassium [Moles/Vol] 4.2 mmol/L 3.5-5.1 [facility] Protein [Mass/Vol] 7.2 g/dL 6.4-8.2 [facility] Sodium [Moles/Vol] 139 mmol/L 136-145 [facility] WBC (Bld) [#/Vol] 7.8 10*3/uL 4.4-11.0 [facility] Determination of erythrocyte mean corpuscular volume (MCV)Ordered By: Bernarda Young on 08-28-2023 MCV (RBC) [Entitic vol] 94.1 fL 80-94 [facility] Erythrocyte distribution wid th ratioOrdered By: Bernarda Young on 08-28-2023 Erythrocyte distribution width (RBC) [Ratio] 13.5 % 11.6-14.6 [facility] Erythrocyte distribution wid th standard deviationOrdered By: Bernarda Young on 08-28-2023 Erythrocyte distribution width (RBC) [Entitic vol] 45.5 fL 35.1-43.9 [facility] Hematocrit Auto (Bld) [Volum e fraction]Ordered By: Bernarda Young on 08-28-2023 Hematocrit (Bld) [Volume fraction] 43.3 % 40-54 [facility] Immature granulocytes/100 WB C Auto (Bld)Ordered By: Bernarda Young on 08-28-2023 Immature granulocytes/100 WBC (Bld) 0.500 % 0.0-0.9 [facility] Comment on above: IG% - Immature Granu locytes (promyelocytes, myelocytes and metamyelocytes) > 1% indicates that a LEFT SHIFT is Present. Laboratory - Chemistry and C hemistry - challengeOrdered By: Bernarda Young on 08-28-2023 Albumin/Globulin [Mass ratio] 0.9 {ratio} 0.9-2.4 [facility] ALP [Catalytic activity/Vol] 84 U/L 45-117 [facility] ALT [Catalytic activity/Vol] 24 U/L 16-61 [facility] CO2 [Moles/Vol] 28.0 mmol/L 21.0-32.0 [facility] Globulin (S) [Mass/Vol] 3.8 g/dL 2.2-4.2 [facility] Urea nitrogen/Creatinine [Mass ratio] 15.2 mg/mg 10-20 [facility] Laboratory - Hematology and Cell countsOrdered By: Bernarda Young on 08-28-2023 MCH (RBC) [Entitic mass] 31.5 pg 27.0-32.0 [facility] MCHC (RBC) [Mass/Vol] 33.5 g/dL 32-36 [facility] Nucleated RBC/100 WBC (Bld) [Ratio] 0 % 0-5 [facility] Platelets (Bld) [#/Vol] 232 10*3/uL 150-450 [facility] No Panel InformationOrdered By: Bernarda Young on 08-28-2023 Estimated GFR (MDRD) Amer 106 mL/min >60 [facility] Comment on above: GFR Calc Estimated GFR (MDRD) Non-Af Amer 88 mL/min >60 [facility] Comment on above: Non- GFR Calc Platelet mean volume Ronaldo-Ec ker (Bld) [Entitic vol]Ordered By: Bernarda Young on 08-28-2023 Platelet mean volume (Bld) [Entitic vol] 10.6 fL 6.2-12.0 [facility] RBC Auto (Bld) [#/Vol]Ordere d By: Bernarda Young on 08-28-2023 RBC (Bld) [#/Vol] 4.60 10*6/uL 4.6-6.2 [facility] Serum or plasma calcium rekha urement (mass/volume)Ordered By: Bernarda Young on 08-28-2023 Calcium [Mass/Vol] 9.4 mg/dL 8.5-10.1 [facility] Serum or plasma creatinine m easurement (mass/volume)Ordered By: Bernarda Young on 08-28-2023 Creatinine [Mass/Vol] 0.92 mg/dL 0.70-1.30 [facility] Comment on above: The validity of the calculated GFR & GFRAA in patients over 70 years has not been determined. Clinical correlation is essential. Serum or plasma urea nitroge n measurement (mass/volume)Ordered By: Bernarda Young on 08-28-2023 Urea nitrogen [Mass/Vol] 14 mg/dL 7-18 [facility] Thin prep Papanicolaou smear with manual screeningOrdered By: Bernarda Young on 08-28-2023 Thin prep Papanicolaou smear with manual screening 3.4 g/dL 3.2-5.0 [facility] Thin prep Papanicolaou smear with manual screening 13 U/L 15-37 [facility] Thin prep Papanicolaou smear with manual screening 1 5-15 [facility] Absolute lymphocyte countOrd ered By: Bernarda Young on 05-14-2023 Lymphocytes Auto (Unsp spec) [#/Vol] 1.86 10*3/uL 0.83-4.51 [facility] Basophil percentageOrdered B y: Bernarda Young on 05-14-2023 Basophils/100 WBC (Bld) 0.8 % 0-1 [facility] Bilirubin [Mass/Vol] 0.50 mg/dL 0.20-1.00 [facility] Comment on above: For patients on eltr ombopag therapy, use of Dimension [place] TBIL is not recommended. Chloride [Moles/Vol] 107 mmol/L 98-107 [facility] Eosinophils/100 WBC (Bld) 3.4 % 0-5 [facility] Glucose [Mass/Vol] 94 mg/dL 74-106 [facility] Neutrophils (Bld) [#/Vol] 5.1 10*3/uL 2.0-7.7 [facility] Neutrophils/100 WBC (Bld) 65.3 % 47-70 [facility] Potassium [Moles/Vol] 4.7 mmol/L 3.5-5.1 [facility] Protein [Mass/Vol] 7.9 g/dL 6.4-8.2 [facility] Sodium [Moles/Vol] 139 mmol/L 136-145 [facility] WBC (Bld) [#/Vol] 7.9 10*3/uL 4.4-11.0 [facility] Blood erythrocytes count (nu mber/volume)Ordered By: Bernarda Young on 05-14-2023 RBC (Bld) [#/Vol] 5.08 10*6/uL 4.6-6.2 [facility] Blood hemoglobin measurement (mass/volume)Ordered By: Bernarda Young on 05-14-2023 Hemoglobin (Bld) [Mass/Vol] 15.8 g/dL 13.0-16.5 [facility] Blood lymphocytes/100 leukoc ytesOrdered By: Bernarda Young on 05-14-2023 Lymphocytes/100 WBC (Bld) 23.7 % 19-41 [facility] Blood monocytes/100 leukocyt esOrdered By: Bernarda Young on 05-14-2023 Monocytes/100 WBC (Bld) 5.9 % 0-10 [facility] Blood platelet mean volumeOr dered By: Bernarda Young on 05-14-2023 Platelet mean volume (Bld) [Entitic vol] 10.9 fL 6.2-12.0 [facility] Determination of erythrocyte mean corpuscular volume (MCV)Ordered By: Bernarda Young on 05-14-2023 MCV (RBC) [Entitic vol] 96.1 fL 80-94 [facility] Erythrocyte sedimentation ra teOrdered By: Bernarda Young on 05-14-2023 ESR (Bld) [Velocity] 13 mm/h 0-20 [facility] Hematocrit Auto (Bld) [Volum e fraction]Ordered By: Bernarda Young on 05-14-2023 Hematocrit (Bld) [Volume fraction] 48.8 % 40-54 [facility] Laboratory - Chemistry and C hemistry - challengeOrdered By: [facility] Hector on 05-14-2023 ALP [Catalytic activity/Vol] 89 U/L 45-117 [facility] ALT [Catalytic activity/Vol] 31 U/L 16-61 [facility] CO2 [Moles/Vol] 29.0 mmol/L 21.0-32.0 [facility] Globulin (S) [Mass/Vol] 4.4 g/dL 2.2-4.2 [facility] Urea nitrogen/Creatinine [Mass ratio] 13.8 mg/mg 10-20 [facility] Laboratory - Hematology and Cell countsOrdered By: Bernardayariel Young on 05-14-2023 Erythrocyte distribution width (RBC) [Entitic vol] 47.9 fL 35.1-43.9 [facility] Erythrocyte distribution width (RBC) [Ratio] 13.6 % 11.6-14.6 [facility] Immature granulocytes/100 WBC (Bld) 0.900 % 0.0-0.9 [facility] Comment on above: IG% - Immature Granu locytes (promyelocytes, myelocytes and metamyelocytes) > 1% indicates that a LEFT SHIFT is Present. MCH (RBC) [Entitic mass] 31.1 pg 27.0-32.0 [facility] Nucleated RBC/100 WBC (Bld) [Ratio] 0 % 0-5 [facility] MCHC Auto (RBC) [Mass/Vol]Or dered By: Bernarda Young on 05-14-2023 MCHC (RBC) [Mass/Vol] 32.4 g/dL 32-36 [facility] No Panel InformationOrdered By: Bernarda Young on 05-14-2023 Estimated GFR (MDRD) Amer 104 mL/min >60 [facility] Comment on above: GFR Calc Estimated GFR (MDRD) Non-Af Amer 86 mL/min >60 [facility] Comment on above: Non- GFR Calc Hepatitis B Surface Antigen Non-Reactive Nonreactive [facility] Hepatitis C Antibody Non-Reactive Nonreactive [facility] Comment on above: Non Reactive: < 0.8 Equivocal: >/= 0.8 to < 1.0 Reactive: >/= 1.0The CDC recommends that a reactive/equivocal HCV antibody result be followed up by the HCV Nucleic Acid Amplificationtest ([id number]) Platelets bldOrdered By: Tracy Yuong on 05-14-2023 Platelets (Bld) [#/Vol] 234 10*3/uL 150-450 [facility] Serum cyclic citrullinated p eptide IgG antibody assay (units/volume)Ordered By: Bernarda Young on 05-14-2023 Cyclic citrullinated peptide IgG Qn > 250 units 0-19 [facility] Comment on above: Negative <20 Weak po sitive 20 - 39 Moderate positive 40 - 59 Strong positive >59Performed at: - [facility] [id number] Director: Lazaro Mims PhD, Phone: [phone] Serum hepatitis B virus surf ramin antibody IgG detectionOrdered By: Bernarda Young on 05-14-2023 HBV surface IgG Ql (S) Non-Reactive [facility] Comment on above: Non Reactive: Incons istent with immunity less than <10 mIU/mL Reactive: Consistent with immunity greater than or equal to 10 mIU/mL Serum or plasma C reactive p rotein measurement (mass/volume)Ordered By: Bernarda Young on 05-14-2023 CRP [Mass/Vol] 6.63 mg/L 0.0-3.0 [facility] Comment on above: C-Reactive Protein ( CRP) provides useful information for thediagnosis, therapy and monitoring of inflammatory processesand associated diseases. For the evaluation of Relative Riskfor Cardiovascular Disease, a High Sensitivity CRP (HSCRP)should be ordered. Serum or plasma albumin rekha urement (mass/volume)Ordered By: Bernarda Young on 05-14-2023 Albumin [Mass/Vol] 3.5 g/dL 3.2-5.0 [facility] Serum or plasma albumin/glob ulin mass ratioOrdered By: Bernarda Young on 05-14-2023 Albumin/Globulin [Mass ratio] 0.8 {ratio} 0.9-2.4 [facility] Serum or plasma calcium rekha urement (mass/volume)Ordered By: Bernarda Young on 05-14-2023 Calcium [Mass/Vol] 9.4 mg/dL 8.5-10.1 [facility] Serum or plasma creatinine m easurement (mass/volume)Ordered By: Bernarda Young on 05-14-2023 Creatinine [Mass/Vol] 0.94 mg/dL 0.70-1.30 [facility] Comment on above: The validity of the calculated GFR & GFRAA in patients over 70 years has not been determined. Clinical correlation is essential. Serum or plasma urea nitroge n measurement (mass/volume)Ordered By: Bernarda Young on 05-14-2023 Urea nitrogen [Mass/Vol] 13 mg/dL 7-18 [facility] Serum rheumatoid factor dete ctionOrdered By: Bernarda Young on 05-14-2023 Rheumatoid factor Ql (S) 358.0 IU/mL <15 [facility] Thin prep Papanicolaou smear with manual screeningOrdered By: Bernarda Young on 05-14-2023 Thin prep Papanicolaou smear with manual screening 15 U/L 15-37 [facility] Thin prep Papanicolaou smear with manual screening 3 5-15 [facility] LABORATORYOrdered By: [employer] on 01-08-2023 Albumin BCP dye [Mass/Vol] [...] 10.8 10^3/mcL AO Workflow SS LABORATORYOrdered By: [employer] [facility] on 09-03-2022 Albumin BCP dye [Mass/Vol] [...] ml/min/1.73sqm Invalid Interpretation Code AO Chemistry S KIMOVon 10-14-2019 CNOV Office Visit (UCWSTR ) ALEJANDROALINA ([id number]) 1960 M Date Time Provider Department 10/14/19 11:00 AM ABRIL KUMAR) [facility] During your visit today, we recorded the [...] by ABRIL KUMAR PA-C on 10/14/19 Normal [facility] PROGRESSon 10-14-2019 PROGRESS HNO ID: [id number] Author: Abril Kumar (Pa) Service: ? Author Type: Physician Stud Sheep Farmer Type: Progress Notes Filed: 10/14/2019 2:30 PM [...] agreeable with plan. Abril Kumar PA-C Normal [facility] Office Visit: evaluation cru sh injury left thumb and open fx distal phalanxon 01-16-2017 Alcoholism counseling (procedure) no Invalid Interpretation Code [facility] Work Phone: [phone] Dietary management education, guidance, and counseling (procedure) yes Invalid Interpretation Code [facility] Work Phone: [phone] Documentation of current medications (procedure) Done Invalid Interpretation Code [facility] Work Phone: [phone] Fall risk assessment No [facility] Work Phone: [phone] Protein mass conc Done [facility] Work Phone: [phone] Protein mass conc no [facility] Work Phone: [phone] Protein mass conc yes [facility] Work Phone: [phone] Smoking cessation education (procedure) yes Invalid Interpretation Code [facility] Work Phone: [phone] Tobacco smoking status NHIS Never [facility] Work Phone: [phone] Tobacco smoking status NHIS Current every day smoker [facility] Work Phone: [phone] Tobacco use [facility] Current every day smoker Invalid Interpretation Code [facility] Work Phone: [phone] Office Visit: evaluation cru sh injury left thumb and open fx distal phalanxon 12-03-2016 Alcoholism counseling (procedure) no Invalid Interpretation Code [facility] Work Phone: [phone] Dietary management education, guidance, and counseling (procedure) yes Invalid Interpretation Code [facility] Work Phone: [phone] Documentation of current medications (procedure) Done Invalid Interpretation Code [facility] Work Phone: [phone] Fall risk assessment No Invalid Interpretation Code [facility] Work Phone: [phone] Protein mass conc Done [facility] Work Phone: [phone] Protein mass conc no [facility] Work Phone: [phone] Protein mass conc yes [facility] Work Phone: [phone] Smoking cessation education (procedure) yes Invalid Interpretation Code [facility] Work Phone: [phone] Tobacco smoking status NHIS Never Invalid Interpretation Code [facility] Work Phone: [phone] Tobacco smoking status NHIS Current every day smoker [facility] Work Phone: [phone] Tobacco use [facility] Current every day smoker Invalid Interpretation Code [facility] Work Phone: [phone] Office Visit: evaluation cru sh injury left thumb and open fx distal phalanxon 11-19-2016 Alcoholism counseling (procedure) no Invalid Interpretation Code [facility] Work Phone: [phone] Dietary management education, guidance, and counseling (procedure) yes Invalid Interpretation Code [facility] Work Phone: [phone] Documentation of current medications (procedure) Done Invalid Interpretation Code [facility] Work Phone: [phone] Fall risk assessment No Invalid Interpretation Code [facility] Work Phone: [phone] Smoking cessation education (procedure) yes Invalid Interpretation Code [facility] Work Phone: [phone] Tobacco smoking status NHIS Never Invalid Interpretation Code [facility] Work Phone: [phone] Tobacco use [facility] Current every day smoker Invalid Interpretation Code [facility] Work Phone: [phone] Vital Signs Date Time Vital Sign Value Performing Clinician Facility 02-28-2025 03:47-0400 Body temperature 98.4 [degF] Maris Duran [employer] [employer] Work Phone: [facility] 02-28-2025 03:47-0400 Diastolic blood pressure 81 mm[Hg] Maris Duran [employer] Work Phone: [facility] 02-28-2025 03:47-0400 Heart rate 79 /min Maris Duran [employer] Work Phone: [facility] 02-28-2025 03:47-0400 Respiratory rate 18 /min Maris Duran [employer] Work Phone: [facility] 02-28-2025 03:47-0400 SaO2% (BldA) [Mass fraction] 99 % Maris Duran [employer] Work Phone: [facility] 02-28-2025 03:47-0400 Systolic blood pressure 137 mm[Hg] Maris Duran [employer] Work Phone: [facility] 02-28-2025 02:33-0400 Body height 182.88 cm Maris Kennedi [employer] Work Phone: [facility] 12-21-2024 09:05-0400 Diastolic Blood Pressure Non-Invasive 74 mm[Hg] DR LAZARO CERVANTES MD [facility] 12-21-2024 09:05-0400 Heart rate 61 /min DR LAZARO CERVANTES MD [facility] 12-21-2024 09:05-0400 Respiratory rate 17 /min DR LAZARO CERVANTES MD [facility] 12-21-2024 09:05-0400 Systolic Blood Pressure Non-Invasive 125 mm[Hg] DR LAZARO CERVANTES MD [facility] 12-21-2024 09:00-0400 Diastolic Blood Pressure Non-Invasive 72 mm[Hg] DR LAZARO CERVANTES MD [facility] 12-21-2024 09:00-0400 Heart rate 56 /min DR LAZARO CERVANTES MD [facility] 12-21-2024 09:00-0400 Respiratory rate 15 /min DR LAZARO CERVANTES MD [facility] 12-21-2024 09:00-0400 Systolic Blood Pressure Non-Invasive 113 mm[Hg] DR LAZARO CERVANTES MD [facility] 12-21-2024 08:56-0400 Diastolic Blood Pressure Non-Invasive 70 mm[Hg] DR LAZARO CERVANTES MD [facility] 12-21-2024 08:56-0400 Heart rate 58 /min DR LAZARO CERVANTES MD [facility] 12-21-2024 08:56-0400 Respiratory rate 17 /min DR LAZARO CERVANTES MD [facility] 12-21-2024 08:56-0400 Systolic Blood Pressure Non-Invasive 110 mm[Hg] DR LAZARO CERVANTES MD [facility] 12-21-2024 08:47-0400 Body temperature 97.34 [degF] DR LAZARO CERVANTES MD [facility] 12-21-2024 08:45-0400 Respiratory Rate - Anes 18 br/min DR LAZARO CERVANTES MD [facility] 12-21-2024 08:40-0400 Respiratory Rate - Anes 19 br/min DR LAZARO CERVANTES MD [facility] 12-21-2024 08:35-0400 Respiratory Rate - Anes 15 br/min DR LAZARO CERVANTES MD [facility] 12-21-2024 07:53-0400 Body temperature 97.34 [degF] DR LAZARO CERVANTES MD [facility] 12-21-2024 07:53-0400 Heart rate 60 /min DR LAZARO CERVANTES MD [facility] 12-21-2024 07:50-0400 Body height [address] LAZARO CERVANTES MD [facility] 12-21-2024 07:50-0400 Body weight 93.[address] LAZARO CERVANTES MD [facility] 12-21-2024 07:50-0400 Body weight 28.14 kg/m2 DR LAZARO CERVANTES MD [facility] 09-24-2024 23:07-0500 Body temperature 97.9 [degF] Maris Kennedi [employer] Work Phone: [facility] 09-24-2024 23:07-0500 Diastolic blood pressure 84 mm[Hg] Maris Duran [employer] Work Phone: [facility] 09-24-2024 23:07-0500 Heart rate 78 /min Maris Duran [employer] Work Phone: [facility] 09-24-2024 23:07-0500 Respiratory rate 26 /min Maris Duran [employer] Work Phone: [facility] 09-24-2024 23:07-0500 SaO2% (BldA) [Mass fraction] 95 % Maris Duran [employer] Work Phone: [facility] 09-24-2024 23:07-0500 Systolic blood pressure 138 mm[Hg] Maris Duran [employer] Work Phone: [facility] 09-24-2024 18:25-0500 Body height 15.24 cm Mairs Duran [employer] Work Phone: [facility] 10-23-2023 15:09-0400 Body height 182.88 cm [employer] Maris Duran [employer] Work Phone: [facility] 10-23-2023 15:09-0400 Body mass index (BMI) [Ratio] 27.6 kg/m2 [employer] Maris Duran [employer] Work Phone: [facility] 10-23-2023 15:09-0400 Body temperature 96.9 [degF] [employer] Maris Duran [employer] Work Phone: [facility] 10-23-2023 15:09-0400 Body weight 92.2 kg [employer] Maris Duran [employer] Work Phone: [facility] 10-23-2023 15:09-0400 Diastolic blood pressure 82 mm[Hg] [employer] Maris Duran [employer] Work Phone: [facility] 10-23-2023 15:09-0400 Heart rate 79 /min [employer] Maris Meltonmer [employer] Work Phone: [facility] 10-23-2023 15:09-0400 Respiratory rate 18 /min [employer] Maris Meltonmer [employer] Work Phone: [facility] 10-23-2023 15:09-0400 SaO2% (BldA) [Mass fraction] 100 % [employer] Maris Meltonmer [employer] Work Phone: [facility] 10-23-2023 15:09-0400 Systolic blood pressure 172 mm[Hg] [employer] Maris Meltonmer [employer] Work Phone: [facility] 09-06-2023 08:21-0500 Body mass index (BMI) [Ratio] 28.3 kg/m2 [employer] Maris Meltonmer [employer] Work Phone: [facility] 09-06-2023 08:21-0500 Body weight 94.85 kg [employer] Maris Meltonmer [employer] Work Phone: [facility] 01-16-2017 11:49-0400 BMI (Body Mass Index) 23.61 kg/m2 Rick Dominguez MD [facility] Work Phone: 01-16-2017 11:49-0400 Body Temperature 97 [degF] Rick Dominguez MD [facility] Work Phone: 01-16-2017 11:49-0400 BP Diastolic 80 mm[Hg] Rick Dominguez MD [facility] Work Phone: 01-16-2017 11:49-0400 BP Systolic 120 mm[Hg] Rick Dominguez MD [facility] Work Phone: 01-16-2017 11:49-0400 BSA (Body Surface Area) 2.19 m2 Rick Dominguez MD [facility] Work Phone: 01-16-2017 11:49-0400 Height 193.04 cm Rick Dominguez MD [facility] Work Phone: 01-16-2017 11:49-0400 Pulse (Heart Rate) 60 /min Rick Dominguez MD [facility] Work Phone: 01-16-2017 11:49-0400 Respiratory Rate 16 /min Rick Dominguez MD [facility] Work Phone: 01-16-2017 11:49-0400 Weight 88 kg Rick Dominguez MD [facility] Work Phone: 12-03-2016 13:30-0400 BMI (Body Mass Index) 23.81 kg/m2 Rick Dominguez [facility] Work Phone: 12-03-2016 13:30-0400 Body Temperature 97.7 [degF] Rick Dominguez MD [facility] Work Phone: 12-03-2016 13:30-0400 BP Diastolic 72 mm[Hg] Rick Dominguez MD [facility] Work Phone: 12-03-2016 13:30-0400 BP Systolic 124 mm[Hg] Rick Dominguez MD [facility] Work Phone: 12-03-2016 13:30-0400 Height 193.04 cm Rick Dominguez MD [facility] Work Phone: 12-03-2016 13:30-0400 Pulse (Heart Rate) 72 /min Rick Dominguez MD [facility] Work Phone: 12-03-2016 13:30-0400 Pulse Oximetry 95 % Rick Dominguez MD [facility] Work Phone: 12-03-2016 13:30-0400 Respiratory Rate 16 /min Rick Dominguez MD [facility] Work Phone: 12-03-2016 13:30-0400 Weight 88.72 kg Rick Dominguez MD [facility] Work Phone: 11-19-2016 13:33-0400 BMI (Body Mass Index) 23.9 kg/m2 Rose Hagen [facility] Work Phone: 11-19-2016 13:33-0400 Body Temperature 97.5 [degF] Rose Hagen [facility] Work Phone: 11-19-2016 13:33-0400 BP Diastolic 75 mm[Hg] Rose Hagen [facility] Work Phone: 11-19-2016 13:33-0400 BP Systolic 130 mm[Hg] Rose Hagen [facility] Work Phone: 11-19-2016 13:33-0400 Height 193.04 cm Rose Hagen [facility] Work Phone: 11-19-2016 13:33-0400 Pulse (Heart Rate) 75 /min [facility] Work Phone: 11-19-2016 13:33-0400 Pulse Oximetry 97 % Rose Hagen [facility] Work Phone: 11-19-2016 13:33-0400 Respiratory Rate 16 /min Rose Hagen [facility] Work Phone: 11-19-2016 13:33-0400 Weight 89.09 kg Rose Hagen [facility] Work Phone: 11-12-2016 15:26-0400 BSA (Body Surface Area) 2.1 m2 Rose Hagen [facility] Work Phone: Encounters Encounter Date Encounter Type Care Provider Facility Start: 02-28-2025 End: 02-28-2025 Emergency department patient visit Maris Duran NP-C Work Phone: -Emergency Department Work Phone: Start: 01-22-2025 End: 01-22-2025 ambulatory Maris Duran [employer] Work Phone: [facility] Work Phone: Start: 01-22-2025 End: 01-22-[address] Bernarda Young MD -[facility] [place] Work Phone: Start: 01-22-2025 End: 01-22-2025 ambulatory Bernarda Young Facility:[facility] Start: 12-21-2024 End: 12-21-2024 ambulatory LAZARO CERVANTES Facility:[facility] Start: 12-21-2024 End: 12-21-[address] LAZARO CERVANTES MD [facility] Start: 11-02-2024 End: 11-02-2024 ambulatory Maris Duran [facility] LAPPER-C Work Phone: [facility] Work Phone: Start: 11-02-2024 End: 11-02-[address] Bernarda Young MD -Laboratory, [place] Work Phone: Start: 11-02-2024 End: 11-02-2024 ambulatory Maris Duran Facility:[facility] Start: 09-24-2024 End: 09-24-2024 Emergency department patient visit Dr. Jace Landeros MD -Emergency Department Work Phone: Start: 07-31-2024 End: 07-31-[address] Bernarda Young MD -Laboratory, [place] Work Phone: Start: 07-31-2024 End: 07-31-2024 ambulatory Maris Duran Facility:[facility] Start: 06-15-2024 End: 06-15-2024 ambulatory MARIS DURAN TREE SAPPER-ROUTE CLERK Facility:[facility] Start: 06-15-2024 End: 06-15-2024 Patient encounter procedure MARIS Greg KENNEDI TREE SAPPER-ROUTE CLERK [facility] Start: 05-08-2024 End: 05-08-2024 ambulatory Maris Duran Facility:[facility] Start: 03-20-2024 End: 03-20-[address] ANGEL CEJA DO Facility:[facility] Start: 03-20-2024 End: 03-20-2024 Patient encounter procedure MARIS DURAN TREE SAPPER-ROUTE CLERK [facility] Start: 03-11-2024 End: 03-11-2024 ambulatory MARIS Garza KENNEDI TREE SAPPER-ROUTE CLERK Facility:[facility] Start: 02-27-2024 End: 02-27-2024 ambulatory MARIS Garza KENNEDI TREE SAPPER-ROUTE CLERK Facility:[facility] Start: 02-27-2024 End: 02-27-2024 Patient encounter procedure MARIS Garza KENNEDI TREE SAPPER-ROUTE CLERK [facility] Start: 11-22-2023 End: 11-22-2023 ambulatory BARREL LAPPER-C Maris Kennedi BARREL LAPPER Work Phone: [facility] Work Phone: Start: 11-22-2023 End: 11-22-2023 Patient encounter procedure BARREL LAPPER-C Maris Kennedi BARREL LAPPER Work Phone: [facility] Work Phone: Start: 10-23-2023 End: 10-23-2023 Emergency department patient visit BARREL LAPPER-C Maris Kennedi BARREL LAPPER Work Phone: [facility]-Emergency Department Work Phone: Start: 09-06-2023 End: 09-06-2023 Patient encounter procedure BARREL LAPPER-C Maris Meltonmer BARREL LAPPER Work Phone: [facility] Start: 08-28-2023 End: 08-28-2023 ambulatory [facility] Work Phone: Start: 08-28-2023 End: 08-28-[address] [facility] Work Phone: Start: 05-14-2023 End: 05-14-2023 ambulatory [facility] Work Phone: Start: 05-14-2023 End: 05-14-[address] [facility] Work Phone: Start: 01-08-2023 End: 01-08-2023 Patient encounter procedure VANESSA VENTURA MD [facility] Start: 09-03-2022 End: 09-03-2022 Patient encounter procedure VANESSA VENTURA MD [facility] Start: 05-08-2022 End: 11-06-2022 Lab-Standing Order VANESSA VENTURA MD [facility] Procedures Date Procedure Procedure Detail Performing Clinician Start: 02-28-2025 Plain X-ray of shoulder Maris Kennedi BARREL LAPPER-C Work Phone: Start: 09-24-2024 CT angiography of ch est with contrast Maris [place] BARREL LAPPER-C Work Phone: Start: 09-24-2024 Plain chest X-ray Letha ca Kennedi BARREL LAPPER-C Work Phone: Start: 10-23-2023 Plain x-ray of wrist BARREL LAPPER -C Maris Kennedi BARREL LAPPER Work Phone: Start: 09-06-2023 Diagnostic radiograp hy of finger BARREL LAPPER-C Maris Kennedi BARREL LAPPER Work Phone: Start: 09-06-2023 Plain x-ray of elbow BARREL LAPPER -C Maris Kennedi BARREL LAPPER Work Phone: Start: 01-16-2017 End: 01-16-2017 Dietary management education, guidance, and counseling Rick Dominguez MD Start: 01-16-2017 End: 03-07-2017 Follow Up Appt Other Rick Dominguez MD Start: 12-03-2016 End: 12-03-2016 Dietary management education, guidance, and counseling Rose Hagen Start: 12-03-2016 End: 12-12-2016 Follow Up Appt 1 month Rick Dominguez MD Start: 11-19-2016 End: 12-12-2016 Follow Up Appt 2 weeks Rick Dominguez MD Start: 11-12-2016 End: 12-12-2016 Follow up [...] Treatment Date Care Activity Detail Author Start: 02-28-2025 [facility] Start: 09-24-2024 [facility] Start: 09-24-2024 [facility] Start: 10-23-2023 [facility] Start: 01-16-2017 End: 01-16-2017 Appointment Appointment [facility] Work Phone: Start: 01-16-2017 End: 03-07-2017 Follow Up Appt Other Follow Up Appt Other [facility] Work Phone: Start: 01-14-2017 End: 01-14-2017 Appointment Appointment [facility] Work Phone: Start: 12-03-2016 End: 12-03-2016 Appointment Appointment [facility] Work Phone: Start: 12-03-2016 End: 12-12-2016 Follow Up Appt 1 month Follow Up Appt 1 month [facility] Work Phone: Start: 11-19-2016 End: 12-12-2016 Follow Up Appt 2 weeks Follow Up Appt 2 weeks [facility] Work Phone: Start: 11-12-2016 End: 12-12-2016 Follow up Appt 1 week Follow up Appt 1 week [facility] Work Phone: Start: 11-12-2016 End: 11-21-2016 X-ray exam of finger(s) X-Ray, Fingers [facility] Work Phone: Start: 11-05-2016 End: 12-12-2016 Follow up Appt 1 week Follow up Appt 1 week [facility] Work Phone: Start: 10-24-2016 End: 12-12-2016 Follow up Appt 1 week Follow up Appt 1 week [facility] Work Phone: Start: 10-17-2016 End: 11-14-2016 Follow up Appt 1 week Follow up Appt 1 week [facility] Work Phone: Patient Education [facility] Work Phone: Patient referral [facility] Work Phone: Immunizations Immunization Date Immunization Notes Care Provider Fa [facility] 04-10-2024 SARS-CoV-2 (COVID-19 ) [id number] MARIS DURAN TREE SAPPER-Vital Access [facility] 05-21-2023 SARS-CoV-2 (COVID-19 ) [id number] MARIS DURAN TREE SAPPER-ROUTE CLERK [facility] 04-21-2022 SARS-CoV-2 (CV19)mRNA-1273 bivalent vac MARIS DURAN TREE SAPPER-ROUTE CLERK [facility] 07-05-2021 tetanus toxoid, redu jessica diphtheria toxoid, and acellular pertussis vaccine, adsorbed [facility] 07-01-2021 SARS-CoV-2 (COVID-19 ) mRNA-1273 vaccine MARIS DURAN TREE SAPPER-ROUTE CLERK [facility] 01-09-2021 SARS-CoV-2 mRNA (tozinameran) vaccine MARIS DURAN TREE SAPPER-ROUTE CLERK [facility] Comment on above: Result Comment: 2023: TPV60 12-19-2020 SARS-CoV-2 mRNA (felicen) vaccine MARIS MELTONMER TREE SAPPER-ROUTE CLERK [facility] Comment on above: Result Comment: 2023: TPV60 10-07-2016 tetanus toxoid, redu jessica diphtheria toxoid, and acellular pertussis vaccine, adsorbed [facility] Payers Date Payer Category Payer Self-pay [id number] 2024 Unknown [id number] 2021 Unknown [id number] 2009 Private Health Insurance [id number] 1960 Unknown [id number] 2.16.8 [id number] 1960 Unknown [id number] 2.16.8 [id number] 1960 Unknown [id number] 2.16.8 [id number] 1960 Unknown [id number] 2.16.8 [id number] 1960 Unknown [id number] 2.16. [id number] 1960 Unknown [id number] 2.16.8 [id number] Unknown [id number] Unknown [id number] 2.16.8 [id number] Unknown [id number] 2.16.8 [id number] Unknown [id number] 2.16.8 [id number] Unknown [id number] 2.16.8 [id number] Unknown [id number] 2.16.8 [id number] Unknown [id number] 2.16.8 [id number] Social History Date Type Detail Facility Start: 04-07-2022 End: 12-10-2024 Tobacco smoking status Light tobacco smoker (finding) [facility] Comment on above: stopped smoking 08/31 Start: 1960 Sex Assigned At Male [facility] Start: 12-22-2021 End: 10-23-2023 Tobacco smoking status NHIS Unknown if ever smoked [facility] Start: 09-24-2024 End: 02-28-2025 Tobacco smoking status NHIS Smokes tobacco daily (finding) [facility] Start: 10-08-2019 End: 11-05-2024 Sex Male (finding) [facility] Sexual Orientation [facility] Functional Status Date Assessment Result Facility 12-21-2024 Functional Status Awake [facility] 12-21-2024 Functional Status Maintained, More than 8 hours [facility] Mental Status Date Assessment Result Facility 12-21-2024 Mental Status Oriented x 4 [facility] 12-21-2024 Mental Status [facility] 09-24-2024 Cognitive function Voice/Name [facility] Work Phone: Clinical Notes 09-03-2022 to 02-28-2025 Note Date & Type Note Facility 02-28-2025 Radiology Diagnostic study note [facility] Imaging Services [address] [place], [place] [address] Shoulder min 2 Views MR#: [id number] Acct: [id number] Name: ALINA ALLEN Rep #: [id number] : 1960 M 64 From: Shani Ruano MD PCP: SIMIN Telles Status: PRE E R Study:Shoulder min 2 Views Date of Exam: 02/28/25 Exam# [id number] Ordering Dr: Provider ,Ed P. 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 No acute bone, soft tissue, or lung pathology noted. RAD/Shoulder min 2 Views IMPRESSION: Mild left shoulder joints degeneration. Reading Location: [facility] CC: BARREL LAPPER-C Maris Duran; ED PHYSICIAN PROVIDER ~ Counter Stitcher: Signed [facility] 12-21-2024 Evaluation + Plan note Extrac yossi from: Title:Clinical Document Author:LAZARO CERVANTES Date:12/21/24 [place] ADMISSION HISTORY AN D PHYSICIAL CHIEF COMPLAINT: HISTORY OF PRESENT ILLNESS: REVIEW OF SYSTEMS: ACTIVE PROBLEMS: (7) Claudication of calf muscles (205077663) COPD mixed type (674796846) Dysphagia (01242256) PAD (peripheral artery disease) (8463239924) Rheumatoid arthritis (340794356) Tobacco use (2102049566) Well adult exam (726771591) MEDICATIONS: Active Inpt Meds: None Active PRN Meds: None One Time Meds: None Active IV Meds: Sodium Chloride 0.9% intravenous solution 1,000 mL (Sodium Chloride 0.9% 1000 mL 1,000 mL) Start: 12/21/24 8:22:00 EDT, 100 mL, 12/21/24 8:22:00 EDT ALLERGIES: (1) NKA FAMILY HISTORY: SOCIAL HISTORY: PHYSICAL EXAM: VITALS: ZcjzcfMugdCRSxbxdZKVxV0YLS2HkziIu(kg) 12/21 07:5336.3--0394728QG67/19 93.2 24 Hr Tmax: 36.3 at 12/21 [...] Appointment Date:12/14/2025 03:00:00 PM Scheduled Provider:MARIS DURAN Location:[facility] Appointment Type:PC Wellness Annual [facility] 05-19-2025 Hospital Discharge instructions Patient Education [...] reduce GERD symptoms. Medicines. These may include: ?Gfmb-sda-gmgdfxo antacids. ?Medicines that make your stomach empty [...] may include: ?Fatty foods, like fried foods. ?Fajardo fruits, like oranges or lemon. ?Other foods [...] Do not drink alcohol. General instructions Take hxha-clk-rqgpcnf and prescription medicines only as told by [...] 10/11/2004 Document Revised: 07/04/2018 Document Reviewed: 02/24/2018 [employer] Patient Education 2020 [employer]. 12/21/2024 08:53:47 9 - AO Minor Esophagogastroduodenoscopy [...] before eating solid foods. General instructions Take jguw-afm-qhbschk and prescription medicines only as told by [...] 11/11/2016 Document Revised: 10/20/2018 Document Reviewed: 11/11/2016 [employer] Patient Education 2020 [employer]. Follow Up Care 12/11/2024 14:26:22 With:LAZARO CERVANTES Address: [address] [facility] [address] [place] [phone] Business (1) When: Unknown Comments:CALL OFFICE IN ONE MONTH WITH SWALLOWING UPDATE. [facility] 05-19-2025 Summary of episode note Discharge Instructions Thank you for allowing [facility] to assist you with your healthcare needs. The following is importantdischarge information regarding your hospital visit. Your Care Team MARIS DURAN What to do next Scheduled Follow-Up Appointments Appointment Type When With Where Contact Information [facility] Wellness Annual 12/14/2025 03:00 PM EDT MARIS DURAN [facility] [address] [place] [phone] Confirmed Follow Up Appointments Follow Up with LAZARO CERVANTES Where:[address] [facility] [address] [place] [phone] Business (1) Additional Information: CALL OFFICE IN [...] GERD symptoms. Medicines. These may include: ? Lxoe-awc-pfxerph antacids. ? Medicines that make your stomach [...] ? Fatty foods, like fried foods. ? Fajardo fruits, like oranges or lemon. ? Other [...] Do not drink alcohol. General instructions Take zgyu-jse-fnvbbxs and prescription medicines only as told by [...] 10/11/2004 Document Revised: 07/04/2018 Document Reviewed: 02/24/2018 [employer] Patient Education 2020 [employer] Esophagogastroduodenoscopy This is an endoscopic procedure [...] before eating solid foods. General instructions Take zome-uux-uerqdff and prescription medicines only as told by [...] 11/11/2016 Document Revised: 10/20/2018 Document Reviewed: 11/11/2016 [employer] Patient Education 2020 [employer]. Additional Information VACCINATE! IT SAVES LIVES! Members of the community who have not yet received the COVID-19 vaccine and would like to receive it can visit one of [facility] vaccine clinics. There are many vaccine clinic locations within the [facility]. For locations and available times, please visit [email or web address] It is important to note that some COVID mobile vaccine clinics are held outdoors and may be canceled in rainy or stormy conditions. To learn more about pediatric vaccinations (ages 5-11), we invite you to visit the [facility] webpage. [email or web address] [email or web address] learn more about the COVID-19 vaccine, we invite you to visit the CDC website for a list of frequently asked questions.https://www.cdc.gov/coronavirus/2019-ncov/vaccines/faq.html [email or web address] Patient Portal Access Instructions: Stay connected with your healthcare team and access your personal medical information anytime with the [email or web address] Patient Portal. Please follow the directions below to create your [email or web address] account: 1.Access the email account you provided upon registration to the hospital/physician office.2.Look for an invitation email from [facility].3.Open the email and access the invitation link: AcceptInvitation to [facility].4.Fill in the required stoll to create your account. To access your account, visit [email or web address]. Click the blue button labeled Access Patient [...] who you will allowto register on the [facility] Patient Portal for access to your information. You can also access the [facility] Patient Portal on the [facility] yumiko. Simply click on Patient Portal and then log into your account. If you would like to receive a full copy of your medical records, please contact the [facility] Medical Records Department by calling [phone], Saturday through Saturday between 8 a.m. and [...] Call your local pharmacy or go to http://bit.ly/8B1Wn5x to find one close to you.3.Make use of household items: Use cat litter or old coffee grounds to dispose medications if other options arenot available. Mix your drugs with these household products, seal them in an airtight container andthrow it into the garbage. Call [facility]: [phone] to be sure your drugs can be [...] been reviewed and explained to me and I,ALINA ALLEN understand my current condition and have read and understand these discharge instructions. I have received a written copy of the plan/instructions. If I have questions, I am aware that I should contact my doctor. Patient/Senior Mechanical Engineer Signature: Date/Time: Relationship to Patient: Witness Name/Signature: Date/Time: [facility]05-19-2025 Note Date of Service 12/21/2024 Procedure Name Screening colonoscopy Consent Taken before procedure Indication Screening colonoscopy Location [facility] Pre-Procedure Exam Screening colonoscopy Procedural Sedation [...] LAZARO CERVANTES MD on 12/21/2024 09:14 AM [facility]05-19-2025 Note Date of Service 12/21/2020 Procedure Name EGD with guidewire dilatation Consent Taken before procedure Indication Dysphagia Location [facility] Pre-Procedure Exam Dysphagia chronic reflux Procedural [...] LAZARO CERVANTES MD on 12/21/2024 08:50 AM [facility]05-19-2025 Note [place] ADMISSION HISTORY AND PHYSICIAL CHIEF COMPLAINT: HISTORY OF PRESENT ILLNESS: REVIEW OF SYSTEMS: ACTIVE PROBLEMS: (7) Claudication of calf muscles (923871443) COPD mixed type (124266200) Dysphagia (36074140) PAD (peripheral artery disease) (6835942135) Rheumatoid arthritis (939826745) Tobacco use (2908570116) Well adult exam (578137150) MEDICATIONS: Active Inpt Meds: None Active PRN Meds: None One Time Meds: None Active IV Meds: Sodium Chloride 0.9% intravenous solution 1,000 mL (Sodium Chloride 0.9% 1000 mL 1,000 mL) Start: 12/21/24 8:22:00 EDT, 100 mL, 12/21/24 8:22:00 EDT ALLERGIES: (1) NKA FAMILY HISTORY: SOCIAL HISTORY: PHYSICAL EXAM: VITALS: WobyimAwkvRWBtqymAPSlG1YZD5XaxyQb(kg) 12/21 07:5336.3--6912450GN00/19 93.2 24 Hr Tmax: 36.3 at 12/21 [...] LAZARO CERVANTES MD on 12/21/2024 08:33 AM [facility]05-19-2025 Anesthesiology Consult note Patient: ALINA ALLEN Age: 64 years Sex: Male : 1960 Associated Diagnoses: None Author: DARLEEN KEITA APRN-PRICING CLERK Preoperative Information Time of last food or [...] Medical COPD mixed type / SNOMED CT 391952040 / Confirmed Dysphagia / SNOMED CT 19443847 / Confirmed Claudication of calf muscles / SNOMED CT 650650008 / Confirmed Well adult exam / SNOMED CT 325416267 / Confirmed PAD (peripheral artery disease) / SNOMED CT 8191694207 / Confirmed Rheumatoid arthritis / SNOMED CT 536401291 / Confirmed, Active Problems (7) Claudication of calf muscles COPD mixed type Dysphagia PAD (peripheral artery disease) Rheumatoid arthritis Tobacco use Well adult exam Histories Past Medical History: Resolved Kidney stones ([id number]): Resolved. Tobacco use (0683903752): Resolved. Family History: Diabetes mellitus Mother Leukemia Father Cancer Father HTN - Hypertension Mother Procedure history: Partial meniscectomy of knee (548775149). Comments: 09/07/2016 9:50 SMITH - ALEXIS MACDONALD RN Left Colonoscopy (696844368). Social History: Social & Psychosocial Habits Alcohol [...] Signs (last 24 hrs) Last Charted Temp Pqqngrsy62.3 DegC (DECEMBER 21 07:53) PPP392 mmHg (DECEMBER 21 07:53) DBP78 mmHg (DECEMBER 21 07:53) BMI28.14 (DECEMBER 21 07:50) Measurements from flowsheet : Measurements 12/21/2024 7:50 EDT Height 182 cm Admission Weight 93.2 kg Weight Method Stated [place] Body Weight 76.80 kg BSA Admission 2.15 [...] Surgeon SN - CAt - Role Performed PRICING CLERK SN - CAt - Role Performed Tire Mold Tester 1 SN - CAt - Role Performed Automotive Fuel Injection Servicer 1 12/21/2024 8:17 EDT Continuous IV Infusions [...] air Oxygen Saturation 100 % Skin Description [place], Dry Skin Temperature Warm Skin Integrity Intact [...] Admission Weight 93.2 kg Weight Method Stated [place] Body Weight 76.80 kg BSA Admission 2.15 [...] Method Explanation, Printed materials Preferred Spoken Language Citizen Of [place] Preferred Written Language Citizen Of [place] Pre Procedure/Surgery Education Appropriate expectations Procedure/Surgical Teaching Evaluation Verbalizes/Nonverbally indicates understanding Patient's Current Physicians Patient's Current Physicians Discharge To, Anticipated Home independently Prev Test Positive/Diagnosis w/COVID-19 No Current Quarantine/Isolated any Illness No Any Contact with Sick Animals/Birds No Traveled Anywhere in Last 30 Days No N/A Personal Devices, Patient Valuables Glasses Admission Note-Nursing Procedure/Therapy Intake . Assessment and Plan [place] [employer] Anesthesiologists (ASA) physical status classification: Class III. Anesthetic Preoperative Plan Anesthetic technique: MAC. Postoperative pain management: Per surgeon. Informed consent: signed by patient. Digitally Signed by DARLEEN KEITA on 12/21/2024 08:27 AM [facility]11-11-2024 Note* Exam Date Time Procedure Performing Provider Status 06/15/24 1:54 PM VL Arterial Dopplers Both Legs Rest/PVR- Auth (Verified) [facility] 08-16-2024 Note ORIGINAL EXAMINATION: LOW DOSE [...] Factor 09/03/22 * Cyclic Citrullinated Peptide 09/03/22 [facility] Evaluation + Plan note Future Appointments Appointment Date:05/28/2024 10:00:00 AM Scheduled Provider:MARIS DURAN Location:[facility] Appointment Type: OV Future Scheduled Tests Radiology* CT Low Dose Lung Cancer Screening (LDCT) 02/27/24 [facility] Evaluation + Plan note Future Appointments Appointment Date:05/28/2024 10:00:00 AM Scheduled Provider:MARIS DURAN Location:[facility] Appointment Type: OV [facility] Evaluation + Plan note Future Appointments Appointment Date:11/19/2024 02:00:00 PM Scheduled Provider:MARIS DURAN Location:[facility] Appointment Type: OV [facility] Evaluation noteNo assessment information available [facility] Work Phone: Evaluation note* Diagnosis Onset Date Resolution Status Digital mucous cyst of finger of right hand acute Olecranon bursitis, left elbow acute [facility] Work Phone: Hospital course Narrative No data available for this section [facility] Hospital Discharge instructions No data available for this section [facility] Hospital Discharge instructions Additional Instructions Your right wrist x-ray negative today. You have tenderness slight swelling at the snuffbox. Maintain the splint, may remove for showers. Use Tylenol Motrin every 6 hours. If you have persistent pain after week, he may need reimaging for evaluation for occult fracture.[facility] Work Phone: Hospital Discharge instructionsAdditional Instructions Clinical left biceps tendinitis along with strain of your shoulder muscles. X- ray notes arthritic changes. Continue Motrin tencaq-bqe-gpgsx for the next 2 days. May follow-up with orthopedic service for reevaluation.[facility] Work Phone: Progress note No data available for this section [facility] Reason for referral (narrative)No reason for referral information [facility]WK[facility] Work Phone: Summary Purpose Family History No [...] Will No July 27 11:41am Power of Casual Shoe Inspector No July 27, 2021 11:41am Advance Directive Response Recorded Date/ Time Living Will No July 27 10:41am Power of Casual Shoe Inspector No July 27, 2021 10:41am Advance Directive Response Recorded Date/ Time Living Will No October 23, 2023 4:17pm Power of Casual Shoe Inspector No October 22 4:17pm Advance Directive Response Recorded Date/ Time Living Will No September 24 7:52pm Do you have a Healthcare Power of Casual Shoe Inspector? No September 24, 2024 7:52pm Advance Directive Response Recorded Date/ Time Do you have a Healthcare Power of Casual Shoe Inspector? No February 28, 2025 2:33am Chief Complaint and Reason for Visit Chief [...] COPY PCP November 02, 2024 11: 38am shoulder February 28, 2025 2:32 am Additional Source Comments (unrecognized sect ion and content) No Status Records FoundNo Status Records FoundNo Status Records FoundNo Status Records Found INFORMATION SOURCE (unrecogn ized section and content) DATE CREATED AUTHOR 10/14/2019 [facility] DATE CREATED AUTHOR AUTHOR'S ORGANIZ ATION 03/23/2024 [facility] ([place]) DATE CREATED AUTHOR AUTHOR'S ORGANIZ ATION 02/17/2025 [facility] DATE CREATED AUTHOR AUTHOR'S ORGANIZ ATION 03/06/2025 [facility] Team (unrecognized sect ion and content) Care Team Personnel Name: KENNEDISHIVAMARIS S TREE SAPPER-ROUTE CLERK Position: P4 Advanced Practice Nurse Member Role: Primary Care Physician Address: Address: [address] [facility] [place] [address]- [place] Care Team Related Persons Name: JUANJOSE HUNTLEY Patient Care team informatio n (unrecognized section and content) Team Status: Active Member Role Status Dates Maris Duran BARREL LAPPER, BARREL LAPPER-C Family Provider Active Maris Duran BARREL LAPPER, BARREL LAPPER-C Primary Care Provider Active Team Status: Inactive Member Role Status Dates Maris Duran NP, BARREL LAPPER-C Primary Care Provider Active Dr. Bernarda Young MD Attending Provider, Referring Provider Active Team Status: Inactive Member Role Status Dates Maris Duran NP, BARREL LAPPER-C Primary Care Provider, Referri ng Provider Active Christopher Crain MD Attending Provider Active Team Status: Inactive Member Role Status Dates Maris Duran BARREL LAPPER, BARREL LAPPER-C Primary Care Provider Active Dr. Salvatore Larson MD Attending Provider Active Team Status: Inactive Member Role Status Dates Maris Duran BARREL LAPPER, BARREL LAPPER-C Primary Care Provider Active Dr. Huber Chowdary DO Emergency Provider Active Team Status: Inactive Member Role Status Dates Maris Duran NP, BARREL LAPPER-C Primary Care Provider Active Dr. Huber Chowdary DO Attending Provider, Emergency Provide r Active Team Status: Active Member Role Status Dates Maris Duran BARREL LAPPER, BARREL LAPPER-C Primary Care Provider Active Team Status: Inactive Member Role Status Dates Maris Duran NP, BARREL LAPPER-C Primary Care Provider Active Start: July 31, 2024 End: July 31, 2024 Dr. Bernarda Young MD Attending Provider Active Start: July 31, 2024 End: July 31, 2024 Dr. Bernarda Young MD Referring Provider Active Start: July 31, 2024 End: July 31, 2024 Team Status: Inactive Member Role Status Dates Maris Duran BARREL LAPPER, BARREL LAPPER-C Primary Care Provider Active Start: September 24, 2024 End: September 24, 2024 Jace Landeros MD Attending Provider Active Star t: September 24, 2024 End: September 24, 2024 Jace Landeros MD Emergency Provider Active Star t: September 24, 2024 End: September 24, 2024 Team Status: Inactive Member Role Status Dates Maris Duran BARREL LAPPER, BARREL LAPPER-C Primary Care Provider Active Start: November 02, 2024 End: November 02, 2024 Dr. Bernarda Young MD Attending Provider Active Start: November 02, 2024 End: November 02, 2024 Dr. Bernarda Young MD Referring Provider Active Start: November 02, 2024 End: November 02, 2024 Team Status: Inactive Member Role Status Dates Maris Duran BARREL LAPPER, BARREL LAPPER-C Primary Care Provider Active Start: January 22, 2025 End: January 22, 2025 Dr. Bernarda Young MD Attending Provider Active Start: January 22, 2025 End: January 22, 2025 Dr. Bernarda Young MD Referring Provider Active Start: January 22, 2025 End: January 22, 2025 Team Status: Active Member Role/Relationship Status Dates Maris Duran BARREL LAPPER, BARREL LAPPER-C Primary Care Provider Active Team Status: Inactive Member Role/Relationship Status Dates Maris Duran BARREL LAPPER, BARREL LAPPER-C Primary Care Provider Active Start: November 02, 2024 End: November 02, 2024 Dr. Bernarda Young MD Attending Provider Active Start: November 02, 2024 End: November 02, 2024 Dr. Bernarda Young MD Referring Provider Active Start: November 02, 2024 End: November 02, 2024 Team Status: Inactive Member Role/Relationship Status Dates Maris Duran BARREL LAPPER, BARREL LAPPER-C Primary Care Provider Active Start: January 22, 2025 End: January 22, 2025 Dr. Bernarda Young MD Attending Provider Active Start: January 22, 2025 End: January 22, 2025 Dr. Bernarda Young MD Referring Provider Active Start: January 22, 2025 End: January 22, 2025 Team Status: Inactive Member Role/Relationship Status Dates Maris Duran BARREL LAPPER, BARREL LAPPER-C Primary Care Provider Active Start: February 28, 2025 End: February 28, 2025 Dr. Huber Chowdary , DO Emergency Provider Active Start : February 28, 2025 End: February 28, 2025 Goals (unrecognized section and content) Goals [...] BE BASED ON THE PRIMARY CLINICAL RECORDS. [employer] provides no warranty or guarantee of the accuracy or completeness of information in this document.
[2025-04-13 10:23] LABS: Hematocrit 45.3 % (40-54); Hemoglobin 15.2 g/dL (13.0-16.5); Immature Granulocytes Count 0.040 X10^3/uL (0.0-0.0); Mean Corp Hgb Conc 33.6 g/dL (32-36); Mean Corpuscular Volume 89.9 fL (80-94); Mean Platelet Vol. 10.8 fl (6.2-12.0); NRBC Flagged by Analyzer 0 % (0-5); Platelet Count 226 K/mm3 (150-450); RBC Distribution Width CV 13.4 % (11.6-14.6); RBC Distribution Width SD 43.6 fl (35.1-43.9); Red Blood Count 5.04 M/mm3 (4.6-6.2); White Blood Count 7.6 K/mm3 (4.4-11.0)
[2025-04-13 10:53] LABS: AST(SGOT) 18 U/L (<=37); Alanine Aminotransfer ALT/SGPT 14 U/L (<=46); Albumin, Serum 3.9 g/dL (3.4-4.8); Alkaline Phosphatase 93 U/L (40-129); Anion Gap 11 (5-15); BUN 17 mg/dL (4-19); BUN/Creat Ratio 15.2 RATIO (10-20); Calcium,Total 9.3 mg/dL (7.6-11.0); Carbon Dioxide 25.6 mmol/L (21.0-32.0); Chloride 103 mmol/L (98-108); Globulin 3.3 g/dL (2.2-4.2); Glucose 99 mg/dL (70-99); Potassium 4.4 mmol/L (3.3-5.1)
== END | disposition home or self-care (01) ==
LOC: MTLAB 07:03
PROVIDERS: PCP Nurse Practitioner Primary Care; Referring Provider Internal Medicine Rheumatology; Visit Provider Internal Medicine Rheumatology
DX: M05.70 Rheumatoid arthritis with rheumatoid factor of unspecified site without organ or systems involvement (principal); Z79.899 Other long term (current) drug therapy
CPT/HCPCS: 36415; 80053; 85025

== ENCOUNTER → 2025-04-16 | Outpatient (CLI) | payer BC, SELFPAY ==
[2025-04-20 05:07] LABS: Red Blood Cell Count Test/G6PD 4.74 x10E6/uL (4.14-5.80)
== END | disposition home or self-care (01) ==
LOC: MTLAB 08:23
PROVIDERS: PCP Nurse Practitioner Primary Care; Referring Provider Internal Medicine Rheumatology; Visit Provider Internal Medicine Rheumatology
DX: M05.70 Rheumatoid arthritis with rheumatoid factor of unspecified site without organ or systems involvement (principal); Z79.899 Other long term (current) drug therapy
CPT/HCPCS: 36415; 82955

== ENCOUNTER → 2025-05-12 | Outpatient (CLI) | payer BC, SELFPAY ==
--- NOTE | 2025-05-12 14:26 | NEURO ---
NCS and/or EMG Patient Report Ordering Doctor: Maris Kolb NP DATE OF SERVICE: 05/12/25 Presents with complaints of pain in the right wrist and arm. Electrodiagnostic findings: Right median motor nerve demonstrates normal distal latency, amplitude and conduction velocity. Normal right ulnar motor response, including conduction across the elbow. Right median sensory latency at the wrist with reduced conduction velocity. Needle EMG testing was performed in the right upper limb. All muscles tested showed no evidence of denervation with normal motor unit action potentials. Electrodiagnostic impression: This is an abnormal study. 1. Electrodiagnostic findings suggestive of right-sided median mononeuropathy. This consistent with a mild right carpal tunnel syndrome. Multi Select Codes Neurology Neurology Interp Codes: 31159-72 Musc test done w/n test comp (interp) and 92095-91 Nrv cndj test 7-8 studies (interp)
== END | disposition home or self-care (01) ==
LOC: PSN 13:34
PROVIDERS: PCP Nurse Practitioner Primary Care; Referring Provider Nurse Practitioner Primary Care; Visit Provider Nurse Practitioner Primary Care
DX: M25.531 Pain in right wrist (principal)
CPT/HCPCS: 95886; 95910

== ENCOUNTER → 2025-06-11 | Outpatient (CLI) | payer BC, SELFPAY ==
--- OUTSIDE RECORDS SUMMARY | 2025-06-11 08:58 | XMS RPT_ITS | CCD ---
Author Organization [facility] Care Team Providers Care Bolt Threader Name Role Phone Rick Dominguez MD Unavailable Rose Hagen Unavailable Unavailable Rose Hagen Unavailable Unavailable Rick Dominguez MD Unavailable KENNEDI LINING STUFFER-FUSING LINE INSPECTOR, MARIS S Primary Care Physicia n Kennedi SHIPS OR BARGES LOADER, SHIPS OR BARGES LOADER-C Maris Primary Care Provider [phone] Kennedi SHIPS OR BARGES LOADER, SHIPS OR BARGES LOADER-C Maris Referring Provider MD Christopher Crain Attending Provider Dr. Salvatore Larson Attending Provider [phone] KENNEDI LINING STUFFER-FUSING LINE INSPECTOR, MARIS S Primary Care Unava ilable KENNEDI LINING STUFFER-FUSING LINE INSPECTOR, MARIS S Attending Unava ilable BRENNA DALTON, DR ORTIZ Attending Unavailable KENNEDI LINING STUFFER-FUSING LINE INSPECTOR, MARIS S Primary Care Unava ilable KENNEDI LINING STUFFER-FUSING LINE INSPECTOR, MARIS S Attending Unava ilable KENNEDI LINING STUFFER-FUSING LINE INSPECTOR, MARIS S Primary Care Unava ilable KENNEDI LINING STUFFER-FUSING LINE INSPECTOR, MARIS S Attending Unava ilable KENNEDI LINING STUFFER-FUSING LINE INSPECTOR, MARIS S Primary Care Unava ilable [place] SHIPS OR BARGES LOADER-C, Maris Primary Care Provider Hector MORALES, Dr. Menchaca Attending Provider Dr. Bernarda Young MD Referring Provider Jace Landeros MD Attending Provider Jace Landeros MD Emergency Provider Kennedi SHIPS OR BARGES LOADER-C, Maris Primary Care Provider Hector MORALES, Dr. Menchaca Attending Provider Hector MORALES, Dr. Menchaca Referring Provider LAZARO CERVANTES Attending Unavailable KENNEDI LINING STUFFER-FUSING LINE INSPECTOR, MARIS S Primary Care Unava ilable KENNEDI LINING STUFFER-FUSING LINE INSPECTOR, MARIS S Primary Care Unava ilable KENNEDI LINING STUFFER-FUSING LINE INSPECTOR, MARIS S Attending Unava ilable Ricarda DALTON, Dr. Ngo Emergency Provider Kennedi SHIPS OR BARGES LOADER-C, Maris Primary Care Physician Hector MORALES, Dr. Menchaca Attending Physician Hector MORALES, Dr. Menchaca Referring Provider Ricarda DALTON, Dr. Ngo Attending Physician [phone] Ricarda DALTON, Dr. Ngo Emergency Department Physician Vellanki, Bernarda Referring Unavailable [place] SHIPS OR BARGES LOADER, Maris Primary Care Unavailable Vellanki, Bernarda Attending Unavailable Vellanki, Bernarda Attending Unavailable [place] SHIPS OR BARGES LOADER, Maris Primary Care Unavailable Vellanki, Bernarda Referring Unavailable [place] SHIPS OR BARGES LOADER, Maris Attending Unavailable [place] SHIPS OR BARGES LOADER, Maris Referring Unavailable Kennedi SHIPS OR BARGES LOADER, Maris Primary Care Unavailable Casimiro Ramírez Attending Unavailable Kennedi SHIPS OR BARGES LOADER, Maris Consulting Unavailable [place] SHIPS OR BARGES LOADER, Maris Referring Unavailable [place] SHIPS OR BARGES LOADER, Maris Primary Care Unavailable Vellanki, Bernarda Referring Unavailable Kennedi SHIPS OR BARGES LOADER, Maris Primary Care Unavailable [place]ellanki, Bernarda Attending Unavailable Jace Landeros Attending Unavailable [place] SHIPS OR BARGES LOADER, Maris Primary Care Unavailable [place] SHIPS OR BARGES LOADER, Maris Primary Care Unavailable Huber Chowdary Attending Unavailable Vellanki, Bernarda Referring Unavailable Kennedi SHIPS OR BARGES LOADER, Maris Primary Care Unavailable [place]ellanki, Bernarda Attending Unavailable [place]ellanki, Bernarda Referring Unavailable Kennedi SHIPS OR BARGES LOADER, Maris Primary Care Unavailable [place], Bernarda Attending Unavailable Allergies Allergy Classification Reported Allergen(s) Allergy Type Date of Onset Reaction(s) Facility (1 source) cat dander Drug allergy (disorder) 02-28-2025 [facility] Repository Medications Current Medications Medication Drug Class(es) Dates Sig (Normalized) Sig (Original) acetaminophen 500 mg oral tablet (11 sources) Start: 09-06-2023 take 1 tablet by mouth every six hours as needed albuterol MDI (90 mcg/inh) CFC free inhalation aerosol (2 sources) Start: 05-28-2024 take 2 puff(s) by inhalation every four hours as needed for wheezing albuterol MDI (90 mcg/inh) CFC free inhalation aerosol 2 puff(s), Inhalation, q4h, PRN as needed for wheezing, # 18 gram(s), 11 Refill(s), Pharmacy: [facility]/pharmacy #[id number], 183, cm, 05/28/24 9:49:00 EDT, Height, kg, 05/28/24 9:49:00 EDT, Dosing Weight Start Date: 05/28/24 Status: Ordered Quantity: 18.0 Unit: g Repeat number: 12 Start: 05-28-2024 take 2 puff(s) by in halation every four hours as needed for wheezing albuterol MDI (90 mcg/inh) CFC free inhalation aerosol 2 puff(s), Inhalation, q4h, PRN as needed for wheezing, # 18 gram(s), 11 Refill(s), Pharmacy: [facility]/pharmacy #[id number], 183, cm, 05/28/24 9:49:00 EDT, Height, kg, 05/28/24 9:49:00 EDT, Dosing Weight Start Date: 05/28/24 Status: Ordered benzonatate 100 mg oral capsule (5 sources) Non-narcotic Antitussive Start: 09-24-2024 take 2 capsules by mouth three times daily as needed for cough cilostazol 100 mg oral tablet (1 source) Phosphodiesterase 3 Inhibitor Start: 09-17-2024 take 1 tablet by mouth twice daily cilostazol 100 mg oral tablet TAKE 1 TABLET BY MOUTH TWICE A DAY Start Date: 09/17/24 Status: Ordered Repeat number: 1 folic acid 0.8 mg oral tablet (15 sources) Start: 09-06-2023 take 0.8 mg by mouth once daily Start: 09-06-2023 take 0.8 mg by mouth [...] number: 1 ibuprofen 600 mg oral tablet (3 sources) Nonsteroidal Anti-inflammatory Drug Start: 02-28-2025 take 1 tablet by mouth every six hours as needed for pain methotrexate 2.5 mg oral tablet (17 sources) Folate Analog Metabolic Inhibitor Start: 12-22-2021 take 1 tablet by mouth every week naproxen 500 mg oral tablet (20 sources) Nonsteroidal Anti-inflammatory Drug Start: 09-24-2024 take 1 tablet by mouth twice daily as needed for pain Start: 04-21-2021 End: 12-22-2021 take 1 tablet by mouth twice daily as needed for pain Naproxen (Naprosyn) 500 mg tablet Discontinued 500 mg PO TWICE A DAY as needed for pain 20 0 July 27, 2021 1:00am December 22, 2021 10:32am varenicline 1 mg oral tablet (10 sources) Partial Cholinergic Nicotinic Agonist Start: 02-27-2024 take 1 tablet by mouth once, then take 1 tablet by mouth twice daily Chantix Continuing Month 1 mg oral tablet Dose : 1 mg = 1 tab(s), Oral, BID, # 56 tab(s), 5 Refill(s), Pharmacy: [facility]/pharmacy #[id number], 183, cm, 02/27/24 7:16:00 EDT, Height, kg, 02/27/24 7:16:00 EDT, Dosing Weight Start Date: 02/27/24 Status: Ordered Quantity: 56.0 Unit: tab(s) Repeat number: 6 Start: 02-27-2024 take 1 tablet by nataliia th twice daily Chantix Starter Pack 0.5 mg-1 mg oral tablet Dose = 1 tab(s), Oral, BID, # 1 kit(s), 0 Refill(s), Pharmacy: [facility]/pharmacy #[id number], 183, cm, 02/27/24 7:16:00 EDT, Height, kg, 02/27/24 7:16:00 EDT, Dosing Weight Start Date: 02/27/24 Status: Ordered Quantity: 1.0 Unit: kit(s) Repeat number: 1 Start: 02-27-2024 take 1 tablet by nataliia th twice daily Chantix Starter Pack 0.5 mg-1 mg oral tablet Dose = 1 tab(s), Oral, BID, # 1 kit(s), 0 Refill(s), Pharmacy: [facility]/pharmacy #[id number], 183, cm, 02/27/24 7:16:00 EDT, Height, [...] daily as needed for pain HYDROCODONE-ACETAM INOPHEN [id number] Rick Dominguez MD Start: 10-17-2016 End: 12-03-2016 take 1-2 tablets by mouth four times daily as needed for pain NORCO 5-325 MG TABS one to two tablets b y mouth four times daily as needed for pain HYDROCODONE-ACETAMINOPHEN [id number] Merna Greenfield LEATHER GOODS MAKER Start: 10-17-2016 take 1-2 tablets by mouth four times daily as needed for pain NORCO 5-325 MG TABS one to two tablets b y mouth four times daily as needed for pain HYDROCODONE-ACETAMINOPHEN [id number] Rick Dominguez MD meloxicam 15 mg oral tablet (9 sources) Nonsteroidal Anti-inflammatory Drug Start: 07-05-2021 End: [...] tablet by mouth twice daily MINOCYCLINE HCL [id number] Rick Dominguez MD Nirmatrelvir-Kurt navir (9 sources) Start: 12-22-2021 End: 09-06-2023 Nirmatrelvir-Kurt navir [...] days PO predniSONE 10 mg oral tablet (12 sources) Start: 02-27-2024 End: 03-10-2024 prednisone 10mg tab (TAPER) Taper 40-30-20-10 x 3 days each dose, Oral, qDay, Take with food/meal, # 30 tab(s), 0 Refill(s), Pharmacy: [facility]/pharmacy #[id number], 183, cm, 02/27/24 7:16:00 EDT, Height, kg, [...] lung disease 05-28-2024 Chronic E Codes: Fall (7 sources) Fall; Translations: [Unspecified fall, initial encounter] 10-23-2023 Episodic Immunizations and screening for infectious disease (12 sources) Rheumatoid factor positive; Translations: [Requires tetanus and diphtheria vaccination] 07-17-2021 Episodic Open wounds of extremities (20 sources) Unspecified open wound of left thumb with damage to nail, initial encounter; Translations: [Unspecified open wound of left thumb with damage to nail, subsequent encounter] Onset: 10-17-2016 10-31-2016 Episodic Other aftercare (2 sources) Long-term current use of drug therapy; Translations: [Other yarn comber (current) drug therapy] Episodic Other aftercare (1 source) Drug monitoring done; Translations: [Encounter for therapeutic drug level monitoring] Episodic Other connective tissue disease (7 sources) Bursitis of olecranon of left elbow; Translations: [Olecranon bursitis, left elbow] 09-06-2023 Episodic Other connective tissue disease (7 sources) Digital mucous cyst of right hand; Translations: [Ganglion, right hand] 09-06-2023 Episodic Other connective tissue disease (2 sources) Ganglion, right hand; Translations: [Ganglion, unspecified] 09-06-2023 Episodic Other connective tissue disease (2 sources) Olecranon bursitis, left elbow; Translations: [Olecranon bursitis] 09-06-2023 Episodic Other connective tissue disease (3 sources) Bicipital tendinitis, left shoulder; Translations: [Biceps tendinitis of left upper extremity] 02-28-2025 Episodic Other gastrointestinal disorders (1 source) Dysphagia 09-17-2024 Episodic Other lower respiratory disease (3 sources) Chronic cough 02-27-2024 Episodic Other lower respiratory disease (5 sources) Pleuritic pain; Translations: [Pleurodynia] 10-02-2024 Episodic Other lower respiratory disease (5 sources) Cough; Translations: [Cough] 10-02-2024 Episodic Other nervous system disorders (12 sources) Carpal tunnel syndrome; Translations: [Carpal tunnel syndrome, unspecified upper limb] 07-04-2021 Chronic Other non-traumatic joint disorders (3 sources) Joint pain 06-28-2021 Episodic Other non-traumatic joint disorders (2 sources) Pain in right wrist; Translations: [Pain in right wrist] Onset: 05-31-2025 Episodic Other non-traumatic joint disorders (1 source) Pain in right shoulder; Translations: [Pain in right shoulder] Onset: 03-04-2025 Episodic Other screening for suspected conditions (not mental disorders or infectious disease) (5 sources) D-dimer above reference range; Translations: [Other specified abnormal findings of blood chemistry] 10-02-2024 Episodic Other skin disorders (3 sources) Swelling of hand 06-28-2021 Episodic Peripheral and visceral atherosclerosis (2 sources) Intermittent claudication 05-28-2024 Chronic Pleurisy; pneumothorax; pulmonary collapse (5 sources) Pleurisy; Translations: [Pleurisy] 10-02-2024 Episodic Rheumatoid arthritis and related disease (8 sources) Rheumatoid arthritis of multiple joints; Translations: [Rheumatoid arthritis with rheumatoid factor of multiple sites without organ or systems involvement] Onset: 04-30-2025 Chronic Screening or history of mental health and substance abuse (13 sources) Smoker; Translations: [Tobacco use and exposure - finding] Onset: 10-17-2016 10-31-2016 Chronic Sprains and strains (19 sources) Unspecified sprain of right shoulder joint, initial encounter; Translations: [Sprain of right shoulder] 08-04-2021 Episodic Unclassified (1 source) Patient encounter status 12-10-2024 Unclassified (1 source) Peripheral arterial disease 09-17-2024 Viral infection (9 sources) Disease caused by 2019-nCoV; Translations: [COVID-19] [...] Test Name Value Interpretation Reference Range Facility NCS and/or EMG Patienton NCS and/or EMG Patient [facility]monary Services/Neurology [address] [place] [address] MR#: [id number] Acct: [id number] Name: ALINA ALLEN Rep #: [id number] : 1960 64 From: Casimiro Ramírez MD Referring Dr: Maris Duran NP SHIPS OR BARGES LOADER-C Status: RE G CLI Location: PSN Date: 05/12/25 Sex: M C NCS and/or EMG Patient Report Ordering Doctor: Maris Duran NP DATE OF SERVICE: 05/12/25 Presents with complaints of pain in the right wrist and arm. Electrodiagnostic findings: Right median motor nerve demonstrates normal distal latency, amplitude and conduction velocity. Normal right ulnar motor response, including conduction across the elbow. Right median sensory latency at the wrist with reduced conduction velocity. Needle EMG testing was performed in the right upper limb. All muscles tested showed no evidence of denervation with normal motor unit action potentials. Electrodiagnostic impression: This is an abnormal study. 1. Electrodiagnostic findings suggestive of right-sided median mononeuropathy. This consistent with a mild right carpal tunnel syndrome. Multi Select Codes Neurology Neurology Interp Codes: 26295-05 Musc test done w/n test comp (interp) and 53628-83 Nrv cndj test 7- 8 studies (interp) 05/12/25 1437 Date Casimiro Ramírez MD CC: SHIPS OR BARGES LOADERTommy Duran; Dr. Casimiro Ramírez MD Date Dictated: 05/12/251425 Date Transcribed: 05/12/251425 Install Technician: AA Signed Normal [facility] G6PD Quanton 04-20-2025 G6PD QUANT test 290 Normal 127-427 [facility] Comment on above: Result Comment: Resu lt Units: U/10E12 RBC When decreased, G-6-PD, Quant. values are associated with acute hemolytic anemia when deficient individuals are exposed to oxidative stress, such as with certain medications (e.g., primaquine), infection, or ingestion of kenyn beans. Caution: In patients with acute hemolysis (e.g., abnormally low RBC values), testing for G-6-PD may be falsely normal because older erythrocytes with a higher enzyme deficiency have been hemolyzed. Young erythrocytes and reticulocytes have normal or near-normal enzyme activity. Normal values of G-6-PD may be measured for several weeks following a hemolytic event. Performed at: [address] [id number] Food Runner: Lazaro Mims PhD, Phone: [phone] Performed at: [address] [id number] Food Runner: Alex Benitez MD, Phone: [phone] Performed By: #### L 3300.1900 ####[facility] [address] [place], [address] RBC COUNT 4.74 x10E6/uL Normal 4.14-5.80 [facility] Comment on above: Performed By: #### L 3300.1900 ####[facility] [address] [place], [address] Blood erythrocytes count (nu mber/volume)Ordered By: Bernarda Young on 04-16-2025 RBC (Bld) [#/Vol] 4.74 10*6/uL 4.14-5.80 [facility] Erythrocyte fubfbwm-9-qwrtip ate dehydrogenase (enzymatic activity/mass)Ordered By: Bernarda Young on 04-16-2025 G6PD (RBC) [Catalytic activity/Mass] 290 127-427 [facility] Comment on above: Result Units: U/10E1 2 RBCWhen decreased, G-6-PD, Quant. values are associated withacute hemolytic anemia when deficient individuals areexposed to oxidative stress, such as with certainmedications (e.g., primaquine), infection, or ingestion offava beans. Caution: In patients with acute hemolysis(e.g., abnormally low RBC values), testing for G-6-PD maybe falsely normal because older erythrocytes with a higherenzyme deficiency have been hemolyzed. Young erythrocytesand reticulocytes have normal or near-normal enzymeactivity. Normal values of G-6-PD may be measured forseveral weeks following a hemolytic event.Performed at: - [address] [id number] Director: Lazaro Mims PhD, Phone: [phone] at: [facility] [address] [id number] Director: Alex Benitez MD, Phone: [phone] Absolute lymphocyte countOrd ered By: Bernarda Young on 04-13-2025 Lymphocytes Auto (Unsp spec) [#/Vol] 1.58 10*3/uL 0.83-4.51 [facility] Absolute neutrophil countOrd ered By: Bernarda Young on 04-13-2025 Neutrophils (Bld) [#/Vol] 5.2 10*3/uL 2.0-7.7 [facility] Anion gap in Serum or Plasma Ordered By: Bernarda Young on 04-13-2025 Anion gap [Moles/Vol] 11 mmol/L 5-15 [facility] Automated lymphocyte count a s percentage of total leukocytesOrdered By: Bernarda Young on 04-13-2025 Lymphocytes/100 WBC Auto (Unsp spec) 20.8 % - [facility] BUN/creatinine ratioOrdered By: [facility] Hector on 04-13-2025 Urea nitrogen/Creatinine [Mass ratio] 15.2 mg/mg 10- [facility] Basophil percentageOrdered B y: Bernarda Young on 04-13-2025 Basophils/100 WBC (Bld) 0.8 % 0-1 [facility] Bilirubin, totalOrdered By: Bernarda Young on 04-13-2025 Bilirubin [Mass/Vol] 0.40 mg/dL 0.00-1.30 [facility] CBC W/Diff, Automatedon Absolute Lymph 1.58 X10 3/uL Normal 0.83-4.51 [facility] Comment on above: Performed By: #### L 500.4050, L100.0100 ####[facility] [address] [place], [address] Absolute Neut 5.2 X10 3/uL Normal 2.0-7.7 [facility] Comment on above: Performed By: #### L 500.4050, L100.0100 ####[facility] [address] [place], [address] Basophils/100 WBC (Bld) 0.8 % Normal 0-1 [facility] Comment on above: Performed By: #### L 500.4050, L100.0100 ####[facility] [address] [place], [address] Eosinophils/100 WBC (Bld) 2.4 % Normal 0-5 [facility] Comment on above: Performed By: #### L 500.4050, L100.0100 ####[facility] [address] [place], [address] Erythrocyte distribution width (RBC) [Ratio] 13.4 % Normal 11.6-14.6 [facility] Comment on above: Performed By: #### L 500.4050, L100.0100 ####[facility] [address] [place], [address] Hematocrit (Bld) [Volume fraction] 45.3 % Normal 40-54 [facility] Comment on above: Performed By: #### L 500.4050, L100.0100 ####[facility] [address] [place], [address] Hemoglobin (Bld) [Mass/Vol] 15.2 g/dL Normal 13.0-16.5 [facility] Comment on above: Performed By: #### L 500.4050, L100.0100 ####[facility] [address] [place], [address] IG% 0.500 Normal 0.0-0.9 [facility] Comment on above: Result Comment: IG% - Immature Granulocytes (promyelocytes, myelocytes and metamyelocytes) > 1% indicates that a LEFT SHIFT is Present. Performed By: #### L 500.4050, L100.0100 ####[facility] [address] [place], [address] Lymphocytes/100 WBC (Bld) 20.8 % Normal 19-41 [facility] Comment on above: Performed By: #### L 500.4050, L100.0100 ####[facility] [address] [place], [address] MCH (RBC) [Entitic mass] 30.2 pg Normal 27.0-32.0 [facility] Comment on above: Performed By: #### L 500.4050, L100.0100 ####[facility] [address] [place], [address] MCHC (RBC) [Mass/Vol] 33.6 g/dL Normal 32-36 [facility] Comment on above: Performed By: #### L 500.4050, L100.0100 ####[facility] [address] [place], [address] MCV (RBC) [Entitic vol] 89.9 fL Normal 80-94 [facility] Comment on above: Performed By: #### L 500.4050, L100.0100 ####[facility] [address] [place], [address] Monocytes/100 WBC (Bld) 6.6 % Normal 0-10 [facility] Comment on above: Performed By: #### L 500.4050, L100.0100 ####[facility] [address] [place], [address] Neutrophils/100 WBC (Bld) 68.9 % Normal 47-70 [facility] Comment on above: Performed By: #### L 500.4050, L100.0100 ####[facility] [address] [place], [address] Nucleated RBC (Bld) [#/Vol] 0 10*3/uL Normal 0-5 [facility] Comment on above: Performed By: #### L 500.4050, L100.0100 ####[facility] [address] [place], [address] Platelet mean volume (Bld) [Entitic vol] 10.8 fL Normal 6.2-12.0 [facility] Comment on above: Performed By: #### L 500.4050, L100.0100 ####[facility] [address] [place], [address] Platelets (Bld) [#/Vol] 226 10*3/uL Normal 150-450 [facility] Comment on above: Performed By: #### L 500.4050, L100.0100 ####[facility] [address] [place], [address] RBC (Bld) [#/Vol] 5.04 10*6/uL Normal 4.6-6.2 [facility] Comment on above: Performed By: #### L 500.4050, L100.0100 ####[facility] [address] [place], [address] RDW SD 43.6 fl Normal 35.1-43.9 [facility] Comment on above: Performed By: #### L 500.4050, L100.0100 ####[facility] [address] [place], [address] WBC (Bld) [#/Vol] 7.6 10*3/uL Normal 4.4-11.0 [facility] Comment on above: Performed By: #### L 500.4050, L100.0100 ####[facility] [address] [place], [address] Carbon dioxide, total [Moles /volume] in Central venous bloodOrdered By: Bernarda Young on 04-13-2025 CO2 [Moles/Vol] 25.6 mmol/L 21.0-32.0 [facility] Chloride assayOrdered By: Eder Young on 04-13-2025 Chloride [Moles/Vol] 103 mmol/L 98-108 [facility] Comprehensive Metabolic Prof ilon 04-13-2025 Albumin [Mass/Vol] 3.9 g/dL Normal 3.4-4.8 [facility] Comment on above: Performed By: #### L 500.4050, L100.0100 ####[facility] [address] [place], [address] Albumin/Globulin [Mass ratio] 1.2 {ratio} Normal 0.9-2.4 [facility] Comment on above: Performed By: #### L 500.4050, L100.0100 ####[facility] [address] [place], [address] ALK PHOS 93 U/L Normal 40-129 [facility] Comment on above: Performed By: #### L 500.4050, L100.0100 ####[facility] [address] [place], [address] ALT [Catalytic activity/Vol] 14 U/L Normal <=46 [facility] Comment on above: Performed By: #### L 500.4050, L100.0100 ####[facility] [address] [place], [address] AST [Catalytic activity/Vol] 18 U/L Normal <=37 [facility] Comment on above: Performed By: #### L 500.4050, L100.0100 ####[facility] [address] [place], [address] Bilirubin [Mass/Vol] 0.40 mg/dL Normal 0.00-1.30 [facility] Comment on above: Performed By: #### L 500.4050, L100.0100 ####[facility] [address] [place], [address] BUN/CRE 15.2 RATIO Normal 10-20 [facility] Comment on above: Performed By: #### L 500.4050, L100.0100 ####[facility] [address] [place], [address] Calcium [Mass/Vol] 9.3 mg/dL Normal 7.6-11.0 [facility] Comment on above: Performed By: #### L 500.4050, L100.0100 ####[facility] [address] [place], [address] Chloride [Moles/Vol] 103 mmol/L Normal 98-108 [facility] Comment on above: Performed By: #### L 500.4050, L100.0100 ####[facility] [address] [place], [address] CO2 [Moles/Vol] 25.6 mmol/L Normal 21.0-32.0 [facility] Comment on above: Performed By: #### L 500.4050, L100.0100 ####[facility] [address] [place], [address] Creatinine [Mass/Vol] 1.11 mg/dL Normal 0.70-1.20 [facility] Comment on above: Performed By: #### L 500.4050, L100.0100 ####[facility] [address] [place], [address] GAP 11 Normal 5-15 [facility] Comment on above: Performed By: #### L 500.4050, L100.0100 ####[facility] [address] [place], [address] GFR/1.73 sq M.predicted among non-blacks MDRD (S/P/Bld) [Vol rate/Area] 74 mL/min/{1.73_m2} Normal >60 [facility] Comment on above: Result Comment: mL/m in/1.73m2 CKD-EPI Creatinine Equation (2020) Performed By: #### L 500.4050, L100.0100 ####[facility] [address] [place], [address] Globulin (S) [Mass/Vol] 3.3 g/dL Normal 2.2-4.2 [facility] Comment on above: Performed By: #### L 500.4050, L100.0100 ####[facility] [address] [place], [address] Glucose [Mass/Vol] 99 mg/dL Normal 70-99 [facility] Comment on above: Performed By: #### L 500.4050, L100.0100 ####[facility] [address] [place], [address] Potassium [Moles/Vol] 4.4 mmol/L Normal 3.3-5.1 [facility] Comment on above: Performed By: #### L 500.4050, L100.0100 ####[facility] [address] [place], [address] Sodium [Moles/Vol] 140 mmol/L Normal 133-145 [facility] Comment on above: Performed By: #### L 500.4050, L100.0100 ####[facility] [address] [place], [address] T PROT 7.2 g/dL Normal 5.9-8.4 [facility] Comment on above: Performed By: #### L 500.4050, L100.0100 ####[facility] [address] [place], [address] Urea nitrogen [Mass/Vol] 17 mg/dL Normal 4-19 [facility] Comment on above: Performed By: #### L 500.4050, L100.0100 ####[facility] [address] [place], [address] Eosinophil percentageOrdered By: Bernarda Young on 04-13-2025 Eosinophils/100 WBC (Bld) 2.4 % 0-5 [facility] Erythrocyte distribution wid th ratioOrdered By: Bernarda Young on 04-13-2025 Erythrocyte distribution width (RBC) [Ratio] 13.4 % 11.6-14.6 [facility] Erythrocyte distribution wid th standard deviationOrdered By: Bernarda Young on 04-13-2025 Erythrocyte distribution width (RBC) [Ratio] 43.6 fl 35.1-43.9 [facility] Glomerular filtration rate ( GFR) estimation/1.73 sq m using serum, plasma, or whole bOrdered By: Bernarda Young on 04-13-2025 GFR/1.73 sq M.predicted among non-blacks MDRD (S/P/Bld) [Vol rate/Area] 74 mL/min/{1.73_m2} >60 [facility] Comment on above: mL/min/1.73m2 CKD-EP I Creatinine Equation (2020) Hematocrit Auto (Bld) [Volum e fraction]Ordered By: Bernarda Young on 04-13-2025 Hematocrit (Bld) [Volume fraction] 45.3 % 40-54 [facility] Hemoglobin measurementOrdere d By: Bernarda Young on 04-13-2025 Hemoglobin (Bld) [Mass/Vol] 15.2 g/dL 13.0-16.5 [facility] Immature granulocytes/100 WB C Auto (Bld)Ordered By: Bernarda Young on 04-13-2025 Immature granulocytes/100 WBC (Bld) 0.500 % 0.0-0.9 [facility] Comment on above: IG% - Immature Granu locytes (promyelocytes, myelocytes and metamyelocytes) > 1% indicates that a LEFT SHIFT is Present. Laboratory - Chemistry and C hemistry - challengeOrdered By: Bernarda Young on 04-13-2025 AST [Catalytic activity/Vol] 18 U/L <38 [facility] MCV (mean corpuscular volume ) determinationOrdered By: Bernarda Young on 04-13-2025 MCV (RBC) [Entitic vol] 89.9 fL 80-94 [facility] Mean corpuscular hemoglobin (MCH) determinationOrdered By: Bernarda Young 04-13-2025 MCH (RBC) [Entitic mass] 30.2 pg 27.0-32.0 [facility] Mean corpuscular hemoglobin concentration (MCHC) determinationOrdered By: Bernarda Young on 04-13-2025 MCHC (RBC) [Mass/Vol] 33.6 g/dL 32-36 [facility] Mean platelet volume determi nationOrdered By: Bernarda Young on 04-13-2025 Platelet mean volume (Bld) [Entitic vol] 10.8 fL 6.2-12.0 [facility] Monocyte percentageOrdered B y: Bernarda Young on 04-13-2025 Monocytes/100 WBC (Bld) 6.6 % 0-10 [facility] Neutrophil percentageOrdered By: Bernarda Young on 04-13-2025 Neutrophils/100 WBC (Bld) 68.9 % 47-70 [facility] Nucleated red blood cell per centageOrdered By: Bernarda Young on 04-13-2025 Nucleated RBC/100 WBC (Bld) [Ratio] 0 % 0-5 [facility] Platelet countOrdered By: Eder Young on 04-13-2025 Platelets (Bld) [#/Vol] 226 10*3/uL 150-450 [facility] Potassium measurement (mass/ volume)Ordered By: Bernarda Young on 04-13-2025 Potassium (Unsp spec) [Mass/Vol] 4.4 mmol/L 3.3-5.1 [facility] RBC Auto (Bld) [#/Vol]Ordere d By: Bernarda Young on 04-13-2025 RBC (Bld) [#/Vol] 5.04 10*6/uL 4.6-6.2 [facility] Serum creatinine measurement (mass/volume)Ordered By: Bernarda Young on 04-13-2025 Creatinine [Mass/Vol] 1.11 mg/dL 0.70-1.20 [facility] Serum globulin measurementOr dered By: Bernarda Young on 04-13-2025 Globulin (S) [Mass/Vol] 3.3 g/dL 2.2-4.2 [facility] Serum glucose measurement (m ass/volume)Ordered By: Bernarda Young on 04-13-2025 Glucose [Mass/Vol] 99 mg/dL 70-99 [facility] Serum or plasma alanine myers otransferase (ALT) measurementOrdered By: Bernarda Young on 04-13-2025 ALT [Catalytic activity/Vol] 14 U/L <47 [facility] Serum or plasma albumin rekha urement (mass/volume)Ordered By: Bernarda Young on 04-13-2025 Albumin [Mass/Vol] 3.9 g/dL 3.4-4.8 [facility] Serum or plasma albumin/glob ulin mass ratioOrdered By: Bernarda Young on 04-13-2025 Albumin/Globulin [Mass ratio] 1.2 {ratio} 0.9-2.4 [facility] Serum or plasma alkaline shreyas sphatase measurementOrdered By: Bernarda Young on 04-13-2025 ALP [Catalytic activity/Vol] 93 U/L 40-129 [facility] Serum or plasma calcium rekha urement (mass/volume)Ordered By: Bernarda Young on 04-13-2025 Calcium [Mass/Vol] 9.3 mg/dL 7.6-11.0 [facility] Serum or plasma urea nitroge n measurement (mass/volume)Ordered By: Bernarda Young on 04-13-2025 Urea nitrogen [Mass/Vol] 17 mg/dL 4-19 [facility] Sodium levelOrdered By: Cole Young on 04-13-2025 Sodium [Moles/Vol] 140 mmol/L 133-145 [facility] Total proteinOrdered By: Tracy Young on 04-13-2025 Protein [Mass/Vol] 7.2 g/dL 5.9-8.4 [facility] White blood cell (WBC) count Ordered By: Bernarda Young on 04-13-2025 WBC (Bld) [#/Vol] 7.6 10*3/uL 4.4-11.0 [facility] Emergency Department Summary on 02-28-2025 Emergency Department Summary [facility] Medical Records Department [address] [place] [address] Emergency Department Summary 02/28/25 MR#: [id number] Acct: [id number] Name: ALINA ALLEN Emelia Rep #: [id number] : 1960 64 From: Huber Alfred PCP: Maris Duran NP-C Status:DEP ER Location: ED HPI History of Present Illness Chief Complaint: Upper Extremity Injury Informant: patient Narrative Narrative: Ffauk-iemb-hrpopqcc male presents increasing right shoulder pain this [...] stomach ulcers or kidney injury. Will continue ydiwqo-hvf-rxoft NSAIDs. He is given fall with orthopedics. All questions were answered. Re-evaluation: stable Disposition discussed with patient/family/signif icant other: Patient Case discussed with consulting clinician: N/A This note was generated with [employer] dictation software. It may contain incorrect words, spelling, and punctuation that were not noted in checking the note before signing. Radiography Diagnostic Testing: Clinical Impression(s) from Imaging Studies Shoulder X-Ray 02/28/25 02:50 IMPRESSION: Mild left shoulder joints degeneration. Reading Location: [place] [address] Discharge Plan Triage Chief Complaint: Upper Extremity Injury ED Provider: Huber Chowdary Dx/Rx/DC Orders Clinical Impression: Biceps tendonitis on left, Left shoulder strain Instructions: Biceps Tendonitis, ED Shoulder Sprain Prescriptions: New ibuprofen 600 mg tablet 600 mg PO Q6H PRN PRN (Reason: pain) Qty: 20 0RF No Action methotrexate sodium 2.5 mg (more content not included)... Normal [facility] Shoulder min 2 Viewson 02-28 Shoulder min 2 Views [facility] Imaging Services [address] [place], [place] [address] Shoulder min 2 Views MR#: [id number] Acct: [id number] Name: ALINA ALLEN Rep #: [id number] : 1960 M 64 From: Michel Ruano MD PCP: Maris Duran, HUSSAIN-C Status: PRE ER Study: Shoulder min 2 Views Date of Exam: 02/28/25 Exam# [id number] Ordering Dr: Provider,Ed P. 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 No acute bone, soft tissue, or lung pathology noted. RAD/Shoulder min 2 Views IMPRESSION: Mild left shoulder joints degeneration. Reading Location: RAD-[facility]ANO-2 CC: SHIPS OR BARGES LOADER-C Maris Duran; ED PHYSICIAN PROVIDER Install Technician: Signed Normal [facility] Absolute lymphocyte countOrd ered By: Bernarda Young on 01-22-2025 Lymphocytes Auto (Unsp spec) [#/Vol] 1.51 10*3/uL 0.83-4.51 [facility] Absolute neutrophil countOrd ered By: Bernarda Young on 01-22-2025 Neutrophils (Bld) [#/Vol] 4.7 10*3/uL 2.0-7.7 [facility] Anion gap in Serum or Plasma Ordered By: Bernarda Young on 01-22-2025 Anion gap [Moles/Vol] 11 mmol/L - [facility] Automated lymphocyte count a s percentage of total leukocytesOrdered By: Bernarda Young on 01-22-2025 Lymphocytes/100 WBC Auto (Unsp spec) 21.1 % - [facility] BUN/creatinine ratioOrdered By: Bernarda Young on 01-22-2025 Urea nitrogen/Creatinine [Mass ratio] 13.4 mg/mg - [facility] Basophil percentageOrdered B y: Bernarda Young on 01-22-2025 Basophils/100 WBC (Bld) 0.8 % 0- [facility] Bilirubin, totalOrdered By: Bernarda Young on 01-22-2025 Bilirubin [Mass/Vol] 0.32 mg/dL 0.00-1.30 [facility] CBC W/Diff, Automatedon 06-2 0-2025 Absolute Lymph 1.51 X10 3/uL Normal 0.83-4.51 [facility] Comment on above: Performed By: #### L 500.4050, L100.0100 #### [facility] [address] [place], [address] Absolute Neut 4.7 X10 3/uL Normal 2.0-7.7 [facility] Comment on above: Performed By: #### L 500.4050, L100.0100 #### [facility] [address] [place], [address] Basophils/100 WBC (Bld) 0.8 % Normal 0-1 [facility] Comment on above: Performed By: #### L 500.4050, L100.0100 #### [facility] [address] [place], [address] Eosinophils/100 WBC (Bld) 2.8 % Normal 0-5 [facility] Comment on above: Performed By: #### L 500.4050, L100.0100 #### [facility] [address] [place], [address] Erythrocyte distribution width (RBC) [Ratio] 13.6 % Normal 11.6-14.6 [facility] Comment on above: Performed By: #### L 500.4050, L100.0100 #### [facility] [address] [place], [address] Hematocrit (Bld) [Volume fraction] 44.2 % Normal 40-54 [facility] Comment on above: Performed By: #### L 500.4050, L100.0100 #### [facility] [address] [place], [address] Hemoglobin (Bld) [Mass/Vol] 14.9 g/dL Normal 13.0-16.5 [facility] Comment on above: Performed By: #### L 500.4050, L100.0100 #### [place] [facility] [address] [place], [address] IG% 1.000 High 0.0-0.9 [facility] Comment on above: Result Comment: IG% - Immature Granulocytes (promyelocytes, myelocytes and metamyelocytes) > 1% indicates that a LEFT SHIFT is Present. Performed By: #### L 500.4050, L100.0100 #### [facility] [address] [place], [address] Lymphocytes/100 WBC (Bld) 21.1 % Normal 19-41 [facility] Comment on above: Performed By: #### L 500.4050, L100.0100 #### [facility] [address] [place], [address] MCH (RBC) [Entitic mass] 30.8 pg Normal 27.0-32.0 [facility] Comment on above: Performed By: #### L 500.4050, L100.0100 #### [facility] [address] [place], [address] MCHC (RBC) [Mass/Vol] 33.7 g/dL Normal 32-36 [facility] Comment on above: Performed By: #### L 500.4050, L100.0100 #### [facility] [address] [place], [address] MCV (RBC) [Entitic vol] 91.5 fL Normal 80-94 [facility] Comment on above: Performed By: #### L 500.4050, L100.0100 #### [facility] [address] [place], [address] Monocytes/100 WBC (Bld) 8.8 % Normal 0-10 [facility] Comment on above: Performed By: #### L 500.4050, L100.0100 #### [facility] [address] [place], [address] Neutrophils/100 WBC (Bld) 65.5 % Normal 47-70 [facility] Comment on above: Performed By: #### L 500.4050, L100.0100 #### [facility] [address] [place], [address] Nucleated RBC (Bld) [#/Vol] 0 10*3/uL Normal 0-5 [facility] Comment on above: Performed By: #### L 500.4050, L100.0100 #### [facility] [address] [place], [address] Platelet mean volume (Bld) [Entitic vol] 10.9 fL Normal 6.2-12.0 [facility] Comment on above: Performed By: #### L 500.4050, L100.0100 #### [facility] [address] [place], [address] Platelets (Bld) [#/Vol] 265 10*3/uL Normal 150-450 [facility] Comment on above: Performed By: #### L 500.4050, L100.0100 #### [facility] [address] [place], [address] RBC (Bld) [#/Vol] 4.83 10*6/uL Normal 4.6-6.2 [facility] Comment on above: Performed By: #### L 500.4050, L100.0100 #### [facility] [address] [place], [address] RDW SD 44.8 fl High 35.1-43.9 [facility] Comment on above: Performed By: #### L 500.4050, L100.0100 #### [facility] [address] [place], [address] WBC (Bld) [#/Vol] 7.2 10*3/uL Normal 4.4-11.0 [facility] Comment on above: Performed By: #### L 500.4050, L100.0100 #### [facility] [address] [place], [address] Carbon dioxide, total [Moles /volume] in Central venous bloodOrdered By: Bernarda Young on 01-22-2025 CO2 [Moles/Vol] 23.6 mmol/L 21.0-32.0 [facility] Chloride assayOrdered By: Eder Young on 01-22-2025 Chloride [Moles/Vol] 105 mmol/L 98-108 [facility] Comprehensive Metabolic Prof ilon 01-22-2025 Albumin [Mass/Vol] 3.7 g/dL Normal 3.4-4.8 [facility] Comment on above: Performed By: #### L 500.4050, L100.0100 #### [facility] [address] [place], [address] Albumin/Globulin [Mass ratio] 1.1 {ratio} Normal 0.9-2.4 [facility] Comment on above: Performed By: #### L 500.4050, L100.0100 #### [facility] [address] [place], [address] ALK PHOS 100 U/L Normal 40-129 [facility] Comment on above: Performed By: #### L 500.4050, L100.0100 #### [facility] [address] [place], [address] ALT [Catalytic activity/Vol] 12 U/L Normal <=46 [facility] Comment on above: Performed By: #### L 500.4050, L100.0100 #### [facility] [address] [place], [address] AST [Catalytic activity/Vol] 15 U/L Normal <=37 [facility] Comment on above: Performed By: #### L 500.4050, L100.0100 #### [facility] [address] [place], [address] Bilirubin [Mass/Vol] 0.32 mg/dL Normal 0.00-1.30 [facility] Comment on above: Performed By: #### L 500.4050, L100.0100 #### [facility] [address] [place], [address] BUN/CRE 13.4 RATIO Normal 10-20 [facility] Comment on above: Performed By: #### L 500.4050, L100.0100 #### [facility] [address] [place], [address] Calcium [Mass/Vol] 9.3 mg/dL Normal 7.6-11.0 [facility] Comment on above: Performed By: #### L 500.4050, L100.0100 #### [facility] [address] [place], [address] Chloride [Moles/Vol] 105 mmol/L Normal 98-108 [facility] Comment on above: Performed By: #### L 500.4050, L100.0100 #### [facility] [address] [place], [address] CO2 [Moles/Vol] 23.6 mmol/L Normal 21.0-32.0 [facility] Comment on above: Performed By: #### L 500.4050, L100.0100 #### [facility] [address] [place], [address] Creatinine [Mass/Vol] 1.06 mg/dL Normal 0.70-1.20 [facility] Comment on above: Performed By: #### L 500.4050, L100.0100 #### [facility] [address] [place], [address] GAP 11 Normal 5-15 [facility] Comment on above: Performed By: #### L 500.4050, L100.0100 #### [facility] [address] [place], [address] GFR/1.73 sq M.predicted among non-blacks MDRD (S/P/Bld) [Vol rate/Area] 78 mL/min/{1.73_m2} Normal >60 [facility] Comment on above: Result Comment: mL/m in/1.73m2 CKD-EPI Creatinine Equation (2020) Performed By: #### L 500.4050, L100.0100 #### [facility] [address] [place], [address] Globulin (S) [Mass/Vol] 3.5 g/dL Normal 2.2-4.2 [facility] Comment on above: Performed By: #### L 500.4050, L100.0100 #### [facility] [address] [place], [address] Glucose [Mass/Vol] 86 mg/dL Normal 70-99 [facility] Comment on above: Performed By: #### L 500.4050, L100.0100 #### [facility] [address] [place], [address] Potassium [Moles/Vol] 4.4 mmol/L Normal 3.3-5.1 [facility] Comment on above: Performed By: #### L 500.4050, L100.0100 #### [facility] [address] [place], [address] Sodium [Moles/Vol] 139 mmol/L Normal 133-145 [facility] Comment on above: Performed By: #### L 500.4050, L100.0100 #### [facility] [address] [place], [address] T PROT 7.2 g/dL Normal 5.9-8.4 [facility] Comment on above: Performed By: #### L 500.4050, L100.0100 #### [facility] [address] [place], [place], [address] Urea nitrogen [Mass/Vol] 14 mg/dL Normal 4-19 [facility] Comment on above: Performed By: #### L 500.4050, L100.0100 #### [facility] [address] [place], [address] Eosinophil percentageOrdered By: Bernarda Young on 01-22-2025 Eosinophils/100 WBC (Bld) 2.8 % 0-5 [facility] Erythrocyte distribution wid th ratioOrdered By: Bernarda Young on 01-22-2025 Erythrocyte distribution width (RBC) [Ratio] 13.6 % 11.6-14.6 [facility] Erythrocyte distribution wid th standard deviationOrdered By: Bernarda Young on 01-22-2025 Erythrocyte distribution width (RBC) [Ratio] 44.8 fl High 35.1-43.9 [facility] Glomerular filtration rate ( GFR) estimation/1.73 sq m using serum, plasma, or whole bOrdered By: Bernarda Young on 01-22-2025 GFR/1.73 sq M.predicted among non-blacks MDRD (S/P/Bld) [Vol rate/Area] 78 mL/min/{1.73_m2} >60 [facility] Comment on above: mL/min/1.73m2 CKD-EP I Creatinine Equation (2020) Hematocrit Auto (Bld) [Volum e fraction]Ordered By: Bernarda Young on 01-22-2025 Hematocrit (Bld) [Volume fraction] 44.2 % 40-54 [facility] Hemoglobin measurementOrdere d By: Bernarda Young on 01-22-2025 Hemoglobin (Bld) [Mass/Vol] 14.9 g/dL 13.0-16.5 [facility] Immature granulocytes/100 WB C Auto (Bld)Ordered By: Bernarda Young on 01-22-2025 Immature granulocytes/100 WBC (Bld) 1.000 % High 0.0-0.9 [facility] Comment on above: IG% - Immature Granu locytes (promyelocytes, myelocytes and metamyelocytes) > 1% indicates that a LEFT SHIFT is Present. Laboratory - Chemistry and C hemistry - challengeOrdered By: Bernarda Young on 01-22-2025 AST [Catalytic activity/Vol] 15 U/L <38 [facility] MCV (mean corpuscular volume ) determinationOrdered By: Bernarda Young on 01-22-2025 MCV (RBC) [Entitic vol] 91.5 fL 80-94 [facility] Mean corpuscular hemoglobin (MCH) determinationOrdered By: Bernarda Young on 01-22-2025 MCH (RBC) [Entitic mass] 30.8 pg 27.0-32.0 [facility] Mean corpuscular hemoglobin concentration (MCHC) determinationOrdered By: Bernarda Young on 01-22-2025 MCHC (RBC) [Mass/Vol] 33.7 g/dL 32-36 [facility] Mean platelet volume determi nationOrdered By: Bernarda Young on 01-22-2025 Platelet mean volume (Bld) [Entitic vol] 10.9 fL 6.2-12.0 [facility] Monocyte percentageOrdered B y: Bernarda Young on 01-22-2025 Monocytes/100 WBC (Bld) 8.8 % 0-10 [facility] Neutrophil percentageOrdered By: Bernarda Young on 01-22-2025 Neutrophils/100 WBC (Bld) 65.5 % 47-70 [facility] Nucleated red blood cell per centageOrdered By: Bernarda Young on 01-22-2025 Nucleated RBC/100 WBC (Bld) [Ratio] 0 % 0-5 [facility] Platelet countOrdered By: Eder Young on 01-22-2025 Platelets (Bld) [#/Vol] 265 10*3/uL 150-450 [facility] Potassium measurement (mass/ volume)Ordered By: Bernarda Young on 01-22-2025 Potassium (Unsp spec) [Mass/Vol] 4.4 mmol/L 3.3-5.1 [facility] RBC Auto (Bld) [#/Vol]Ordere d By: Bernarda Young on 01-22-2025 RBC (Bld) [#/Vol] 4.83 10*6/uL 4.6-6.2 [facility] Serum creatinine measurement (mass/volume)Ordered By: Bernarda Young on 01-22-2025 Creatinine [Mass/Vol] 1.06 mg/dL 0.70-1.20 [facility] Serum globulin measurementOr dered By: Bernarda Young on 01-22-2025 Globulin (S) [Mass/Vol] 3.5 g/dL 2.2-4.2 [facility] Serum glucose measurement (m ass/volume)Ordered By: Bernarda Young on 01-22-2025 Glucose [Mass/Vol] 86 mg/dL 70-99 [facility] Serum or plasma alanine myers otransferase (ALT) measurementOrdered By: Bernarda Young on 01-22-2025 ALT [Catalytic activity/Vol] 12 U/L <47 [facility] Serum or plasma albumin rekha urement (mass/volume)Ordered By: Bernarda Young on 01-22-2025 Albumin [Mass/Vol] 3.7 g/dL 3.4-4.8 [facility] Serum or plasma albumin/glob ulin mass ratioOrdered By: Bernarda Young on 01-22-2025 Albumin/Globulin [Mass ratio] 1.1 {ratio} 0.9-2.4 [facility] Serum or plasma alkaline shreyas sphatase measurementOrdered By: Bernarda Young on 01-22-2025 ALP [Catalytic activity/Vol] 100 U/L 40-129 [facility] Serum or plasma calcium rekha urement (mass/volume)Ordered By: Bernarda Young on 01-22-2025 Calcium [Mass/Vol] 9.3 mg/dL 7.6-11.0 [facility] Serum or plasma urea nitroge n measurement (mass/volume)Ordered By: Bernarda Young on 01-22-2025 Urea nitrogen [Mass/Vol] 14 mg/dL 4-19 [facility] Sodium levelOrdered By: Cole Young on 01-22-2025 Sodium [Moles/Vol] 139 mmol/L 133-145 [facility] Total proteinOrdered By: Tracy Young on 01-22-2025 Protein [Mass/Vol] 7.2 g/dL 5.9-8.4 [facility] White blood cell (WBC) count Ordered By: [facility] Hector on 01-22-2025 WBC (Bld) [#/Vol] 7.2 10*3/uL 4.4-11.0 [facility] Absolute lymphocyte countOrd ered By: [facility] Hector on 11-02-2024 Lymphocytes Auto (Unsp spec) [#/Vol] 1.43 10*3/uL 0.83-4.51 [facility] Absolute neutrophil countOrd ered By: [facility] Hector on 11-02-2024 Neutrophils (Bld) [#/Vol] 5.4 10*3/uL 2.0-7.7 [facility] Anion gap in Serum or Plasma Ordered By: [facility] Hector on 11-02-2024 Anion gap [Moles/Vol] 14 mmol/L 5- [facility] Automated lymphocyte count a s percentage of total leukocytesOrdered By: Bernardayariel Young on 11-02-2024 Lymphocytes/100 WBC Auto (Unsp spec) 19.3 % 19- [facility] BUN/creatinine ratioOrdered By: [facility]-2024 Urea nitrogen/Creatinine [Mass ratio] 11.8 mg/mg 10- [facility] Basophil percentageOrdered B y: Bernarda Young on 11-02-2024 Basophils/100 WBC (Bld) 0.7 % 0-1 [facility] Bilirubin, totalOrdered By: [facility] Hector on 11-02-2024 Bilirubin [Mass/Vol] 0.31 mg/dL 0.00-1.30 [facility] CBC W/Diff, Automatedon 10-05 Absolute Lymph 1.43 X10 3/uL Normal 0.83-4.51 [facility] Comment on above: Performed By: #### L 100.0100, L500.4050 #### [facility] [address] [place] [address]. [place], [place], [id number] Absolute Neut 5.4 X10 3/uL Normal 2.0-7.7 [facility] Comment on above: Performed By: #### L 100.0100, L500.4050 #### [facility] [address] [place], [address] Basophils/100 WBC (Bld) 0.7 % Normal 0-1 [facility] Comment on above: Performed By: #### L 100.0100, L500.4050 #### [facility] [address] [place], [address] Eosinophils/100 WBC (Bld) 2.7 % Normal 0-5 [facility] Comment on above: Performed By: #### L 100.0100, L500.4050 #### [facility] [address] [place], [address] Erythrocyte distribution width (RBC) [Ratio] 13.4 % Normal 11.6-14.6 [facility] Comment on above: Performed By: #### L 100.0100, L500.4050 #### [facility] [address] [place], [address] Hematocrit (Bld) [Volume fraction] 39.3 % Low 40-54 [facility] Comment on above: Performed By: #### L 100.0100, L500.4050 #### [facility] [address] [place], [address] Hemoglobin (Bld) [Mass/Vol] 13.3 g/dL Normal 13.0-16.5 [facility] Comment on above: Performed By: #### L 100.0100, L500.4050 #### [facility] [address] [place], [address] IG% 0.400 Normal 0.0-0.9 [facility] Comment on above: Result Comment: IG% - Immature Granulocytes (promyelocytes, myelocytes and metamyelocytes) > 1% indicates that a LEFT SHIFT is Present. Performed By: #### L 100.0100, L500.4050 #### [facility] [address] [place], [address] Lymphocytes/100 WBC (Bld) 19.3 % Normal 19-41 [facility] Comment on above: Performed By: #### L 100.0100, L500.4050 #### [facility] [address] [place], [address] MCH (RBC) [Entitic mass] 30.8 pg Normal 27.0-32.0 [facility] Comment on above: Performed By: #### L 100.0100, L500.4050 #### [facility] [address] [place], [address] MCHC (RBC) [Mass/Vol] 33.8 g/dL Normal 32-36 [facility] Comment on above: Performed By: #### L 100.0100, L500.4050 #### [facility] [address] [place], [address] MCV (RBC) [Entitic vol] 91.0 fL Normal 80-94 [facility] Comment on above: Performed By: #### L 100.0100, L500.4050 #### [facility] [address] [place], [address] Monocytes/100 WBC (Bld) 4.2 % Normal 0-10 [facility] Comment on above: Performed By: #### L 100.0100, L500.4050 #### [facility] [address] [place], [address] Neutrophils/100 WBC (Bld) 72.7 % High 47-70 [facility] Comment on above: Performed By: #### L 100.0100, L500.4050 #### [facility] [address] [place], [address] Nucleated RBC (Bld) [#/Vol] 0 10*3/uL Normal 0-5 [facility] Comment on above: Performed By: #### L 100.0100, L500.4050 #### [facility] [address] [place], [address] Platelet mean volume (Bld) [Entitic vol] 10.7 fL Normal 6.2-12.0 [facility] Comment on above: Performed By: #### L 100.0100, L500.4050 #### [facility] [address] [place], [address] Platelets (Bld) [#/Vol] 190 10*3/uL Normal 150-450 [facility] Comment on above: Performed By: #### L 100.0100, L500.4050 #### [facility] [address] [place], [address] RBC (Bld) [#/Vol] 4.32 10*6/uL Low 4.6-6.2 [facility] Comment on above: Performed By: #### L 100.0100, L500.4050 #### [facility] [address] [place], [address] RDW SD 43.9 fl Normal 35.1-43.9 [facility] Comment on above: Performed By: #### L 100.0100, L500.4050 #### [facility] [address] [place], [address] WBC (Bld) [#/Vol] 7.4 10*3/uL Normal 4.4-11.0 [facility] Comment on above: Performed By: #### L 100.0100, L500.4050 #### [facility] [address] [place], [address] Carbon dioxide, total [Moles /volume] in Central venous bloodOrdered By: Bernarda Young on 11-02-2024 CO2 [Moles/Vol] 21.3 mmol/L 21.0-32.0 [facility] Chloride assayOrdered By: Eder Young on 11-02-2024 Chloride [Moles/Vol] 103 mmol/L 98-108 [facility] Comprehensive Metabolic Prof ilon 11-02-2024 Albumin [Mass/Vol] 3.7 g/dL Normal 3.4-4.8 [facility] Comment on above: Performed By: #### L 100.0100, L500.4050 #### [facility] [address] [place], [address] Albumin/Globulin [Mass ratio] 1.3 {ratio} Normal 0.9-2.4 [facility] Comment on above: Performed By: #### L 100.0100, L500.4050 #### [facility] [address] [place], [address] ALK PHOS 80 U/L Normal 40-129 [facility] Comment on above: Performed By: #### L 100.0100, L500.4050 #### [facility] [address] [place], [address] ALT [Catalytic activity/Vol] 11 U/L Normal <=46 [facility] Comment on above: Performed By: #### L 100.0100, L500.4050 #### [facility] [address] [place], [address] AST [Catalytic activity/Vol] 16 U/L Normal <=37 [facility] Comment on above: Performed By: #### L 100.0100, L500.4050 #### [facility] [address] [place], [address] Bilirubin [Mass/Vol] 0.31 mg/dL Normal 0.00-1.30 [facility] Comment on above: Performed By: #### L 100.0100, L500.4050 #### [facility] [address] [place], [address] BUN/CRE 11.8 RATIO Normal 10-20 [facility] Comment on above: Performed By: #### L 100.0100, L500.4050 #### [facility] [address] [place], [address] Calcium [Mass/Vol] 9.2 mg/dL Normal 7.6-11.0 [facility] Comment on above: Performed By: #### L 100.0100, L500.4050 #### [facility] [address] [place], [address] Chloride [Moles/Vol] 103 mmol/L Normal 98-108 [facility] Comment on above: Performed By: #### L 100.0100, L500.4050 #### [facility] [address] [place], [address] CO2 [Moles/Vol] 21.3 mmol/L Normal 21.0-32.0 [facility] Comment on above: Performed By: #### L 100.0100, L500.4050 #### [facility] [address] [place], [address] Creatinine [Mass/Vol] 1.20 mg/dL Normal 0.70-1.20 [facility] Comment on above: Performed By: #### L 100.0100, L500.4050 #### [facility] [address] [place], [address] GAP 14 Normal 5-15 [facility] Comment on above: Performed By: #### L 100.0100, L500.4050 #### [facility] [address] [place], [address] GFR/1.73 sq M.predicted among non-blacks MDRD (S/P/Bld) [Vol rate/Area] 68 mL/min/{1.73_m2} Normal >60 [facility] Comment on above: Result Comment: mL/m in/1.73m2 CKD-EPI Creatinine Equation (2020) Performed By: #### L 100.0100, L500.4050 #### [facility] [address] [place], [address] Globulin (S) [Mass/Vol] 2.8 g/dL Normal 2.2-4.2 [facility] Comment on above: Performed By: #### L 100.0100, L500.4050 #### [facility] [address] [place], [address] Glucose [Mass/Vol] 104 mg/dL High 70-99 [facility] Comment on above: Performed By: #### L 100.0100, L500.4050 #### [facility] [address] [place], [address] Potassium [Moles/Vol] 4.1 mmol/L Normal 3.3-5.1 [facility] Comment on above: Performed By: #### L 100.0100, L500.4050 #### [facility] [address] [place], [address] Sodium [Moles/Vol] 138 mmol/L Normal 133-145 [facility] Comment on above: Performed By: #### L 100.0100, L500.4050 #### [facility] [address] [place], [address] T PROT 6.5 g/dL Normal 5.9-8.4 [facility] Comment on above: Performed By: #### L 100.0100, L500.4050 #### [facility] [address] [place], [address] Urea nitrogen [Mass/Vol] 14 mg/dL Normal 4-19 [facility] Comment on above: Performed By: #### L 100.0100, L500.4050 #### [facility] [place], [address] Eosinophil percentageOrdered By: Bernarda Young on 11-02-2024 Eosinophils/100 WBC (Bld) 2.7 % 0-5 [facility] Erythrocyte distribution wid th (RBC) [Ratio]Ordered By: Bernarda Young on 11-02-2024 Erythrocyte distribution width (RBC) [Entitic vol] 43.9 fL 35.1-43.9 [facility] Erythrocyte distribution wid th ratioOrdered By: [facility] Hector on 11-02-2024 Erythrocyte distribution width (RBC) [Ratio] 13.4 % 11.6-14.6 [facility] Erythrocyte distribution wid th standard deviationOrdered By: [facility] on 11-02-2024 Erythrocyte distribution width (RBC) [Ratio] 43.9 fl 35.1-43.9 [facility] GFR/1.73 sq M.predicted dary g non-blacks MDRD (S/P/Bld) [Vol rate/Area]Ordered By: Bernarda Young on 11-02-2024 Estimated GFR (MDRD) Non-Af Amer 68 >60 [facility] Comment on above: mL/min/1.73m2 CKD-EP I Creatinine Equation (2020) Glomerular filtration rate ( GFR) estimation/1.73 sq m using serum, plasma, or whole bOrdered By: Bernarda Yougn on 11-02-2024 GFR/1.73 sq M.predicted among non-blacks MDRD (S/P/Bld) [Vol rate/Area] 68 mL/min/{1.73_m2} >60 [facility] Comment on above: mL/min/1.73m2 CKD-EP I Creatinine Equation (2020) Hematocrit Auto (Bld) [Volum e fraction]Ordered By: Bernarda Young on 11-02-2024 Hematocrit (Bld) [Volume fraction] 39.3 % Low 40-54 [facility] Hemoglobin measurementOrdere d By: Bernarda Young on 11-02-2024 Hemoglobin (Bld) [Mass/Vol] 13.3 g/dL 13.0-16.5 [facility] Immature granulocytes/100 WB C Auto (Bld)Ordered By: Bernarda Young on 11-02-2024 Immature granulocytes/100 WBC (Bld) 0.400 % 0.0-0.9 [facility] Comment on above: IG% - Immature Granu locytes (promyelocytes, myelocytes and metamyelocytes) > 1% indicates that a LEFT SHIFT is Present. Laboratory - Chemistry and C hemistry - challengeOrdered By: Bernarda Young on 11-02-2024 AST [Catalytic activity/Vol] 16 U/L <38 [facility] Lymphocytes Auto (Unsp spec) [#/Vol]Ordered By: [facility] Hector on 11-02-2024 Lymphocytes (Bld) [#/Vol] 1.43 10*3/uL 0.83-4.51 [facility] Lymphocytes/100 WBC Auto (Un sp spec)Ordered By: Bernarda Young on 11-02-2024 Lymphocytes/100 WBC (Bld) 19.3 % 19-41 [facility] MCV (mean corpuscular volume ) determinationOrdered By: Bernarda Young on 11-02-2024 MCV (RBC) [Entitic vol] 91.0 fL 80-94 [facility] Mean corpuscular hemoglobin (MCH) determinationOrdered By: Bernarda Young on 11-02-2024 MCH (RBC) [Entitic mass] 30.8 pg 27.0-32.0 [facility] Mean corpuscular hemoglobin concentration (MCHC) determinationOrdered By: Bernardayariel Young on 11-02-2024 MCHC (RBC) [Mass/Vol] 33.8 g/dL 32-36 [facility] Mean platelet volume determi nationOrdered By: Bernarda Young on 11-02-2024 Platelet mean volume (Bld) [Entitic vol] 10.7 fL 6.2-12.0 [facility] Monocyte percentageOrdered B y: Bernarda Young on 11-02-2024 Monocytes/100 WBC (Bld) 4.2 % 0-10 [facility] Neutrophil percentageOrdered By: Bernarda Young on 11-02-2024 Neutrophils/100 WBC (Bld) 72.7 % High 47-70 [facility] Nucleated red blood cell per centageOrdered By: Bernarda Young on 11-02-2024 Nucleated RBC/100 WBC (Bld) [Ratio] 0 % 0-5 [facility] Platelet countOrdered By: Eder Young on 11-02-2024 Platelets (Bld) [#/Vol] 190 10*3/uL 150-450 [facility] Potassium (Unsp spec) [Mass/ Vol]Ordered By: Bernarda Young on 11-02-2024 Potassium [Moles/Vol] 4.1 mmol/L 3.3-5.1 [facility] Potassium measurement (mass/ volume)Ordered By: Bernarda Young on 11-02-2024 Potassium (Unsp spec) [Mass/Vol] 4.1 mmol/L 3.3-5.1 [facility] RBC Auto (Bld) [#/Vol]Ordere d By: Bernarda Young on 11-02-2024 RBC (Bld) [#/Vol] 4.32 10*6/uL Low 4.6-6.2 [facility] Serum creatinine measurement (mass/volume)Ordered By: Bernarda Young on 11-02-2024 Creatinine [Mass/Vol] 1.20 mg/dL 0.70-1.20 [facility] Serum globulin measurementOr dered By: Bernarda Young on 11-02-2024 Globulin (S) [Mass/Vol] 2.8 g/dL 2.2-4.2 [facility] Serum glucose measurement (m ass/volume)Ordered By: Bernarda Young on 11-02-2024 Glucose [Mass/Vol] 104 mg/dL High 70-99 [facility] Serum or plasma alanine myers otransferase (ALT) measurementOrdered By: Bernarda Young on 11-02-2024 ALT [Catalytic activity/Vol] 11 U/L <47 [facility] Serum or plasma albumin rekha urement (mass/volume)Ordered By: Bernarda Young on 11-02-2024 Albumin [Mass/Vol] 3.7 g/dL 3.4-4.8 [facility] Serum or plasma albumin/glob ulin mass ratioOrdered By: Bernarda Young on 11-02-2024 Albumin/Globulin [Mass ratio] 1.3 {ratio} 0.9-2.4 [facility] Serum or plasma alkaline shreyas sphatase measurementOrdered By: Bernarda Young on 11-02-2024 ALP [Catalytic activity/Vol] 80 U/L 40-129 [facility] Serum or plasma calcium rekha urement (mass/volume)Ordered By: Bernarda Young on 11-02-2024 Calcium [Mass/Vol] 9.2 mg/dL 7.6-11.0 [facility] Serum or plasma urea nitroge n measurement (mass/volume)Ordered By: Bernarda Young on 11-02-2024 Urea nitrogen [Mass/Vol] 14 mg/dL 4-19 [facility] Sodium levelOrdered By: Cole Young on 11-02-2024 Sodium [Moles/Vol] 138 mmol/L 133-145 [facility] Total proteinOrdered By: Tracy Young on 11-02-2024 Protein [Mass/Vol] 6.5 g/dL 5.9-8.4 [facility] White blood cell (WBC) count Ordered By: Bernarda Young on 11-02-2024 WBC (Bld) [#/Vol] 7.4 10*3/uL 4.4-11.0 [facility] 12 Lead EKGon 09-24-2024 12 Lead EKG [facility] Cardiovascular Services [address] [place] [address] 12 Lead EKG 09/24/24 1838 MR#: [id number] Acct: [id number] Name: ALINA ALLEN Rep #: [id number] : 1960 64 From: Pedro Vincent MD [...] Abnormal ECG Confirmed by PEDRO VINCENT ([id number]), news editor JASON MUSTAFA ([id number]) on 09/28/2024 7:14:30 AM Referred By: AR Confirmed By: PEDRO VINCENT 09/28/24 0714 Date Pedro Vincent MD CC: SIMIN Duran; Dr. Jace Landeros MD Signed Normal [facility] Absolute neutrophil countOrd ered By: Jace Landeros on 09-24-2024 Neutrophils (Bld) [#/Vol] 8.4 10*3/uL High 2.0-7.7 [facility] Basic Metabolic Profile (BMP )on 09-24-2024 BUN/CRE 17.6 RATIO Normal 05-24 [facility] Comment on above: Performed By: #### L 500.2500, L501.5425, L100.0100 #### [facility] [address] [place], [address] CA,Total 9.5 mg/dL Normal 8.5-10.1 [facility] Comment on above: Performed By: #### L 500.2500, L501.5425, L100.0100 #### [facility] [address] [place], [address] Chloride [Moles/Vol] 108 mmol/L High 98-107 [facility] Comment on above: Performed By: #### L 500.2500, L501.5425, L100.0100 #### [facility] [address] [place], [address] CO2 [Moles/Vol] 28.0 mmol/L Normal 21.0-32.0 [facility] Comment on above: Performed By: #### L 500.2500, L501.5425, L100.0100 #### [facility] [address] [place], [address] Creatinine [Mass/Vol] 1.25 mg/dL Normal 0.70-1.30 [facility] Comment on above: Result Comment: The validity of the calculated GFR GFRAA in patients over 70 years has not been determined. Clinical correlation is essential. Performed By: #### L 500.2500, L501.5425, L100.0100 #### [facility] [address] [place], [address] EST GFR - AA 75 mL/min Normal >60 [facility] Comment on above: Result Comment: Afri can Armenian GFR Calc Performed By: #### L 500.2500, L501.5425, L100.0100 #### [facility] [address] [place], [address] GAP 5 Normal 5-15 [facility] Comment on above: Performed By: #### L 500.2500, L501.5425, L100.0100 #### [facility] [address] [place], [address] GFR/1.73 sq M.predicted among non-blacks MDRD (S/P/Bld) [Vol rate/Area] 62 mL/min/{1.73_m2} Normal >60 [facility] Comment on above: Result Comment: Non- GFR Calc Performed By: #### L 500.2500, L501.5425, L100.0100 #### [facility] [address] [place], [address] Glucose [Mass/Vol] 108 mg/dL High 74-106 [facility] Comment on above: Result Comment: Fast ing Glucose result from 100 to 125 mg/dL suggests IMPAIRED HOMEOSTASIS per A.D.A. criteria. Performed By: #### L 500.2500, L501.5425, L100.0100 #### [facility] [address] [place], [address] Potassium [Moles/Vol] 4.2 mmol/L Normal 3.5-5.1 [facility] Comment on above: Performed By: #### L 500.2500, L501.5425, L100.0100 #### [facility] [address] [place], [address] Sodium [Moles/Vol] 141 mmol/L Normal 136-145 [facility] Comment on above: Performed By: #### L 500.2500, L501.5425, L100.0100 #### [facility] [address] [place], [address] Urea nitrogen [Mass/Vol] 22 mg/dL High - [facility] Comment on above: Performed By: #### L 500.2500, L501.5425, L100.0100 #### [facility] [address] [place], [address] Basophil percentageOrdered B y: Jace Landeros on 09-24-2024 Basophils/100 WBC (Bld) 0.4 % 0-1 [facility] Blood urea nitrogen (BUN)/cr eatinine ratioOrdered By: Jace Landeros on 09-24-2024 Urea nitrogen/Creatinine [Mass ratio] 17.6 mg/mg 05-24 [facility] CBC W/Diff, Automatedon - 0-2024 Absolute Lymph 1.01 X10 3/uL Normal 0.83-4.51 [facility] Comment on above: Performed By: #### L 500.2500, L501.5425, L100.0100 #### [facility] [address] [place], [address] Absolute Neut 8.4 X10 3/uL High 2.0-7.7 [facility] Comment on above: Performed By: #### L 500.2500, L501.5425, L100.0100 #### [facility] [address] [place], [address] Basophils/100 WBC (Bld) 0.4 % Normal 0-1 [facility] Comment on above: Performed By: #### L 500.2500, L501.5425, L100.0100 #### [facility] [address] [place], [address] Eosinophils/100 WBC (Bld) 1.8 % Normal 0-5 [facility] Comment on above: Performed By: #### L 500.2500, L501.5425, L100.0100 #### [facility] [address] [place], [address] Erythrocyte distribution width (RBC) [Ratio] 13.1 % Normal 11.6-14.6 [facility] Comment on above: Performed By: #### L 500.2500, L501.5425, L100.0100 #### [facility] [address] [place], [address] Hematocrit (Bld) [Volume fraction] 41.4 % Normal 40-54 [facility] Comment on above: Performed By: #### L 500.2500, L501.5425, L100.0100 #### [facility] [address] [place], [address] Hemoglobin (Bld) [Mass/Vol] 14.4 g/dL Normal 13.0-16.5 [facility] Comment on above: Performed By: #### L 500.2500, L501.5425, L100.0100 #### [facility] [address] [place], [address] IG% 0.600 Normal 0.0-0.9 [facility] Comment on above: Result Comment: IG% - Immature Granulocytes (promyelocytes, myelocytes and metamyelocytes) > 1% indicates that a LEFT SHIFT is Present. Performed By: #### L 500.2500, L501.5425, L100.0100 #### [facility] [address] [place], [address] Lymphocytes/100 WBC (Bld) 9.7 % Low 19-41 [facility] Comment on above: Performed By: #### L 500.2500, L501.5425, L100.0100 #### [facility] [address] [place], [address] MCH (RBC) [Entitic mass] 31.6 pg Normal 27.0-32.0 [facility] Comment on above: Performed By: #### L 500.2500, L501.5425, L100.0100 #### [facility] [address] [place], [address] MCHC (RBC) [Mass/Vol] 34.8 g/dL Normal 32-36 [facility] Comment on above: Performed By: #### L 500.2500, L501.5425, L100.0100 #### [facility] [address] [place], [address] MCV (RBC) [Entitic vol] 90.8 fL Normal 80-94 [facility] Comment on above: Performed By: #### L 500.2500, L501.5425, L100.0100 #### [facility] [address] [place], [address] Monocytes/100 WBC (Bld) 6.3 % Normal 0-10 [facility] Comment on above: Performed By: #### L 500.2500, L501.5425, L100.0100 #### [facility] [address] [place], [address] Neutrophils/100 WBC (Bld) 81.2 % High 47-70 [facility] Comment on above: Performed By: #### L 500.2500, L501.5425, L100.0100 #### [facility] [address] [place], [address] Nucleated RBC (Bld) [#/Vol] 0 10*3/uL Normal 0-5 [facility] Comment on above: Performed By: #### L 500.2500, L501.5425, L100.0100 #### [facility] [address] [place], [address] Platelet mean volume (Bld) [Entitic vol] 10.4 fL Normal 6.2-12.0 [facility] Comment on above: Performed By: #### L 500.2500, L501.5425, L100.0100 #### [facility] [address] [place], [address] Platelets (Bld) [#/Vol] 220 10*3/uL Normal 150-450 [facility] Comment on above: Performed By: #### L 500.2500, L501.5425, L100.0100 #### [facility] [address] [place], [address] RBC (Bld) [#/Vol] 4.56 10*6/uL Low 4.6-6.2 [facility] Comment on above: Performed By: #### L 500.2500, L501.5425, L100.0100 #### [facility] [address] [place], [address] RDW SD 42.4 fl Normal 35.1-43.9 [facility] Comment on above: Performed By: #### L 500.2500, L501.5425, L100.0100 #### [facility] [address] [place], [address] WBC (Bld) [#/Vol] 10.4 10*3/uL Normal 4.4-11.0 [facility] Comment on above: Performed By: #### L 500.2500, L501.5425, L100.0100 #### [facility] [address] [place], [address] CTA Chest W/WO Contraston CTA Chest W/WO Contrast [facility] Imaging Services [address] [place] [address] CTA Chest W/WO Contrast MR#: [id number] Acct: [id number] Name: ALINA ALLEN Rep #: [id number] : 1960 M 64 From: Patricio New MD PCP: Maris Duran NP-C Status: REG ER Study: CTA Chest W/WO Contrast Date of Exam: 09/24/24 Exam# [id number] Ordering Dr: Jace Landeros MD PROCEDURE: CTA [...] use of iterative reconstruction technique). Reading Location: [id number] CC: SHIPS OR BARGES LOADER-C Maris Duran; Dr. Jace Landeros MD Install Technician: Signed Normal [facility] Carbon dioxide measurementOr dered By: Jace Landeros on 09-24-2024 CO2 [Moles/Vol] 28.0 mmol/L 21.0-32.0 [facility] Chest 1 View (Portable)on Chest 1 View (Portable) [facility] Imaging Services [address] [place] [address] Chest 1 View (Portable) MR#: [id number] Acct: [id number] Name: ALINA ALLEN Rep #: [id number] : 1960 M 64 From: Jerson Viera MD PCP: SIMIN Telles Status: REG ER Study: Chest 1 View (Portable) Date of Exam: 09/24/24 Exam# [id number] Ordering Dr: Provider,Ed P. PROCEDURE: CHEST 1 VIEW (PORTABLE) REASON FOR EXAM: Shortness of breath TECHNIQUE: Frontal view of the chest. COMPARISON: None. FINDINGS: The heart size is normal. The mediastinal contour is unremarkable. Mild bibasilar opacities, ljxo-eakgytl-eisx-rig ht Degenerative changes are identified within the thoracic spine and left shoulder. RAD/Chest 1 View (Portable) IMPRESSION: Mild bibasilar atelectasis versus airspace disease. Reading Location: KATLYN CC: HUSSAIN-C Maris Duran; ED PHYSICIAN PROVIDER Install Technician: Signed Normal [facility] Chloride measurementOrdered By: Jace Landeros on 09-24-2024 Chloride [Moles/Vol] 108 mmol/L High 98-107 [facility] D-Dimer Quantitative (DVT/PE )on 09-24-2024 D-DIMER QUANT 1.15 FEU/ug/m Invalid Interpretation Code 0.27-0.49 [facility] Comment on above: Result Comment: D-Di britt ELEVATED (>0.49): Additional studies and clinical assessments are indicated to conclude diagnosis of: Deep Vein Thrombosis (DVT) or Pulmonary Embolism (PE) CRITICAL VALUE CALLED TO LSPARR 09/24/24 Dian Medrano. RESULTS READ BACK BY SAME. Performed By: #### L 300.8000 ####[facility] [address] [place], [place], [id number] D-dimer measurement for deep venous thrombosisOrdered By: Jace Landeros on 09-24-2024 D-Dimer Quantitative (PE/DVT) 1.15 FEU/ug/m High 0.27-0.49 [facility] Comment on above: D-Dimer ELEVATED (>0 .49): Additional studies and clinicalassessments are indicated to conclude diagnosis of:Deep Vein Thrombosis (DVT) or Pulmonary Embolism (PE)CRITICAL VALUE CALLED TO MAEKEA74/20/25 2016 Marcia Medrano.RESULTS READ BACK BY SAME. Emergency Department Summary on 09-24-2024 Emergency Department [address] [facility] Medical Records Department [address] [place] [address] Emergency Department Summary 09/24/24 MR#: [id number] Acct: [id number] Name: ALINA ALLEN Rep #: [id number] : 1960 64 From: Jace Landeros MD PCP: Maris Duran NP-C Status:REG ER Location: ED HPI History of [...] sharp pain in his left lower lung. [facility] Medical History Olecranon bursitis, left elbow Digital [...] slightly vinay (more content not included)... Normal [facility] Eosinophil percentageOrdered By: Jace Landeros on 09-24-2024 Eosinophils/100 WBC (Bld) 1.8 % 0-5 [facility] Erythrocyte distribution wid th (RBC) [Ratio]Ordered By: Jace Landeros on 09-24-2024 Erythrocyte distribution width (RBC) [Entitic vol] 42.4 fL 35.1-43.9 [facility] Erythrocyte distribution wid th ratioOrdered By: Jace Landeros on 09-24-2024 Erythrocyte distribution width (RBC) [Ratio] 13.1 % 11.6-14.6 [facility] Estimated glomerular filtrat ion rate (GFR) AmericanOrdered By: Jace Landeros on 09-24-2024 Estimated GFR (MDRD) Amer 75 mL/min >60 [facility] Comment on above: GFR Calc Glomerular filtration rate ( GFR) estimationOrdered By: Jace Landeros on 09-24-2024 Estimated GFR (MDRD) Non-Af Amer 62 mL/min >60 [facility] Comment on above: Non- GFR Calc Glucose measurementOrdered B y: Jace Landeros on 09-24-2024 Glucose [Mass/Vol] 108 mg/dL High 74-106 [facility] Comment on above: Fasting Glucose resu lt from 100 to 125 mg/dL suggests IMPAIRED HOMEOSTASIS per A.D.A. criteria. Hematocrit Auto (Bld) [Volum e fraction]Ordered By: Jace Landeros on 09-24-2024 Hematocrit (Bld) [Volume fraction] 41.4 % 40-54 [facility] Hemoglobin measurementOrdere d By: Jace Landeros on 09-24-2024 Hemoglobin (Bld) [Mass/Vol] 14.4 g/dL 13.0-16.5 [facility] Immature granulocytes/100 WB C Auto (Bld)Ordered By: Jace Landeros on 09-24-2024 Immature granulocytes/100 WBC (Bld) 0.600 % 0.0-0.9 [facility] Comment on above: IG% - Immature Granu locytes (promyelocytes, myelocytes and metamyelocytes) > 1% indicates that a LEFT SHIFT is Present. L501.4020on 09-24-2024 TROPONIN-I HS 6 pg/mL Normal 3.0-78.0 [facility] Comment on above: Result Comment: Plea se Note: New Test Units and Gender Specific Reference Ranges. For more information see Policy Stat Procedure [place] High Sensitivity Troponin (TNIH) and attachments. Performed By: #### L 501.4020 ####[facility] [address] [place], [place], [id number] L501.5425on 09-24-2024 TROPONIN-I HS 6 pg/mL Normal 3.0-78.0 [facility] Comment on above: Order Comment: 1 Y Result Comment: Plea se Note: New Test Units and Gender Specific Reference Ranges. For more information see Policy Stat Procedure [place] High Sensitivity Troponin (TNIH) and attachments. Performed By: #### L 500.2500, L501.5425, L100.0100 #### [facility] [address] [place], [address] Lymphocytes Auto (Unsp spec) [#/Vol]Ordered By: Jace Landeros on 09-24-2024 Lymphocytes (Bld) [#/Vol] 1.01 10*3/uL 0.83-4.51 [facility] Lymphocytes/100 WBC Auto (Un sp spec)Ordered By: Jace Landeros on 09-24-2024 Lymphocytes/100 WBC (Bld) 9.7 % Low 19-41 [facility] MCV (mean corpuscular volume ) determinationOrdered By: Jace Landeros on 09-24-2024 MCV (RBC) [Entitic vol] 90.8 fL 80-94 [facility] Mean corpuscular hemoglobin (MCH) determinationOrdered By: Jace Landeros on 09-24-2024 MCH (RBC) [Entitic mass] 31.6 pg 27.0-32.0 [facility] Mean corpuscular hemoglobin concentration (MCHC) determinationOrdered By: Jace Landeros on 09-24-2024 MCHC (RBC) [Mass/Vol] 34.8 g/dL 32-36 [facility] Mean platelet volume determi nationOrdered By: Jace Landeros on 09-24-2024 Platelet mean volume (Bld) [Entitic vol] 10.4 fL 6.2-12.0 [facility] Monocyte percentageOrdered B y: Jace Landeros on 09-24-2024 Monocytes/100 WBC (Bld) 6.3 % 0-10 [facility] Neutrophil percentageOrdered By: Jace Landeros on 09-24-2024 Neutrophils/100 WBC (Bld) 81.2 % High 47-70 [facility] Nucleated red blood cell per centageOrdered By: Jace Landeros on 09-24-2024 Nucleated RBC/100 WBC (Bld) [Ratio] 0 % 0-5 [facility] Platelet countOrdered By: Brody Landeros on 09-24-2024 Platelets (Bld) [#/Vol] 220 10*3/uL 150-450 [facility] Potassium measurementOrdered By: Jace Landeros on 09-24-2024 Potassium [Moles/Vol] 4.2 mmol/L 3.5-5.1 [facility] RBC Auto (Bld) [#/Vol]Ordere d By: Jace Landeros on 09-24-2024 RBC (Bld) [#/Vol] 4.56 10*6/uL Low 4.6-6.2 [facility] Serum anion gap measurementO rdered By: Jace Landeros on 09-24-2024 Anion gap [Moles/Vol] 5 mmol/L 5-15 [facility] Serum or plasma calcium rekha urement (mass/volume)Ordered By: Jace Landeros on 09-24-2024 Calcium [Mass/Vol] 9.5 mg/dL 8.5-10.1 [facility] Serum or plasma creatinine m easurement (mass/volume)Ordered By: Jace Landeros on 09-24-2024 Creatinine [Mass/Vol] 1.25 mg/dL 0.70-1.30 [facility] Comment on above: The validity of the calculated GFR & GFRAA in patients over 70 years has not been determined. Clinical correlation is essential. Serum or plasma urea nitroge n measurement (mass/volume)Ordered By: Jace Landeros on 09-24-2024 Urea nitrogen [Mass/Vol] 22 mg/dL High 7-18 [facility] Sodium levelOrdered By: Jace Landeros on 09-24-2024 Sodium [Moles/Vol] 141 mmol/L 136-145 [facility] Troponin IOrdered By: Jace pedroza on 09-24-2024 Troponin I High Sensitivity 6 pg/mL 3.0-78.0 [facility] Comment on above: Please Note: New Ian t Units and Gender Specific Reference Ranges. For more information see Policy Stat Procedure [place] High Sensitivity Troponin (TNIH) and attachments. White blood cell (WBC) count Ordered By: Jace Landeros on 09-24-2024 WBC (Bld) [#/Vol] 10.4 10*3/uL 4.4-11.0 [facility] Absolute neutrophil countOrd ered By: Bernarda Young on 07-31-2024 Neutrophils (Bld) [#/Vol] 5.4 10*3/uL 2.0-7.7 [facility] Albumin to globulin ratioOrd ered By: Bernarda Young on 07-31-2024 Albumin/Globulin [Mass ratio] 0.8 {ratio} Low 0.9-2.4 [facility] Basophil percentageOrdered B y: Bernarda Young on 07-31-2024 Basophils/100 WBC (Bld) 0.8 % 0-1 [facility] Bilirubin, totalOrdered By: Bernarda Young on 07-31-2024 Bilirubin [Mass/Vol] 0.30 mg/dL 0.20-1.00 [facility] Comment on above: For patients on eltr ombopag therapy, use of Dimension [place] TBIL is not recommended. Blood urea nitrogen (BUN)/cr eatinine ratioOrdered By: Bernarda Young on 07-31-2024 Urea nitrogen/Creatinine [Mass ratio] 14.2 mg/mg 10- [facility] CBC W/Diff, Automatedon 07-06 Absolute Lymph 1.98 X10 3/uL Normal 0.83-4.51 [facility] Comment on above: Performed By: #### L 100.0100, L500.4050 #### [facility] [address] [place], [address] Absolute Neut 5.4 X10 3/uL Normal 2.0-7.7 [facility] Comment on above: Performed By: #### L 100.0100, L500.4050 #### [facility] [address] [place], [address] Basophils/100 WBC (Bld) 0.8 % Normal 0-1 [facility] Comment on above: Performed By: #### L 100.0100, L500.4050 #### [facility] [address] [place], [address] Eosinophils/100 WBC (Bld) 3.8 % Normal 0-5 [facility] Comment on above: Performed By: #### L 100.0100, L500.4050 #### [facility] [address] [place], [address] Erythrocyte distribution width (RBC) [Ratio] 13.2 % Normal 11.6-14.6 [facility] Comment on above: Performed By: #### L 100.0100, L500.4050 #### [facility] [address] [place], [address] Hematocrit (Bld) [Volume fraction] 44.5 % Normal 40-54 [facility] Comment on above: Performed By: #### L 100.0100, L500.4050 #### [facility] [address] [place], [address] Hemoglobin (Bld) [Mass/Vol] 14.5 g/dL Normal 13.0-16.5 [facility] Comment on above: Performed By: #### L 100.0100, L500.4050 #### [facility] [address] [place], [address] IG% 0.500 Normal 0.0-0.9 [facility] Comment on above: Result Comment: IG% - Immature Granulocytes (promyelocytes, myelocytes and metamyelocytes) > 1% indicates that a LEFT SHIFT is Present. Performed By: #### L 100.0100, L500.4050 #### [facility] [address] [place], [address] Lymphocytes/100 WBC (Bld) 23.2 % Normal 19-41 [facility] Comment on above: Performed By: #### L 100.0100, L500.4050 #### [facility] [address] [place], [address] MCH (RBC) [Entitic mass] 30.7 pg Normal 27.0-32.0 [facility] Comment on above: Performed By: #### L 100.0100, L500.4050 #### [facility] [address] [place], [address] MCHC (RBC) [Mass/Vol] 32.6 g/dL Normal 32-36 [facility] Comment on above: Performed By: #### L 100.0100, L500.4050 #### [facility] [address] [place], [address] MCV (RBC) [Entitic vol] 94.1 fL High 80-94 [facility] Comment on above: Performed By: #### L 100.0100, L500.4050 #### [facility] [address] [place], [address] Monocytes/100 WBC (Bld) 8.0 % Normal 0-10 [facility] Comment on above: Performed By: #### L 100.0100, L500.4050 #### [facility] [address] [place], [address] Neutrophils/100 WBC (Bld) 63.7 % Normal 47-70 [facility] Comment on above: Performed By: #### L 100.0100, L500.4050 #### [facility] [address] [place], [address] Nucleated RBC (Bld) [#/Vol] 0 10*3/uL Normal 0-5 [facility] Comment on above: Performed By: #### L 100.0100, L500.4050 #### [facility] [address] [place], [address] Platelet mean volume (Bld) [Entitic vol] 10.9 fL Normal 6.2-12.0 [facility] Comment on above: Performed By: #### L 100.0100, L500.4050 #### [facility] [address] [place], [address] Platelets (Bld) [#/Vol] 204 10*3/uL Normal 150-450 [facility] Comment on above: Performed By: #### L 100.0100, L500.4050 #### [facility] [address] [place], [address] RBC (Bld) [#/Vol] 4.73 10*6/uL Normal 4.6-6.2 [facility] Comment on above: Performed By: #### L 100.0100, L500.4050 #### [facility] [address] [place], [address] RDW SD 45.2 fl High 35.1-43.9 [facility] Comment on above: Performed By: #### L 100.0100, L500.4050 #### [facility] [address] [place], [address] WBC (Bld) [#/Vol] 8.5 10*3/uL Normal 4.4-11.0 [facility] Comment on above: Performed By: #### L 100.0100, L500.4050 #### [facility] [address] [place], [address] Carbon dioxide measurementOr dered By: Bernarda Young on 07-31-2024 CO2 [Moles/Vol] 27.0 mmol/L 21.0-32.0 [facility] Chloride measurementOrdered By: Bernarda Young on 07-31-2024 Chloride [Moles/Vol] 108 mmol/L High 98-107 [facility] Comprehensive Metabolic Prof ilon 07-31-2024 Albumin [Mass/Vol] 3.2 g/dL Normal 3.2-5.0 [facility] Comment on above: Performed By: #### L 100.0100, L500.4050 ####[facility] [address] [place], [address] Albumin/Globulin [Mass ratio] 0.8 {ratio} Low 0.9-2.4 [facility] Comment on above: Performed By: #### L 100.0100, L500.4050 ####[facility] [address] [place], [address] ALK P 87 U/L Normal 45-117 [facility] Comment on above: Performed By: #### L 100.0100, L500.4050 ####[facility] [address] [place], [address] ALT [Catalytic activity/Vol] 19 U/L Normal 16-61 [facility] Comment on above: Performed By: #### L 100.0100, L500.4050 ####[facility] [address] [place], [address] AST [Catalytic activity/Vol] 12 U/L Low 15-37 [facility] Comment on above: Performed By: #### L 100.0100, L500.4050 ####[facility] [address] [place], [address] Bilirubin [Mass/Vol] 0.30 mg/dL Normal 0.20-1.00 [facility] Comment on above: Result Comment: For patients on eltrombopag therapy, use of Dimension [place] TBIL is not recommended. Performed By: #### L 100.0100, L500.4050 ####[facility] [address] [place], [address] BUN/CRE 14.2 RATIO Normal 10-20 [facility] Comment on above: Performed By: #### L 100.0100, L500.4050 ####[facility] [address] [place], [address] CA,Total 9.0 mg/dL Normal 8.5-10.1 [facility] Comment on above: Performed By: #### L 100.0100, L500.4050 ####[facility] [address] [place], [address] Chloride [Moles/Vol] 108 mmol/L High 98-107 [facility] Comment on above: Performed By: #### L 100.0100, L500.4050 ####[facility] [address] [place], [address] CO2 [Moles/Vol] 27.0 mmol/L Normal 21.0-32.0 [facility] Comment on above: Performed By: #### L 100.0100, L500.4050 ####[facility] [address] [place], [address] Creatinine [Mass/Vol] 1.06 mg/dL Normal 0.70-1.30 [facility] Comment on above: Result Comment: The validity of the calculated GFR GFRAA in patients over 70 years has not been determined. Clinical correlation is essential. Performed By: #### L 100.0100, L500.4050 ####[facility] [address] [place], [address] EST GFR - AA 91 mL/min Normal >60 [facility] Comment on above: Result Comment: Afri can Armenian GFR Calc Performed By: #### L 100.0100, L500.4050 ####[facility] [address] [place], [address] GAP 2 Low 5-15 [facility] Comment on above: Performed By: #### L 100.0100, L500.4050 ####[facility] [address] [place], [address] GFR/1.73 sq M.predicted among non-blacks MDRD (S/P/Bld) [Vol rate/Area] 75 mL/min/{1.73_m2} Normal >60 [facility] Comment on above: Result Comment: Non- GFR Calc Performed By: #### L 100.0100, L500.4050 ####[facility] [address] [place], [address] Globulin (S) [Mass/Vol] 3.8 g/dL Normal 2.2-4.2 [facility] Comment on above: Performed By: #### L 100.0100, L500.4050 ####[facility] [address] [place], [address] Glucose [Mass/Vol] 92 mg/dL Normal 74-106 [facility] Comment on above: Performed By: #### L 100.0100, L500.4050 ####[facility] [address] [place], [address] Potassium [Moles/Vol] 4.4 mmol/L Normal 3.5-5.1 [facility] Comment on above: Performed By: #### L 100.0100, L500.4050 ####[facility] [address] [place], [address] Sodium [Moles/Vol] 137 mmol/L Normal 136-145 [facility] Comment on above: Performed By: #### L 100.0100, L500.4050 ####[facility] [address] [place], [address] T PROT 7.0 g/dL Normal 6.4-8.2 [facility] Comment on above: Performed By: #### L 100.0100, L500.4050 ####[facility] [address] [place], [address] Urea nitrogen [Mass/Vol] 15 mg/dL Normal 7-18 [facility] Comment on above: Performed By: #### L 100.0100, L500.4050 ####[facility] [address] [place], [address] Eosinophil percentageOrdered By: Bernarda Young on 07-31-2024 Eosinophils/100 WBC (Bld) 3.8 % 0-5 [facility] Erythrocyte distribution wid th (RBC) [Ratio]Ordered By: Bernarda Young on 07-31-2024 Erythrocyte distribution width (RBC) [Entitic vol] 45.2 fL High 35.1-43.9 [facility] Erythrocyte distribution wid th ratioOrdered By: Bernarda Young on 07-31-2024 Erythrocyte distribution width (RBC) [Ratio] 13.2 % 11.6-14.6 [facility] Estimated glomerular filtrat ion rate (GFR) AmericanOrdered By: Bernarda Young on 07-31-2024 Estimated GFR (MDRD) Amer 91 mL/min >60 [facility] Comment on above: GFR Calc Glomerular filtration rate ( GFR) estimationOrdered By: Bernarda Young on 07-31-2024 Estimated GFR (MDRD) Non-Af Amer 75 mL/min >60 [facility] Comment on above: Non- GFR Calc Glucose measurementOrdered B y: Bernarda Young on 07-31-2024 Glucose [Mass/Vol] 92 mg/dL 74-106 [facility] Hematocrit Auto (Bld) [Volum e fraction]Ordered By: Bernarda Young on 07-31-2024 Hematocrit (Bld) [Volume fraction] 44.5 % 40-54 [facility] Hemoglobin measurementOrdere d By: Bernarda Young on 07-31-2024 Hemoglobin (Bld) [Mass/Vol] 14.5 g/dL 13.0-16.5 [facility] Immature granulocytes/100 WB C Auto (Bld)Ordered By: Bernarda Young on 07-31-2024 Immature granulocytes/100 WBC (Bld) 0.500 % 0.0-0.9 [facility] Comment on above: IG% - Immature Granu locytes (promyelocytes, myelocytes and metamyelocytes) > 1% indicates that a LEFT SHIFT is Present. Laboratory - Chemistry and C hemistry - challengeOrdered By: Bernarda Young on 07-31-2024 AST [Catalytic activity/Vol] 12 U/L Low 15-37 [facility] Lymphocytes Auto (Unsp spec) [#/Vol]Ordered By: Bernarda Young on 07-31-2024 Lymphocytes (Bld) [#/Vol] 1.98 10*3/uL 0.83-4.51 [facility] Lymphocytes/100 WBC Auto (Un sp spec)Ordered By: Bernarda Young on 07-31-2024 Lymphocytes/100 WBC (Bld) 23.2 % 19-41 [facility] MCV (mean corpuscular volume ) determinationOrdered By: Bernarda Young on 07-31-2024 MCV (RBC) [Entitic vol] 94.1 fL High 80-94 [facility] Mean corpuscular hemoglobin (MCH) determinationOrdered By: Bernarda Young on 07-31-2024 MCH (RBC) [Entitic mass] 30.7 pg 27.0-32.0 [facility] Mean corpuscular hemoglobin concentration (MCHC) determinationOrdered By: Bernarda Young on 07-31-2024 MCHC (RBC) [Mass/Vol] 32.6 g/dL 32-36 [facility] Mean platelet volume determi nationOrdered By: Bernarda Young on 07-31-2024 Platelet mean volume (Bld) [Entitic vol] 10.9 fL 6.2-12.0 [facility] Monocyte percentageOrdered B y: Bernarda Young on 07-31-2024 Monocytes/100 WBC (Bld) 8.0 % 0-10 [facility] Neutrophil percentageOrdered By: Bernarda Young on 07-31-2024 Neutrophils/100 WBC (Bld) 63.7 % 47-70 [facility] Nucleated red blood cell per centageOrdered By: Bernarda Young on 07-31-2024 Nucleated RBC/100 WBC (Bld) [Ratio] 0 % 0-5 [facility] Platelet countOrdered By: Eder Young on 07-31-2024 Platelets (Bld) [#/Vol] 204 10*3/uL 150-450 [facility] Potassium measurementOrdered By: Bernarda Young on 07-31-2024 Potassium [Moles/Vol] 4.4 mmol/L 3.5-5.1 [facility] RBC Auto (Bld) [#/Vol]Ordere d By: Bernarda Young on 07-31-2024 RBC (Bld) [#/Vol] 4.73 10*6/uL 4.6-6.2 [facility] Serum anion gap measurementO rdered By: Bernarda Young on 07-31-2024 Anion gap [Moles/Vol] 2 mmol/L Low 5-15 [facility] Serum globulin measurementOr dered By: Bernarda Young on 07-31-2024 Globulin (S) [Mass/Vol] 3.8 g/dL 2.2-4.2 [facility] Serum or plasma alanine myers otransferase (ALT) measurementOrdered By: Bernarda Young on 07-31-2024 ALT [Catalytic activity/Vol] 19 U/L 16-61 [facility] Serum or plasma albumin rekha urement (mass/volume)Ordered By: Bernarda Young on 07-31-2024 Albumin [Mass/Vol] 3.2 g/dL 3.2-5.0 [facility] Serum or plasma alkaline shreyas sphatase measurementOrdered By: Bernarda Young on 07-31-2024 ALP [Catalytic activity/Vol] 87 U/L 45-117 [facility] Serum or plasma calcium rekha urement (mass/volume)Ordered By: Bernarda Young on 07-31-2024 Calcium [Mass/Vol] 9.0 mg/dL 8.5-10.1 [facility] Serum or plasma creatinine m easurement (mass/volume)Ordered By: Bernarda Young on 07-31-2024 Creatinine [Mass/Vol] 1.06 mg/dL 0.70-1.30 [facility] Comment on above: The validity of the calculated GFR & GFRAA in patients over 70 years has not been determined. Clinical correlation is essential. Serum or plasma urea nitroge n measurement (mass/volume)Ordered By: Bernarda Young on 07-31-2024 Urea nitrogen [Mass/Vol] 15 mg/dL 7-18 [facility] Sodium levelOrdered By: Cole Young on 07-31-2024 Sodium [Moles/Vol] 137 mmol/L 136-145 [facility] Total proteinOrdered By: Tracy Young on 07-31-2024 Protein [Mass/Vol] 7.0 g/dL 6.4-8.2 [facility] White blood cell (WBC) count Ordered By: Bernarda Young on 07-31-2024 WBC (Bld) [#/Vol] 8.5 10*3/uL 4.4-11.0 [facility] CT THORAX SCREENING W/O CONT RASTon 03-20-2024 [...] Date: 03/20/2024 3:41:33 PM Ordering Provider: MARIS DURAN Normal [facility] ([place]) GLUon 03-20-2024 Glucose [Mass/Vol] 94 mg/dL Normal 80-115 [facility]) Comment on above: Performed By: #### G MIS, LIPID #### [place] [address] LABORATORYOrdered By: Kenyon Patton on 03-20-2024 Cholesterol [...] 03-20-2024 Cholesterol [Mass/Vol] 160 mg/dL Normal 0-200 [facility] ([place]) Comment on above: Result Comment: Chol esterol Reference Interval: Less than 200 Desirable 200-239 Borderline high risk 240 and above High risk Performed By: #### Rosendo ABEBE, LIPID #### [address] [address] Cholesterol in HDL [Mass/Vol] 56 mg/dL Normal 40-60 [facility] ([place]) Comment on above: Performed By: #### Rosendo ABEBE, LIPID #### [address] [address] Cholesterol in LDL [Mass/Vol] 91 mg/dL Normal 0-130 [facility] ([place]) Comment on above: Performed By: #### Rosendo ABEBE, LIPID #### [address] [address] Triglyceride [Mass/Vol] 66 mg/dL Normal 0-150 [facility] ([place]) Comment on above: Result Comment: Trig lyceride Reference Interval: Less than 150 Normal 150-199 Borderline high risk 200-499 High risk 500 or higher Very high risk Performed By: #### Rosendo ABEBE, LIPID #### [place] [address] [place], [place] [address] GLUon 02-27-2024 Glucose [Mass/Vol] 82 mg/dL Normal 80-115 [facility] ([place]) Comment on above: Performed By: #### L IPID, GLU, PSA #### [address] [address] LABORATORYOrdered By: Kenyon Patton on 02-27-2024 Cholesterol [...] 02-27-2024 Cholesterol [Mass/Vol] 163 mg/dL Normal 0-200 [facility] Comment on above: Result Comment: Chol esterol Reference Interval: Less than 200 Desirable 200-239 Borderline high risk 240 and above High risk Performed By: #### L IPID, GLU, PSA #### [address] [address] Cholesterol in HDL [Mass/Vol] 57 mg/dL Normal 40-60 [facility] ([place]) Comment on above: Performed By: #### L IPID, GLU, PSA #### [address] [address] Cholesterol in LDL [Mass/Vol] 93 mg/dL Normal 0-130 [facility] ([place]) Comment on above: Performed By: #### L IPID, GLU, PSA #### [address] [address] Triglyceride [Mass/Vol] 64 mg/dL Normal 0-150 [facility] ([place]) Comment on above: Result Comment: Trig lyceride Reference Interval: Less than 150 Normal 150-199 Borderline high risk 200-499 High risk 500 or higher Very high risk Performed By: #### L IPID, GLU, PSA #### [facility] [address] [place], [place] [address] PSAon 02-27-2024 Prostate Specific Antigen 0.40 ng/mL Normal 0.00-4.00 [facility] ([place]) Comment on above: Performed By: #### L IPID, GLU, PSA #### [facility] [address] [place], [place] [address] Absolute lymphocyte countOrd ered By: Bernarda Young on 11-22-2023 Lymphocytes Auto (Unsp spec) [#/Vol] 1.71 10*3/uL 0.83-4.51 [facility] Automated lymphocyte count a s percentage of total leukocytesOrdered By: Bernarda Young on 11-22-2023 Lymphocytes/100 WBC Auto (Unsp spec) 21.0 % 19-41 [facility] Basophil percentageOrdered B y: Bernarda Young on 11-22-2023 Basophils/100 WBC (Bld) 0.6 % 0-1 [facility] Bilirubin [Mass/Vol] 0.40 mg/dL 0.20-1.00 [facility] Comment on above: For patients on eltr ombopag therapy, use of Dimension [place] TBIL is not recommended. Chloride [Moles/Vol] 108 mmol/L 98-107 [facility] Eosinophils/100 WBC (Bld) 3.3 % 0-5 [facility] Glucose [Mass/Vol] 84 mg/dL 74-106 [facility] Hemoglobin (Bld) [Mass/Vol] 14.8 g/dL 13.0-16.5 [facility] Monocytes/100 WBC (Bld) 6.9 % 0-10 [facility] Neutrophils (Bld) [#/Vol] 5.5 10*3/uL 2.0-7.7 [facility] Neutrophils/100 WBC (Bld) 67.3 % 47-70 [facility] Potassium [Moles/Vol] 4.5 mmol/L 3.5-5.1 [facility] Protein [Mass/Vol] 7.5 g/dL 6.4-8.2 [facility] Sodium [Moles/Vol] 139 mmol/L 136-145 [facility] WBC (Bld) [#/Vol] 8.1 10*3/uL 4.4-11.0 [facility] Determination of erythrocyte mean corpuscular volume (MCV)Ordered By: Bernarda Young on 11-22-2023 MCV (RBC) [Entitic vol] 91.8 fL 80-94 [facility] Erythrocyte distribution wid th ratioOrdered By: [facility] on 11-22-2023 Erythrocyte distribution width (RBC) [Ratio] 13.3 % 11.6-14.6 [facility] Erythrocyte distribution wid th standard deviationOrdered By: [facility] on 11-22-2023 Erythrocyte distribution width (RBC) [Entitic vol] 44.1 fL 35.1-43.9 [facility] Hematocrit Auto (Bld) [Volum e fraction]Ordered By: Bernarda Young on 11-22-2023 Hematocrit (Bld) [Volume fraction] 42.8 % 40-54 [facility] Immature granulocytes/100 WB C Auto (Bld)Ordered By: [facility] Hector on 11-22-2023 Immature granulocytes/100 WBC (Bld) 0.900 % 0.0-0.9 [facility] Comment on above: IG% - Immature Granu locytes (promyelocytes, myelocytes and metamyelocytes) > 1% indicates that a LEFT SHIFT is Present. Laboratory - Chemistry and C hemistry - challengeOrdered By: Bernarda Young on 11-22-2023 Albumin/Globulin [Mass ratio] 0.9 {ratio} 0.9-2.4 [facility] ALP [Catalytic activity/Vol] 87 U/L 45-117 [facility] ALT [Catalytic activity/Vol] 20 U/L 16-61 [facility] CO2 [Moles/Vol] 27.0 mmol/L 21.0-32.0 [facility] Globulin (S) [Mass/Vol] 3.9 g/dL 2.2-4.2 [facility] Urea nitrogen/Creatinine [Mass ratio] 16.0 mg/mg 10-20 [facility] Laboratory - Hematology and Cell countsOrdered By: Bernarda Young on 11-22-2023 MCH (RBC) [Entitic mass] 31.8 pg 27.0-32.0 [facility] MCHC (RBC) [Mass/Vol] 34.6 g/dL 32-36 [facility] Nucleated RBC/100 WBC (Bld) [Ratio] 0 % 0-5 [facility] Platelet mean volume (Bld) [Entitic vol] 10.9 fL 6.2-12.0 [facility] Platelets (Bld) [#/Vol] 205 10*3/uL 150-450 [facility] No Panel InformationOrdered By: Bernarda Young on 11-22-2023 Estimated GFR (MDRD) Amer 91 mL/min >60 [facility] Comment on above: GFR Calc Estimated GFR (MDRD) Non-Af Amer 75 mL/min >60 [facility] Comment on above: Non- GFR Calc RBC Auto (Bld) [#/Vol]Ordere d By: Bernarda Young on 11-22-2023 RBC (Bld) [#/Vol] 4.66 10*6/uL 4.6-6.2 [facility] Serum or plasma calcium rekha urement (mass/volume)Ordered By: Bernarda Young on 11-22-2023 Calcium [Mass/Vol] 9.1 mg/dL 8.5-10.1 [facility] Serum or plasma creatinine m easurement (mass/volume)Ordered By: Bernarda Young on 11-22-2023 Creatinine [Mass/Vol] 1.06 mg/dL 0.70-1.30 [facility] Comment on above: The validity of the calculated GFR & GFRAA in patients over 70 years has not been determined. Clinical correlation is essential. Serum or plasma urea nitroge n measurement (mass/volume)Ordered By: Bernarda Young on 11-22-2023 Urea nitrogen [Mass/Vol] 17 mg/dL 7-18 [facility] Thin prep Papanicolaou smear with manual screeningOrdered By: Bernarda Young on 11-22-2023 Thin prep Papanicolaou smear with manual screening 3.6 g/dL 3.2-5.0 [facility] Thin prep Papanicolaou smear with manual screening 16 U/L 15-37 [facility] Thin prep Papanicolaou smear with manual screening 4 5-15 [facility] Absolute lymphocyte countOrd ered By: Bernarda Young on 08-28-2023 Lymphocytes Auto (Unsp spec) [#/Vol] 1.73 10*3/uL 0.83-4.51 [facility] Automated lymphocyte count a s percentage of total leukocytesOrdered By: Bernarda Young on 08-28-2023 Lymphocytes/100 WBC Auto (Unsp spec) 22.1 % 19-41 [facility] Basophil percentageOrdered B y: Bernarda Young on 08-28-2023 Basophils/100 WBC (Bld) 0.9 % 0-1 [facility] Bilirubin [Mass/Vol] 0.40 mg/dL 0.20-1.00 [facility] Comment on above: For patients on eltr ombopag therapy, use of Dimension [place] TBIL is not recommended. Chloride [Moles/Vol] 110 mmol/L 98-107 [facility] Eosinophils/100 WBC (Bld) 5.0 % 0-5 [facility] Glucose [Mass/Vol] 80 mg/dL 74-106 [facility] Hemoglobin (Bld) [Mass/Vol] 14.5 g/dL 13.0-16.5 [facility] Monocytes/100 WBC (Bld) 6.9 % 0-10 [facility] Neutrophils (Bld) [#/Vol] 5.1 10*3/uL 2.0-7.7 [facility] Neutrophils/100 WBC (Bld) 64.6 % 47-70 [facility] Potassium [Moles/Vol] 4.2 mmol/L 3.5-5.1 [facility] Protein [Mass/Vol] 7.2 g/dL 6.4-8.2 [facility] Sodium [Moles/Vol] 139 mmol/L 136-145 [facility] WBC (Bld) [#/Vol] 7.8 10*3/uL 4.4-11.0 [facility] Determination of erythrocyte mean corpuscular volume (MCV)Ordered By: Bernarda Young on 08-28-2023 MCV (RBC) [Entitic vol] 94.1 fL 80-94 [facility] Erythrocyte distribution wid th ratioOrdered By: Bernarda Young on 08-28-2023 Erythrocyte distribution width (RBC) [Ratio] 13.5 % 11.6-14.6 [facility] Erythrocyte distribution wid th standard deviationOrdered By: Bernarda Young on 08-28-2023 Erythrocyte distribution width (RBC) [Entitic vol] 45.5 fL 35.1-43.9 [facility] Hematocrit Auto (Bld) [Volum e fraction]Ordered By: Bernarda Young on 08-28-2023 Hematocrit (Bld) [Volume fraction] 43.3 % 40-54 [facility] Immature granulocytes/100 WB C Auto (Bld)Ordered By: [facility] Hector on 08-28-2023 Immature granulocytes/100 WBC (Bld) 0.500 % 0.0-0.9 [facility] Comment on above: IG% - Immature Granu locytes (promyelocytes, myelocytes and metamyelocytes) > 1% indicates that a LEFT SHIFT is Present. Laboratory - Chemistry and C hemistry - challengeOrdered By: Bernarda Young on 08-28-2023 Albumin/Globulin [Mass ratio] 0.9 {ratio} 0.9-2.4 [facility] ALP [Catalytic activity/Vol] 84 U/L 45-117 [facility] ALT [Catalytic activity/Vol] 24 U/L 16-61 [facility] CO2 [Moles/Vol] 28.0 mmol/L 21.0-32.0 [facility] Globulin (S) [Mass/Vol] 3.8 g/dL 2.2-4.2 [facility] Urea nitrogen/Creatinine [Mass ratio] 15.2 mg/mg 10-20 [facility] Laboratory - Hematology and Cell countsOrdered By: Bernardayariel Young on 08-28-2023 MCH (RBC) [Entitic mass] 31.5 pg 27.0-32.0 [facility] MCHC (RBC) [Mass/Vol] 33.5 g/dL 32-36 [facility] Nucleated RBC/100 WBC (Bld) [Ratio] 0 % 0-5 [facility] Platelets (Bld) [#/Vol] 232 10*3/uL 150-450 [facility] No Panel InformationOrdered By: Bernarda Young on 08-28-2023 Estimated GFR (MDRD) Amer 106 mL/min >60 [facility] Comment on above: GFR Calc Estimated GFR (MDRD) Non-Af Amer 88 mL/min >60 [facility] Comment on above: Non- GFR Calc Platelet mean volume Ronaldo-Ec ker (Bld) [Entitic vol]Ordered By: Bernarda Young on 08-28-2023 Platelet mean volume (Bld) [Entitic vol] 10.6 fL 6.2-12.0 [facility] RBC Auto (Bld) [#/Vol]Ordere d By: Bernarda Young on 08-28-2023 RBC (Bld) [#/Vol] 4.60 10*6/uL 4.6-6.2 [facility] Serum or plasma calcium rekha urement (mass/volume)Ordered By: Bernarda Young on 08-28-2023 Calcium [Mass/Vol] 9.4 mg/dL 8.5-10.1 [facility] Serum or plasma creatinine m easurement (mass/volume)Ordered By: Bernarda Young on 08-28-2023 Creatinine [Mass/Vol] 0.92 mg/dL 0.70-1.30 [facility] Comment on above: The validity of the calculated GFR & GFRAA in patients over 70 years has not been determined. Clinical correlation is essential. Serum or plasma urea nitroge n measurement (mass/volume)Ordered By: Bernarda Young on 08-28-2023 Urea nitrogen [Mass/Vol] 14 mg/dL 7-18 [facility] Thin prep Papanicolaou smear with manual screeningOrdered By: Bernarda Young on 08-28-2023 Thin prep Papanicolaou smear with manual screening 3.4 g/dL 3.2-5.0 [facility] Thin prep Papanicolaou smear with manual screening 13 U/L 15-37 [facility] Thin prep Papanicolaou smear with manual screening 1 5-15 [facility] Absolute lymphocyte countOrd ered By: Bernarda Young on 05-14-2023 Lymphocytes Auto (Unsp spec) [#/Vol] 1.86 10*3/uL 0.83-4.51 [facility] Basophil percentageOrdered B y: Bernarda Young on 05-14-2023 Basophils/100 WBC (Bld) 0.8 % 0-1 [facility] Bilirubin [Mass/Vol] 0.50 mg/dL 0.20-1.00 [facility] Comment on above: For patients on eltr ombopag therapy, use of Dimension [place] TBIL is not recommended. Chloride [Moles/Vol] 107 mmol/L 98-107 [facility] Eosinophils/100 WBC (Bld) 3.4 % 0-5 [facility] Glucose [Mass/Vol] 94 mg/dL 74-106 [facility] Neutrophils (Bld) [#/Vol] 5.1 10*3/uL 2.0-7.7 [facility] Neutrophils/100 WBC (Bld) 65.3 % 47-70 [facility] Potassium [Moles/Vol] 4.7 mmol/L 3.5-5.1 [facility] Protein [Mass/Vol] 7.9 g/dL 6.4-8.2 [facility] Sodium [Moles/Vol] 139 mmol/L 136-145 [facility] WBC (Bld) [#/Vol] 7.9 10*3/uL 4.4-11.0 [facility] Blood erythrocytes count (nu mber/volume)Ordered By: Bernarda Young on 05-14-2023 RBC (Bld) [#/Vol] 5.08 10*6/uL 4.6-6.2 [facility] Blood hemoglobin measurement (mass/volume)Ordered By: Bernarda Young on 05-14-2023 Hemoglobin (Bld) [Mass/Vol] 15.8 g/dL 13.0-16.5 [facility] Blood lymphocytes/100 leukoc ytesOrdered By: Bernarda Young on 05-14-2023 Lymphocytes/100 WBC (Bld) 23.7 % 19-41 [facility] Blood monocytes/100 leukocyt esOrdered By: Bernarda Young on 05-14-2023 Monocytes/100 WBC (Bld) 5.9 % 0-10 [facility] Blood platelet mean volumeOr dered By: Bernarda Young on 05-14-2023 Platelet mean volume (Bld) [Entitic vol] 10.9 fL 6.2-12.0 [facility] Determination of erythrocyte mean corpuscular volume (MCV)Ordered By: Bernarda Young on 05-14-2023 MCV (RBC) [Entitic vol] 96.1 fL 80-94 [facility] Erythrocyte sedimentation ra teOrdered By: Bernarda Young on 05-14-2023 ESR (Bld) [Velocity] 13 mm/h 0-20 [facility] Hematocrit Auto (Bld) [Volum e fraction]Ordered By: Bernardayariel Young on 05-14-2023 Hematocrit (Bld) [Volume fraction] 48.8 % 40-54 [facility] Laboratory - Chemistry and C hemistry - challengeOrdered By: Bernardayariel Young on 05-14-2023 ALP [Catalytic activity/Vol] 89 U/L 45-117 [facility] ALT [Catalytic activity/Vol] 31 U/L 16-61 [facility] CO2 [Moles/Vol] 29.0 mmol/L 21.0-32.0 [facility] Globulin (S) [Mass/Vol] 4.4 g/dL 2.2-4.2 [facility] Urea nitrogen/Creatinine [Mass ratio] 13.8 mg/mg 10-20 [facility] Laboratory - Hematology and Cell countsOrdered By: Bernarda Young on 05-14-2023 Erythrocyte distribution width (RBC) [Entitic vol] 47.9 fL 35.1-43.9 [facility] Erythrocyte distribution width (RBC) [Ratio] 13.6 % 11.6-14.6 [facility] Immature granulocytes/100 WBC (Bld) 0.900 % 0.0-0.9 [facility] Comment on above: IG% - Immature Granu locytes (promyelocytes, myelocytes and metamyelocytes) > 1% indicates that a LEFT SHIFT is Present. MCH (RBC) [Entitic mass] 31.1 pg 27.0-32.0 [facility] Nucleated RBC/100 WBC (Bld) [Ratio] 0 % 0-5 [facility] MCHC Auto (RBC) [Mass/Vol]Or dered By: Bernarda Young on 05-14-2023 MCHC (RBC) [Mass/Vol] 32.4 g/dL 32-36 [facility] No Panel InformationOrdered By: Bernadra Young on 05-14-2023 Estimated GFR (MDRD) Amer 104 mL/min >60 [facility] Comment on above: GFR Calc Estimated GFR (MDRD) Non-Af Amer 86 mL/min >60 [facility] Comment on above: Non- GFR Calc Hepatitis B Surface Antigen Non-Reactive Nonreactive [facility] Hepatitis C Antibody Non-Reactive Nonreactive [facility] Comment on above: Non Reactive: < 0.8 Equivocal: >/= 0.8 to < 1.0 Reactive: >/= 1.0The CDC recommends that a reactive/equivocal HCV antibody result be followed up by the HCV Nucleic Acid Amplificationtest (751191) Platelets bldOrdered By: Tracy Young on 05-14-2023 Platelets (Bld) [#/Vol] 234 10*3/uL 150-450 [facility] Serum cyclic citrullinated p eptide IgG antibody assay (units/volume)Ordered By: Bernarda Young on 05-14-2023 Cyclic citrullinated peptide IgG Qn > 250 units 0-19 [facility] Comment on above: Negative <20 Weak po sitive 20 - 39 Moderate positive 40 - 59 Strong positive >59Performed at: - [facility] [id number] Director: Lazaro Mims PhD, Phone: [phone] Serum hepatitis B virus surf ramin antibody IgG detectionOrdered By: Bernarda Young on 05-14-2023 HBV surface IgG Ql (S) Non-Reactive [facility] Comment on above: Non Reactive: Incons istent with immunity less than <10 mIU/mL Reactive: Consistent with immunity greater than or equal to 10 mIU/mL Serum or plasma C reactive p rotein measurement (mass/volume)Ordered By: Bernarda Young on 05-14-2023 CRP [Mass/Vol] 6.63 mg/L 0.0-3.0 [facility] Comment on above: C-Reactive Protein ( CRP) provides useful information for thediagnosis, therapy and monitoring of inflammatory processesand associated diseases. For the evaluation of Relative Riskfor Cardiovascular Disease, a High Sensitivity CRP (HSCRP)should be ordered. Serum or plasma albumin rekha urement (mass/volume)Ordered By: Bernarda Young on 05-14-2023 Albumin [Mass/Vol] 3.5 g/dL 3.2-5.0 [facility] Serum or plasma albumin/glob ulin mass ratioOrdered By: [facility] Hector on 05-14-2023 Albumin/Globulin [Mass ratio] 0.8 {ratio} 0.9-2.4 [facility] Serum or plasma calcium rekha urement (mass/volume)Ordered By: Bernarda Young on 05-14-2023 Calcium [Mass/Vol] 9.4 mg/dL 8.5-10.1 [facility] Serum or plasma creatinine m easurement (mass/volume)Ordered By: Bernarda Young on 05-14-2023 Creatinine [Mass/Vol] 0.94 mg/dL 0.70-1.30 [facility] Comment on above: The validity of the calculated GFR & GFRAA in patients over 70 years has not been determined. Clinical correlation is essential. Serum or plasma urea nitroge n measurement (mass/volume)Ordered By: Bernarda Young on 05-14-2023 Urea nitrogen [Mass/Vol] 13 mg/dL 7-18 [facility] Serum rheumatoid factor dete ctionOrdered By: Bernarda Young on 05-14-2023 Rheumatoid factor Ql (S) 358.0 IU/mL <15 [facility] Thin prep Papanicolaou smear with manual screeningOrdered By: Bernarda Young on 05-14-2023 Thin prep Papanicolaou smear with manual screening 15 U/L 15-37 [facility] Thin prep Papanicolaou smear with manual screening 3 5-15 [facility] LABORATORYOrdered By: SYSTEM SYSTEM on 01-08-2023 Albumin [...] [facility] Office Visit ([facility] ) ALINA ALLEN ([id number]) 1960 M Date Time Provider Department 10/14/19 11:00 AM ABRIL KUMAR) [facility] During your visit today, we recorded the [...] Status:Closed by ABRIL KUMAR PA-C on 10/14/19 [facility] [place] PROGRESSon 10-14-2019 PROGRESS HNO ID: [id number] Author: Abril Kumar (Pa) Service: ? Author Type: Physician Mailmaster Type: Progress Notes Filed: 10/14/2019 2:30 PM [...] agreeable with plan. Abril Kumar PA-C Normal [facility] Office Visit: evaluation cru sh injury left thumb and open fx distal phalanxon 01-16-2017 Alcoholism counseling (procedure) no Invalid Interpretation Code [facility] Work Phone: Dietary management education, guidance, and counseling (procedure) yes Invalid Interpretation Code [facility] Work Phone: [phone] Documentation of current medications (procedure) Done Invalid Interpretation Code [facility] Work Phone: [phone] Fall risk assessment No [facility] Work Phone: [phone] Protein mass conc Done [facility] Work Phone: [phone] Protein mass conc no [facility] Work Phone: [phone] Protein mass conc yes [facility] Work Phone: [phone] Smoking cessation education (procedure) yes Invalid Interpretation Code [facility] Work Phone: [phone] Tobacco smoking status NHIS Never [facility] Work Phone: [phone] Tobacco smoking status NHIS Current every day smoker [facility] Work Phone: [phone] Tobacco use [facility] Current every day smoker Invalid Interpretation Code [facility] Work Phone: [phone] Office Visit: evaluation cru sh injury left thumb and open fx distal phalanxon 12-03-2016 Alcoholism counseling (procedure) no Invalid Interpretation Code [facility] Work Phone: [phone] Dietary management education, guidance, and counseling (procedure) yes Invalid Interpretation Code [facility] Work Phone: [phone] Documentation of current medications (procedure) Done Invalid Interpretation Code [facility] Work Phone: [phone] Fall risk assessment No Invalid Interpretation Code [facility] Work Phone: [phone] Protein mass conc Done [facility] Work Phone: [phone] Protein mass conc no [facility] Work Phone: [phone] Protein mass conc yes [facility] Work Phone: [phone] Smoking cessation education (procedure) yes Invalid Interpretation Code [facility] Work Phone: [phone] Tobacco smoking status NHIS Never Invalid Interpretation Code [facility] Work Phone: [phone] Tobacco smoking status NHIS Current every day smoker [facility] Work Phone: [phone] Tobacco use [facility] Current every day smoker Invalid Interpretation Code [facility] Work Phone: [phone] Office Visit: evaluation cru sh injury left thumb and open fx distal phalanxon 11-19-2016 Alcoholism counseling (procedure) no Invalid Interpretation Code [facility] Work Phone: [phone] Dietary management education, guidance, and counseling (procedure) yes Invalid Interpretation Code [facility] Work Phone: [phone] Documentation of current medications (procedure) Done Invalid Interpretation Code [facility] Work Phone: [phone] Fall risk assessment No Invalid Interpretation Code [facility] Work Phone: [phone] Smoking cessation education (procedure) yes Invalid Interpretation Code [facility] Work Phone: [phone] Tobacco smoking status NHIS Never Invalid Interpretation Code [facility] Work Phone: [phone] Tobacco use [facility] Current every day smoker Invalid Interpretation Code [facility] Work Phone: [phone] Vital Signs Date Time Vital Sign Value Performing Clinician Facility 02-28-2025 03:47-0400 Body temperature 98.4 [degF] Maris Duran [employer] Work Phone: [facility] 02-28-2025 03:47-0400 Diastolic blood pressure 81 mm[Hg] Maris Duran [employer] Work Phone: [facility] 02-28-2025 03:47-0400 Heart rate 79 /min Maris Duran [employer] Work Phone: [facility] 02-28-2025 03:47-0400 Respiratory rate 18 /min Maris Duran [employer] Work Phone: [facility] 02-28-2025 03:47-0400 SaO2% (BldA) [Mass fraction] 99 % Maris Duran SHIPS OR BARGES LOADER-C Work Phone: [facility] 02-28-2025 03:47-0400 Systolic blood pressure 137 mm[Hg] Maris Duran SHIPS OR BARGES LOADER-C Work Phone: [facility] 02-28-2025 02:33-0400 Body height 182.88 cm Maris Duran SHIPS OR BARGES LOADER-C Work Phone: [phone] [place] [address] 12-21-2024 09:05-0400 Diastolic Blood Pressure Non-Invasive 74 mm[Hg] DR LAZARO CERVANTES MD [facility] 12-21-2024 09:05-0400 Heart rate 61 /min DR LAZARO CERVANTES MD [address] [place] [address] 12-21-2024 09:05-0400 Respiratory rate 17 /min DR LAZARO CERVANTES MD [address] [place] [address] 12-21-2024 09:05-0400 Systolic Blood Pressure Non-Invasive 125 mm[Hg] DR LAZARO CERVANTES MD [address] [place] [address] 12-21-2024 09:00-0400 Diastolic Blood Pressure Non-Invasive 72 mm[Hg] DR LAZARO CERVANTES MD [address] [place] [address] 12-21-2024 09:00-0400 Heart rate 56 /min DR LAZARO CERVANTES MD [address] [place] [address] 12-21-2024 09:00-0400 Respiratory rate 15 /min DR LAZARO CERVANTES MD [address] [place] [address] 12-21-2024 09:00-0400 Systolic Blood Pressure Non-Invasive 113 mm[Hg] DR LAZARO CERVANTES MD [address] [place] [address] 12-21-2024 08:56-0400 Diastolic Blood Pressure Non-Invasive 70 mm[Hg] DR LAZARO CERVANTES MD [address] [place] [address] 12-21-2024 08:56-0400 Heart rate 58 /min DR LAZARO CERVANTES MD [address] [place] [address] 12-21-2024 08:56-0400 Respiratory rate 17 /min DR LAZARO CERVANTES MD [address] [place] [address] 12-21-2024 08:56-0400 Systolic Blood Pressure Non-Invasive 110 mm[Hg] DR LAZARO CERVANTES MD [facility] 12-21-2024 08:47-0400 Body temperature 97.34 [degF] DR LAZARO CERVANTES MD [facility] 12-21-2024 08:45-0400 Respiratory Rate - Anes 18 br/min DR LAZARO CERVANTES MD [facility] 12-21-2024 08:40-0400 Respiratory Rate - Anes 19 br/min DR LAZARO CERVANTES MD [facility] 12-21-2024 08:35-0400 Respiratory Rate - Anes 15 br/min DR LAZARO CERVANTES MD [facility] 12-21-2024 07:53-0400 Body temperature 97.34 [degF] DR LAZARO CERVANTES MD [facility] 12-21-2024 07:53-0400 Heart rate 60 /min DR LAZARO CERVANTES MD [facility] 12-21-2024 07:50-0400 Body height [address] LAZARO CERVANTES MD [facility] 12-21-2024 07:50-0400 Body weight 93.[address] LAZARO CERVANTES MD [facility] 12-21-2024 07:50-0400 Body weight 28.14 kg/m2 DR LAZARO CERVANTES MD [facility] 09-24-2024 23:07-0500 Body temperature 97.9 [degF] Maris Duran SHIPS OR BARGES LOADER-C Work Phone: [facility] 09-24-2024 23:07-0500 Diastolic blood pressure 84 mm[Hg] Maris Duran SHIPS OR BARGES LOADER-C Work Phone: [facility] 09-24-2024 23:07-0500 Heart rate 78 /min Marissuyapa Duran SHIPS OR BARGES LOADER-C Work Phone: [facility] 09-24-2024 23:07-0500 Respiratory rate 26 /min Maris Duran SHIPS OR BARGES LOADER-C Work Phone: [facility] 09-24-2024 23:07-0500 SaO2% (BldA) [Mass fraction] 95 % Maris Duran SHIPS OR BARGES LOADER-C Work Phone: [facility] 09-24-2024 23:07-0500 Systolic blood pressure 138 mm[Hg] Maris Duran SHIPS OR BARGES LOADER-C Work Phone: [facility] 09-24-2024 18:25-0500 Body height 15.24 cm Maris Duran SHIPS OR BARGES LOADER-C Work Phone: [facility] 10-23-2023 15:09-0400 Body height 182.88 cm SHIPS OR BARGES LOADER-C Maris Duran SHIPS OR BARGES LOADER Work Phone: [facility] 10-23-2023 15:09-0400 Body mass index (BMI) [Ratio] 27.6 kg/m2 SHIPS OR BARGES LOADER-C Maris Duran SHIPS OR BARGES LOADER Work Phone: [facility] 10-23-2023 15:09-0400 Body temperature 96.9 [degF] SHIPS OR BARGES LOADER-C Maris Duran SHIPS OR BARGES LOADER Work Phone: [facility] 10-23-2023 15:09-0400 Body weight 92.2 kg SHIPS OR BARGES LOADER-C Maris Duran SHIPS OR BARGES LOADER Work Phone: [facility] 10-23-2023 15:09-0400 Diastolic blood pressure 82 mm[Hg] SHIPS OR BARGES LOADER-C Maris Duran SHIPS OR BARGES LOADER Work Phone: [facility] 10-23-2023 15:09-0400 Heart rate 79 /min SHIPS OR BARGES LOADER-C Maris Duran SHIPS OR BARGES LOADER Work Phone: [facility] 10-23-2023 15:09-0400 Respiratory rate 18 /min SHIPS OR BARGES LOADER-C Maris Meltonmer SHIPS OR BARGES LOADER Work Phone: [facility] 10-23-2023 15:09-0400 SaO2% (BldA) [Mass fraction] 100 % SHIPS OR BARGES LOADER-C Maris Meltonmer SHIPS OR BARGES LOADER Work Phone: [facility] 10-23-2023 15:09-0400 Systolic blood pressure 172 mm[Hg] SHIPS OR BARGES LOADER-C Maris Meltonmer SHIPS OR BARGES LOADER Work Phone: [facility] 09-06-2023 08:21-0500 Body mass index (BMI) [Ratio] 28.3 kg/m2 SHIPS OR BARGES LOADER-C Maris Meltonmer SHIPS OR BARGES LOADER Work Phone: [facility] 09-06-2023 08:21-0500 Body weight 94.85 kg SHIPS OR BARGES LOADER-C Maris Meltonmer SHIPS OR BARGES LOADER Work Phone: [facility] 01-16-2017 11:49-0400 BMI (Body Mass Index) 23.61 kg/m2 Rick Dominguez MD [facility] Work Phone: 01-16-2017 11:49-0400 Body Temperature 97 [degF] Rick Dominguez MD [facility] Work Phone: 01-16-2017 11:49-0400 BP Diastolic 80 mm[Hg] Rick Dominguez MD [facility] Work Phone: 01-16-2017 11:49-0400 BP Systolic 120 mm[Hg] Rick Dominguez MD [facility] Work Phone: 01-16-2017 11:49-0400 BSA (Body Surface Area) 2.19 m2 Rick Dominguez MD [facility] Work Phone: 01-16-2017 11:49-0400 Height 193.04 cm Rick Dominguez MD [facility] Work Phone: 01-16-2017 11:49-0400 Pulse (Heart Rate) 60 /min Rick Dominguez MD [facility] Work Phone: 01-16-2017 11:49-0400 Respiratory Rate 16 /min Rick Dominguez MD [facility] Work Phone: 01-16-2017 11:49-0400 Weight 88 kg Rick Dominguez MD [facility] Work Phone: 12-03-2016 13:30-0400 BMI (Body Mass Index) 23.81 kg/m2 Rick Dominguez MD [facility] Work Phone: 12-03-2016 13:30-0400 Body Temperature 97.7 [degF] Rick Dominguez MD [facility] Work Phone: 12-03-2016 13:30-0400 BP Diastolic 72 mm[Hg] Rick Dominguez MD [facility] Work Phone: 12-03-2016 13:30-0400 BP Systolic 124 mm[Hg] Rick Dominguez MD [facility] Work Phone: 12-03-2016 13:30-0400 Height 193.04 cm Rick Dominguez MD [facility] Work Phone: 12-03-2016 13:30-0400 Pulse (Heart Rate) 72 /min Rick Dominguez MD [facility] Work Phone: 12-03-2016 13:30-0400 Pulse Oximetry 95 % Rick Dominguez MD [facility] Work Phone: 12-03-2016 13:30-0400 Respiratory Rate 16 /min Rick Dominguez MD [facility] Work Phone: 12-03-2016 13:30-0400 Weight 88.72 kg Rick Dominguez MD [facility] Work Phone: 11-19-2016 13:33-0400 BMI (Body Mass Index) 23.9 kg/m2 [facility] Work Phone: 11-19-2016 13:33-0400 Body Temperature 97.5 [degF] Rose Hagen [facility] Work Phone: 11-19-2016 13:33-0400 BP Diastolic 75 mm[Hg] Rose Hagen [facility] Work Phone: 11-19-2016 13:33-0400 BP Systolic 130 mm[Hg] Rose Hagen [facility] Work Phone: 11-19-2016 13:33-0400 Height 193.04 cm Rosenataly Hagen [facility] Work Phone: 11-19-2016 13:33-0400 Pulse (Heart Rate) 75 /min [facility] Work Phone: 11-19-2016 13:33-0400 Pulse Oximetry 97 % Rosenataly Hagen [facility] Work Phone: 11-19-2016 13:33-0400 Respiratory Rate 16 /min Rosenataly Hagen [facility] Work Phone: 11-19-2016 13:33-0400 Weight 89.09 kg Rose Hagen [facility] Work Phone: 11-12-2016 15:26-0400 BSA (Body Surface Area) 2.1 m2 Rose Hagen [facility] Work Phone: Encounters Encounter Date Encounter Type Care Provider Facility Start: 05-12-2025 ambulatory Casimiro Ramírez Facility:[facility] [place] Start: 05-12-2025 End: 05-12-2025 ambulatory Maris Duran NP Facility:[facility] Start: 04-16-2025 End: 04-16-2025 ambulatory Maris Duran SHIPS OR BARGES LOADER-C Work Phone: -[facility] Start: 04-16-2025 End: 04-16-[address] Bernarda Young MD -[facility] [place] Work Phone: Start: 04-16-2025 End: 04-16-2025 ambulatory Bernarda Young Facility:[facility] Start: 04-13-2025 End: 04-13-2025 ambulatory Maris Duran SHIPS OR BARGES LOADER-C Work Phone: -[facility] [place] Start: 04-13-2025 End: 04-13-[address] Bernarda Young MD -Laboratory [place] Work Phone: Start: 04-13-2025 End: 04-13-2025 ambulatory [facility] Facility:[facility] Start: 02-28-2025 End: 02-28-2025 Emergency department patient visit Maris Duran SHIPS OR BARGES LOADER-C Work Phone: -Emergency Department Work Phone: Start: 01-22-2025 End: 01-22-2025 ambulatory Maris Duran SHIPS OR BARGES LOADER-C Work Phone: [facility] Work Phone: Start: 01-22-2025 End: 01-22-[address] Bernarda Young MD -Laboratory [facility] Work Phone: Start: 01-22-2025 End: 01-22-2025 ambulatory [facility] Facility:[facility] Start: 12-21-2024 End: 12-21-2024 ambulatory LAZARO CERVANTES [facility] Start: 12-21-2024 End: 12-21-[address] LAZARO CERVANTES MD [facility] Start: 11-02-2024 End: 11-02-2024 ambulatory Maris Duran SHIPS OR BARGES LOADER-C Work Phone: [facility] Work Phone: Start: 11-02-2024 End: 11-02-[address] Bernarda Young MD -Laboratory, [place] Work Phone: Start: 11-02-2024 End: 11-02-2024 ambulatory [facility] Facility:[facility] Start: 09-24-2024 End: 09-24-2024 Emergency department patient visit Dr. Jace Landeros MD -Emergency Department Work Phone: Start: 07-31-2024 End: 07-31-[address] Bernarda Young MD -Laboratory, [place] Work Phone: Start: 07-31-2024 End: 07-31-2024 ambulatory Bernarda Young Facility:[facility] Start: 06-15-2024 End: 06-15-2024 ambulatory MARIS Garza KENNEDI LINING STUFFER-FUSING LINE INSPECTOR Facility:[facility] Start: 06-15-2024 End: 06-15-2024 Patient encounter procedure MARIS MELTONMER LINING STUFFER-FUSING LINE INSPECTOR [facility] Start: 03-20-2024 End: 03-20-[address] ANGEL CEJA DO Facility:[facility] Start: 03-20-2024 End: 03-20-2024 Patient encounter procedure MARIS Garza KENNEDI LINING STUFFER-FUSING LINE INSPECTOR [facility] Start: 03-11-2024 End: 03-11-2024 ambulatory MARIS Greg KENNEDI LINING STUFFER-FUSING LINE INSPECTOR Facility:[facility] Start: 02-27-2024 End: 02-27-2024 ambulatory MARIS Greg KENNEDI LINING STUFFER-FUSING LINE INSPECTOR Facility:[facility] Start: 02-27-2024 End: 02-27-2024 Patient encounter procedure MARIS Garza KENNEDI LINING STUFFER-FUSING LINE INSPECTOR [facility] Start: 11-22-2023 End: 11-22-2023 ambulatory SHIPS OR BARGES LOADER-C Maris Duran SHIPS OR BARGES LOADER Work Phone: [facility] Work Phone: Start: 11-22-2023 End: 11-22-2023 Patient encounter procedure SHIPS OR BARGES LOADER-C Mairs Duran SHIPS OR BARGES LOADER Work Phone: [facility]-Laboratory, [place] Work Phone: Start: 10-23-2023 End: 10-23-2023 Emergency department patient visit SHIPS OR BARGES LOADER-C Maris Duran SHIPS OR BARGES LOADER Work Phone: [facility]-Emergency Department Work Phone: Start: 09-06-2023 End: 09-06-2023 Patient encounter procedure SHIPS OR BARGES LOADER-C Maris Duran SHIPS OR BARGES LOADER Work Phone: [facility] Start: 08-28-2023 End: 08-28-2023 ambulatory [facility] Work Phone: Start: 08-28-2023 End: 08-28-2023 Patient encounter procedure [facility] Work Phone: Start: 05-14-2023 End: 05-14-2023 ambulatory [facility] Work Phone: Start: 05-14-2023 End: 05-14-2023 Patient encounter procedure [facility] Work Phone: Start: 01-08-2023 End: 01-08-2023 Patient encounter procedure VANESSA VENTURA MD [facility] Start: 09-03-2022 End: 09-03-2022 Patient encounter procedure VANESSA VENTURA MD [facility] Start: 05-08-2022 End: 11-06-2022 Lab-Standing Order VANESSA VENTURA MD [facility] Procedures Date Procedure Procedure Detail Performing Clinician Start: 02-28-2025 Plain X-ray of shoulder Maris Duran SHIPS OR BARGES LOADER-C Work Phone: Start: 09-24-2024 CT angiography of ch est with contrast Maris Duran SHIPS OR BARGES LOADER-C Work Phone: Start: 09-24-2024 Plain chest X-ray Letha Duran SHIPS OR BARGES LOADER-C Work Phone: Start: 10-23-2023 Plain x-ray of wrist SHIPS OR BARGES LOADER -C Maris Duran SHIPS OR BARGES LOADER Work Phone: Start: 09-06-2023 Diagnostic radiograp hy of finger SHIPS OR BARGES LOADER-C Maris Duran SHIPS OR BARGES LOADER Work Phone: Start: 09-06-2023 Plain x-ray of elbow SHIPS OR BARGES LOADER -C Maris Duran SHIPS OR BARGES LOADER Work Phone: Start: 01-16-2017 End: 01-16-2017 Dietary [...] Date Care Activity Detail Author Start: 02-28-2025 [facility] Start: 09-24-2024 [facility] Start: 09-24-2024 [facility] Start: 10-23-2023 [facility] Start: 01-16-2017 End: 01-16-2017 Appointment Appointment [facility] Work Phone: Start: 01-16-2017 End: 03-07-2017 Follow Up Appt Other Follow Up Appt Other [facility] Work Phone: Start: 01-14-2017 End: 01-14-2017 Appointment Appointment [facility] Work Phone: Start: 12-03-2016 End: 12-03-2016 Appointment Appointment [facility] Work Phone: Start: 12-03-2016 End: 12-12-2016 Follow Up Appt 1 month Follow Up Appt 1 month [facility] Work Phone: Start: 11-19-2016 End: 12-12-2016 Follow Up Appt 2 weeks Follow Up Appt 2 weeks [facility] Work Phone: Start: 11-12-2016 End: 12-12-2016 Follow up Appt 1 week Follow up Appt 1 week [facility] Work Phone: Start: 11-12-2016 End: 11-21-2016 X-ray exam of finger(s) X-Ray, Fingers [facility] Work Phone: Start: 11-05-2016 End: 12-12-2016 Follow up Appt 1 week Follow up Appt 1 week [facility] Work Phone: Start: 10-24-2016 End: 12-12-2016 Follow up Appt 1 week Follow up Appt 1 week [facility] Work Phone: Start: 10-17-2016 End: 11-14-2016 Follow up Appt 1 week Follow up Appt 1 week [facility] Work Phone: Patient Education [facility] Work Phone: Patient referral [facility] Work Phone: Immunizations Immunization Date Immunization Notes Care Provider Maryam yang 04-10-2024 SARS-CoV-2 (COVID-19 ) [id number] MARIS DURAN LINING STUFFER-FUSING LINE INSPECTOR [facility] 05-21-2023 SARS-CoV-2 (COVID-19 ) mRNA-[id number] MARISSUYAPA DURAN LINING STUFFER-FUSING LINE INSPECTOR [facility] 04-21-2022 SARS-CoV-2 (CV19)mRNA-1273 bivalent vac MARIS KENNEDI LINING STUFFER-FUSING LINE INSPECTOR [facility] 07-05-2021 tetanus toxoid, redu jessica diphtheria toxoid, and acellular pertussis vaccine, adsorbed [facility] 07-01-2021 SARS-CoV-2 (COVID-19 ) mRNA-1273 vaccine MARISSUYAPA DURAN LINING STUFFER-FUSING LINE INSPECTOR [facility] 01-09-2021 SARS-CoV-2 mRNA (tozinameran) vaccine MARISLORI DURAN LINING STUFFER-FUSING LINE INSPECTOR [facility] Comment on above: Result Comment: 2023: [id number] 12-19-2020 SARS-CoV-2 mRNA (tozinameran) vaccine MARISLORI DURAN LINING STUFFER-FUSING LINE INSPECTOR [facility] Comment on above: Result Comment: 2023: [id number] 10-07-2016 tetanus toxoid, redu jessica diphtheria toxoid, and acellular pertussis vaccine, adsorbed [facility] Payers Date Payer Category Payer Self-pay [id number] 2024 Unknown [id number] 2021 Unknown [id number] 2009 Private Health Insurance [id number] 1960 Unknown [id number] 2.16.8 [id number] 1960 Unknown [id number] 2.16.8 [id number] 1960 Unknown [id number] 2.16.8 [id number] 1960 Unknown [id number] 2.16.8 [id number] 1960 Unknown [id number] 2.16. [id number] 1960 Unknown [id number] 2.16.8 [id number] Unknown [id number] Unknown [id number] 2.16.8 [id number] Unknown [id number] 2.16.8 [id number] Unknown [id number] 2.16.8 [id number] Unknown [id number] 2.16.8 [id number] Unknown [id number] 2.16.8 [id number] Unknown [id number] 2.16.8 [id number] Unknown [id number] 2.16.8 [id number] Unknown [id number] 2.16.8 [id number] Unknown [id number] 2.16.8 [id number] Social History Date Type Detail Facility Start: 04-07-2022 End: 12-10-2024 Tobacco smoking status [facility] 08/31 Start: 1960 Sex Assigned At Male A [facility] Start: 12-22-2021 End: 10-23-2023 Tobacco smoking status NHIS Unknown if ever smoked [facility] Start: 09-24-2024 End: 02-28-2025 Tobacco smoking status NHIS Smokes tobacco daily (finding) [facility] Start: 10-08-2019 End: 11-05-2024 Sex Male (finding) [facility] Functional Status Date Assessment Result Facility 12-21-2024 Functional Status Awake [facility] 12-21-2024 Functional Status Maintained, More than 8 hours [facility] Mental Status Date Assessment Result Facility 12-21-2024 Mental Status Oriented x 4 [facility] 12-21-2024 Mental Status [facility] 09-24-2024 Cognitive function Voice/Name [facility] Work Phone: Clinical Notes 09-03-2022 to 02-28-2025 Note Date & Type Note Facility 02-28-2025 Radiology Diagnostic study note [facility] Imaging Services [address] [place] [address] Shoulder min 2 Views MR#: [id number] Acct: [id number] Name: ALINA ALLEN Rep #: [id number] : 1960 M 64 From: Shani Ruano MD PCP: Maris Duran, SHIPS OR BARGES LOADER-C Status: PRE E R Study:Shoulder min 2 Views Date of Exam: 02/28/25 Exam# [id number] Ordering Dr: Jamaal Nixon PROCEDURE: SHOULDER MIN 2 VIEWS 02/28/2025 REASON FOR EXAM: PAIN TECHNIQUE: SHOULDER MIN 2 VIEWS COMPARISON: No FINDINGS: 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 No acute bone, soft tissue, or lung pathology noted. RAD/Shoulder min 2 Views IMPRESSION: Mild left shoulder joints degeneration. Reading Location: [place] [address] CC: SHIPS OR BARGES LOADERTommy Duran; ED PHYSICIAN PROVIDER ~ Install Technician: Signed [facility] 12-21-2024 Evaluation + Plan note Extrac yossi from: Title:Clinical Document Author:HELENLILYGERRY Morris Date:12/21/24 [place] ADMISSION HISTORY AN D PHYSICIAL CHIEF COMPLAINT: HISTORY OF PRESENT ILLNESS: REVIEW OF SYSTEMS: ACTIVE PROBLEMS: (7) Claudication of calf muscles (787455928) COPD mixed type (979980127) Dysphagia (37154932) PAD (peripheral artery disease) (6704629391) Rheumatoid arthritis (550536823) Tobacco use (7252832703) Well adult exam (168494178) MEDICATIONS: Active Inpt Meds: None Active PRN Meds: None One Time Meds: None Active IV Meds: Sodium Chloride 0.9% intravenous solution 1,000 mL (Sodium Chloride 0.9% 1000 mL 1,000 mL) Start: 12/21/24 8:22:00 EDT, 100 mL, 12/21/24 8:22:00 EDT ALLERGIES: (1) NKA FAMILY HISTORY: SOCIAL HISTORY: PHYSICAL EXAM: VITALS: YygxeyPiplPJBpioqCHIxC6EDE6CeluTo(kg) 12/21 07:5336.3--[id number]/19 93.2 24 Hr Tmax: 36.3 at 12/21 [...] Appointment Date:12/14/2025 03:00:00 PM Scheduled Provider:MARIS DURAN APRN-FUSING LINE INSPECTOR Location:[facility] Appointment Type:PC Wellness Annual [facility] 05-19-2025 Hospital Discharge instructions Patient Education 12/21/2024 [...] reduce GERD symptoms. Medicines. These may include: ?Gvml-uqw-exiuhly antacids. ?Medicines that make your stomach empty [...] may include: ?Fatty foods, like fried foods. ?Gregg fruits, like oranges or lemon. ?Other foods [...] Do not drink alcohol. General instructions Take fdnl-hco-zdgguej and prescription medicines only as told by [...] 10/11/2004 Document Revised: 07/04/2018 Document Reviewed: 02/24/2018 [employer] Patient Education 2020 [employer]. 12/21/2024 08:53:47 9 - AO Minor Esophagogastroduodenoscopy [...] before eating solid foods. General instructions Take rlgi-dzu-jknysai and prescription medicines only as told by [...] 11/11/2016 Document Revised: 10/20/2018 Document Reviewed: 11/11/2016 [employer] Patient Education 2020 [employer]. Follow Up Care 12/11/2024 14:26:22 With:LAZARO CERVANTES Address: [address] [place] [address]- [phone] Business (1) When: Unknown Comments:CALL OFFICE IN ONE MONTH WITH SWALLOWING UPDATE. [facility] 05-19-2025 Summary of episode note Discharge Instructions Thank you for allowing [facility] to assist you with your healthcare needs. The following is importantdischarge information regarding your hospital visit. Your Care Team MARIS DURAN What to do next Scheduled Follow-Up Appointments Appointment Type When With Where Contact Information [facility] Wellness Annual 12/14/2025 03:00 PM EDT MARIS DURAN [facility] [address] [place] [address] Confirmed Follow Up Appointments Follow Up with LAZARO CERVANTES Where:[address] [place] [address]- [phone] [facility] (1) Additional Information: CALL OFFICE IN ONE [...] GERD symptoms. Medicines. These may include: ? Euhj-pux-hrwhgcx antacids. ? Medicines that make your stomach [...] ? Fatty foods, like fried foods. ? Gregg fruits, like oranges or lemon. ? Other [...] Do not drink alcohol. General instructions Take gcof-dty-kpmzdav and prescription medicines only as told by [...] 10/11/2004 Document Revised: 07/04/2018 Document Reviewed: 02/24/2018 [employer] Patient Education 2020 [employer]. Esophagogastroduodenoscopy This is an endoscopic procedure (a [...] before eating solid foods. General instructions Take fwhe-fhx-tfovxkt and prescription medicines only as told by [...] 11/11/2016 Document Revised: 10/20/2018 Document Reviewed: 11/11/2016 [employer] Patient Education 2020 [employer] Additional Information VACCINATE! IT SAVES LIVES! Members of the community who have not yet received the COVID-19 vaccine and would like to receive it can visit one of [facility] vaccine clinics. There are many vaccine clinic locations within the [facility]. For locations and available times, please visit [email or web address] It is important to note that some COVID mobile vaccine clinics are held outdoors and may be canceled in rainy or stormy conditions. To learn more about pediatric vaccinations (ages 5-11), we invite you to visit the [employer] webpage. [email or web address]/[email or web address] [email or web address] learn more about the COVID-19 vaccine, we invite you to visit the CDC website for a list of frequently asked questions.https://www.cdc.gov/coronavirus/2019-ncov/vaccines/faq.html [employer] Patient Portal Access Instructions: Stay connected with your healthcare team and access your personal medical information anytime with the [employer] Patient Portal. Please follow the directions below to create your [employer] account: 1.Access the email account you provided upon registration to the hospital/physician office.2.Look for an invitation email from [facility].3.Open the email and access the invitation link: AcceptInvitation to [email or web address].4.Fill in the required stoll to create your account. To access your account, visit [employer]. Click the blue button labeled Access Patient [...] who you will allowto register on the [place] [facility] Patient Portal for access to your information. You can also access the [place] One[facility] Patient Portal on the [place] Anywhere yumiko. Simply click on Patient Portal and then log into your account. If you would like to receive a full copy of your medical records, please contact the [facility] Medical Records Department by calling [phone], Saturday through Saturday between 8 a.m. and [...] Call your local pharmacy or go to [email or web address] to find one close to you.3.Make use of household items: Use cat litter or old coffee grounds to dispose medications if other options arenot available. Mix your drugs with these household products, seal them in an airtight container andthrow it into the garbage. Call [facility]: [phone] to be sure your drugs can be [...] aware that I should contact my doctor. Patient/Rice Farmer Signature: Date/Time: Relationship to Patient: Witness Name/Signature: Date/Time: [facility]05-19-2025 Note Date of Service 12/21/2024 Procedure Name Screening colonoscopy Consent Taken before procedure Indication Screening colonoscopy Location [facility] Pre-Procedure Exam Screening colonoscopy Procedural Sedation [...] LAZARO CERVANTES MD on 12/21/2024 09:14 AM [facility]05-19-2025 Note Date of Service 12/21/2020 Procedure Name EGD with guidewire dilatation Consent Taken before procedure Indication Dysphagia Location [facility] Pre-Procedure Exam Dysphagia chronic reflux Procedural [...] LAZARO CERVANTES MD on 12/21/2024 08:50 AM [facility]05-19-2025 Note [place] ADMISSION HISTORY AND PHYSICIAL CHIEF COMPLAINT: HISTORY OF PRESENT ILLNESS: REVIEW OF SYSTEMS: ACTIVE PROBLEMS: (7) Claudication of calf muscles (982876815) COPD mixed type (367965230) Dysphagia (33800271) PAD (peripheral artery disease) (5432484337) Rheumatoid arthritis (464510482) Tobacco use (0779569603) Well adult exam (739090186) MEDICATIONS: Active Inpt Meds: None Active PRN Meds: None One Time Meds: None Active IV Meds: Sodium Chloride 0.9% intravenous solution 1,000 mL (Sodium Chloride 0.9% 1000 mL 1,000 mL) Start: 12/21/24 8:22:00 EDT, 100 mL, 12/21/24 8:22:00 EDT ALLERGIES: (1) NKA FAMILY HISTORY: SOCIAL HISTORY: PHYSICAL EXAM: VITALS: NeftfhOihrYCFtrynTFWbQ4BSH3UmjuZt(kg) 12/21 07:5336.3--8935747NV30/19 93.2 24 Hr Tmax: 36.3 at 12/21 [...] LAZARO CERVANTES MD on 12/21/2024 08:33 AM [facility]05-19-2025 Anesthesiology Consult note Patient: ALINA ALLEN Age: 64 years Sex: Male : 1960 Associated Diagnoses: None Author: DARLEEN KEITA APRN-SPECIALIST PHYSICIAN Preoperative Information Time of last food or [...] Medical COPD mixed type / SNOMED CT 806193536 / Confirmed Dysphagia / SNOMED CT 99187076 / Confirmed Claudication of calf muscles / SNOMED CT 894786746 / Confirmed Well adult exam / SNOMED CT 961225114 / Confirmed PAD (peripheral artery disease) / SNOMED CT 2504455605 / Confirmed Rheumatoid arthritis / SNOMED CT 557150035 / Confirmed, Active Problems (7) Claudication of calf muscles COPD mixed type Dysphagia PAD (peripheral artery disease) Rheumatoid arthritis Tobacco use Well adult exam Histories Past Medical History: Resolved Kidney stones (100GQ702-[id number]-[id number]): Resolved. Tobacco use (7712227961): Resolved. Family History: Diabetes mellitus Mother Leukemia Father Cancer Father HTN - Hypertension Mother Procedure history: Partial meniscectomy of knee (340710585). Comments: 09/07/2016 9:50 SMITH - ALEXIS MACDONALD RN Left Colonoscopy (113902122). Social History: Social & Psychosocial Habits Alcohol [...] Signs (last 24 hrs) Last Charted Temp [place]58.3 DegC (DECEMBER 21 07:53) VOJ027 mmHg (DECEMBER 21 07:53) DBP78 mmHg (DECEMBER 21 07:53) BMI28.14 (DECEMBER 21 07:50) Measurements from flowsheet : Measurements 12/21/2024 7:50 EDT Height 182 cm Admission Weight 93.2 kg Weight Method Stated [address] Body Weight 76.80 kg BSA Admission 2.15 [...] Surgeon SN - CAt - Role Performed SPECIALIST PHYSICIAN SN - CAt - Role Performed Public Health Engineer 1 SN - CAt - Role Performed Outdoor Guide 1 12/21/2024 8:17 EDT Continuous IV Infusions [...] air Oxygen Saturation 100 % Skin Description [place], Dry Skin Temperature Warm Skin Integrity Intact [...] Admission Weight 93.2 kg Weight Method Stated [address] Body Weight 76.80 kg BSA Admission 2.15 [...] Method Explanation, Printed materials Preferred Spoken Language Yemeni Preferred Written Language Yemeni Pre Procedure/Surgery Education Appropriate expectations Procedure/Surgical Teaching Evaluation Verbalizes/Nonverbally indicates understanding Patient's Current Physicians Patient's Current Physicians Discharge To, Anticipated Home independently Prev Test Positive/Diagnosis w/COVID-19 No Current Quarantine/Isolated any Illness No Any Contact with Sick Animals/Birds No Traveled Anywhere in Last 30 Days No N/A Personal Devices, Patient Valuables Glasses Admission Note-Nursing Procedure/Therapy Intake . Assessment and Plan [employer]hesi[employer] (ASA) physical status classification: Class III. Anesthetic Preoperative Plan Anesthetic technique: MAC. Postoperative pain management: Per surgeon. Informed consent: signed by patient. Digitally Signed by DARLEEN KEITA on 12/21/2024 08:27 AM [facility]11-11-2024 Note* Exam Date Time Procedure Performing Provider Status 06/15/24 1:54 PM VL Arterial Dopplers Both Legs Rest/PVR- Auth (Verified) [facility] 08-16-2024 Note ORIGINAL EXAMINATION: LOW DOSE SCREENING [...] Date: 03/20/2024 3:41:33 PM Ordering [facility] Evaluation + Plan note Diagnostic Tests Pending * Rheumatoid Factor 09/03/22 * Cyclic Citrullinated Peptide 09/03/22 [facility] Evaluation + Plan note Future Appointments Appointment Date:05/28/2024 10:00:00 AM Scheduled Provider:MARIS DURAN Location:[facility] Appointment Type: OV Future Scheduled Tests Radiology* CT Low Dose Lung Cancer Screening (LDCT) 02/27/24 [facility] Evaluation + Plan note Future Appointments Appointment Date:05/28/2024 10:00:00 AM Scheduled Provider:MARIS DURAN Location:[facility] Appointment Type:PC OV [facility] Evaluation + Plan note Future Appointments Appointment Date:11/19/2024 02:00:00 PM Scheduled Provider:MARIS DURAN Location:[facility] Appointment Type:PC OV [facility] Evaluation noteNo assessment information available [facility] Work Phone: Evaluation note* Diagnosis Onset Date Resolution Status Digital mucous cyst of finger of right hand acute Olecranon bursitis, left elbow acute [facility] Work Phone: Hospital course Narrative No data available for this section [facility] Hospital Discharge instructions No data available for this section [facility] Hospital Discharge instructions Additional Instructions Your right wrist x-ray negative today. You have tenderness slight swelling at the snuffbox. Maintain the splint, may remove for showers. Use Tylenol Motrin every 6 hours. If you have persistent pain after week, he may need reimaging for evaluation for occult fracture.[facility] Work Phone: Hospital Discharge instructionsAdditional Instructions Clinical left biceps tendinitis along with strain of your shoulder muscles. X- ray notes arthritic changes. Continue Motrin hcihle-nra-oxgfp for the next 2 days. May follow-up with orthopedic service for reevaluation.[facility] Work Phone: Progress note No data available for this section [facility] Reason for referral (narrative)No reason for referral information availableWKet[facility] Work Phone: Summary Purpose Family History No [...] Will No July 27 11:41am Power of Bedspread Cutter No July 27, 2021 11:41am Advance Directive Response Recorded Date/ Time Living Will No July 27 10:41am Power of Bedspread Cutter No July 27, 2021 10:41am Advance Directive Response Recorded Date/ Time Living Will No October 23, 2023 4:17pm Power of Bedspread Cutter No October 22 4:17pm Advance Directive Response Recorded Date/ Time Living Will No September 24 7:52pm Do you have a Healthcare Power of Bedspread Cutter? No September 24, 2024 7:52pm Advance Directive Response Recorded Date/ Time Do you have a Healthcare Power of Bedspread Cutter? No February 28, 2025 2:33am Chief Complaint [...] 38am shoulder February 28, 2025 2:32 am Chief Complaint Admit Date shoulder February 28, 2025 2:32 am PAIN- COPY PCP April 13, 2025 7:02am PAIN- COPY PCP April 16, 2025 8:22am Additional Source Comments (unrecognized sect ion and content) No Status Records FoundNo Status Records FoundNo Status Records FoundNo Status Records Found INFORMATION SOURCE (unrecogn ized section and content) DATE CREATED AUTHOR 10/14/2019 [facility] DATE CREATED AUTHOR AUTHOR'S ORGANIZ ATION 03/23/2024 [facility] ([place] DATE CREATED AUTHOR AUTHOR'S ORGANIZ ATION 02/17/2025 [facility] DATE CREATED AUTHOR AUTHOR'S ORGANIZ ATION 06/01/2025 [facility] Care Team (unrecognized sect ion and content) Care Team Personnel Name: MARIS DURAN APRN-FUSING LINE INSPECTOR Position: P4 Advanced Practice Nurse Member Role: Primary Care Physician Address: Address: [address] [place] [address]- Care Team Related Persons Name: JUANJOSE HUNTLEY Patient Care team informatio n (unrecognized section and content) Team Status: Active Member Role Status Dates Maris Duran SHIPS OR BARGES LOADER, SHIPS OR BARGES LOADER-C Family Provider Active Maris Duran SHIPS OR BARGES LOADER, SHIPS OR BARGES LOADER-C Primary Care Provider Active Team Status: Inactive Member Role Status Dates Maris Duran SHIPS OR BARGES LOADER, SHIPS OR BARGES LOADER-C Primary Care Provider Active Dr. Bernarda Young MD Attending Provider, Referring Provider Active Team Status: Inactive Member Role Status Dates Maris Duran SHIPS OR BARGES LOADER, SHIPS OR BARGES LOADER-C Primary Care Provider, Referri ng Provider Active Christopher Crain MD Attending Provider Active Team Status: Inactive Member Role Status Dates Maris Duran SHIPS OR BARGES LOADER, SHIPS OR BARGES LOADER-C Primary Care Provider Active Dr. Salvatore Larson MD Attending Provider Active Team Status: Inactive Member Role Status Dates Maris Duran SHIPS OR BARGES LOADER, SHIPS OR BARGES LOADER-C Primary Care Provider Active Dr. Huber Chowdary DO Emergency Provider Active Team Status: Inactive Member Role Status Dates Maris Duran SHIPS OR BARGES LOADER, SHIPS OR BARGES LOADER-C Primary Care Provider Active Dr. Huber Chowdary DO Attending Provider, Emergency Provide r Active Team Status: Active Member Role Status Dates Maris Duran SHIPS OR BARGES LOADER, SHIPS OR BARGES LOADER-C Primary Care Provider Active Team Status: Inactive Member Role Status Dates Maris Duran SHIPS OR BARGES LOADER, SHIPS OR BARGES LOADER-C Primary Care Provider Active Start: July 31, 2024 End: July 31, 2024 Dr. Bernarda Young MD Attending Provider Active Start: July 31, 2024 End: July 31, 2024 Dr. Bernarda Young MD Referring Provider Active Start: July 31, 2024 End: July 31, 2024 Team Status: Inactive Member Role Status Dates Maris Duran NP, SHIPS OR BARGES LOADER-C Primary Care Provider Active Start: September 24, 2024 End: September 24, 2024 Jace Landeros MD Attending Provider Active Star t: September 24, 2024 End: September 24, 2024 Jace Landeros MD Emergency Provider Active Star t: September 24, 2024 End: September 24, 2024 Team Status: Inactive Member Role Status Dates Maris Duran SHIPS OR BARGES LOADER, SHIPS OR BARGES LOADER-C Primary Care Provider Active Start: November 02, 2024 End: November 02, 2024 Dr. Bernarda Young MD Attending Provider Active Start: November 02, 2024 End: November 02, 2024 Dr. Bernarda Young MD Referring Provider Active Start: November 02, 2024 End: November 02, 2024 Team Status: Inactive Member Role Status Dates Maris Duran SHIPS OR BARGES LOADER, SHIPS OR BARGES LOADER-C Primary Care Provider Active Start: January 22, 2025 End: January 22, 2025 Dr. Bernarda Young MD Attending Provider Active Start: January 22, 2025 End: January 22, 2025 Dr. Bernarda Young MD Referring Provider Active Start: January 22, 2025 End: January 22, 2025 Team Status: Active Member Role/Relationship Status Dates Maris Duran SHIPS OR BARGES LOADER, SHIPS OR BARGES LOADER-C Primary Care Provider Active Team Status: Inactive Member Role/Relationship Status Dates Maris Duran SHIPS OR BARGES LOADER, SHIPS OR BARGES LOADER-C Primary Care Provider Active Start: November 02, 2024 End: November 02, 2024 Dr. Bernarda Young MD Attending Provider Active Start: November 02, 2024 End: November 02, 2024 Dr. Bernarda Young MD Referring Provider Active Start: November 02, 2024 End: November 02, 2024 Team Status: Inactive Member Role/Relationship Status Dates Maris Duran SHIPS OR BARGES LOADER, SHIPS OR BARGES LOADER-C Primary Care Provider Active Start: January 22, 2025 End: January 22, 2025 Dr. Bernarda Young MD Attending Provider Active Start: January 22, 2025 End: January 22, 2025 Dr. Bernarda Young MD Referring Provider Active Start: January 22, 2025 End: January 22, 2025 Team Status: Inactive Member Role/Relationship Status Dates Maris Duran SHIPS OR BARGES LOADER, SHIPS OR BARGES LOADER-C Primary Care Provider Active Start: February 28, 2025 End: February 28, 2025 Dr. Huber Chowdary DO Emergency Provider Active Start : February 28, 2025 End: February 28, 2025 Team Status: Active Member Role/Relationship Status Dates Maris Duran SHIPS OR BARGES LOADER, SHIPS OR BARGES LOADER-C Primary care physician Active Team Status: Inactive Member Role/Relationship Status Dates Maris Duran SHIPS OR BARGES LOADER, SHIPS OR BARGES LOADER-C Primary care physician Active Start: January 22, 2025 End: January 22, 2025 Dr. Bernarda Young MD Attending physician Active Start: January 22, 2025 End: January 22, 2025 Dr. Bernarda Young MD Referring Provider Active Start: January 22, 2025 End: January 22, 2025 Team Status: Inactive Member Role/Relationship Status Dates Maris Duran NP, SHIPS OR BARGES LOADER-C Primary care physician Active Start: February 28, 2025 End: February 28, 2025 Dr. Huber Chowdary DO Attending physician Active Star t: February 28, 2025 End: February 28, 2025 Dr. Huber Chowdary DO Emergency Department Physician Active Start: February 28, 2025 End: February 28, 2025 Team Status: Inactive Member Role/Relationship Status Dates Maris Duran NP, SHIPS OR BARGES LOADER-C Primary care physician Active Start: April 13, 2025 End: April 13, 2025 Dr. Bernarda Young MD Attending physician Active Start: April 13, 2025 End: April 13, 2025 Dr. Bernarda Young MD Referring Provider Active Start: April 13, 2025 End: April 13, 2025 Team Status: Inactive Member Role/Relationship Status Dates Maris Duarn NP, SHIPS OR BARGES LOADER-C Primary care physician Active Start: April 16, 2025 End: April 16, 2025 Dr. Bernarda Young MD Attending physician Active Start: April 16, 2025 End: April 16, 2025 Dr. Bernarda Young MD Referring Provider Active Start: April 16, 2025 End: April 16, 2025 Goals (unrecognized section and content) Goals [...] BE BASED ON THE PRIMARY CLINICAL RECORDS. [employer] provides no warranty or guarantee of the accuracy or completeness of information in this document.
[2025-06-11 10:16] LABS: Hematocrit 41.9 % (40-54); Hemoglobin 14.0 g/dL (13.0-16.5); Immature Granulocytes Count 0.080 X10^3/uL (0.0-0.0); Mean Corp Hgb Conc 33.4 g/dL (32-36); Mean Corpuscular Volume 91.5 fL (80-94); Mean Platelet Vol. 10.2 fl (6.2-12.0); NRBC Flagged by Analyzer 0 % (0-5); Platelet Count 271 K/mm3 (150-450); RBC Distribution Width CV 14.3 % (11.6-14.6); RBC Distribution Width SD 47.1 fl (35.1-43.9); Red Blood Count 4.58 M/mm3 (4.6-6.2); White Blood Count 7.0 K/mm3 (4.4-11.0)
[2025-06-11 10:38] LABS: AST(SGOT) 16 U/L (<=37); Alanine Aminotransfer ALT/SGPT 12 U/L (<=46); Albumin, Serum 3.7 g/dL (3.4-4.8); Alkaline Phosphatase 85 U/L (40-129); Anion Gap 8 (5-15); BUN 15 mg/dL (4-19); BUN/Creat Ratio 14.0 RATIO (10-20); Calcium,Total 9.0 mg/dL (7.6-11.0); Carbon Dioxide 26.0 mmol/L (21.0-32.0); Chloride 106 mmol/L (98-108); Globulin 3.1 g/dL (2.2-4.2); Glucose 98 mg/dL (70-99); Potassium 4.5 mmol/L (3.3-5.1)
== END | disposition home or self-care (01) ==
LOC: MTLAB 08:34
PROVIDERS: PCP Nurse Practitioner Primary Care; Referring Provider Internal Medicine Rheumatology; Visit Provider Internal Medicine Rheumatology
DX: M05.70 Rheumatoid arthritis with rheumatoid factor of unspecified site without organ or systems involvement (principal); Z79.899 Other long term (current) drug therapy
CPT/HCPCS: 36415; 80053; 85025

== ENCOUNTER 2025-07-23 15:39 | Emergency (ER) | payer BC, SELFPAY ==
[2025-07-23] VITALS (10 sets, daily range): BP systolic 100–168; BP diastolic 59–97; PULSE 111–135; RESP 14–28; TEMP 36.8–36.9; O2SAT 91–100; BMI 27.3
--- NOTE | 2025-07-23 15:59 | RAD_ITS ---
PROCEDURE: CHEST PA AND LATERAL 07/23/2025 REASON FOR EXAM: SOB TECHNIQUE: Procedure Code: RADCXR Modality: DX Procedure: CHEST PA AND LATERAL COMPARISON: 09/24/2024 FINDINGS: LUNGS AND PLEURA: Strand-like opacities in both lung bases. Mild costophrenic angle blunting bilaterally, new since the prior study. No pneumothorax. HEART AND MEDIASTINUM: The cardiac silhouette is mildly enlarged. The mediastinal contour is normal. BONES: No acute osseous abnormality. RAD/Chest PA and Lateral IMPRESSION: 1. Small pleural effusions bilaterally. 2. Strand-like bibasilar opacities, likely atelectasis with infection not excl uded. Reading Location: [id number]
--- NOTE | 2025-07-23 15:59 | EKG12_ITS ---
Test Reason : Blood Pressure : */* mmHG Vent. Rate : 126 BPM Atrial Rate : 126 BPM P-R Int : 162 ms QRS Dur : 82 ms QT Int : 314 ms P-R-T Axes : 66 -6 5 degrees QTcB Int : 454 ms Sinus tachycardia Possible Inferior infarct (cited on or before 24-Sep-2024) Abnormal ECG Low voltage QRS Reconfirmed by Estrella Ca ([id number]), television news video editor JASON MUSTAFA ([id number]) on 07/26/2025 10:17:28 AM Also confirmed by Estrella Ca ([id number]), television news video editor JASON MUSTAFA ([id number]) on 07/27/2025 8:14:28 AM Referred By: BB Confirmed By: Estrella Ca
--- NOTE | 2025-07-23 16:01 | EDS_ITS ---
HPI History of Present Illness Chief Complaint: Shortness of Breath Informant: patient and PCP Narrative Narrative: Patient is a 64-year-old male with a history of COPD presenting with dyspnea, cough, and fatigue. - Reports dyspnea, cough, and fatigue beginning a few weeks ago, initially thought to be a viral illness. Dyspnea began 2-3 days after initial symptoms, progressively worsening; exacerbated by walking long distances and climbing stairs, but not by walking short distances or lying down. Denies chest discomfort with dyspnea, but occasionally experiences brief left-sided chest pain if exertion is prolonged; resolves with rest. - Cough is productive of thick, clear sputum; severe coughing episodes induce gagging and emesis at times. Denies hemoptysis. Completed a course of amoxicillin for a presumed infection; reports improvement but persistent cough. Given this, his PCP performed a chest x-ray that showed bilateral pleural effusions, she followed this up with a CT of the chest that apparently showed those in addition to a moderate pericardial effusion, for which she sent him to the ER today. - Associated symptoms include fatigue and decreased oral intake due to coughing- induced emesis; able to tolerate soup and water. - Reports a brief period of diarrhea, now resolved. - Denies LE edema, syncope, or presyncope. - not on home oxygen for COPD. - Denies history of cardiac issues, cancer, thyroid problems, or abdominal pain. - Quit smoking one year ago. [facility] Medical History (Updated 07/23/25 @ 19:[address] Kannan Boss MD) COPD (chronic obstructive pulmonary disease) Olecranon bursitis, left elbow Digital mucous cyst of finger of right hand Rheumatoid arthritis Meniscal injury Home Medications ?Medication ?Instructions ?Recorded ?Last Taken ?Type methotrexate sodium 2.5 mg tablet 2.5 mg PO QWEEK 12/04 Unknown History acetaminophen 500 mg tablet 500 mg PO Q6H PRN 09/06/23 Unknown History (Tylenol Extra Strength) folic acid 800 mcg tablet 0.8 mg PO DAILY 09/06/23 Unk nown History benzonatate 100 mg capsule 200 mg (2 x 100 mg) PO TID PRN 09/24/24 Unknown Rx cough #30 caps naproxen 500 mg tablet 500 mg PO BID PRN PRN pain # 20 tabs 09/24/24 Unknown Rx ibuprofen 600 mg tablet 600 mg PO Q6H PRN PRN pain # 20 02/28/25 Unknown Rx TABLETS Allergy/AdvReac Type Severity Reaction Status Date / Time cat dander Allergy Itching Verified 07/23/25 15:40 Social History (Updated 07/23/25 @ 16:09 by Aretha Zamora) housing: house Smoking Status: Former smoker ROS ROS ED Constitutional Constitutional ED: Reports fatigue; Denies chills or fever(s) Eyes Eyes: Denies change in vision or diplopia ENT ENT ED: Denies rhinorrhea or sore throat Cardiovascular Cardiovascular: Denies chest pain, flutter in chest, lightheadedness, orthopnea, palpitations, pedal edema or syncope Respiratory/Chest Respiratory/Chest: Reports cough, dyspnea, dyspnea on exertion and sputum; Denies orthopnea Gastrointestinal Gastrointestinal: Denies abdominal pain, diarrhea, nausea or vomiting Genitourinary Genitourinary ED: Denies dysuria or hematuria Musculoskeletal Musculoskeletal: Denies back pain or neck pain Integumentary Denies abscess or rash Neurologic Neurologic: Denies headache(s), paresthesias or weakness Psychiatric Psychiatric: Denies anxiety or suicidal thoughts EXAM Physical Exam Const Vital Signs: 07/23/25 15:39 07/23/25 16:07 07/23/25 16:07 Temperature 98.2 F 98.2 F Temperature Source Oral Oral Pulse Rate 135 H 122 H Respiratory Rate 14 25 H Respiratory Effort Respiratory Depth Respiratory Pattern Blood Pressure 168/88 H 125/70 H Blood Pressure Mean 114 88 Pulse Ox 100 98 96 Oxygen Delivery Method Room Air Room Air Room Air 07/23/25 16:07 07/23/25 16:58 07/23/25 17:00 Temperature 98.4 F 98.4 F Temperature Source Oral Oral Pulse Rate 120 H 119 H Respiratory Rate 20 H 24 H Respiratory Effort Normal Non-Labored Respiratory Depth Normal Respiratory Pattern Normal Blood Pressure 100/59 L 118/72 Blood Pressure Mean 72 87 Pulse Ox 98 98 Oxygen Delivery Method Room Air Room Air 07/23/25 18:00 07/23/25 19:00 Temperature 98.2 F Temperature Source Oral Pulse Rate 117 H 112 H Respiratory Rate 26 H 18 Respiratory Effort Respiratory Depth Respiratory Pattern Blood Pressure 104/80 119/77 Blood Pressure Mean 88 91 Pulse Ox 99 97 Oxygen Delivery Method Room Air Room Air Positive well nourished and well developed General Appearance ED: well developed and NAD HEENT Reports moist mucous membranes normocephalic and atraumatic Eyes PERRL and EOMs intact bilaterally Neck full ROM, supple and no JVD Resp normal respiratory effort and clear to auscultation bilaterally Resp Narrative: Converses in full sentences without difficulty or distress Cardio regular rate, regular rhythm and no murmurs Rate: tachycardic GI non-tender and non-distended Auscultation: normoactive bowel sounds Palpation: soft Back/Spine no CVA tenderness General Back: other FROM Extremity normal to inspection General Extremety ED: Negative for edema, pulses abnormal or tenderness General Extremity: Negative for edema or pulses abnormal Neuro oriented x3, CN's II-XII intact bilaterally and no sensory deficits noted Sensorium / Orientation: awake and alert Motor Exam: strength 5/5 throughout Psych mental status grossly normal Skin no rashes or lesions noted and no wounds MDM MDM MDM Narrative Medical decision making narrative: Assessment: The patient is a 64-year-old male with PMH of COPD and personal history of nicotine dependence presenting for several-week history of progressive dyspnea, productive cough, and fatigue. Outpatient CT thorax today shows moderate pericardial effusion with pericardial thickening concerning for pericarditis, moderate bilateral pleural effusions with compressive atelectasis, and mild mediastinal adenopathy. Chest X-ray here confirms small bilateral pleural effusions. Cardiac enzymes are negative x2 and EKG not provided; persistent resting tachycardia noted. Mild leukocytosis (13.7) without bands present; thyroid panel within normal limits, arguing against hypothyroidism as an etiology of the effusion. Given imaging findings and laboratory data, symptomatic moderate pericardial effusion with possible inflammatory or malignant etiology is most likely and will require pericardiocentesis for diagnostic and therapeutic purposes, a capability not available at this facility. Plan: - Discussed CT and CXR findings with patient, including need for pericardiocentesis and higher-level care; patient agrees. - Arrange transfer to tertiary center [facility] for cardiothoracic management; bed accepted. - Provided condition and transfer education; questions answered and patient ve rbalizes understanding. Diagnostics: - CT thorax without contrast (outside facility, report obtained): moderate pericardial effusion with pericardial thickening; moderate bilateral pleural effusions with compressive atelectasis; mild mediastinal adenopathy; no definite malignancy. - Chest X-ray, 2 views: small bilateral pleural effusions; no acute infiltrate. Independently interpreted by Kannan canales. - Labs: cardiac enzymes negative x2; WBC 13.7 K/?L, no bands; renal function and liver enzymes within normal limits. - Thyroid panel: TSH 3.14 ?IU/mL, T4 8.4 ?g/dL, free T3 1.9 pg/mL (low-normal) ? overall euthyroid. Consultations: - Dr. Ca, cardiology ? recommends transfer for pericardiocentesis at facility with cardiothoracic capability. - Dr. Valdez, [facility] ? accepts transfer. Also discussed with cardiology who is in agreement with stepdown admission/transfer. Portions of this note were generated using voice recognition software ([employer]). I have reviewed the contents and every effort has been made to ensure accuracy; however, inadvertent errors in grammar, spelling, punctuation, or word choice may occur, that were not noted before signing the document and should not alter the intended clinical meaning. History & Record Review Additional record(s) reviewed:: Prior outpatient record (CT thorax, 07/23/25 - see above) Lab Data Attestation: I reviewed the patient's lab results. Labs: Laboratory Results - last 24 hr 07/23/25 07/23/25 15:58 17:43 WBC 13.7 H RBC 4.23 L Hgb 13.1 Hct 38.2 L MCV 90.3 MCH 31.0 MCHC 34.3 RDW Std Deviation 43.2 RDW Coeff of Lynda 13.2 Plt Count 446 MPV 10.4 Immature Gran % (Auto) 0.800 Neut % (Auto) 80.2 H Lymph % (Auto) 10.5 L Wise % (Auto) 8.0 Eos % (Auto) 0.1 Baso % (Auto) 0.4 Absolute Neuts (auto) 11.0 H Absolute Lymphs (auto) 1.44 Nucleated RBC % 0 Sodium 136 Potassium 3.8 Chloride 99 Carbon Dioxide 23.2 Anion Gap 14 BUN 13 Creatinine 1.03 Estim Creat Clear Calc 79.53 Est GFR (MDRD) Non-Af 81 BUN/Creatinine Ratio 12.8 Glucose 93 Calcium 9.0 Troponin T High Sens 13 Troponin T Hi Sens 2 Hr 10 NT pro BNP II 144 TSH 3.140 Thyroxine (T4) 8.4 Free T3 pg/dL 1.9 L Radiography Diagnostic Testing: Clinical Impression(s) from Imaging Studies Chest X-Ray 07/23/25 15:59 IMPRESSION: 1. Small pleural effusions bilaterally. 2. Strand-like bibasilar opacities, likely atelectasis with infection not excluded. Reading Location: [facility] Rhythm Strip Rhythm Strip: Sinus Tach Rate: 120 Ectopy: None EKG Initial EKG: Interpretation: No Acute Injury Pattern and Sinus Tachycardia Comments: No ST elevations to suggest pericarditis. Intervals normal, axis normal. Prior EKG tracings: available for review Prior: Unchanged Management Discussion w/another healthcare provider: Studio Receptionist ([facility] - see above) Discharge Plan Triage Chief Complaint: Shortness of Breath ED Provider: Kannan Boss Dx/Rx/DC Orders Clinical Impression: Pericardial effusion, Bilateral pleural effusion, Dyspnea on exertion, Mediastinal adenopathy, COPD (chronic obstructive pulmonary disease) Prescriptions: No Action methotrexate sodium 2.5 mg tablet 2.5 mg PO QWEEK folic acid 800 mcg tablet 0.8 mg PO DAILY acetaminophen [Tylenol Extra Strength] 500 mg tablet 500 mg PO Q6H PRN benzonatate 100 mg capsule 200 mg PO TID PRN (Reason: cough) Qty: 30 0RF naproxen 500 mg tablet 500 mg PO BID PRN PRN (Reason: pain) Qty: 20 0RF ibuprofen 600 mg tablet 600 mg PO Q6H PRN PRN (Reason: pain) Qty: 20 0RF Primary Care Provider: Maris Kolb NP Referrals: Maris Kolb NP, SLUDGE CONTROL OPERATOR-C [Primary Care Provider, Family Practice] Print Language: Hungarian Disposition Disposition: Acute Care Hospital Discharge Location: [facility]
[2025-07-23 16:12] LABS: Hematocrit 38.2 % (40-54); Hemoglobin 13.1 g/dL (13.0-16.5); Immature Granulocytes Count 0.110 X10^3/uL (0.0-0.0); Mean Corp Hgb Conc 34.3 g/dL (32-36); Mean Corpuscular Volume 90.3 fL (80-94); Mean Platelet Vol. 10.4 fl (6.2-12.0); NRBC Flagged by Analyzer 0 % (0-5); Platelet Count 446 K/mm3 (150-450); RBC Distribution Width CV 13.2 % (11.6-14.6); RBC Distribution Width SD 43.2 fl (35.1-43.9); Red Blood Count 4.23 M/mm3 (4.6-6.2); White Blood Count 13.7 K/mm3 (4.4-11.0)
--- NOTE | 2025-07-23 16:33 | CM.ED ---
Social work Reason for referral: PCP resources Referral source: Aretha Carias RN asked SW to provide new PCP resources to patient based on patient request. SW entered patient's room, introducing self and role at [facility]. Patient welcomed SW visit and confirmed wanting new PCP resources, specifically associated here at [facility]. Patient accepted resources of [facility] Provider Directory and Monica Chavis information in case [facility] Providers did not work for patient. Patient denied further needs at this time. Shannon Boyer, SPOTTER DRIVER, [employer] RESEARCH ENGINEER
[2025-07-23 16:37] LABS: Anion Gap 14 (5-15); BUN 13 mg/dL (4-19); BUN/Creat Ratio 12.8 RATIO (10-20); Calcium,Total 9.0 mg/dL (7.6-11.0); Carbon Dioxide 23.2 mmol/L (21.0-32.0); Chloride 99 mmol/L (98-108); Estimated Creatinine Clearance 79.53 ml/min (50-250); Free T3 1.9 pg/mL (2.18-3.98); Glucose 93 mg/dL (70-99); Potassium 3.8 mmol/L (3.3-5.1); Pro- Brain NATRIURETIC PEPTIDE 144 pg/mL (<=900); T4 Total, Thyroxin 8.4 ug/dL (4.5-12.1); Troponin T High Sensitivity 13 ng/L (<=22)
[2025-07-23 18:20] LABS: Troponin T High Sens 2 HR 10 ng/L (<=22)
--- NOTE | 2025-07-23 18:59 | ED.RN ---
verbal ok to dc sepsis screen from dr. harkins
[2025-07-23 20:55] LABS: Troponin T High Sens 4 HR 9 ng/L (<=22)
--- NOTE | 2025-07-23 21:53 | ED.RN ---
Patient hit call light and was noted to be cursing at staff using vulgar language.
--- NOTE | 2025-07-23 22:01 | ED.RN ---
Patient provided with water at this time.
[2025-07-24] VITALS (8 sets, daily range): BP systolic 97–117; BP diastolic 56–81; PULSE 104–112; RESP 21–24; TEMP 36.8; O2SAT 92–97
--- NOTE | 2025-07-24 03:00 | ED.RN ---
Report called to [facility].
== END 2025-07-24 08:30 | disposition short-term general hospital (02) ==
PROVIDERS: Emergency Provider Emergency Medicine; PCP Nurse Practitioner Primary Care; Visit Provider Emergency Medicine
DX: J90 Pleural effusion, not elsewhere classified (principal); M06.9 Rheumatoid arthritis, unspecified; J44.9 Chronic obstructive pulmonary disease, unspecified; R59.0 Localized enlarged lymph nodes; Z87.891 Personal history of nicotine dependence
CPT/HCPCS: 71046; 80048; 83880; 84436; 84443; 84481; 84484; 85025; 93005; 99284; A4216